=== PATIENT | female | born 1935 | race Caucasian/White ===

== ENCOUNTER → 2019-10-25 14:41 | Outpatient (BNVA) | payer MEDICARE, MEDICAID, SELFPAY | PROVIDERS: Family Provider Family Medicine; PCP Family Medicine; Visit Provider Anesthesiology | DX: M47.817 Spondylosis without myelopathy or radiculopathy, lumbosacral region (principal); M51.36 Other intervertebral disc degeneration, lumbar region; F17.210 Nicotine dependence, cigarettes, uncomplicated; Z79.891 Long term (current) use of opiate analgesic | CPT/HCPCS: 99214 ==

== ENCOUNTER 2019-10-30 13:35 | Emergency (ER) | payer MEDICARE, MEDICAID, SELFPAY ==
[2019-10-30 13:36] VITALS: BP 155/87; PULSE 119; RESP 19; TEMP 37.1; O2SAT 85; BMI 16.1
[2019-10-30 13:49] VITALS: O2SAT 93
--- NOTE | 2019-10-30 13:50 | ED_ITS ---
Entered by Masood Das, acting as scribe for Ramiro Yen DO HPI - Altered Mental Status General: Chief Complaint: Altered Mental Status Stated Complaint: AMS Time Seen by Provider: 10/30/19 14:00 History of Present Illness: HPI narrative: 84 yo female presents with altered mental status. states that pt was dazed and incoherent last night. states that pt has home health nurses that come to check on her, they couldn't get her to respond appropriately this morning. Pt states that she has back pain, states that this is chronic for her. Pt denies falling recently. Pt states that she has a productive cough. MD complaint: altered mental status Severity: moderate Associated symptoms: Deny auditory hallucinations, visual hallucinations, depression, homicidal ideation or suicidal ideation Treatments prior to arrival: oxygen Review of Systems Const: Denies: fever, chills, body aches, fatigue, malaise or night sweats Eyes: Denies: change in vision or blurry vision ENMT: Denies: throat pain, oral sores/lesions, dental pain, nasal discharge or nasal congestion Card: Denies: chest pain, palpitations, irregular heart rhythm, edema, syncope, shortness of breath on exertion, shortness of breath when lying down or leg pain with exertion Resp: Reports: productive cough and wheezing; Denies: shortness of breath or non-productive cough GI: Reports: abdominal pain; Denies: nausea, vomiting, vomiting blood, coffee grounds in vomit, difficulty swallowing, heartburn/indigestion, diarrhea, constipation, cramping, blood in stool or black tarry stool : Denies: flank pain, painful urination, urinary frequency, urinary urgency, urinary incontinence or blood in urine Musc: Reports: back pain; Denies: neck pain, extremity pain, extremity swelling, joint pain or joint swelling Skin/Breast: Denies: rash, itching or redness Neuro: Denies: headache, numbness in extremities, weakness in extremities, changes in sensation, lack of coordination, difficulty walking, frequent falls, dizziness, vertigo or confusion Psych: Denies: anxiety, depression, loss of interest, visual hallucinations, auditory hallucinations, suicidal ideation or homicidal ideation Endo: Denies: excessive urination, excessive thirst, tired all the time or cold intolerance Jack/Lymph: Denies: easy bruising, easy bleeding, petechiae, enlarged lymph nodes or tender lymph nodes PFSH ED PFSH: Medical History Back pain with radiation DDD (degenerative disc disease), lumbar Encounter for long-term opiate analgesic use Spondylosis without myelopathy or radiculopathy, lumbosacral region Surgical History History of endarterectomy Hx of cholecystectomy Hx of hysterectomy, total Hx of kyphoplasty Family History Other CAD (coronary artery disease) Social History Smoking and tobacco status: current every day smoker cigarettes Second hand smoke exposure: Yes Alcohol intake: never History of recent travel: No Physical Exam HENMT: COMMON NORMALS: normocephalic, head/scalp atraumatic, EAC's normal, TM's normal bilaterally, external nose normal, moist oral mucous membranes and oropharynx normal HEAD & SCALP: normocephalic and atraumatic NOSE: external nose normal EXTERNAL AUDITORY CANAL: EAC's normal TYMPANIC MEMBRANE: TM's normal bilaterally MOUTH: oral and palatal mucosa normal, lip normal and tongue normal THROAT: posterior oropharynx normal and tonsils normal Eye: COMMON NORMALS: PERRL, EOMs intact bilaterally, conjunctivae normal and no scleral icterus CONJUNCTIVA: Yes conjunctivae normal PUPIL: Yes PERRL Neck/C-Spine: COMMON NORMALS: full ROM, no lymphadenopathy, supple, no meningeal signs and thyroid normal THYROID: thyroid normal and asymmetrical Lymph: LYMPHATIC: no lymphadenopathy noted Resp: EFFORT & INSPECTION: Yes tachypneic AUSCULTATION: rales bilateral and diminished lung sounds Cardio: COMMON NORMALS: regular rate and regular rhythm RATE: regular rate RHYTHM: regular rhythm HEART SOUNDS: no murmurs GI: COMMON NORMALS: normal to inspection, nondistended, normoactive bowel sounds, soft to palpation and no hepatosplenomegaly PALPATION: Yes soft, Yes tender (diffuse) and Yes no hepatosplenomegaly : COMMON NORMALS: Yes no CVA tenderness BLADDER/KIDNEY EXAM: Yes no CVA tenderness Back/Pelvis: COMMON NORMALS: no CVA tenderness LUMBAR SPINE/LOWER BACK: Yes pain with ROM SACRUM: tenderness Extremity: COMMON NORMALS: no clubbing, cyanosis or edema, no calf tenderness and no pedal edema Neuro: MENINGEAL SIGNS: Yes no meningeal signs Skin: COMMON NORMALS: no rashes or lesions noted and skin turgor normal GENERAL SKIN EXAM: no rashes or lesions noted and turgor normal Course ED course: Work-up done and was going to do a head CT with the patient is back at her baseline is feeling fine is requesting home states she is back to her normal self they would both like to leave. Did encourage her to drink more fluids as her BUN is high encouraged her to follow-up with her primary care doctor. Discussed that I do not have an explanation for her elevated white count they expressed understanding this but wished to leave anyway. Vital Signs: Vital signs: Vital Signs Temperature 98.7 F 10/30/19 13:36 Pulse Rate 89 10/30/19 17:40 Respiratory Rate 16 10/30/19 17:40 Blood Pressure 175/82 10/30/19 17:40 Pulse Oximetry 95 10/30/19 17:40 MDM - Altered Mental Status Lab Data: Labs: Lab Results 10/30/19 10/30/19 10/30/19 Range/Units 14:15 14:25 14:25 WBC 17.1 H (4.0-10.0) 10^3/ uL RBC 4.54 (4.1-5.3) 10^6/u L Hgb 13.9 (11.5-15.3) g/dL Hct 41.1 (37.0-47.0) % MCV 90.5 (81-99) fL MCH 30.6 (28.0-34.0) pg MCHC 33.8 (30.0-36.0) g/dL RDW 14.1 (12.1-15.1) % Plt Count 297 (130-400) 10^3/c mm MPV 10.3 (7.4-10.4) fL Neut % (Auto) 91.3 % Lymph % (Auto) 3.6 % Gladwin % (Auto) 4.5 % Eos % (Auto) 0.0 % Baso % (Auto) 0.1 % Neut # (Auto) 15.6 H (1.8-7.7) 10^3/u L Lymph # (Auto) 0.6 L (0.8-4.8) 10^3/u L Gladwin # (Auto) 0.8 (0.2-0.9) 10^3/u L Eos # (Auto) 0.0 (0.0-0.8) 10^3/u L Baso # (Auto) 0.0 (0.0-0.1) 10^3/u L Nucleated RBC % (a uto) 0 % Nucleated RBCs # 0.0 /100WBC Sodium 131 L (136-145) mmol/L Potassium 4.7 (3.5-5.1) mmol/L Chloride 90 L (98-107) mmol/L Carbon Dioxide 27 (22-29) mmol/L Anion Gap 18.7 (5-19) BUN 33 H (8-23) mg/dL Creatinine 1.1 H (0.5-0.9) mg/dL Glucose 106 (65-115) mg/dL Calcium 10.2 (8.5-10.5) mg/dL Total Bilirubin 0.7 (0.15-1.2) mg/dL AST 31 (0-32) U/L ALT 16 (0-33) U/L Alkaline Phosphata se 109 H (35-105) IU/L Total Protein 8.0 (6.6-8.7) g/dL Albumin 3.8 (3.5-5.2) g/dL Globulin 4.2 (1.3-4.6) g/dL Urine Color Yellow (Yellow) Urine Appearance Sl hazy (CLEAR) Urine pH 5 (5-7) Ur Specific Gravit y 1.010 (1.005-1.030) Urine Protein 1+ H (Negative) Urine Glucose (UA) Norm (Normal) Urine Ketones 1+ H (Negative) Urine Occult Blood Neg (Negative) Urine Nitrate Negative (Negative) Urine Bilirubin 1+ H (NEGATIVE) Prot Sulfosalicyli c Acd Negative Urine Urobilinogen Norm (Negative) mg/dL Ur Leukocyte Sera ase Negative (Negative) Urine RBC None (0-2) /hpf Urine WBC 0-4 H (0-5) /hpf Ur Squamous Epith Cells None (0-5) Urine Bacteria Trace (NONE) Influenza Type A A g (Negative) POC Influenza B Ag (Negative) 10/30/19 Range/Units 14:25 WBC (4.0-10.0) 10^3/ uL RBC (4.1-5.3) 10^6/u L Hgb (11.5-15.3) g/dL Hct (37.0-47.0) % MCV (81-99) fL MCH (28.0-34.0) pg MCHC (30.0-36.0) g/dL RDW (12.1-15.1) % Plt Count (130-400) 10^3/c mm MPV (7.4-10.4) fL Neut % (Auto) % Lymph % (Auto) % Gladwin % (Auto) % Eos % (Auto) % Baso % (Auto) % Neut # (Auto) (1.8-7.7) 10^3/u L Lymph # (Auto) (0.8-4.8) 10^3/u L Gladwin # (Auto) (0.2-0.9) 10^3/u L Eos # (Auto) (0.0-0.8) 10^3/u L Baso # (Auto) (0.0-0.1) 10^3/u L Nucleated RBC % (a uto) % Nucleated RBCs # /100WBC Sodium (136-145) mmol/L Potassium (3.5-5.1) mmol/L Chloride (98-107) mmol/L Carbon Dioxide (22-29) mmol/L Anion Gap (5-19) BUN (8-23) mg/dL Creatinine (0.5-0.9) mg/dL Glucose (65-115) mg/dL Calcium (8.5-10.5) mg/dL Total Bilirubin (0.15-1.2) mg/dL AST (0-32) U/L ALT (0-33) U/L Alkaline Phosphata se (35-105) IU/L Total Protein (6.6-8.7) g/dL Albumin (3.5-5.2) g/dL Globulin (1.3-4.6) g/dL Urine Color (Yellow) Urine Appearance (CLEAR) Urine pH (5-7) Ur Specific Gravit y (1.005-1.030) Urine Protein (Negative) Urine Glucose (UA) (Normal) Urine Ketones (Negative) Urine Occult Blood (Negative) Urine Nitrate (Negative) Urine Bilirubin (NEGATIVE) Prot Sulfosalicyli c Acd Urine Urobilinogen (Negative) mg/dL Ur Leukocyte Sera ase (Negative) Urine RBC (0-2) /hpf Urine WBC (0-5) /hpf Ur Squamous Epith Cells (0-5) Urine Bacteria (NONE) Influenza Type A A g Negative (Negative) POC Influenza B Ag Negative (Negative) Discharge Plan Discharge Patient Disposition: Home, Self-Care Clinical Impression: Altered mental status, Medication side effect Condition: Stable Prescriptions: No Action tramadol 50 mg tablet 50 mg PO Q6H PRN (Reason: Pain) RF: 0 guaifenesin [Mucinex] 600 mg tablet extended release 12hr 600 mg PO BID PRN (Reason: Congestion) RF: 0 diclofenac sodium [Voltaren] 1 % gel 4 gm TOPICAL QID PRN (Reason: UNKNOWN) RF: 0 Movantik 25 mg tablet 25 mg PO QAM RF: 0 docusate sodium [Colace] 100 mg capsule 200 mg PO PRN RF: 0 furosemide [Lasix] 20 mg tablet 20 mg PO DAILY PRN (Reason: Edema) RF: 0 cholecalciferol (vitamin D3) [Vitamin D3] 25 mcg (1,000 unit) capsule 25 mcg PO DAILY RF: 0 aspirin 81 mg tablet,chewable 81 mg PO DAILY RF: 0 hydromorphone 2 mg tablet 2 mg PO QID 30 Days Qty: 120 RF: 0 pregabalin [Lyrica] 25 mg capsule 25 mg PO BID 30 Days Qty: 60 RF: 0 alendronate 70 mg tablet 70 mg PO .ONCE WEEKLY Qty: 12 RF: 0 lisinopril 5 mg tablet 5 mg PO BID Qty: 60 RF: 3 tizanidine 2 mg capsule 2 mg PO Q6H PRN (Reason: muscle spasticity) Qty: 30 RF: 0 Virt-Caps 1 mg capsule 1 cap PO DAILY RF: 0 Discharge Orders: Discharge Order (Routine); Ordered 10/30/19 Ordered By: Ramiro Yen Referrals: Herlinda Angulo DO [Primary Care Provider] - Discharge Diet: Usual diet Discharge Activity: Resume usual activity Activity Restrictions/Additional Instructions: Recommend you follow-up with your primary care doctor this week to review medications. Discharge Date/Time: 10/30/19 17:51 Coding Level of Care Code ED Steward/Stewardess Second Class for Chg Fwd Exam Comprehensive The documentation recorded by the Thiago hardy Kialy, accurately reflects the service I personally performed and the decisions made by , Ramiro Yen DO Oct 30, 2019 13:35
--- NOTE | 2019-10-30 14:07 | XR_ITS ---
WS: [id number] XR lumbar spine 2-3V* [id number] REASON FOR EXAM: pain FINDINGS: Arteriosclerotic changes with tortuosity of the descending thoracic aorta. Compression deformities with vertebral plasty T 11, T12, L1. Vertebral plasty L4-and L5. XR/XR lumbar spine 2-3V* [id number] IMPRESSION: Multiple vertebral plasties T11, T12, L1, L4, L5. Heavy arteriosclerotic changes with tortuosity of the descending thoracic aorta .
--- NOTE | 2019-10-30 14:07 | XR_ITS ---
WS: [id number] XR thoracic spine 2V [id number] REASON FOR EXAM: pain FINDINGS: Osteopenia changes are noted. Multiple vertebral plasties are seen in the lower thoracic sp ine T10, T11, T12. Mild compression deformity deformity noted T5. XR/XR thoracic spine 2V [id number] IMPRESSION: Osteoporosis Vertebroplasty T10, T11, T12 Mild compression changes T5
--- NOTE | 2019-10-30 14:07 | XR_ITS ---
WS: [id number] XR chest 1V portable [id number] REASON FOR EXAM: dyspnea/cough FINDINGS: Comparison to 10/30/2019 A reticular nodular pattern is seen throughout both lung estrada with cystic calcified densities. Sp us infection such as coccidioidomycosis should be considered as well as chronic inflammatory changes. These findings were not seen on the previous exam. In the right lower lung there is interstitial reticular pattern seen. XR/XR chest 1V portable [id number] IMPRESSION: Interval change since previous exam showing multiple partially calcified cystic lesions particularly in the left lung with fibrosis in the right lung the diff erential diagnosis includes fungus infection such as coccidiomycosis and chroni c inflammatory changes which have developed since the last exam. Diffuse interstitial findings are seen.
[2019-10-30 14:30] VITALS: RESP 16
[2019-10-30] MEDS: morphine 4 mg/mL SDV 1 mL 2 MG IVP (14:30)
[2019-10-30 14:32] LABS: Basophils % 0.1 %; Hematocrit 41.1 % (37.0-47.0); Hemoglobin 13.9 g/dL (11.5-15.3); Lymphocytes # 0.6 10^3/uL (0.8-4.8); Lymphocytes % 3.6 %; Mean Corpuscular HGB Conc 33.8 g/dL (30.0-36.0); Mean Corpuscular Hemoglobin 30.6 pg (28.0-34.0); Mean Corpuscular Volume 90.5 fL (81-99); Mean Platelet Volume 10.3 fL (7.4-10.4); Monocytes # 0.8 10^3/uL (0.2-0.9); Monocytes % 4.5 %; Neutrophils # 15.6 10^3/uL (1.8-7.7); Neutrophils % 91.3 %; Nucleated Red Blood Cells % 0 %; Platelet Count 297 10^3/cmm (130-400); Red Blood Count 4.54 10^6/uL (4.1-5.3); Red Cell Distribution Width 14.1 % (12.1-15.1); White Blood Count 17.1 10^3/uL (4.0-10.0)
[2019-10-30] MEDS: ondansetron 2 mg/ML SDV 2 mL 4 MG IVP (14:35)
[2019-10-30 14:48] LABS: Alanine Aminotransferase 16 U/L (0-33); Albumin Level 3.8 g/dL (3.5-5.2); Alkaline Phosphatase 109 IU/L (35-105); Anion Gap 18.7 (5-19); Aspartate Amino Transferase 31 U/L (0-32); Blood Urea Nitrogen 33 mg/dL (8-23); Calcium 10.2 mg/dL (8.5-10.5); Carbon Dioxide 27 mmol/L (22-29); Chloride 90 mmol/L (98-107); Globulin 4.2 g/dL (1.3-4.6); Glucose 106 mg/dL (65-115); Potassium 4.7 mmol/L (3.5-5.1); Sodium 131 mmol/L (136-145); Total Bilirubin 0.7 mg/dL (0.15-1.2)
[2019-10-30 14:54] LABS: Add Urine Microscopic? YES; Bilirubin Urine 1+ (NEGATIVE); Blood Urine Neg (Negative); Glucose Urine UA Norm (Normal); Ketones Urine 1+ (Negative); Leukocyte Esterase Urine Negative (Negative); Nitrate Urine Negative (Negative); Protein Urine 1+ (Negative); Sulfosalicylic Acid Urine Negative; Urine Appearance SL Hazy (CLEAR); Urine Color Yellow (Yellow); Urobilinogen Urine Norm (Negative); pH Urine 5 (5-7)
[2019-10-30 14:55] LABS: Influenza A by IFA Negative (Negative); Influenza B by IFA Negative (Negative)
[2019-10-30 15:01] LABS: Bacteria Urine TRACE; WBC Urine 0-4 /hpf (0-5)
[2019-10-30] MEDS: ipratropium-albuterol 3 mL Neb INHALATION (15:02)
[2019-10-30 15:06] VITALS: PULSE 93; RESP 16; O2SAT 93
--- NOTE | 2019-10-30 15:48 | CTR_ITS ---
PROCEDURE INFORMATION: Exam: CT Abdomen And Pelvis With Contrast Exam date and time: 10/30/2019 3:57 PM Age: 84 years old Clinical indication: Abnormal findings; Abnormal lab test; Prior surgery; Surgery type: Gb kyphoplasty hysterectomy; Patient HX: Elevated wbc and neutrophil count. C/O back pain; Additional info: Abd pain TECHNIQUE: Imaging protocol: Computed tomography of the abdomen and pelvis with intravenous contrast. Total DLP: 443.2 mGy-cm Radiation optimization: All CT scans at this facility use at least one of these dose optimization techniques: automated exposure control; mA and/or kV adjustment per patient size (includes targeted exams where dose is matched to clinical indication); or iterative reconstruction. Contrast material: VISI 320; Contrast volume: 75 ml; Contrast route: 20G; COMPARISON: CT Abdomen/Pelvis Renal [id number] 04/11/2018 4:25 PM FINDINGS: Lungs: There is centrilobular emphysema. There is superimposed consolidation within the right lower lobe. Liver: The liver is normal. Gallbladder and bile ducts: Status post cholecystectomy. The common bile duct and intrahepatic bile ducts are dilated. The common bile duct reaches 14 mm in diameter. No obstructive calculus or lesion is identified. No change from prior scan. Pancreas: Normal. No ductal dilation. Spleen: Normal. No splenomegaly. Adrenals: No adrenal abnormality. Kidneys and ureters: There are multiple bilateral renal simple cysts. The largest is on the right and measures 7 cm, increased from 6 centimetres on prior scan. No enhancing lesion. No hydronephrosis. Stomach and bowel: Moderate fecal stasis in the rectum with no evidence of bowel obstruction. No wall thickening. No obstruction. Appendix: No evidence of appendicitis. Appendix not visualized. Intraperitoneal space: There is no free fluid or fluid collection. There is no free air. Vasculature: There is an abdominal aortic aneurysm with maximal diameter of 4.0 cm, unchanged from prior scan. No rupture. There is dense atherosclerotic calcification of the mesenteric vessels unchanged from prior scan. Lymph nodes: Unremarkable. No enlarged lymph nodes. Bladder: The bladder is normal with no evidence of calculi. Reproductive: Status post hysterectomy. Bones/joints: There are compression fractures with previous kyphoplasty at T12, L1, L2, L4 and L5. This is unchanged from the prior scan. No progression of the compression fractures. No new fracture. There are advanced degenerative changes of the hips. Soft tissues: Unremarkable. CT/CT abdomen pelvis w con* [id number] IMPRESSION: 1. Emphysema with focal area of consolidation in the right lower lobe. 2. Status post cholecystectomy with chronic biliary dilation unchanged from prior scan. 3. 4.0 cm infrarenal abdominal aortic aneurysm, unchanged from prior scan. No rupture. 4. No acute findings. COMMENT: Consistent with the [employer]'s Incidental Findings Committee white paper (J Am Bud Radiol 2018): Any incidental cystic renal lesion classified in this report as too small to characterize or simple appearing is likely a benign cyst. No follow-up imaging is recommended for these lesions per consensus recommendations based on imaging criteria. Radiation Dose CTDIVOL = (mGy): DLP = 443.2 (mGy-cm)
[2019-10-30] MEDS: iodixanol 320 mg/mL 100mL Btl IV (16:15)
[2019-10-30 17:29] VITALS: BP 140/96; PULSE 100; O2SAT 93
[2019-10-30 17:40] VITALS: BP 175/82; PULSE 89; RESP 16; O2SAT 95
== END 2019-10-30 17:51 | disposition home or self-care (01) ==
PROVIDERS: Emergency Provider Family Medicine; Family Provider Family Medicine; PCP Family Medicine
DX: R41.82 Altered mental status, unspecified (principal); F17.210 Nicotine dependence, cigarettes, uncomplicated
CPT/HCPCS: 36415; 71045; 72070; 72100; 74177; 80053; 81001; 85025; 87804; 94640; 96375; 99283; J2270; J2405; Q9967

== ENCOUNTER 2019-11-01 11:41 | Inpatient (IN) | payer MEDICARE, MEDICAID, SELFPAY ==
[2019-11-01] VITALS (13 sets, daily range): BP systolic 119–198; BP diastolic 59–113; PULSE 74–95; RESP 15–92; TEMP 36.5–37.2; O2SAT 80–98; BMI 15.5
--- NOTE | 2019-11-01 11:59 | ED_ITS ---
Entered by Tosha Woods, acting as scribe for HPI - General Adult General: Chief complaint: General Medical Stated complaint: AMS Time Seen by Provider: 11/01/19 11:50 Source: EMS Mode of arrival: EMS Limitations: no limitations History of Present Illness: HPI narrative: 84 yo female presents with shortness of breath. pt states that she was sent to the ED because her son in law got scared because she had increased shortness of breath. pt states she was her yesterday for the same symptoms and she was sent home. pt denies any other symptoms at this time. Moderately productive cough. MD complaint: shortness of breath Onset (ago): day(s) (today) Radiation: non-radiation Severity: mild Pain Consistency: constant Relieving factors: none Exacerbating factors: other (cough) Associated symptoms: Reports cough, dyspnea and short of breath; Deny chest pain, malaise, nausea, rash or vomiting Treatments prior to arrival: other (oxygen by EMS) Review of Systems General: Reports: 10 or more systems reviewed and unremarkable except in HPI and below Const: Denies: fever, chills, body aches, change in appetite, fatigue or malaise ENMT: Denies: throat pain, ear pain, nasal discharge or nasal congestion Card: Denies: chest pain, edema, shortness of breath on exertion or shortness of breath when lying down Resp: Reports: shortness of breath GI: Denies: abdominal pain, nausea, vomiting, vomiting blood, coffee grounds in vomit, diarrhea, constipation, bloating, blood in stool or black tarry stool : Denies: flank pain, difficulty urinating, painful urination, urinary frequency or urinary urgency Skin/Breast: Denies: rash or itching PFS ED PFSH: Medical History AAA (abdominal aortic aneurysm) Back pain with radiation Carotid stenosis COPD (chronic obstructive pulmonary disease) -Acute COPD exacerbation as evidenced by increased oxygen requirement -Continue oral steroids and empiric antibiotics as noted above -Home oxygen evaluation prior to discharge as she has required supplemental oxygen throughout her hospital stay, she is not oxygen dependent at baseline DDD (degenerative disc disease), lumbar Encounter for long-term opiate analgesic use Hyperlipidemia -Statin added during this admission, continue on discharge Hypertension -Hemodynamically stable, continue oral antihypertensives including addition of amlodipine Spondylosis without myelopathy or radiculopathy, lumbosacral region Surgical History History of endarterectomy bilateral History of tonsillectomy and adenoidectomy Hx of cholecystectomy Hx of hysterectomy, total Hx of kyphoplasty Family History Other CAD (coronary artery disease) Social History Smoking and tobacco status: current every day smoker cigarettes Second hand smoke exposure: Yes Alcohol intake: never History of recent travel: No Physical Exam Const: COMMON NORMALS: no apparent distress GENERAL APPEARANCE: cooperative and comfortable ORIENTATION/CONSCIOUSNESS: Yes awake, Yes oriented to person, Yes oriented to place and Yes oriented to time HENMT: COMMON NORMALS: normocephalic, head/scalp atraumatic, hearing grossly normal bilaterally, external ears normal, EAC's normal, TM's normal bilaterally, nasal mucous membranes and turbinates normal, moist oral mucous membranes and oropharynx normal HEAD & SCALP: normocephalic and atraumatic NOSE: nasal mucous membranes and turbinates normal EXTERNAL EAR: Yes external ears normal EXTERNAL AUDITORY CANAL: EAC's normal TYMPANIC MEMBRANE: TM's normal bilaterally Eye: COMMON NORMALS: PERRL, EOMs intact bilaterally, conjunctivae normal and no scleral icterus CONJUNCTIVA: Yes conjunctivae normal PUPIL: Yes PERRL Neck/C-Spine: COMMON NORMALS: full ROM, no lymphadenopathy, supple and no JVD Lymph: LYMPHATIC: no lymphadenopathy noted and no lymphedema noted Resp: OTHER: Expiratory wheeze with bilateral basilar rhonchi. Cardio: COMMON NORMALS: no JVD, regular rate, regular rhythm and no murmurs RATE: regular rate RHYTHM: regular rhythm GI: COMMON NORMALS: soft to palpation and no hepatosplenomegaly AUSCULTATION: Yes normoactive bowel sounds PALPATION: Yes soft, No tender, No guarding and Yes no hepatosplenomegaly Extremity: COMMON NORMALS: normal to inspection, normal capillary refill, no clubbing, cyanosis or edema, no calf tenderness and no pedal edema Neuro: SENSORIUM/ORIENTATION: Yes oriented to person, Yes oriented to place and Yes oriented to time Skin: COMMON NORMALS: no rashes or lesions noted GENERAL SKIN EXAM: no rashes or lesions noted Course ED course: Admit for exacerbation COPD early changes and pneumonia Vital Signs: Vital signs: Vital Signs Temperature 97.9 F 11/04/19 15:18 Pulse Rate 86 11/04/19 15:18 Respiratory Rate 16 11/04/19 16:00 Blood Pressure 120/62 11/04/19 15:18 Pulse Oximetry 91 11/04/19 15:18 [facility] - General Adult Lab Data: Labs: Lab Results 11/01/19 11/01/19 11/01/19 Range/Units 12:09 12:16 12:16 WBC 17.0 H (4.0-10.0) 10^3/ uL RBC 4.12 (4.1-5.3) 10^6/u L Hgb 12.7 (11.5-15.3) g/dL Hct 38.8 (37.0-47.0) % MCV 94.2 (81-99) fL MCH 30.8 (28.0-34.0) pg MCHC 32.7 (30.0-36.0) g/dL RDW 14.4 (12.1-15.1) % Plt Count 290 (130-400) 10^3/c mm MPV 10.3 (7.4-10.4) fL Neut % (Auto) 86.7 % Lymph % (Auto) 6.1 % [place] % (Auto) 6.6 % Eos % (Auto) 0.0 % Baso % (Auto) 0.2 % Neut # (Auto) 14.7 H (1.8-7.7) 10^3/u L Lymph # (Auto) 1.0 (0.8-4.8) 10^3/u L La[place] # (Auto) 1.1 H (0.2-0.9) 10^3/u L Eos # (Auto) 0.0 (0.0-0.8) 10^3/u L Baso # (Auto) 0.0 (0.0-0.1) 10^3/u L Nucleated RBC % (a uto) 0 % Nucleated RBCs # 0.0 /100WBC Specimen Type Sample Site ABG pH (7.35-7.45) ABG pCO2 (35-45) mmHg ABG pO2 (80.0-100.0) mmH g ABG HCO3 (22-26) mmol/L ABG Base Excess (-2.0-2.0) mmol/ L [place] Test Hematocrit (37-47) % Hgb O2 Saturation (95-100) % Carboxyhemoglobin (0.4-20.1) %THgb Methemoglobin (0.4-1.5) % Total Hemoglobin (12-16) g/dL O2 Delivery Device O2 Liters/Min % FiO2 % Biologist ID Sodium 127 L (136-145) mmol/L Potassium 4.7 (3.5-5.1) mmol/L Chloride 90 L (98-107) mmol/L Carbon Dioxide 26 (22-29) mmol/L Anion Gap 15.7 (5-19) BUN 42 H (8-23) mg/dL Creatinine 1.2 H (0.5-0.9) mg/dL Glucose 106 (65-115) mg/dL Calcium 10.7 H (8.5-10.5) mg/dL Total Bilirubin 0.4 (0.15-1.2) mg/dL AST 43 H (0-32) U/L ALT 21 (0-33) U/L Alkaline Phosphata se 116 H (35-105) IU/L Total Protein 7.8 (6.6-8.7) g/dL Albumin 3.6 (3.5-5.2) g/dL Globulin 4.2 (1.3-4.6) g/dL TSH (0.27-4.20) uIU/ mL Influenza Type A A g Negative (Negative) POC Influenza B Ag Negative (Negative) 11/01/19 11/01/19 Range/Units 12:16 12:37 WBC (4.0-10.0) 10^3/ uL RBC (4.1-5.3) 10^6/u L Hgb (11.5-15.3) g/dL Hct (37.0-47.0) % MCV (81-99) fL MCH (28.0-34.0) pg MCHC (30.0-36.0) g/dL RDW (12.1-15.1) % Plt Count (130-400) 10^3/c mm MPV (7.4-10.4) fL Neut % (Auto) % Lymph % (Auto) % Laurel % (Auto) % Eos % (Auto) % Baso % (Auto) % Neut # (Auto) (1.8-7.7) 10^3/u L Lymph # (Auto) (0.8-4.8) 10^3/u L Laurel # (Auto) (0.2-0.9) 10^3/u L Eos # (Auto) (0.0-0.8) 10^3/u L Baso # (Auto) (0.0-0.1) 10^3/u L Nucleated RBC % (a uto) % Nucleated RBCs # /100WBC Specimen Type Arterial Sample Site Brachial, left ABG pH 7.41 (7.35-7.45) ABG pCO2 43.4 (35-45) mmHg ABG pO2 81.6 (80.0-100.0) mmH g ABG HCO3 27.2 H (22-26) mmol/L ABG Base Excess 2.1 H (-2.0-2.0) mmol/ L [place] Test N/a Hematocrit 39.4 (37-47) % Hgb O2 Saturation 95.0 (95-100) % Carboxyhemoglobin 1.6 (0.4-20.1) %THgb Methemoglobin 0.3 L (0.4-1.5) % Total Hemoglobin 12.9 (12-16) g/dL O2 Delivery Device Nc O2 Liters/Min 4.0 % FiO2 36.0 % Biologist ID amh Sodium (136-145) mmol/L Potassium (3.5-5.1) mmol/L Chloride (98-107) mmol/L Carbon Dioxide (22-29) mmol/L Anion Gap (5-19) BUN (8-23) mg/dL Creatinine (0.5-0.9) mg/dL Glucose (65-115) mg/dL Calcium (8.5-10.5) mg/dL Total Bilirubin (0.15-1.2) mg/dL AST (0-32) U/L ALT (0-33) U/L Alkaline Phosphata se (35-105) IU/L Total Protein (6.6-8.7) g/dL Albumin (3.5-5.2) g/dL Globulin (1.3-4.6) g/dL TSH 1.18 (0.27-4.20) uIU/ mL Influenza Type A A g (Negative) POC Influenza B Ag (Negative) Discharge Plan Discharge Patient Disposition: Admitted As Inpatient Admit Provider: Padmini Carter Clinical Impression: Pneumonia, COPD (chronic obstructive pulmonary disease) Condition: Stable Discharge Orders: Discharge Order (Routine); Ordered 11/04/19 Ordered By: Anaid Manriquez Referrals: [facility] [Outside] [facility] [Outside] Herlinda Angulo DO [Primary Care Provider] - 4-7 days (Please call Wednesday to set up a Post hospital discharge follow-up; treated for pneumonia and acute COPD exacerbation with azithromycin and ceftriaxone then discharged on a course of Augmentin and oral prednisone) Discharge Diet: Cardiac Discharge Activity: Resume usual activity Interventions: ED Discharge Assessment Last Done: 11/01/19 17:50 Discharge Date/Time: 11/01/19 18:01 Coding Level of Care Code ED Cement Finishing Supervisor for Chg Fwd Exam Comprehensive The documentation recorded by the Chuck hardy Bridget Annette, accurately reflects the service I personally performed and the decisions made by Yovana casas Curtis L, DO Nov 01, 2019 11:41
--- NOTE | 2019-11-01 12:04 | XR_ITS ---
WS: [id number] XR chest 1V portable [id number] REASON FOR EXAM: dyspnea FINDINGS: The calcified cystic-appearing lesions are not seen on today's exam. In the left lung base are diffuse interstitial pneumonia now present. There is diffuse reticular nodular pattern consistent with interstitial disease. On previous exam the re was suggestion of possible fungus infection this is not well seen today. 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
[2019-11-01 12:21] LABS: Basophils % 0.2 %; Hematocrit 38.8 % (37.0-47.0); Hemoglobin 12.7 g/dL (11.5-15.3); Lymphocytes % 6.1 %; Mean Corpuscular HGB Conc 32.7 g/dL (30.0-36.0); Mean Corpuscular Hemoglobin 30.8 pg (28.0-34.0); Mean Corpuscular Volume 94.2 fL (81-99); Mean Platelet Volume 10.3 fL (7.4-10.4); Monocytes # 1.1 10^3/uL (0.2-0.9); Monocytes % 6.6 %; Neutrophils # 14.7 10^3/uL (1.8-7.7); Neutrophils % 86.7 %; Nucleated Red Blood Cells % 0 %; Platelet Count 290 10^3/cmm (130-400); Red Blood Count 4.12 10^6/uL (4.1-5.3); Red Cell Distribution Width 14.4 % (12.1-15.1)
[2019-11-01 12:34] LABS: Albumin Level 3.6 g/dL (3.5-5.2); Anion Gap 15.7 (5-19); Aspartate Amino Transferase 43 U/L (0-32); Blood Urea Nitrogen 42 mg/dL (8-23); Calcium 10.7 mg/dL (8.5-10.5); Carbon Dioxide 26 mmol/L (22-29); Chloride 90 mmol/L (98-107); Glucose 106 mg/dL (65-115); Potassium 4.7 mmol/L (3.5-5.1); Sodium 127 mmol/L (136-145); Total Bilirubin 0.4 mg/dL (0.15-1.2); Total Protein 7.8 g/dL (6.6-8.7)
[2019-11-01 12:35] LABS: Alkaline Phosphatase 116 IU/L (35-105); Globulin 4.2 g/dL (1.3-4.6)
[2019-11-01 12:42] LABS: Influenza A by IFA Negative (Negative); Influenza B by IFA Negative (Negative)
[2019-11-01 12:45] LABS: Alanine Aminotransferase 21 U/L (0-33)
[2019-11-01] MEDS: sodium chloride 0.9% 500 ML 999 ML IV (13:27)
[2019-11-01] MEDS: cefTRIAXone 1,000 MG in sodium chloride 0.9% (plus) 50 ML 100 MG IV ×2 (14:22→18:52)
--- NOTE | 2019-11-01 14:31 | P.HP_ITS ---
Providers/Chief Complaint Admitting Physician: Padmini Carter DO Primary Care Provider: Herlinda Angulo DO Chief Complaint: AMS History of Present Illness Flor Mishra is a 84 year old female that presented to the emergency department today initially treated with concern for altered mental status, however patient was able to answer questions appropriately and recalled being here couple of days ago and could even recall her room number from her previous stay. Patient reports increased cough over the past couple of days. Stated that she has been feeling well since Wednesday or Wednesday of last week. Occasional confusion off and on since Wednesday and Wednesday of past weekend. Patient stated no fevers, no chills, no sick contacts. Patient reported constipation, no diarrhea, no melena. Denies any abdominal pain or nausea, reports decreased appetite and weight loss over the past several months. Patient was seen and evaluated in the emergency department noted to have concern for pneumonia and admitted for further evaluation and treatment. Review of Systems Const: Reports: change in appetite; Denies: fever or chills Eyes: Denies: change in vision ENMT: Denies: nasal congestion Card: Denies: chest pain, palpitations or edema Resp: Reports: productive cough; Denies: shortness of breath or coughing up blood GI: Denies: abdominal pain, nausea, vomiting, diarrhea, constipation, blood in stool or black tarry stool : Denies: painful urination or blood in urine Musc: Denies: extremity pain or muscle cramps Skin/Breast: Denies: rash or new lesion Neuro: Denies: headache or dizziness Psych: Denies: anxiety or depression Endo: Denies: excessive urination or hot flashes Jack/Lymph: Denies: easy bruising or easy bleeding Medications/Allergies Home Medications Medication Instructions Recorded Confirmed Last Taken Type alendronate 70 mg PO Q7D 11/01/19 11/01/19 Unknown History Allergies Allergy/AdvReac Type Severity Reaction Status Date / Time levofloxacin Allergy Severe ADR-Halluci Verified 10/25/19 15:33 nating hydrocodone Allergy ALGY-Swell Verified 10/30/19 13:47 Lip/Tongue/Throat latex Allergy ALGY-Anaphy Verified 10/30/19 13:47 laxis Penicillins Allergy ALGY-Bliste Verified 10/30/19 13:47 r Sulfa (Sulfonamide Allergy ALGY-Hives Verified 10/30/19 13:47 Antibiotics) tetracycline Allergy ALGY-Swell Verified 10/30/19 13:47 Lip/Tongue/Throat PFSH Acute PFSH: Medical History (Updated 11/01/19 @ 14:59 by Padmini Carter DO) AAA (abdominal aortic aneurysm) Back pain with radiation Carotid stenosis COPD (chronic obstructive pulmonary disease) DDD (degenerative disc disease), lumbar Encounter for long-term opiate analgesic use Hyperlipidemia Hypertension Spondylosis without myelopathy or radiculopathy, lumbosacral region Surgical History (Updated 11/01/19 @ 14:59 by Padmini Carter DO) History of endarterectomy bilateral History of tonsillectomy and adenoidectomy Hx of cholecystectomy Hx of hysterectomy, total Hx of kyphoplasty Family History Other CAD (coronary artery disease) Social History Smoking and tobacco status: current every day smoker cigarettes Second hand smoke exposure: Yes Alcohol intake: never History of recent travel: No Vitals/I&O/Wt Last Vital Signs Temp 97.9 F 11/01/19 11:42 Pulse 87 11/01/19 13:03 Resp 17 11/01/19 13:03 BP 163/86 11/01/19 13:03 Pulse Ox 94 11/01/19 13:03 Weight last 48 hrs Weight 34.927 kg Physical Exam Const: COMMON NORMALS: oriented x3 and alert GENERAL APPEARANCE: cooperative NUTRITIONAL APPEARANCE: cachectic, thin and underweight ORIENTATION/CONSCIOUSNESS: Yes awake, Yes oriented to person, Yes oriented to place and Yes oriented to time HENMT: COMMON NORMALS: normocephalic and head/scalp atraumatic HEAD & SCALP: normocephalic and atraumatic OTHER: Temporal wasting Eye: COMMON NORMALS: PERRL PUPIL: Yes PERRL Neck/C-Spine: COMMON NORMALS: supple Resp: OTHER: Diminished breath sounds bilaterally with prolonged expiratory phase, oxygen by nasal cannula in place, no appreciable wheezing Cardio: COMMON NORMALS: regular rate, regular rhythm and no murmurs RATE: regular rate RHYTHM: regular rhythm GI: COMMON NORMALS: soft to palpation and non-tender INSPECTION: No abdominal distension AUSCULTATION: Yes normoactive bowel sounds PALPATION: Yes soft Extremity: COMMON NORMALS: no clubbing, cyanosis or edema and no calf tenderness Neuro: COMMON NORMALS: oriented x3, CN's II-XII intact bilaterally, moves all extremities and no focal motor deficits SENSORIUM/ORIENTATION: Yes alert, Yes oriented to person, Yes oriented to place and Yes oriented to time SPEECH: speech normal Psych: COMMON NORMALS: mental status grossly normal and cooperative Skin: COMMON NORMALS: no rashes or lesions noted GENERAL SKIN EXAM: no rashes or lesions noted Data : 11/01/19 12:16 11/01/19 12:16 CXR: Radiologist's impression: IMPRESSION: Left lower lung interstitial pneumonia 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 A&P Assessment and plan (1) Pneumonia: Pneumonia with concomitant COPD Chest x-ray as noted above Patient has multiple medication allergies including Levaquin, penicillin, sulfa and tetracycline Started on azithromycin in the emergency department, will continue at this time along with Rocephin Oxygen per protocol, respiratory therapy to assess and treat Patient will likely require oxygen at discharge Status: Acute Code(s): J18.9 - Pneumonia, unspecified organism (2) Altered mental status: This seems to be resolved, patient is mentating at her baseline and is alert and oriented x3. Status: Acute Code(s): R41.82 - Altered mental status, unspecified (3) Hyperlipidemia: Recommend starting on statin medication Status: Acute Code(s): E78.5 - Hyperlipidemia, unspecified (4) Hypertension: Continue home lisinopril Status: Acute Code(s): I10 - Essential (primary) hypertension (5) COPD (chronic obstructive pulmonary disease): Severe emphysematous changes and patient continues to smoke Oxygen per protocol, respiratory therapy to assess and treat Strongly encouraged tobacco cessation Status: Acute Code(s): J44.9 - Chronic obstructive pulmonary disease, unspecified Additional A&P Information Dehydration: Continue with gentle IV fluids Abdominal aortic aneurysm: Followed by cardiology, Dr. Morejon in the outpatient setting Bilateral carotid artery stenosis: Status post endarterectomy bilaterally Advanced age, thin, protein calorie malnutrition Acute kidney injury: Continue with gentle IV fluids and monitor recheck in the morning, appears to be prerenal due to dehydration Chronic pain on daily opioids: On chronic hydromorphone 4 times daily, this could also be contributing to some of her intermittent confusion Generalized deconditioning: Physical therapy and Occupational Therapy ordered Chronic muscle wasting DVT prophylaxis: Lovenox Diet: GI soft CODE STATUS: Full code Attestations Medical Necessity Statement*: Patient admitted to the hospital due to concern for altered mental status with pneumonia, expected stay greater than 2 midnights Coding Level of Care Code Acute 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
[2019-11-01] MEDS: azithromycin 500 MG in sodium chloride 0.9% 250 ML 250 MG IV (14:44)
[2019-11-01] MEDS: ipratropium-albuterol 3 mL Neb INHALATION (15:40)
[2019-11-01] MEDS: dextrose 5%-sod chloride 0.9% 1,000 ML 50 ML IV (18:50)
[2019-11-01] MEDS: pregabalin 25 mg Capsule PO (18:51)
[2019-11-01] MEDS: lisinopril 5 mg Tablet PO (18:51)
[2019-11-01] MEDS: enoxaparin 40 mg/0.4 mL Syringe SUBCUT (18:52)
[2019-11-01 18:56] LABS: Thyroid Stimulating Hormone 1.18 uIU/mL (0.27-4.20)
[2019-11-02] VITALS (12 sets, daily range): BP systolic 121–189; BP diastolic 57–86; PULSE 63–96; RESP 16–24; TEMP 36.5–36.9; O2SAT 89–96
[2019-11-02] MEDS: ipratropium-albuterol 3 mL Neb INHALATION (08:02)
[2019-11-02] MEDS: aspirin 81 mg Chew Tablet PO (09:10)
[2019-11-02] MEDS: pregabalin 25 mg Capsule PO ×2 (09:10→18:26)
[2019-11-02] MEDS: azithromycin 250 mg Tablet 500 MG PO (09:10)
[2019-11-02] MEDS: lisinopril 5 mg Tablet PO (09:11)
--- NOTE | 2019-11-02 11:05 | XR_ITS ---
WS: [id number] XR chest 2V* [id number] REASON FOR EXAM: hypoxia, pneumonia FINDINGS: The interstitial pneumonia in the left side shows increased edema this changes. Chronic obstructive pulmonary disease findings are noted. Scattered groundglass appearance on the left side slightly more accentuated. The heart is not enlarged there is arteriosclerotic changes seen. The aorta descending shows heavy ar teriosclerotic changes and marked tortuosity. There is evidence of vertebral plasty in the lower thoracic upper lumbar spine. XR/XR chest 2V* [id number] IMPRESSION: Increased left lower lung pneumonia Groundglass appearance is seen in the lingula segment on the left The aorta shows marked tortuosity.
--- NOTE | 2019-11-02 11:13 | P.PN_ITS ---
Subjective Subjective: Interval history: Sitting up in bed this morning eating breakfast. At time of exam she denied any chest pain or shortness of breath. Noted continued cough with sputum production, unchanged. She was able to tell me that she was in the hospital in [place], concerned that her son-in-law had not been back since admission. Vitals/I&O/Wt Last Vital Signs Temp 97.7 F 11/02/19 11:02 Pulse 94 11/02/19 11:02 Resp 16 11/02/19 11:02 BP 175/86 11/02/19 11:02 Pulse Ox 90 11/02/19 11:02 11/01/19 11/02/19 11/02/19 22:59 06:59 14:59 Intake Total 120 / 120 240 / 240 Output Total 560 / 560 Balance -440 / -440 240 / 240 Weight last 48 hrs Weight 37.875 kg Weight 34.927 kg Physical Exam Const: COMMON NORMALS: oriented x3 and alert GENERAL APPEARANCE: cooperative NUTRITIONAL APPEARANCE: cachectic, thin and underweight ORIE NTATION/CONSCIOUSNESS: Yes awake, Yes oriented to person, Yes oriented to place and Yes oriented to time HENMT: COMMON NORMALS: normocephalic and head/scalp atraumatic HEAD & SCALP: normocephalic and atraumatic OTHER: Temporal wasting Eye: COMMON NORMALS: PERRL PUPIL: Yes PERRL Neck/C-Spine: COMMON NORMALS: supple GENERAL: Yes normal visual inspection Resp: COMMON NORMALS: normal respiratory effort EFFORT & INSPECTION: Yes able to speak in complete sentences OTHER: Coarse breath sounds bilaterally, oxygen by nasal cannula in place, no accessory muscle use at this time Cardio: COMMON NORMALS: regular rate and regular rhythm RATE: regular rate RHYTHM: regular rhythm GI: COMMON NORMALS: soft to palpation and non-tender INSPECTION: No abdominal distension AUSCULTATION: Yes normoactive bowel sounds PALPATION: Yes soft Extremity: COMMON NORMALS: no clubbing, cyanosis or edema and no calf tenderness Neuro: COMMON NORMALS: oriented x3, CN's II-XII intact bilaterally, moves all extremities and no focal motor deficits SENSORIUM/ORIENTATION: Yes alert, Yes oriented to person, Yes oriented to place and Yes oriented to time SPEECH: speech normal Psych: COMMON NORMALS: mental status grossly normal and cooperative Skin: COMMON NORMALS: no rashes or lesions noted GENERAL SKIN EXAM: no rashes or lesions noted Data : 11/01/19 12:16 11/01/19 12:16 Micro: Microbiology 11/01/19 14:47 Blood Culture - Preliminary Blood SPECIMEN COLLECTED 11/01/19 12:16 Blood Culture - Preliminary Blood SPECIMEN COLLECTED A&P Assessment and plan (1) Pneumonia: Pneumonia with concomitant COPD Continue on Rocephin and azithromycin Increased oxygen requirements today, will repeat chest x-ray and order ABG for further evaluation Patient does have severe emphysematous changes on imaging Status: Acute Code(s): J18.9 - Pneumonia, unspecified organism (2) Altered mental status: This seems to be resolved Patient was alert and oriented to person, place and time this morning, occasional confusion according to RN another staff. Reports she cannot recall her address her home phone number. Status: Acute Code(s): R41.82 - Altered mental status, unspecified (3) Hyperlipidemia: Recommend starting on statin medication Status: Acute Code(s): E78.5 - Hyperlipidemia, unspecified (4) Hypertension: Hold home lisinopril due to acute kidney injury Continue to monitor blood pressure closely today, add amlodipine IV hydralazine as needed for elevated blood pressures Status: Acute Code(s): I10 - Essential (primary) hypertension (5) COPD (chronic obstructive pulmonary disease): Severe emphysematous changes and patient continues to smoke Oxygen per protocol, respiratory therapy to assess and treat Strongly encouraged tobacco cessation Status: Acute Code(s): J44.9 - Chronic obstructive pulmonary disease, unspecified Additional A&P Information Dehydration: Hold IV fluids at this time Abdominal aortic aneurysm: Followed by cardiology, Dr. Morejon in the outpatient setting Bilateral carotid artery stenosis: Status post endarterectomy bilaterally Advanced age, thin, protein calorie malnutrition Acute kidney injury: Hold home lisinopril and nephrotoxic agents. Chronic pain on daily opioids: On chronic hydromorphone 4 times daily, this could also be contributing to some of her intermittent confusion Generalized deconditioning: Physical therapy and Occupational Therapy ordered Chronic muscle wasting Patient with increasing oxygen requirements today, repeat chest x-ray, ABG, EKG and troponin. Telemetry. RTAT, oxygen per protocol. DVT prophylaxis: Lovenox Diet: GI soft CODE STATUS: Full code Attestations Medical Necessity Statement*: Patient requires continued hospitalization due to pneumonia with advanced age and severe COPD. Increasing oxygen requirements, hypoxemia, today. Coding Level of Care Code Acute Form Tamping Machine Operator for [facility] Fwd Diagnoses Pneumonia J18.9 Altered mental status R41.82 Hyperlipidemia E78.5 Hypertension I10 COPD (chronic obstructive pulmonary disease) J44.9
--- NOTE | 2019-11-02 11:13 | ECG_ITS ---
Measurements Intervals [place] Rate: 86 P: 53 [place]: 133 QRS: -31 QRSD: 99 T: -4 QT: 387 QTc: 465 SINUS RHYTHM WITH OCCASIONAL SUPRAVENTRICULAR PREMATURE COMPLEXES MARKED LEFT AXIS DEVIATION [QRS AXIS < -30] MODERATE T-WAVE ABNORMALITY, CONSIDER ANTEROLATERAL ISCHEMIA [-0.1+ mV T WAVE IN INTERPRETATION BASED ON A DEFAULT AGE OF 40 YEARS Compared to ECG 04/07/2017 10:31:41 Left-axis deviation now present T-wave abnormality now present Possible ischemia now present ST (T wave) deviation no longer present Electronically Signed On 11-02-2019 19:06:42 DETACHER by Cy Quintanilla M.D. [email or web address]
[2019-11-02] MEDS: amlodipine 5 mg Tablet 2.5 MG PO (12:03)
[2019-11-02 12:05] LABS: ABG PCO2 39.4 mmHg (35-45); ABG PH Result 7.41 (7.35-7.45); Base Excess ABG 0.3 mmol/L (-2.0-2.0); Blood Gas Allen Test Pos; Blood Gas Sample Site Radial, left; Blood Gas Sample Type Arterial; HCO3 ABG 24.9 mmol/L (22-26); Oxygen Device NC; PO2 ABG 65.1 mmHg (80.0-100.0)
--- NOTE | 2019-11-02 13:13 | ECG_ITS ---
Measurements Intervals [place] Rate: 93 P: SD: 0 QRS: -59 QRSD: 99 T: -67 QT: 385 QTc: 481 ATRIAL FIBRILLATION LEFT ANTERIOR FASCICULAR BLOCK [QRS AXIS <= -45, QR IN I, RS IN II] MODERATE T-WAVE ABNORMALITY, CONSIDER ANTERIOR ISCHEMIA [-0.1+ mV T WAVE IN V3/V4] MODERATE T-WAVE ABNORMALITY, CONSIDER INFERIOR ISCHEMIA [-0.1+ mV T WAVE IN II/aVF] Compared to ECG 04/07/2017 10:31:41 Left anterior fascicular block now present T-wave abnormality now present Possible ischemia now present Sinus rhythm no longer present ST (T wave) deviation no longer present Electronically Signed On 11-02-2019 19:13:11 TOOTH CUTTER PINION by Cy Quintanilla M.D. [id number]
[2019-11-02] MEDS: azithromycin 500 MG in sodium chloride 0.9% 250 ML 250 MG IV (14:07)
[2019-11-02 14:13] LABS: NT Pro B Type Natriuretic Pept 13883 pg/mL (0-450)
[2019-11-02 14:23] LABS: Troponin(5th) Baseline 106 ng/mL (0-10)
--- NOTE | 2019-11-02 14:27 | USCV_ITS ---
Flor Mishra Age: 84 Gender: F : 1935 Exam Date: 11/02/2019 14:54 Ordering Phys: Padmini Carter DO Technologist: Jenni Mcguire Exam Location: [facility] [place] Indication: AMS, HYPOXIA,ELEVATED TROPONIN BP: 175 / 86 HR: 91 Rhythm: Other Technical Quality: Fair MEASUREMENTS (Male / Female) Normal Values 2D ECHO LV Diastolic Diameter PLAX 3.7 cm 4.2 - 5.9 / 3.9 - 5.3 cm LV Systolic Diameter PLAX 1.5 cm LV Chamber Size 4.3 cm IVS Diastolic Thickness 1.2 cm 0.6 - 1.0 / 0.6 - 0.9 cm IVS Systolic Thickness 1.9 cm LVPW Diastolic Thickness 0.8 cm 0.6 - 1.0 / 0.6 - 0.9 cm LVPW Systolic Thickness 1.4 cm RV Chamber Size 3.8 cm LVOT Diameter 2.0 cm LV Ejection Fraction 2D Teich 88.7 % LA Diameter 3.5 cm LA Width 3.2 cm LA Height 4.8 cm RA Width 4.4 cm RA Height 4.4 cm M-MODE LV Diastolic Diameter MM 4.6 cm 4.2 - 5.9 / 3.9 - 5.3 cm LV Systolic Diameter MM 3.1 cm LV Ejection Fraction MM Teich 60.3 % IVS Diastolic Thickness MM 0.8 cm 0.6 - 1.0 / 0.6 - 0.9 cm IVS Systolic Thickness MM 1.0 cm LVPW Diastolic Thickness MM 1.1 cm 0.6 - 1.0 / 0.6 - 0.9 cm LVPW Systolic Thickness MM 1.1 cm RV Diastolic Diameter MM 2.9 cm Aortic Annulus Diameter 2.5 cm LA Ao Ratio MM 1.4 MV E Point Septal Separation 0.2 cm DOPPLER AV Peak Velocity 132.0 cm/s LVOT Peak Velocity 95.0 cm/s AV Area Cont Eq vti 2.0 cm squared AV Area Cont Eq pk 2.3 cm squared MV Area PHT 3.0 cm squared Mitral E to A Ratio 0.7 MV E' Velocity 9.0 cm/s Mitral E to MV E' Ratio 10.4 Mitral E to LV E' Lateral Ratio 9.2 Mitral E to LV E' Septal Ratio 12.1 TV Peak E Velocity 74.0 cm/s Right Atrial Pressure 8.0 mmHg PV Peak Velocity 53.0 cm/s FINDINGS Left Ventricle Normal left ventricular cavity size. Mild left ventricular hypertrophy. Normal left ventricular systolic function. Grade I/IV diastolic dysfunction (abnormal relaxation filling pattern), normal to mildly elevated filling pressures. Left ventricular ejection fraction is estimated at 65 %. Right Ventricle Normal right ventricular size and systolic function. Normal right ventricular systolic pressure. Right Atrium Mildly increased right atrial size. Left Atrium Mildly increased left atrial size. Mitral Valve Structurally normal mitral valve without significant stenosis or prolapse. There is no mitral regurgitation. Aortic Valve Structurally normal aortic valve without significant sclerosis or stenosis. There is no aortic regurgitation. Tricuspid Valve Structurally normal tricuspid valve. Pulmonic Valve Pulmonic valve not well visualized. Pericardium Normal pericardium without effusion. Aorta Normal ascending aorta dimension. CONCLUSIONS Normal left ventricular cavity size. Mild left ventricular hypertrophy. Normal left ventricular systolic function. Grade I/IV diastolic dysfunction (abnormal relaxation filling pattern), normal to mildly elevated filling pressures. Left ventricular ejection fraction is estimated at 65 %. No change from the previous study done 10/06/2017 Dr. Fernando Watson MD (Electronically Signed) Final Date: 02 November 2019 17:41 S
[2019-11-02] MEDS: FUROsemide 10 mg/mL SDV 2mL 20 MG IVP (14:54)
[2019-11-02 15:21] LABS: Troponin 5 2HR 92.32 ng/mL (0-10)
[2019-11-02 15:52] LABS: Troponin 5 2HR Delta -13.68 ABS# (0-10)
--- NOTE | 2019-11-02 17:13 | ECG_ITS ---
Measurements Intervals [place] Rate: 93 P: 55 [place]: 130 QRS: -45 QRSD: 102 T: -21 QT: 386 QTc: 480 SINUS RHYTHM WITH OCCASIONAL SUPRAVENTRICULAR PREMATURE COMPLEXES LEFT ANTERIOR FASCICULAR BLOCK [QRS AXIS <= -45, QR IN I, RS IN II] ST DEVIATION AND MODERATE T-WAVE ABNORMALITY, CONSIDER ANTEROLATERAL ISCHEMIA [-0.1+ mV T WAVE IN V3-V6] Compared to ECG 04/07/2017 10:31:41 Left anterior fascicular block now present T-wave abnormality now present Possible ischemia now present ST (T wave) deviation no longer present Electronically Signed On 11-02-2019 19:12:54 PYROTECHNICIAN by Cy Quintanilla M.D. [id number]
[2019-11-02] MEDS: enoxaparin 30 mg/0.3 mL Syringe SUBCUT (18:26)
[2019-11-02] MEDS: cefTRIAXone 1,000 MG in sodium chloride 0.9% (plus) 50 ML 100 MG IV (18:26)
[2019-11-02 19:43] LABS: Troponin 5 6HR 85.41 ng/mL (0-10)
[2019-11-02] MEDS: atorvastatin 40 mg Tablet PO (22:10)
[2019-11-03] VITALS (10 sets, daily range): BP systolic 105–155; BP diastolic 62–78; PULSE 60–88; RESP 16–18; TEMP 36.2–37.1; O2SAT 93–97
[2019-11-03 06:14] LABS: Basophils % 0.1 %; Hematocrit 39.5 % (37.0-47.0); Hemoglobin 13.1 g/dL (11.5-15.3); Lymphocytes # 0.6 10^3/uL (0.8-4.8); Lymphocytes % 7.6 %; Mean Corpuscular HGB Conc 33.2 g/dL (30.0-36.0); Mean Corpuscular Hemoglobin 31.6 pg (28.0-34.0); Mean Corpuscular Volume 95.2 fL (81-99); Monocytes # 0.2 10^3/uL (0.2-0.9); Monocytes % 1.8 %; Neutrophils # 7.5 10^3/uL (1.8-7.7); Neutrophils % 89.8 %; Nucleated Red Blood Cells % 0 %; Platelet Count 322 10^3/cmm (130-400); Red Blood Count 4.15 10^6/uL (4.1-5.3); White Blood Count 8.3 10^3/uL (4.0-10.0)
[2019-11-03 06:32] LABS: Anion Gap 15.8 (5-19); Blood Urea Nitrogen 21 mg/dL (8-23); Carbon Dioxide 26 mmol/L (22-29); Chloride 94 mmol/L (98-107); Creatinine Clr Calc Pharmacy 31.1119; Glucose 134 mg/dL (65-115); Osmolality Calculated 273 mOsm/kg (285-295); Potassium 3.8 mmol/L (3.5-5.1); Sodium 132 mmol/L (136-145)
[2019-11-03] MEDS: amlodipine 5 mg Tablet 2.5 MG PO (09:25)
[2019-11-03] MEDS: pregabalin 25 mg Capsule PO ×2 (09:25→18:15)
[2019-11-03] MEDS: aspirin 81 mg Chew Tablet PO (09:26)
--- NOTE | 2019-11-03 09:52 | PC.NURSE ---
j-loop changed on left anterior wrist, site cleaned and dressing changed. Flushed line with 10 mL of NS.Charleen Student Nurse
--- NOTE | 2019-11-03 10:45 | PM.PN ---
Subjective Subjective: Interval history: Patient awake in bed this morning at time of exam. She reported that her breathing was feeling okay, reported continued cough with sputum production. Discussed with patient that she will likely require home oxygen at time of discharge and she verbalized understanding. She is in agreement to home health but does not wish to go to a [place] [facility] facility. Has good support services at home with her son-in-law and daughter. Patient denies any chest pain, no abdominal pain or nausea Vitals/I&O/Wt Last Vital Signs Temp 97.9 F 11/03/19 08:19 Pulse 82 11/03/19 08:33 Resp 17 11/03/19 08:33 BP 110/70 11/03/19 08:19 Pulse Ox 93 11/03/19 08:33 11/02/19 11/03/19 11/03/19 22:59 06:59 14:59 Intake Total 110 / 470 390 / 860 480 / 480 Output Total 700 / 700 300 / 1000 Balance -590 / -230 90 / -140 480 / 480 Weight last 48 hrs Weight 37.648 kg Weight 37.875 kg Weight 34.927 kg Physical Exam Const: COMMON NORMALS: oriented x3 and alert GENERAL APPEARANCE: cooperative NUTRITIONAL APPEARANCE: cachectic, thin and underweight ORIENTATION/CONSCIOUSNESS: Yes awake, Yes oriented to person, Yes oriented to place and Yes oriented to time HENMT: COMMON NORMALS: normocephalic and head/scalp atraumatic HEAD & SCALP: normocephalic and atraumatic OTHER: Temporal wasting Eye: COMMON NORMALS: PERRL PUPIL: Yes PERRL Neck/C-Spine: COMMON NORMALS: supple GENERAL: Yes normal visual inspection Resp: COMMON NORMALS: normal respiratory effort EFFORT & INSPECTION: Yes able to speak in complete sentences AUSCULTATION: no rhonchi and no wheezes OTHER: Diminished breath sounds bilaterally with prolonged expiratory phase, faint expiratory wheezing, no rhonchi on exam today Cardio: COMMON NORMALS: regular rate and regular rhythm RATE: regular rate RHYTHM: regular rhythm GI: COMMON NORMALS: soft to palpation and non-tender INSPECTION: No abdominal distension AUSCULTATION: Yes normoactive bowel sounds PALPATION: Yes soft : COMMON NORMALS: Yes no CVA tenderness BLADDER/KIDNEY EXAM: Yes no CVA tenderness Back/Pelvis: COMMON NORMALS: no CVA tenderness Extremity: COMMON NORMALS: no clubbing, cyanosis or edema and no calf tenderness Neuro: COMMON NORMALS: oriented x3, CN's II-XII intact bilaterally, moves all extremities and no focal motor deficits SENSORIUM/ORIENTATION: Yes alert, Yes oriented to person, Yes oriented to place and Yes oriented to time SPEECH: speech normal Psych: COMMON NORMALS: mental status grossly normal and cooperative Skin: COMMON NORMALS: no rashes or lesions noted GENERAL SKIN EXAM: no rashes or lesions noted Data : 11/03/19 05:28 11/03/19 05:28 Micro: Microbiology 11/01/19 14:47 Blood Culture - Preliminary Blood NEGATIVE TO DATE 11/01/19 12:16 Blood Culture - Preliminary Blood NEGATIVE TO DATE A&P Assessment and plan (1) Pneumonia: Pneumonia with concomitant COPD Continue on Rocephin and azithromycin Chest x-ray shows continued pneumonia in the left lower lobe We will start on prednisone 40 mg daily due to concomitant COPD Status: Acute Code(s): J18.9 - Pneumonia, unspecified organism (2) Altered mental status: This seems to be resolved Occasional confusion, however patient continues to answer all questions appropriately. She reports confusion with her address due to moving back to this area not too long ago. Status: Acute Code(s): R41.82 - Altered mental status, unspecified (3) Hyperlipidemia: Started on atorvastatin 40 mg daily Status: Acute Code(s): E78.5 - Hyperlipidemia, unspecified (4) Hypertension: Lisinopril on hold due to acute kidney injury, renal function improved today Continue on amlodipine 2.5 mg daily Status: Acute Code(s): I10 - Essential (primary) hypertension (5) COPD (chronic obstructive pulmonary disease): Severe emphysematous changes and patient continues to smoke Wrongly encouraged tobacco cessation Will likely require oxygen at discharge, requiring 5 L at this time, will continue to wean as tolerated but will need home oxygen evaluation on date of discharge Start on prednisone due to concern for concomitant COPD exacerbation Status: Acute Code(s): J44.9 - Chronic obstructive pulmonary disease, unspecified Additional A&P Information Dehydration: Resolved with IV fluids Abdominal aortic aneurysm: Followed by cardiology, Dr. Morejon in the outpatient setting Bilateral carotid artery stenosis: Status post endarterectomy bilaterally, started on statin medication Advanced age, thin, protein calorie malnutrition Acute kidney injury: Resolved, lisinopril discontinued and transition to amlodipine for blood pressure control Chronic pain on daily opioids: On chronic hydromorphone 4 times daily, this could also be contributing to some of her intermittent confusion Generalized deconditioning: Physical therapy and Occupational Therapy ordered, home health ordered Chronic muscle wasting We will continue to wean oxygen as tolerated with a goal oxygen saturation of 90 to 92%. Started on prednisone today. Patient will likely be discharged in the next 1 to 2 days but will likely need home oxygen at time of discharge DVT prophylaxis: Lovenox Diet: GI soft CODE STATUS: Full code Attestations Medical Necessity Statement*: Patient requires continued hospitalization due to advanced age, COPD, generalized deconditioning, and pneumonia Coding Level of Care Code Acute [employer] for [facility] Fwd Diagnoses Pneumonia J18.9 Altered mental status R41.82 Hyperlipidemia E78.5 Hypertension I10 COPD (chronic obstructive pulmonary disease) J44.9
[2019-11-03] MEDS: predniSONE 20 mg Tablet 40 MG PO (11:25)
[2019-11-03 13:24] LABS: ABG PCO2 43.4 mmHg (35-45); ABG PH Result 7.41 (7.35-7.45); Arterial Blood Gas Hematocrit 39.4 % (37-47); Base Excess ABG 2.1 mmol/L (-2.0-2.0); Blood Gas Operator Identificat amh; Blood Gas Sample Site Brachial, left; Blood Gas Sample Type Arterial; Carboxyhemoglobin 1.6 %THgb (0.4-20.1); HCO3 ABG 27.2 mmol/L (22-26); Methemoglobin 0.3 % (0.4-1.5); Oxygen Device NC; PO2 ABG 81.6 mmHg (80.0-100.0); Total Hemoglobin 12.9 g/dL (12-16)
[2019-11-03] MEDS: azithromycin 500 MG in sodium chloride 0.9% 250 ML 250 MG IV (13:31)
[2019-11-03] MEDS: cefTRIAXone 1,000 MG in sodium chloride 0.9% (plus) 50 ML 50 MG IV (18:15)
[2019-11-03] MEDS: enoxaparin 30 mg/0.3 mL Syringe SUBCUT (18:16)
[2019-11-03] MEDS: atorvastatin 40 mg Tablet PO (20:34)
[2019-11-04] VITALS (12 sets, daily range): BP systolic 101–151; BP diastolic 54–83; PULSE 62–86; RESP 16–18; TEMP 36.4–36.7; O2SAT 78–97
[2019-11-04 05:18] LABS: Anion Gap 16.6 (5-19); Blood Urea Nitrogen 23 mg/dL (8-23); Calcium 9.3 mg/dL (8.5-10.5); Carbon Dioxide 27 mmol/L (22-29); Chloride 94 mmol/L (98-107); Creatinine Clr Calc Pharmacy 31.1119; Glucose 115 mg/dL (65-115); Osmolality Calculated 276 mOsm/kg (285-295); Potassium 3.6 mmol/L (3.5-5.1); Sodium 134 mmol/L (136-145)
[2019-11-04] MEDS: amlodipine 5 mg Tablet 2.5 MG PO (09:07)
[2019-11-04] MEDS: predniSONE 20 mg Tablet 40 MG PO (09:08)
[2019-11-04] MEDS: aspirin 81 mg Chew Tablet PO (09:08)
[2019-11-04] MEDS: pregabalin 25 mg Capsule PO ×2 (09:08→20:09)
--- NOTE | 2019-11-04 11:59 | P.DS_ITS ---
Discharge Providers Date of Admission: 11/01/19 15:13 Date of Discharge: November 04, 2019 Attending Provider at Admission: Padmini Carter DO Attending Provider at Discharge: Anaid Manriquez MD Primary Care Provider: Herlinda Angulo DO Diagnoses at Discharge Discharge Diagnosis (1) Pneumonia: Status: Acute Problem details: -Found to have evidence of right lower lobe and left lower lobe pneumonia on imaging -Has been on treatment with ceftriaxone and azithromycin, has a noted penicillin allergy but has tolerated ceftriaxone without any difficulty -We will continue treatment with Augmentin at this time given her noted allergies to tetracyclines and sulfa drugs as well as Levaquin -Has been afebrile, no leukocytosis, decreasing oxygen requirement Qualifiers: Laterality: bilateral Lung location: lower lobe of lung Pneumonia type: due to unspecified organism Qualified Code(s): J18.9 - Pneumonia, unspecified organism (2) Altered mental status: Status: Resolved Problem details: -Is currently at her baseline mental status Qualifiers: Altered mental status type: disorientation Qualified Code(s): R41.0 - Disorientation, unspecified (3) Hyperlipidemia: Status: Acute Problem details: -Statin added during this admission, continue on discharge Qualifiers: Hyperlipidemia type: unspecified Qualified Code(s): E78.5 - Hyperlipidemia, unspecified (4) Hypertension: Status: Acute Problem details: -Hemodynamically stable, continue oral antihypertensives including addition of amlodipine Qualifiers: Hypertension type: essential hypertension Qualified Code(s): I10 - Essential (primary) hypertension (5) COPD (chronic obstructive pulmonary disease): Status: Acute Problem details: -Acute COPD exacerbation as evidenced by increased oxygen requirement -Continue oral steroids and empiric antibiotics as noted above -Home oxygen evaluation prior to discharge as she has required supplemental oxygen throughout her hospital stay, she is not oxygen dependent at baseline Qualifiers: COPD type: COPD with acute exacerbation Qualified Code(s): J44.1 - Chronic obstructive pulmonary disease with (acute) exacerbation Other Information Additional DC diagnoses/information: -Dehydration, OFE; resolved with IVF -AAA; follows up with Dr. Morejon -Bilateral carotid artery stenosis s/p CEA bilaterally; on statin -Advanced age -At least moderate protein calorie malnutrition -Chronic pain; on opiates -Deconditioning; PT/OT evaluations appreciated; HH ordered Reason for Visit Reason for Visit: Reason For Visit: AMS Hospital Course Hospital Course: Patient was admitted to the medical surgical floor and started on empiric antibiotics for treatment of community-acquired pneumonia. Imaging shows findings consistent with left lower lobe interstitial pneumonia as well as right lower lobe pneumonia with background of chronic emphysema. She has been maintained on supplemental oxygen which she is not dependent on at [facility]. Home oxygen evaluation done prior to discharge and she qualifies for 3 L NC. He had some evidence of acute kidney injury and dehydration which resolved with IV fluid hydration. She did have some element of fluid overload that resolved with a dose of Lasix. She is quite thin and appears to have at least moderate protein calorie malnutrition. She had some element of deconditioning and has been evaluated by both physical therapy and occupational therapy. She does not want to go to a long term facility but is agreeable to home health services which have been arranged. She will need to follow-up with her primary care physician within 1 week. She is advised to seek medical attention immediately should any of her symptoms recur or persist after the completion of her treatment. She has several noted allergies to antibiotics but has tolerated ceftriaxone without any adverse reactions noted so we will discharge her on Augmentin. Discharge Summary: -Patient to follow-up with her primary care physician within 1 week Physical Exam Const: COMMON NORMALS: no apparent distress and oriented x3 GENERAL APPEARANCE: cooperative, comfortable and appears older than stated age NUTRITIONAL APPEARANCE: thin ORIENTATION/CONSCIOUSNESS: Yes awake HENMT: COMMON NORMALS: normocephalic, head/scalp atraumatic, hearing grossly normal bilaterally and moist oral mucous membranes HEAD & SCALP: normocephalic and atraumatic Eye: COMMON NORMALS: PERRL, EOMs intact bilaterally and conjunctivae normal CONJUNCTIVA: Yes conjunctivae normal PUPIL: Yes PERRL Neck/C-Spine: COMMON NORMALS: full ROM GENERAL: Yes normal visual inspection and Yes trachea midline Resp: COMMON NORMALS: normal respiratory effort, no retractions and no use of accessory muscles EFFORT & INSPECTION: Yes able to speak in complete sentences, Yes symmetric chest movement and No tachypneic AUSCULTATION: diminished lung sounds Cardio: COMMON NORMALS: regular rate, regular rhythm, S1 normal heart sound, S2 normal heart sound and no murmurs RATE: regular rate RHYTHM: regular rhythm HEART SOUNDS: S1 normal and S2 normal GI: COMMON NORMALS: normal to inspection, nondistended, normoactive bowel sounds, soft to palpation and non-tender PALPATION: Yes soft Extremity: COMMON NORMALS: normal to inspection, full ROM and no clubbing, cyanosis or edema; negative for no pedal edema Neuro: COMMON NORMALS: oriented x3, moves all extremities, no focal motor deficits and no sensory deficits noted Psych: COMMON NORMALS: mental status grossly normal, thought process normal, cooperative, affect normal and speech normal SPEECH: Yes normal speech THOUGHT PROCESS: normal thought process Skin: COMMON NORMALS: no rashes or lesions noted, no jaundice, no petechiae and no mottling GENERAL SKIN EXAM: no rashes or lesions noted Discharge Data Data Completed and Pending: Completed Studies During Hospitalization Category Date Time Status XR chest 1V napoleon ble [id number] Urgent Exams 11/01/19 12:04 Completed XR chest 2V* [id number] Urgent Exams 11/02/19 11:05 Completed CV echo complete* [id number] Routine Ultrasound 11/02/19 14:27 Completed Pending at discharge Category Date Time Status Blood Culture Sta t Lab 11/01/19 14:47 Results Labs from last 24 hours 11/04/19 11/01/19 04:35 12:37 Specimen Type Arterial Sample Site Brachial, left ABG pH 7.41 ABG pCO2 43.4 ABG pO2 81.6 ABG HCO3 27.2 H ABG Base Excess 2.1 H Antwan Test N/a Hematocrit 39.4 Hgb O2 Saturation 95.0 Carboxyhemoglobin 1.6 Methemoglobin 0.3 L Total Hemoglobin 12.9 O2 Delivery Device Nc O2 Liters/Min 4.0 FiO2 36.0 Cream Dipper ID amh Sodium 134 L Potassium 3.6 Chloride 94 L Carbon Dioxide 27 Anion Gap 16.6 BUN 23 Creatinine 0.8 Glucose 115 Calculated Osmolal ity 276 L Calcium 9.3 Vitals: Last Vital Signs Temp 97.6 F 11/04/19 08:00 Pulse 86 11/04/19 09:18 Resp 18 11/04/19 09:18 BP 115/83 11/04/19 08:00 Pulse Ox 91 11/04/19 09:18 Discharge Plan Discharge Patient Disposition: Home Health Service Condition: Stable Prescriptions: New atorvastatin 40 mg Tablet 40 mg PO BEDTIME 30 Days Qty: 30 RF: 0 prednisone 20 mg Tablet 40 mg PO DAILY 3 Days Qty: 6 RF: 0 amlodipine 5 mg Tablet 2.5 mg PO DAILY 30 Days Qty: 15 RF: 0 amoxicillin-pot clavulanate 875-125 mg tablet 1 tab PO BID 7 Days Qty: 14 RF: 0 Continued tramadol 50 mg tablet 50 mg PO Q6H PRN (Reason: Pain) RF: 0 guaifenesin [Mucinex] 600 mg tablet extended release 12hr 600 mg PO BID PRN (Reason: Congestion) RF: 0 diclofenac sodium [Voltaren] 1 % gel 4 gm TOPICAL QID PRN (Reason: UNKNOWN) RF: 0 Movantik 25 mg tablet 25 mg PO QAM RF: 0 docusate sodium [Colace] 100 mg capsule 200 mg PO PRN RF: 0 furosemide [Lasix] 20 mg tablet 20 mg PO DAILY PRN (Reason: Edema) RF: 0 cholecalciferol (vitamin D3) [Vitamin D3] 25 mcg (1,000 unit) capsule 25 mcg PO DAILY RF: 0 aspirin 81 mg tablet,chewable 81 mg PO DAILY RF: 0 hydromorphone 2 mg tablet 2 mg PO QID 30 Days Qty: 120 RF: 0 pregabalin [Lyrica] 25 mg capsule 25 mg PO BID 30 Days Qty: 60 RF: 0 lisinopril 5 mg tablet 5 mg PO BID Qty: 60 RF: 3 tizanidine 2 mg capsule 2 mg PO Q6H PRN (Reason: muscle spasticity) Qty: 30 RF: 0 alendronate 70 mg tablet 70 mg PO Q7D RF: 0 Virt-Caps 1 mg capsule 1 cap PO DAILY RF: 0 Discharge Orders: Discharge Order (Routine); Ordered 11/04/19 Ordered By: Anaid Manriquez Other Ambulatory Orders: DME: Oxygen (Order) Location: None Selected Ordered By: Anaid Manriquez Referrals: Herlinda Angulo DO [Primary Care Provider] - 4-7 days (Please call Wednesday to set up a Post hospital discharge follow-up; treated for pneumonia and acute COPD exacerbation with azithromycin and ceftriaxone then discharged on a course of Augmentin and oral prednisone) Discharge Diet: Cardiac Discharge Activity: Resume usual activity Discharge Attestations Time Spent in Discharge Care*: greater than 30 min Specific Discharge Activities: Specific discharge activities: educating patient, educating and/or supporting family/caregiver, discussing with pillowcase maker/social workers/dc planners, documenting/other paperwork and evaluating patient/reviewing data Status at Discharge: Cognitive status at discharge: cognitively intact , Behavioral status at discharge: cooperative , Functional status at discharge: other assisted ambulation Overall status at discharge: patient is back to baseline Quality Metrics Clinical Quality Measures During this hospital stay, did patient experience: None Coding Level of Care Code Acute [employer] Att[employer] for [employer] Fwd Exam Comprehensive Diagnoses Pneumonia J18.9 Laterality: bilateral Lung location: lower lobe of lung Pneumonia type: due to unspecified organism Altered mental status R41.0 Altered mental status type: disorientation Hyperlipidemia E78.5 Hyperlipidemia type: unspecified Hypertension I10 Hypertension type: essential hypertension COPD (chronic obstructive pulmonary disease) J44.1 COPD type: COPD with acute exacerbation
[2019-11-04] MEDS: azithromycin 500 MG in sodium chloride 0.9% 250 ML 250 MG IV (13:47)
--- NOTE | 2019-11-04 18:44 | PM.MISC ---
Miscellaneous Note Note: Patient had been discharged earlier this afternoon but due to difficulty setting up her home oxygen discharge has been delayed until tomorrow.
[2019-11-04] MEDS: atorvastatin 40 mg Tablet PO (20:14)
[2019-11-04] MEDS: enoxaparin 30 mg/0.3 mL Syringe SUBCUT (20:14)
[2019-11-05] VITALS: BP 149/72; PULSE 97; RESP 17; TEMP 36.3; O2SAT 92
--- NOTE | 2019-11-05 00:30 | PC.NURSE ---
when entering to take vitals, patient had her oxygen off and was at 79%. PLaced the oxygen back on and patient went up to 92%.
[2019-11-05 04:00] VITALS: BP 155/71; PULSE 71; RESP 17; TEMP 36.7; O2SAT 100
[2019-11-05 07:42] VITALS: BP 172/89; PULSE 80; RESP 18; TEMP 36.4; O2SAT 96
== END 2019-11-05 09:15 | disposition home health service (06) | DRG 194 ==
LOC: ER 12:51 → MEDSURG 17:50
PROVIDERS: Admitting Provider Family Medicine; Emergency Provider Family Medicine; Family Provider Family Medicine; PCP Family Medicine; Visit Provider Family Medicine
DX: J18.9 Pneumonia, unspecified organism (principal); N17.9 Acute kidney failure, unspecified; E44.0 Moderate protein-calorie malnutrition; Z68.1 Body mass index [BMI] 19.9 or less, adult; J43.9 Emphysema, unspecified; I71.4 Abdominal aortic aneurysm, without rupture; M47.897 Other spondylosis, lumbosacral region; Z79.891 Long term (current) use of opiate analgesic; E78.5 Hyperlipidemia, unspecified; I10 Essential (primary) hypertension; F17.210 Nicotine dependence, cigarettes, uncomplicated; R41.82 Altered mental status, unspecified; E86.0 Dehydration; G89.29 Other chronic pain; M62.59 Muscle wasting and atrophy, not elsewhere classified, multiple sites; Z79.82 Long term (current) use of aspirin; Z88.0 Allergy status to penicillin
CPT/HCPCS: 12345; 36415; 36600; 71045; 71046; 72070; 72100; 74177; 80048; 80053; 81001; 82803; 82805; 83880; 84443; 84484; 85025; 87040; 87804; 93005; 93306; 94640; 94664; 96372; 96375; 97161; 97166; 97530; 97535; 99282; 99283; J0456; J0696; J1650; J1940; J2270; J2405; J2930; J7040; J7050; J7512; Q0144; Q9967

== ENCOUNTER 2019-12-29 19:04 | Inpatient (IN) | payer MEDICARE, MEDICAID, SELFPAY ==
[2019-12-29] VITALS (19 sets, daily range): BP systolic 55–226; BP diastolic 42–102; PULSE 62–98; RESP 12–28; TEMP 36.3–37.8; O2SAT 86–100; BMI 15.1
--- NOTE | 2019-12-29 19:06 | PC.NURSE ---
EMS STATES THAT THE PATIENT HAS BEEN AT HOME AND THE LAST FEW DAYS HAS BEEN BECOMING HARDER TO WAKE UP, COMMUNICATE WITH, AND LETHARGIC. PATIENT UNABLE TO FOLLOW DIRECTIONS WELL DURING EXAM WITH HCP. PATIENT NOT ABLE TO ANSWER ALL QUESTIONS ASKED BY NURSE. EMS STATES THAT PATIENT HAS MINIMAL USE OF HER LEGS AND DOES NOT GET UP WELL.
--- NOTE | 2019-12-29 19:09 | CTR_ITS ---
PROCEDURE INFORMATION: Exam: CT Head Without Contrast Exam date and time: 12/29/2019 7:18 PM Age: 84 years old Clinical indication: Altered mental status/memory loss; Patient HX: PT intubated; Additional info: Cavazos/ams TECHNIQUE: Imaging protocol: Computed tomography of the head without contrast. Total DLP: 826.3 mGy-cm Radiation optimization: All CT scans at this facility use at least one of these dose optimization techniques: automated exposure control; mA and/or kV adjustment per patient size (includes targeted exams where dose is matched to clinical indication); or iterative reconstruction. COMPARISON: CT head wo con* [id number] 01/16/2015 12:49 AM FINDINGS: Brain: No visible evidence for active or acute intracranial pathologic process or trauma. Mild small vessel ischemic disease with senile periventricular leukomalacia. Cerebral and cerebellar atrophy with ventricular dilatation no greater than anticipated for patient's chronological age. Ventricles: No ventriculomegaly. Bones/joints: Unremarkable. No acute fracture. Sinuses: Visualized sinuses are unremarkable. No fluid levels. Mastoid air cells: Visualized mastoid air cells are well aerated. Soft tissues: Unremarkable. CT/CT head wo con* [id number] IMPRESSION: Nonacute. Radiation Dose CTDIVOL = (mGy): DLP = 826.3 (mGy-cm)
--- NOTE | 2019-12-29 19:09 | XRR_ITS ---
PROCEDURE INFORMATION: Exam: XR Chest, 1 View Exam date and time: 12/29/2019 7:11 PM Age: 84 years old Clinical indication: Shortness of breath; Prior surgery; Surgery type: Gb, kyphoplasty; Additional info: Cough TECHNIQUE: Imaging protocol: XR of the chest Views: 1 view. COMPARISON: CR XR chest 2V* [id number] 11/02/2019 11:34 AM FINDINGS: Lungs: Resolution of the left lower lobe pneumonia of 11/02/2019. COPD/chronic bronchitis. Senile fibrosis. Pleural space: Unremarkable. No pleural effusion. No pneumothorax. Heart/Mediastinum: Cardiomegaly. Arterial sclerosis. Tortuous thoracic aorta which can be seen in hypertensive cardiovascular disease. Bones/joints: Vertebroplasties. Scoliosis. Age appropriate degenerative disease. Osteoporosis. XR/XR chest 1V portable [id number] IMPRESSION: No radiographic evidence of acute cardiopulmonary process.
--- NOTE | 2019-12-29 19:10 | ECG_ITS ---
Measurements Intervals [place] Rate: 86 P: 66 MT: 139 QRS: -41 QRSD: 79 T: 75 QT: 338 QTc: 404 SINUS RHYTHM LEFT AXIS DEVIATION [QRS AXIS < -30] SEPTAL MYOCARDIAL INFARCTION , OF INDETERMINATE AGE [40+ ms Q WAVE IN V1/V2] Compared to ECG 11/02/2019 17:32:51 Left-axis deviation now present Myocardial infarct finding now present Atrial fibrillation no longer present Left anterior fascicular block no longer present T-wave abnormality no longer present Possible ischemia no longer present Electronically Signed On 12-30-2019 14:02:29 CDT by Harper Morejon M.D. [id number]
--- NOTE | 2019-12-29 19:18 | ED_ITS ---
HPI - General Adult General: Chief complaint: General Medical Stated complaint: failure to thrive Time Seen by Provider: 12/29/19 19:05 History of Present Illness: HPI narrative: Patient has severely altered mental status all history is taken from EMS and from old charts. EMS reports the patient's caregiver called after she had been in bed for the past 3 to 4 days without getting up and taking minimal p.o. intake. They stated that she is on oxygen at home but did not know any unstable vital signs in route other than hypoxia that necessitated them turning her oxygen up from 2-3 which she normally wears up to 6 L. The patient is alert but lethargic and cannot answer questions reliably. EMS reports that the caregiver feels that she is a failure to thrive and will be placed in a fpc. Review of Systems General: Reports: ROS unobtainable due to mental status PFS ED PFSH: Medical History AAA (abdominal aortic aneurysm) Back pain with radiation Carotid stenosis COPD (chronic obstructive pulmonary disease) -Acute COPD exacerbation as evidenced by increased oxygen requirement -Continue oral steroids and empiric antibiotics as noted above -Home oxygen evaluation prior to discharge as she has required supplemental oxygen throughout her hospital stay, she is not oxygen dependent at baseline DDD (degenerative disc disease), lumbar Encounter for long-term opiate analgesic use Enrolled in chronic care management Hyperlipidemia -Statin added during this admission, continue on discharge Hypertension -Hemodynamically stable, continue oral antihypertensives including addition of amlodipine Spondylosis without myelopathy or radiculopathy, lumbosacral region Surgical History History of endarterectomy bilateral History of tonsillectomy and adenoidectomy Hx of cholecystectomy Hx of hysterectomy, total Hx of kyphoplasty Family History Other CAD (coronary artery disease) Social History Smoking and tobacco status: unknown if ever smoked Second hand smoke exposure: Yes Alcohol intake: never History of recent travel: No Physical Exam Const: GENERAL APPEARANCE: lethargic, ill appearing and frail appearing ORIENTATION/CONSCIOUSNESS: Yes lethargic HENMT: COMMON NORMALS: normocephalic, head/scalp atraumatic, hearing grossly normal bilaterally, external ears normal, EAC's normal, TM's normal bilaterally, external nose normal and nasal mucous membranes and turbinates normal HEAD & SCALP: normocephalic and atraumatic NOSE: external nose normal and nasal mucous membranes and turbinates normal EXTERNAL EAR: Yes external ears normal EXTERNAL AUDITORY CANAL: EAC's normal TYMPANIC MEMBRANE: TM's normal bilaterally MOUTH: other (Dry mucous membranes) Eye: COMMON NORMALS: PERRL and no scleral icterus GENERAL EYE: normal appearance of both eyes PUPIL: Yes PERRL Neck/C-Spine: COMMON NORMALS: no lymphadenopathy, no meningeal signs and no JVD Lymph: LYMPHATIC: no lymphadenopathy noted Resp: AUSCULTATION: rhonchi, diminished lung sounds, bronchial breath sounds and other (Labored breathing with minimal breath sounds and air movement.) Cardio: COMMON NORMALS: no JVD, regular rate, regular rhythm, S1 normal heart sound, S2 normal heart sound, no clicks and no murmurs RATE: regular rate RHYTHM: regular rhythm HEART SOUNDS: S1 normal and S2 normal GI: COMMON NORMALS: soft to palpation PALPATION: Yes soft, Yes tender (Patient winces with diffuse palpation of the abdomen), No guarding and No rigid : COMMON NORMALS: Yes no CVA tenderness BLADDER/KIDNEY EXAM: Yes no CVA tenderness Back/Pelvis: COMMON NORMALS: no CVA tenderness, thoracic and lumbar spine normal to inspection and no thoracic nor lumbar tenderness Extremity: COMMON NORMALS: normal to inspection, normal capillary refill, no clubbing, cyanosis or edema and no pedal edema Neuro: ROYER COMA SCALE: document GCS findings Royer coma scale eye opening: To pressure Royer coma scale verbal response: Words Royer coma scale motor response: Localising Royer coma scale total score: 10 SENSORIUM/ORIENTATION: Yes lethargic MENINGEAL SIGNS: Yes no meningeal signs Skin: COMMON NORMALS: no rashes or lesions noted, no wounds, no jaundice, no petechiae and no mottling GENERAL SKIN EXAM: no rashes or lesions noted Procedures Intubation Time out performed: Yes sedative: Etomidate Mg Given: 10 Mg Given: 75 Laryngoscope: Tegan ET Tube Size: 7.5 ET Tube Uncuffed: Yes Tube Secured Depth (cm): 21 Tube Secured Location: lips Tube Placement Confirmation: visualized tube passing through cords, equal breath sounds bilaterally, no breath sounds over epigastrium and confirmation by capnometry Patient Tolerated Procedure: well and no complications Course Vital Signs: Vital signs: Vital Signs Temperature 100.1 F H 12/29/19 19:06 Pulse Rate 98 12/29/19 19:50 Respiratory Rate 14 12/29/19 20:48 Blood Pressure 114/91 12/29/19 20:02 Pulse Oximetry 88 L 12/29/19 20:02 MDM - General Adult MDM Narrative: Medical decision making narrative: The patient shortly after arrival became more and more hypoxic. She had a good waveform and her pulse ox got down to as low as 82%. She was placed on BiPAP and she was given Narcan with minimal improvement and did not improve her pulse oximetry greater than 84%. She remained very altered and was lethargic. The patient had hypoxic respiratory failure and the concern that all the increased oxygen may cause her to go into CO2 narcosis was also a factor. I consulted with Dr. Salmon who agreed with going ahead and intubate the patient as she had failed all noninvasive attempts to keep her oxygen up. Patient was intubated and is comfortable on the vent. CT scans reveal no acute findings. Working diagnosis is likely oversedation secondary to narcotics and muscle relaxers. It is uncertain why the Narcan did not improve her mentation and oxygenation and breathing more than it did. The patient continued to get worse after Narcan with her hypoxia and did not improve clinically at all. Dr. Torres will go ahead and admit the patient to the ICU and monitor her from there. Patient was empirically treated for any type of infection and did have viral swab sent. Lab Data: Attestation: I reviewed the patient's lab results. Labs: Lab Results 12/29/19 12/29/19 12/29/19 Range/Units 19:23 19:25 19:25 WBC 13.0 H (4.0-10.0) 10^3/ uL RBC 4.54 (4.1-5.3) 10^6/u L Hgb 14.0 (11.5-15.3) g/dL Hct 43.8 (37.0-47.0) % MCV 96.5 (81-99) fL MCH 30.8 (28.0-34.0) pg MCHC 32.0 (30.0-36.0) g/dL RDW 15.6 H (12.1-15.1) % Plt Count 262 (130-400) 10^3/c mm MPV 10.0 (7.4-10.4) fL Neut % (Auto) 83.6 % Lymph % (Auto) 10.7 % Storey % (Auto) 4.1 % Eos % (Auto) 0.8 % Baso % (Auto) 0.6 % Neut # (Auto) 10.9 H (1.8-7.7) 10^3/u L Lymph # (Auto) 1.4 (0.8-4.8) 10^3/u L Storey # (Auto) 0.5 (0.2-0.9) 10^3/u L Eos # (Auto) 0.1 (0.0-0.8) 10^3/u L Baso # (Auto) 0.1 (0.0-0.1) 10^3/u L Nucleated RBC % (a uto) 0 % Nucleated RBCs # 0.0 /100WBC PT (10.5-13.3) SECO NDS INR (0.8-1.2) Specimen Type Arterial Sample Site Brachial, left ABG pH 7.38 (7.35-7.45) ABG pCO2 49.6 H (35-45) mmHg ABG pO2 47.0 L (80.0-100.0) mmH g ABG HCO3 29.0 H (22-26) mmol/L ABG Base Excess 2.9 H (-2.0-2.0) mmol/ L Antwan Test N/a Hematocrit 42.3 (37-47) % O2 Delivery Device Nc O2 Liters/Min 5.0 % Supervising Bailiff ID harkr Sodium 134 L (136-145) mmol/L Potassium 5.1 (3.5-5.1) mmol/L Chloride 94 L (98-107) mmol/L Carbon Dioxide 28 (22-29) mmol/L Anion Gap 17.1 (5-19) BUN 19 (8-23) mg/dL Creatinine 1.1 H (0.5-0.9) mg/dL Glucose 93 (65-115) mg/dL Calculated Osmolal ity 274 L (285-295) mOsm/k g Lactic Acid (0.5-2.2) mmol/L Calcium 10.8 H (8.5-10.5) mg/dL Magnesium 2.1 (1.7-2.3) mg/dL Total Bilirubin 0.5 (0.15-1.2) mg/dL AST 39 H (0-32) U/L ALT 20 (0-33) U/L Alkaline Phosphata se 96 (35-105) IU/L Ammonia (11-51) umol/L Creatine Kinase 135 (26-192) U/L Troponin T Baselin e (0-10) ng/mL Total Protein 7.3 (6.6-8.7) g/dL Albumin 3.9 (3.5-5.2) g/dL Globulin 3.4 (1.3-4.6) g/dL Lipase 32 (13-60) U/L TSH 1.21 (0.27-4.20) uIU/ mL Urine Color (Yellow) Urine Appearance (CLEAR) Urine pH (5-7) Ur Specific Gravit y (1.005-1.030) Urine Protein (Negative) Urine Glucose (UA) (Normal) Urine Ketones (Negative) Urine Blood (Negative) Urine Nitrate (Negative) Urine Bilirubin (NEGATIVE) Urine Urobilinogen (Negative) mg/dL Ur Leukocyte Sera ase (Negative) Urine RBC (0-2) /hpf Urine WBC (0-5) /hpf Ur Squamous Epith Cells (0-5) Urine Bacteria (NONE) Urine Opiates Scre en (Negative) ng/mL Ur Barbiturates Sc reen (Negative) ng/mL Ur Phencyclidine S crn (Negative) ng/mL Ur Amphetamines Sc reen (Negative) ng/mL U Benzodiazepines Scrn (Negative) ng/mL Urine Cocaine Scre en (Negative) ng/mL U Marijuana (THC) Screen (Negative) ng/mL Ethyl Alcohol < 10 (0-10) mg/dL Serum Ketones (Negative) 12/29/19 12/29/19 12/29/19 Range/Units 19:25 19:25 19:25 WBC (4.0-10.0) 10^3/ uL RBC (4.1-5.3) 10^6/u L Hgb (11.5-15.3) g/dL Hct (37.0-47.0) % MCV (81-99) fL MCH (28.0-34.0) pg MCHC (30.0-36.0) g/dL RDW (12.1-15.1) % Plt Count (130-400) 10^3/c mm MPV (7.4-10.4) fL Neut % (Auto) % Lymph % (Auto) % Storey % (Auto) % Eos % (Auto) % Baso % (Auto) % Neut # (Auto) (1.8-7.7) 10^3/u L Lymph # (Auto) (0.8-4.8) 10^3/u L Storey # (Auto) (0.2-0.9) 10^3/u L Eos # (Auto) (0.0-0.8) 10^3/u L Baso # (Auto) (0.0-0.1) 10^3/u L Nucleated RBC % (a uto) % Nucleated RBCs # /100WBC PT 12.80 (10.5-13.3) SECO NDS INR 0.94 (0.8-1.2) Specimen Type Sample Site ABG pH (7.35-7.45) ABG pCO2 (35-45) mmHg ABG pO2 (80.0-100.0) mmH g ABG HCO3 (22-26) mmol/L ABG Base Excess (-2.0-2.0) mmol/ L Antwan Test Hematocrit (37-47) % O2 Delivery Device O2 Liters/Min % Supervising Bailiff ID Sodium (136-145) mmol/L Potassium (3.5-5.1) mmol/L Chloride (98-107) mmol/L Carbon Dioxide (22-29) mmol/L Anion Gap (5-19) BUN (8-23) mg/dL Creatinine (0.5-0.9) mg/dL Glucose (65-115) mg/dL Calculated Osmolal ity (285-295) mOsm/k g Lactic Acid 0.8 (0.5-2.2) mmol/L Calcium (8.5-10.5) mg/dL Magnesium (1.7-2.3) mg/dL Total Bilirubin (0.15-1.2) mg/dL AST (0-32) U/L ALT (0-33) U/L Alkaline Phosphata se (35-105) IU/L Ammonia (11-51) umol/L Creatine Kinase (26-192) U/L Troponin T Baselin e (0-10) ng/mL Total Protein (6.6-8.7) g/dL Albumin (3.5-5.2) g/dL Globulin (1.3-4.6) g/dL Lipase (13-60) U/L TSH (0.27-4.20) uIU/ mL Urine Color (Yellow) Urine Appearance (CLEAR) Urine pH (5-7) Ur Specific Gravit y (1.005-1.030) Urine Protein (Negative) Urine Glucose (UA) (Normal) Urine Ketones (Negative) Urine Blood (Negative) Urine Nitrate (Negative) Urine Bilirubin (NEGATIVE) Urine Urobilinogen (Negative) mg/dL Ur Leukocyte Sera ase (Negative) Urine RBC (0-2) /hpf Urine WBC (0-5) /hpf Ur Squamous Epith Cells (0-5) Urine Bacteria (NONE) Urine Opiates Scre en (Negative) ng/mL Ur Barbiturates Sc reen (Negative) ng/mL Ur Phencyclidine S crn (Negative) ng/mL Ur Amphetamines Sc reen (Negative) ng/mL U Benzodiazepines Scrn (Negative) ng/mL Urine Cocaine Scre en (Negative) ng/mL U Marijuana (THC) Screen (Negative) ng/mL Ethyl Alcohol (0-10) mg/dL Serum Ketones Negative (Negative) 12/29/19 12/29/19 12/29/19 Range/Units 19:25 19:27 19:27 WBC (4.0-10.0) 10^3/ uL RBC (4.1-5.3) 10^6/u L Hgb (11.5-15.3) g/dL Hct (37.0-47.0) % MCV (81-99) fL MCH (28.0-34.0) pg MCHC (30.0-36.0) g/dL RDW (12.1-15.1) % Plt Count (130-400) 10^3/c mm MPV (7.4-10.4) fL Neut % (Auto) % Lymph % (Auto) % Storey % (Auto) % Eos % (Auto) % Baso % (Auto) % Neut # (Auto) (1.8-7.7) 10^3/u L Lymph # (Auto) (0.8-4.8) 10^3/u L Storey # (Auto) (0.2-0.9) 10^3/u L Eos # (Auto) (0.0-0.8) 10^3/u L Baso # (Auto) (0.0-0.1) 10^3/u L Nucleated RBC % (a uto) % Nucleated RBCs # /100WBC PT (10.5-13.3) SECO NDS INR (0.8-1.2) Specimen Type Sample Site ABG pH (7.35-7.45) ABG pCO2 (35-45) mmHg ABG pO2 (80.0-100.0) mmH g ABG HCO3 (22-26) mmol/L ABG Base Excess (-2.0-2.0) mmol/ L Antwan Test Hematocrit (37-47) % O2 Delivery Device O2 Liters/Min % Supervising Bailiff ID Sodium (136-145) mmol/L Potassium (3.5-5.1) mmol/L Chloride (98-107) mmol/L Carbon Dioxide (22-29) mmol/L Anion Gap (5-19) BUN (8-23) mg/dL Creatinine (0.5-0.9) mg/dL Glucose (65-115) mg/dL Calculated Osmolal ity (285-295) mOsm/k g Lactic Acid (0.5-2.2) mmol/L Calcium (8.5-10.5) mg/dL Magnesium (1.7-2.3) mg/dL Total Bilirubin (0.15-1.2) mg/dL AST (0-32) U/L ALT (0-33) U/L Alkaline Phosphata se (35-105) IU/L Ammonia (11-51) umol/L Creatine Kinase (26-192) U/L Troponin T Baselin e 48 H (0-10) ng/mL Total Protein (6.6-8.7) g/dL Albumin (3.5-5.2) g/dL Globulin (1.3-4.6) g/dL Lipase (13-60) U/L TSH (0.27-4.20) uIU/ mL Urine Color Yellow (Yellow) Urine Appearance Clear (CLEAR) Urine pH 6.5 (5-7) Ur Specific Gravit y 1.020 (1.005-1.030) Urine Protein Neg (Negative) Urine Glucose (UA) Norm (Normal) Urine Ketones Negative (Negative) Urine Blood Neg (Negative) Urine Nitrate Negative (Negative) Urine Bilirubin Neg (NEGATIVE) Urine Urobilinogen Norm (Negative) mg/dL Ur Leukocyte Sera ase Negative (Negative) Urine RBC None (0-2) /hpf Urine WBC None (0-5) /hpf Ur Squamous Epith Cells None (0-5) Urine Bacteria Trace (NONE) Urine Opiates Scre en Positive H (Negative) ng/mL Ur Barbiturates Sc reen Negative (Negative) ng/mL Ur Phencyclidine S crn Negative (Negative) ng/mL Ur Amphetamines Sc reen Negative (Negative) ng/mL U Benzodiazepines Scrn Negative (Negative) ng/mL Urine Cocaine Scre en Negative (Negative) ng/mL U Marijuana (THC) Screen Negative (Negative) ng/mL Ethyl Alcohol (0-10) mg/dL Serum Ketones (Negative) 12/29/19 Range/Units 21:25 WBC (4.0-10.0) 10^3/ uL RBC (4.1-5.3) 10^6/u L Hgb (11.5-15.3) g/dL Hct (37.0-47.0) % MCV (81-99) fL MCH (28.0-34.0) pg MCHC (30.0-36.0) g/dL RDW (12.1-15.1) % Plt Count (130-400) 10^3/c mm MPV (7.4-10.4) fL Neut % (Auto) % Lymph % (Auto) % Storey % (Auto) % Eos % (Auto) % Baso % (Auto) % Neut # (Auto) (1.8-7.7) 10^3/u L Lymph # (Auto) (0.8-4.8) 10^3/u L Storey # (Auto) (0.2-0.9) 10^3/u L Eos # (Auto) (0.0-0.8) 10^3/u L Baso # (Auto) (0.0-0.1) 10^3/u L Nucleated RBC % (a uto) % Nucleated RBCs # /100WBC PT (10.5-13.3) SECO NDS INR (0.8-1.2) Specimen Type Sample Site ABG pH (7.35-7.45) ABG pCO2 (35-45) mmHg ABG pO2 (80.0-100.0) mmH g ABG HCO3 (22-26) mmol/L ABG Base Excess (-2.0-2.0) mmol/ L Antwan Test Hematocrit (37-47) % O2 Delivery Device O2 Liters/Min % Supervising Bailiff ID Sodium (136-145) mmol/L Potassium (3.5-5.1) mmol/L Chloride (98-107) mmol/L Carbon Dioxide (22-29) mmol/L Anion Gap (5-19) BUN (8-23) mg/dL Creatinine (0.5-0.9) mg/dL Glucose (65-115) mg/dL Calculated Osmolal ity (285-295) mOsm/k g Lactic Acid (0.5-2.2) mmol/L Calcium (8.5-10.5) mg/dL Magnesium (1.7-2.3) mg/dL Total Bilirubin (0.15-1.2) mg/dL AST (0-32) U/L ALT (0-33) U/L Alkaline Phosphata se (35-105) IU/L Ammonia 32 (11-51) umol/L Creatine Kinase (26-192) U/L Troponin T Baselin e (0-10) ng/mL Total Protein (6.6-8.7) g/dL Albumin (3.5-5.2) g/dL Globulin (1.3-4.6) g/dL Lipase (13-60) U/L TSH (0.27-4.20) uIU/ mL Urine Color (Yellow) Urine Appearance (CLEAR) Urine pH (5-7) Ur Specific Gravit y (1.005-1.030) Urine Protein (Negative) Urine Glucose (UA) (Normal) Urine Ketones (Negative) Urine Blood (Negative) Urine Nitrate (Negative) Urine Bilirubin (NEGATIVE) Urine Urobilinogen (Negative) mg/dL Ur Leukocyte Sera ase (Negative) Urine RBC (0-2) /hpf Urine WBC (0-5) /hpf Ur Squamous Epith Cells (0-5) Urine Bacteria (NONE) Urine Opiates Scre en (Negative) ng/mL Ur Barbiturates Sc reen (Negative) ng/mL Ur Phencyclidine S crn (Negative) ng/mL Ur Amphetamines Sc reen (Negative) ng/mL U Benzodiazepines Scrn (Negative) ng/mL Urine Cocaine Scre en (Negative) ng/mL U Marijuana (THC) Screen (Negative) ng/mL Ethyl Alcohol (0-10) mg/dL Serum Ketones (Negative) Imaging Data^: CT Head: Radiologist's impression: [place] [address] CT Scan Report Signed Patient: Flor Mishra Unit #: [id number] : 1935 Age/Sex: 84 / F ADM Date: 12/29/19 Loc: ER Room/Bed: Attending Dr: Ordering Provider/Ordering MD: Rossy Rosen DO Date of Service: 12/29/19 Procedure(s): CT head wo con* [id number] Accession Number(s): [id number] Report Number: [id number] PROCEDURE INFORMATION: Exam: CT Head Without Contrast Exam date and time: 12/29/2019 7:18 PM Age: 84 years old Clinical indication: Altered mental status/memory loss; Patient HX: PT intubated; Additional info: Cavazos/ams TECHNIQUE: Imaging protocol: Computed tomography of the head without contrast. Total DLP: 826.3 mGy-cm Radiation optimization: All CT scans at this facility use at least one of these dose optimization techniques: automated exposure control; mA and/or kV adjustment per patient size (includes targeted exams where dose is matched to clinical indication); or iterative reconstruction. COMPARISON: CT head wo con* [id number] 01/16/2015 12:49 AM FINDINGS: Brain: No visible evidence for active or acute intracranial pathologic process or trauma. Mild small vessel ischemic disease with senile periventricular leukomalacia. Cerebral and cerebellar atrophy with ventricular dilatation no greater than anticipated for patient's chronological age. Ventricles: No ventriculomegaly. Bones/joints: Unremarkable. No acute fracture. Sinuses: Visualized sinuses are unremarkable. No fluid levels. Mastoid air cells: Visualized mastoid air cells are well aerated. Soft tissues: Unremarkable. CT/CT head wo con* [id number] IMPRESSION: Nonacute. Radiation Dose CTDIVOL = (mGy): DLP = 826.3 (mGy-cm) Dictated By: Adryan Linton Signed By: Adryan Linton Signed Date/Time: 12/29/192139 DD/ 39 CTA Chest: Radiologist's impression: [address] [place] [address] CT Scan Report Signed Patient: Flor Mishra Unit #: [id number] : 1935 Age/Sex: 84 / F ADM Date: 12/29/19 Loc: ICU Room/Bed: [place] [address]: Jamie Salmon MD Ordering Provider/Ordering MD: Rossy Rosen DO Date of Service: 12/29/19 Procedure(s): CT angio chest w abd pel w con Accession Number(s): [id number] Report Number: [id number] PROCEDURE INFORMATION: Exam: CT Angiography Chest With Contrast Exam date and time: 12/29/2019 8:19 PM Age: 84 years old Clinical indication: Other: Abd pain; Abdominal pain; Generalized; Other: Hypoxia; Prior surgery TECHNIQUE: Imaging protocol: Computed tomographic angiography of the chest with intravenous contrast. 3D rendering: MIP and/or 3D reconstructed images were created by the technologist. Total DLP: 980.94 mGy-cm Radiation optimization: All CT scans at this facility use at least one of these dose optimization techniques: automated exposure control; mA and/or kV adjustment per patient size (includes targeted exams where dose is matched to clinical indication); or iterative reconstruction. Contrast material: VISI; Contrast volume: 95 ml; Contrast route: 20G; COMPARISON: CR (CHEST, ) 12/29/2019 7:14 PM FINDINGS: Tubes, catheters and devices: Endotracheal tube in satisfactory position above the harper. Nasogastric tube tip at the level of the gastric antrum. Pulmonary arteries: No visible pulmonary embolism/pulmonary arterial thrombus. Aorta: Mild diffuse fusiform aneurysmal dilatation of the thoracic aorta with advanced arterial sclerotic disease. Nonocclusive intramural thrombus. Focal thrombosed saccular thoracic aortic aneurysm at the mid aortic arch level dimensions 26 mm x 60 mm x 23 mm. No visible intimal flap or dissection. Tortuous thoracic aorta often seen in hypertensive cardiovascular disease. Lungs: Evidence of antecedent granulomatous disease. Advanced centrilobular emphysema with senile fibrosis. Mild peripheral acinar emphysema. No visible active interstitial or alveolar airspace disease. Solitary 6.6 mm pulmonary nodule left lower lobe. Potential noncalcified granuloma. Extensive mucous plugging of the right main lower lobe bronchus extending into the medial basal and posterior basal segmental and subsegmental bronchi. Pleural space: Unremarkable. No pneumothorax. No pleural effusion. Heart: Coronary artery disease. Left ventricular hypertrophy. No visible pericardial effusion. Cor pulmonale. Lymph nodes: Unremarkable. No enlarged lymph nodes. Calcified hilar complexes of antecedent granulomatous disease. Bones/joints: No visible acute osseous abnormality. Previous vertebroplasties. Osteoporosis. Soft tissues: Unremarkable. IMPRESSION: 1. No visible evidence for pulmonary embolism/pulmonary arterial thrombus. 2. 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 Extensive arterial sclerotic disease. Tortuous thoracic aorta often seen in hypertensive cardiovascular disease.. 3. Advanced centrilobular emphysema. Senile fibrosis. 4. Evidence of antecedent granulomatous disease. 5. Solitary 6.6 mm pulmonary nodule left lower lobe. For patients at low risk (minimal or absent history of smoking and of other known risk factors), recommend CT at 6-12 months, then consider CT at 18-24 months. For patients at high risk (history of smoking or of other known risk factors), recommend CT at 6-12 months, then CT at 18-24 months. (Laquita et al., Fleischner Society, 2017). 6. Coronary artery disease. 7. Cor pulmonale. 8. Endotracheal tube and nasogastric tube. 9. Other nonurgent, nonemergent, chronic, and age related findings as detailed in text above. PROCEDURE INFORMATION: Exam: CT Abdomen And Pelvis With Contrast Exam date and time: 12/29/2019 8:19 PM Age: 84 years old Clinical indication: Other: Abd pain; Abdominal pain; Generalized; Other: Hypoxia; Prior surgery TECHNIQUE: Imaging protocol: Computed tomography of the abdomen and pelvis with intravenous contrast. Total DLP: 980.94 mGy-cm Radiation optimization: All CT scans at this facility use at least one of these dose optimization techniques: automated exposure control; mA and/or kV adjustment per patient size (includes targeted exams where dose is matched to clinical indication); or iterative reconstruction. Contrast material: VISI; Contrast volume: 95 ml; Contrast route: 20G; COMPARISON: CR (CHEST, ) 12/29/2019 7:14 PM FINDINGS: Liver: Liver without visible hepatic mass or cyst. Gallbladder and bile ducts: Status post cholecystectomy. Moderate intra and extrahepatic biliary ectasia without visible choledocholithiasis. Pancreas: Pancreas unremarkable for age. No visible pancreatic ductal ectasia. Atrophic pancreas. Spleen: Spleen unremarkable. Adrenals: Adrenal glands unremarkable. Kidneys and ureters: Acquired polycystic kidney disease with the largest renal cortical cyst inferior pole right kidney measuring 66 mm in diameter. Numerous bilateral simple appearing renal cortical cysts, left greater than right. No hydronephrosis or perinephric fluid. No visible nephrolithiasis. Renal arterial sclerosis. Stomach and bowel: Heavy fecal residue consistent with constipation with potential fecal impaction. Nasogastric tube tip at the level of the gastric antrum. Grossly nonobstructive bowel pattern. No gross evidence of adynamic or reactive ileus. Limited assessment of the small bowel. Appendix: No evidence of appendicitis. Intraperitoneal space: No visible intraperitoneal ascites. Vasculature: Fusiform aneurysmal dilatation of the infrarenal abdominal aorta measuring a maximum AP diameter of 34 mm terminating at the bifurcation into the common iliacs. Extensive and advanced arterial sclerotic disease. Celiac and SMA arteries remain patent although with dense arterial sclerotic disease. Retrograde filling of the inferior mesenteric artery. Large amount of intramural thrombus reducing the true lumen to 17 mm at the mid abdominal aorta level. No visible aneurysmal dilatation of the iliacs. Lymph nodes: No grossly visible lymphadenopathy. Bladder: Dai catheter within the decompressed urinary bladder. Air within the urinary bladder bleed most likely iatrogenic in origin. Reproductive: Status post hysterectomy. Bones/joints: Osteoporosis. Numerous vertebroplasties and old compression wedge fractures. Soft tissues: Unremarkable. Other findings: Cachexia. CT/CT angio chest w abd pel w con IMPRESSION: 1. No visible evidence of acute abdominal or pelvic pathologic process. 2. Infrarenal fusiform abdominal aortic aneurysm with extensive arterial sclerotic disease as detailed in text above. 3. Acquired polycystic kidney disease. No further workup recommended. 4. Constipation with probable fecal impaction. 5. Numerous non urgent, nonemergent, chronic, and age related findings as detailed in text above. Radiation Dose CTDIVOL = (mGy): DLP = 980.94 980.94 (mGy-cm) Dictated By: Adryan Linton Signed By: Adryan Linton Signed Date/Time: 12/29/192216 DD/ 14 EKG Data^: EKG 1: Attestation: I personally reviewed and interpreted this EKG as follows: EKG interpretation date: 12/29/19 EKG interpretation time: :20 Interpretation: Normal sinus rhythm 86 beats a minute, nonspecific T wave inversions in aVL and V2, no blocks, normal intervals. Computer generated interpretation: Chest X-Ray 12/29/19 19:09 IMPRESSION: No radiographic evidence of acute cardiopulmonary process. Head CT 12/29/19 19:09 IMPRESSION: Nonacute. Radiation Dose CTDIVOL = (mGy): DLP = 826.3 (mGy-cm) Chest/Abdomen/Pelvis CT 12/29/19 20:14 IMPRESSION: 1. No visible evidence of acute abdominal or pelvic pathologic process. 2. Infrarenal fusiform abdominal aortic aneurysm with extensive arterial sclerotic disease as detailed in text above. 3. Acquired polycystic kidney disease. No further workup recommended. 4. Constipation with probable fecal impaction. 5. Numerous non urgent, nonemergent, chronic, and age related findings as detailed in text above. Radiation Dose CTDIVOL = (mGy): DLP = 980.94~980.94 (mGy-cm) ADDENDUM: 12/29/192231 Voice recognition error: The correct dimensions of the thoracic aortic arch thrombosed saccular aneurysm is 26 mm x 16 mm x 23 mm. Radiation Dose CTDIVOL = (mGy): DLP = 980.94~980.94 (mGy-cm) Discharge Plan Discharge Patient Disposition: Admitted As Inpatient Admit Provider: Jamie Salmon Clinical Impression: Respiratory failure with hypoxia, Hypertension, COPD (chronic obstructive pulmonary disease), Thoracic aortic aneurysm, Abdominal aortic aneurysm, Altered mental status Condition: Stable Coding Level of Care Code ED [place] [employer] [facility] for [facility]g Fwd
[2019-12-29 19:34] LABS: Basophils # 0.1 10^3/uL (0.0-0.1); Basophils % 0.6 %; Eosinophils # 0.1 10^3/uL (0.0-0.8); Eosinophils % 0.8 %; Hematocrit 43.8 % (37.0-47.0); Lymphocytes # 1.4 10^3/uL (0.8-4.8); Lymphocytes % 10.7 %; Mean Corpuscular Hemoglobin 30.8 pg (28.0-34.0); Mean Corpuscular Volume 96.5 fL (81-99); Monocytes # 0.5 10^3/uL (0.2-0.9); Monocytes % 4.1 %; Neutrophils # 10.9 10^3/uL (1.8-7.7); Neutrophils % 83.6 %; Nucleated Red Blood Cells % 0 %; Platelet Count 262 10^3/cmm (130-400); Red Blood Count 4.54 10^6/uL (4.1-5.3); Red Cell Distribution Width 15.6 % (12.1-15.1)
[2019-12-29 19:34] LABS: ABG PCO2 49.6 mmHg (35-45); ABG PH Result 7.38 (7.35-7.45); Arterial Blood Gas Hematocrit 42.3 % (37-47); Base Excess ABG 2.9 mmol/L (-2.0-2.0); Blood Gas Sample Site Brachial, left; Blood Gas Sample Type Arterial; Oxygen Device NC
[2019-12-29 19:40] LABS: Ketone (Acetest) Serum Negative (Negative)
[2019-12-29] MEDS: labetalol 5 mg/mL SDV 20mL 10 MG IVP ×2 (19:40→22:20)
[2019-12-29] MEDS: naloxone 0.4 mg/ml SDV IVP ×2 (19:41→19:48)
[2019-12-29 19:42] LABS: INR 0.94 (0.8-1.2)
[2019-12-29 19:44] LABS: Lactic Sepsis W/Reflex 0.8 mmol/L (0.5-2.2)
[2019-12-29 19:49] LABS: Troponin(5th) Baseline 48 ng/mL (0-10)
[2019-12-29] MEDS: cefepime 2,000 MG in sodium chloride 0.9% (plus) 50 ML 100 MG IV (19:49)
[2019-12-29 19:58] LABS: Alanine Aminotransferase 20 U/L (0-33); Albumin Level 3.9 g/dL (3.5-5.2); Alkaline Phosphatase 96 IU/L (35-105); Anion Gap 17.1 (5-19); Aspartate Amino Transferase 39 U/L (0-32); Blood Urea Nitrogen 19 mg/dL (8-23); Calcium 10.8 mg/dL (8.5-10.5); Carbon Dioxide 28 mmol/L (22-29); Chloride 94 mmol/L (98-107); Creatine Phosphokinase 135 U/L (26-192); Globulin 3.4 g/dL (1.3-4.6); Glucose 93 mg/dL (65-115); Lipase 32 U/L (13-60); Magnesium 2.1 mg/dL (1.7-2.3); Osmolality Calculated 274 mOsm/kg (285-295); Potassium 5.1 mmol/L (3.5-5.1); Sodium 134 mmol/L (136-145); Thyroid Stimulating Hormone 1.21 uIU/mL (0.27-4.20); Total Bilirubin 0.5 mg/dL (0.15-1.2); Total Protein 7.3 g/dL (6.6-8.7)
--- NOTE | 2019-12-29 20:14 | CTR_ITS ---
PROCEDURE INFORMATION: Exam: CT Angiography Chest With Contrast Exam date and time: 12/29/2019 8:19 PM Age: 84 years old Clinical indication: Other: Abd pain; Abdominal pain; Generalized; Other: Hypoxia; Prior surgery TECHNIQUE: Imaging protocol: Computed tomographic angiography of the chest with intravenous contrast. 3D rendering: MIP and/or 3D reconstructed images were created by the technologist. Total DLP: 980.94 mGy-cm Radiation optimization: All CT scans at this facility use at least one of these dose optimization techniques: automated exposure control; mA and/or kV adjustment per patient size (includes targeted exams where dose is matched to clinical indication); or iterative reconstruction. Contrast material: VISI; Contrast volume: 95 ml; Contrast route: 20G; COMPARISON: CR (CHEST, ) 12/29/2019 7:14 PM FINDINGS: Tubes, catheters and devices: Endotracheal tube in satisfactory position above the harper. Nasogastric tube tip at the level of the gastric antrum. Pulmonary arteries: No visible pulmonary embolism/pulmonary arterial thrombus. Aorta: Mild diffuse fusiform aneurysmal dilatation of the thoracic aorta with advanced arterial sclerotic disease. Nonocclusive intramural thrombus. Focal thrombosed saccular thoracic aortic aneurysm at the mid aortic arch level dimensions 26 mm x 60 mm x 23 mm. No visible intimal flap or dissection. Tortuous thoracic aorta often seen in hypertensive cardiovascular disease. Lungs: Evidence of antecedent granulomatous disease. Advanced centrilobular emphysema with senile fibrosis. Mild peripheral acinar emphysema. No visible active interstitial or alveolar airspace disease. Solitary 6.6 mm pulmonary nodule left lower lobe. Potential noncalcified granuloma. Extensive mucous plugging of the right main lower lobe bronchus extending into the medial basal and posterior basal segmental and subsegmental bronchi. Pleural space: Unremarkable. No pneumothorax. No pleural effusion. Heart: Coronary artery disease. Left ventricular hypertrophy. No visible pericardial effusion. Cor pulmonale. Lymph nodes: Unremarkable. No enlarged lymph nodes. Calcified hilar complexes of antecedent granulomatous disease. Bones/joints: No visible acute osseous abnormality. Previous vertebroplasties. Osteoporosis. Soft tissues: Unremarkable. IMPRESSION: 1. No visible evidence for pulmonary embolism/pulmonary arterial thrombus. 2. 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 Extensive arterial sclerotic disease. Tortuous thoracic aorta often seen in hypertensive cardiovascular disease.. 3. Advanced centrilobular emphysema. Senile fibrosis. 4. Evidence of antecedent granulomatous disease. 5. Solitary 6.6 mm pulmonary nodule left lower lobe. For patients at low risk (minimal or absent history of smoking and of other known risk factors), recommend CT at 6-12 months, then consider CT at 18-24 months. For patients at high risk (history of smoking or of other known risk factors), recommend CT at 6-12 months, then CT at 18-24 months. (shaquille Coelho al., Fleischner Society, 2017). 6. Coronary artery disease. 7. Cor pulmonale. 8. Endotracheal tube and nasogastric tube. 9. Other nonurgent, nonemergent, chronic, and age related findings as detailed in text above. PROCEDURE INFORMATION: Exam: CT Abdomen And Pelvis With Contrast Exam date and time: 12/29/2019 8:19 PM Age: 84 years old Clinical indication: Other: Abd pain; Abdominal pain; Generalized; Other: Hypoxia; Prior surgery TECHNIQUE: Imaging protocol: Computed tomography of the abdomen and pelvis with intravenous contrast. Total DLP: 980.94 mGy-cm Radiation optimization: All CT scans at this facility use at least one of these dose optimization techniques: automated exposure control; mA and/or kV adjustment per patient size (includes targeted exams where dose is matched to clinical indication); or iterative reconstruction. Contrast material: VISI; Contrast volume: 95 ml; Contrast route: 20G; COMPARISON: CR (CHEST, ) 12/29/2019 7:14 PM FINDINGS: Liver: Liver without visible hepatic mass or cyst. Gallbladder and bile ducts: Status post cholecystectomy. Moderate intra and extrahepatic biliary ectasia without visible choledocholithiasis. Pancreas: Pancreas unremarkable for age. No visible pancreatic ductal ectasia. Atrophic pancreas. Spleen: Spleen unremarkable. Adrenals: Adrenal glands unremarkable. Kidneys and ureters: Acquired polycystic kidney disease with the largest renal cortical cyst inferior pole right kidney measuring 66 mm in diameter. Numerous bilateral simple appearing renal cortical cysts, left greater than right. No hydronephrosis or perinephric fluid. No visible nephrolithiasis. Renal arterial sclerosis. Stomach and bowel: Heavy fecal residue consistent with constipation with potential fecal impaction. Nasogastric tube tip at the level of the gastric antrum. Grossly nonobstructive bowel pattern. No gross evidence of adynamic or reactive ileus. Limited assessment of the small bowel. Appendix: No evidence of appendicitis. Intraperitoneal space: No visible intraperitoneal ascites. Vasculature: Fusiform aneurysmal dilatation of the infrarenal abdominal aorta measuring a maximum AP diameter of 34 mm terminating at the bifurcation into the common iliacs. Extensive and advanced arterial sclerotic disease. Celiac and SMA arteries remain patent although with dense arterial sclerotic disease. Retrograde filling of the inferior mesenteric artery. Large amount of intramural thrombus reducing the true lumen to 17 mm at the mid abdominal aorta level. No visible aneurysmal dilatation of the iliacs. Lymph nodes: No grossly visible lymphadenopathy. Bladder: Dai catheter within the decompressed urinary bladder. Air within the urinary bladder bleed most likely iatrogenic in origin. Reproductive: Status post hysterectomy. Bones/joints: Osteoporosis. Numerous vertebroplasties and old compression wedge fractures. Soft tissues: Unremarkable. Other findings: Cachexia. CT/CT angio chest w abd pel w con IMPRESSION: 1. No visible evidence of acute abdominal or pelvic pathologic process. 2. Infrarenal fusiform abdominal aortic aneurysm with extensive arterial sclerotic disease as detailed in text above. 3. Acquired polycystic kidney disease. No further workup recommended. 4. Constipation with probable fecal impaction. 5. Numerous non urgent, nonemergent, chronic, and age related findings as detailed in text above. Radiation Dose CTDIVOL = (mGy): DLP = 980.94~980.94 (mGy-cm)
[2019-12-29 20:18] LABS: Alcohol Level < 10 mg/dL (0-10)
[2019-12-29] MEDS: fentaNYL 50 mcg/mL INJ 2mL IVP (20:38)
[2019-12-29] MEDS: succinylcholine 20 mg/mL SDV 10mL 75 MG IVP (20:40)
[2019-12-29] MEDS: LORazepam 2 mg/mL INJ 1 mL 1 MG IVP (20:42)
[2019-12-29 20:45] LABS: Bilirubin Urine Neg (NEGATIVE); Blood Urine Neg (Negative); Glucose Urine UA Norm (Normal); Ketones Urine Negative (Negative); Leukocyte Esterase Urine Negative (Negative); Nitrate Urine Negative (Negative); Protein Urine Neg (Negative); Urine Appearance Clear (CLEAR); Urine Color Yellow (Yellow); Urobilinogen Urine Norm (Negative); pH Urine 6.5 (5-7)
[2019-12-29] MEDS: propofol 1,000 MG/100 ML INJ 2 MG IV (20:45)
[2019-12-29 20:46] LABS: Add Urine Culture? Yes; Bacteria Urine TRACE
[2019-12-29 20:49] LABS: Amphetamines Screen Urine Negative (Negative); Barbiturates Screen Urine Negative (Negative); Benzodiazepines Screen Urine Negative (Negative); Cocaine Screen Urine Negative (Negative); Opiate Screen Urine Positive (Negative); PCP Screen Urine Negative (Negative); THC Screen Urine Negative (Negative)
--- NOTE | 2019-12-29 20:49 | XRR_ITS ---
PROCEDURE INFORMATION: Exam: XR Chest, 1 View Exam date and time: 12/30/2019 9:46 AM Age: 84 years old Clinical indication: Device placement; Ett placement (vent status); Additional info: Et tube placement TECHNIQUE: Imaging protocol: XR of the chest Views: 1 view. COMPARISON: CR (CHEST, ) 12/29/2019 7:14 PM FINDINGS: Tubes, catheters and devices: Termination of endotracheal tube 5.2 cm above the harper. Termination of feeding tube in the gastric cardia. Lungs: COPD and interstitial prominence. Pleural space: Mild apical pleural thickening. No dependent pleural effusion. Heart/Mediastinum: No cardiomegaly. Vasculature: Calcification and ectasia of the thoracic aorta. Bones/joints: Osteopenia, compression fractures, and multilevel vertebral plasty. Degenerative change prior XR/XR chest 1V portable [id number] IMPRESSION: 1. Termination of endotracheal tube 5.2 cm above the harper. Termination of feeding tube in the gastric cardia. 2. COPD and interstitial prominence.
[2019-12-29] MEDS: sodium chloride 0.9% 1,000 ML 999 ML IV (21:03)
[2019-12-29] MEDS: fentaNYL 50 mcg/mL INJ 2mL 100 MCG IVP (21:03)
[2019-12-29] MEDS: vecuronium 10 mg SDV IVP (21:20)
--- NOTE | 2019-12-29 21:46 | P.HP_ITS ---
Providers/Chief Complaint Primary Care Provider: Herlinda Angulo DO Chief Complaint: failure to thrive History of Present Illness Flor Mishra is a 84 year old female with a past medical history of COPD, supposed to be using 3 L oxygen at baseline, current smoker, history of carotid artery stenosis status post carotid endarterectomy bilaterally, history of abdominal aortic aneurysm, dementia, moderate protein calorie malnutrition, chronic pain, chronic back pain status post back surgeries on chronic opiate therapy, hyperlipidemia, hypertension, who was recently discharged from [facility] in October 2019 for right lower lobe pneumonia who presents to the emergency room due to concerns for hypoxia and altered mental status. In the emergency room, patient had significant hypoxia PO2's in the 40s on ABG, was put on 5 L, continually desatted into the 80s, put on BiPAP 80%, desatted into the 80s, given her alteration of mentation and significant hypoxia, decision was made to intubate patient. Most the history was provided by patient's son Rich, patient lives in [facility] with her son-in-law Rich, at baseline patient can ambulate with help, has a nurse aide that comes in 2-3 times a week, also her son-in-law checks in on her daily. According to son-in-law, since she got in the hospital with a right lower lobe pneumonia, she has been doing well, she actually has not been using her oxygen, he states that a few days after she came from the hospital, they were measuring her oxygen saturation throughout the day, they were with the high 90s, they eventually wean her off the oxygen by themselves, and she was off oxygen for the last 3 weeks. They stated that in early in the morning just after she would awaken her oxygen saturations would be below 90, but it would progressively increase to the high 90s a few minutes later, and throughout the day. No history of obstructive sleep apnea, no history of CPAP use. Patient's son-in-law states that she tends to withhold information, tends not to seek medical help, no particular things that he had noticed, she did not look more short of breath, had no significant complaints of chest pain, shortness of breath, fevers, although did have low-grade temperatures 99's on Wednesday measured by her nurses aide. No falls, no injuries, she is on chronic opiate therapy, is on Dilaudid, tramadol, Lyrica. She has been on these medications for a few years, no recent dose changes, she is using it as prescribed, he denies that she took too much of her medication. Patient was given Narcan a few times by the ER physician, but did not significantly respond to the Narcan. She has a chronic productive cough, no no hemoptysis, no falls, no recent travel, no recent sick contacts, no known exposure to covid19, patient continues to smoke, no cardiac history, no complaints of chest pain, no history of stents, no history of CABG. Patient's son in law states that she does typically become confused after UTIs and pneumonias. Patient's son-in-law states that this morning, the awakened her at roughly 8 AM, she was able to arouse, did answer questions, but was confused, was not fully there, they were able to give her a sponge bath, as she was too weak to get into the shower, then they put her back to bed. No facial droop, no slurring of her speech, no focal neurologic deficits, just had generalized weakness. Patient's son states that she has had a slow decline over the last year, poor appetite, which is been picking up slightly, but does have dementia. He did not think much of her symptoms, but at a roughly 4 AM he went to awaken her, again she was quite drowsy, confused, would answer questions here and there but was not fully there, he measured her oxygen saturations in the low 80s, he put on oxygen. He let her go back to sleep, then roughly at dinnertime, he awoke her up again repeat of her symptoms, she was not fully there, confused, and she was on 3 L of oxygen she and she was de-satting in the low 80s to 70s, so decided to call the EMS. Review of Systems Const: Reports: fever; Denies: chills, fatigue or malaise Eyes: Denies: change in vision or blurry vision ENMT: Denies: nasal congestion Resp: Denies: shortness of breath, productive cough, non-productive cough or wheezing GI: Denies: abdominal pain, nausea, vomiting, vomiting blood, diarrhea, constipation, blood in stool or black tarry stool : Denies: flank pain, painful urination or urinary frequency Musc: Denies: neck pain or back pain Skin/Breast: Denies: rash Neuro: Denies: headache, dizziness or vertigo Psych: Reports: anxiety and depression Medications/Allergies Allergies Allergy/AdvReac Type Severity Reaction Status Date / Time levofloxacin Allergy Severe ADR-Halluci Verified 12/15/19 14:14 nating hydrocodone Allergy ALGY-Swell Verified 12/15/19 14:14 Lip/Tongue/Throat latex Allergy ALGY-Anaphy Verified 12/15/19 14:14 laxis Penicillins Allergy ALGY-Bliste Verified 12/15/19 14:14 r Sulfa (Sulfonamide Allergy ALGY-Hives Verified 12/15/19 14:14 Antibiotics) tetracycline Allergy ALGY-Swell Verified 12/15/19 14:14 Lip/Tongue/Throat Additional Medication Information Additional Medication Information: Alendronate 70 mg p.o. q. 7 days Aspirin 81 mg once daily B complex with folic acid Vitamin D3 25 mcg p.o. daily Voltaren gel Colace 200 mg p.o. as needed Lasix 20 mg p.o. daily PRN Mucinex 600 mg p.o. twice daily Hydromorphone 2 mg p.o. 4 times daily Lisinopril 5 mg p.o. twice daily Movantik 25 mg p.o. every morning Lyrica 25 mg p.o. twice daily Tizanidine 2 mg p.o. every 6 hours Tramadol 50 mg p.o. every 6 hours PFSH Acute PFSH: Medical History AAA (abdominal aortic aneurysm) Back pain with radiation Carotid stenosis COPD (chronic obstructive pulmonary disease) -Acute COPD exacerbation as evidenced by increased oxygen requirement -Continue oral steroids and empiric antibiotics as noted above -Home oxygen evaluation prior to discharge as she has required supplemental oxygen throughout her hospital stay, she is not oxygen dependent at baseline DDD (degenerative disc disease), lumbar Encounter for long-term opiate analgesic use Enrolled in chronic care management Hyperlipidemia -Statin added during this admission, continue on discharge Hypertension -Hemodynamically stable, continue oral antihypertensives including addition of amlodipine Spondylosis without myelopathy or radiculopathy, lumbosacral region Surgical History History of endarterectomy bilateral History of tonsillectomy and adenoidectomy Hx of cholecystectomy Hx of hysterectomy, total Hx of kyphoplasty Family History Other CAD (coronary artery disease) Social History Smoking and tobacco status: unknown if ever smoked Second hand smoke exposure: Yes Alcohol intake: never History of recent travel: No Vitals/I&O/Wt Last Vital Signs Temp 100.1 F H 12/29/19 19:06 Pulse 98 12/29/19 19:50 Resp 14 12/29/19 20:48 BP 114/91 12/29/19 20:02 Pulse Ox 88 L 12/29/19 20:02 Weight last 48 hrs Weight 34.019 kg Physical Exam Narrative: EXAM NARRATIVE: Patient is intubated, sedated, on a ventilator Const: COMMON NORMALS: no apparent distress OTHER: Intubated, sedated on a ventilator HENMT: COMMON NORMALS: normocephalic HEAD & SCALP: normocephalic Eye: COMMON NORMALS: PERRL GENERAL EYE: normal appearance of both eyes PUPIL: Yes PERRL DIRECT OPHTHALMOSCOPY: Yes no papilledema Neck/C-Spine: COMMON NORMALS: full ROM, no lymphadenopathy, no JVD and thyroid normal THYROID: thyroid normal Lymph: LYMPHATIC: no lymphadenopathy noted Resp: COMMON NORMALS: normal respiratory effort, no retractions, no use of accessory muscles and clear to auscultation bilaterally AUSCULTATION: clear to auscultation bilaterally Cardio: COMMON NORMALS: no JVD, regular rate, regular rhythm, S1 normal heart sound, S2 normal heart sound, no gallops, no clicks and no murmurs RATE: regular rate RHYTHM: regular rhythm HEART SOUNDS: S1 normal and S2 normal GI: COMMON NORMALS: normal to inspection, nondistended, normoactive bowel sounds, soft to palpation, non-tender and no hepatosplenomegaly PALPATION: Yes soft and Yes no hepatosplenomegaly Extremity: COMMON NORMALS: normal to inspection, full ROM and no pedal edema Neuro: OTHER: Intubated sedated on a ventilator Urinary Catheter Management^: Dai: Cath Placed During This Visit: yes Urinary Catheter Date of Insertion: 12/29/19 Urinary Catheter Time of Insertion: 19:38 Sepsis: Is patient septic: Yes Focused sepsis exam performed: Yes Date exam was performed: 12/29/19 Time exam was performed: 23:00 Data : 12/29/19 19:25 12/29/19 19:25 Micro: Microbiology 12/29/19 19:23 Blood Culture - Preliminary Blood SPECIMEN COLLECTED A&P Assessment and plan (1) Acute on chronic respiratory failure with hypoxia: -White blood cell count 13,000, neutrophilic -Chest x-ray shows interstitial fibrosis -CT angiogram of the chest was negative for pulmonary embolism, right lower lobe atelectasis, no significant infiltrates, no significant pneumonia, cor pulmonale -CT angio abdomen pelvis: 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, extensive arterial sclerotic disease, infrarenal fusiform abdominal aortic aneurysm, with extensive arteriosclerotic disease -Procalcitonin, CRP, ESR pending -Influenza pending -Placed on the ventilator due to profound hypoxia, altered mental status, protecting airway -Differential includes: covid19 and/or opiate overdose and/or viral/bacterial pneumonia Plan: -Patient in my opinion requires admission to the ICU for acute hypoxic respiratory failure, altered mental status, on a ventilator -Ventilator minimize PEEP, minimize S FiO2, minimize tidal volume -Lovenox for DVT prophylaxis, Protonix for GI prophylaxis -Propofol and fentanyl for sedation -Dai catheter in place, monitor urine output -Monitor blood pressure, keep mean arterial pressure greater than 65 -Head of bed elevated greater than 30 degrees -Broad-spectrum antibiotics vancomycin, Zosyn -Even if the influenza is negative, I will start her on Tamiflu given high risk of falls negatives -covid 19 testing ordered given fevers, history of COPD -I will hold off on starting steroids, due to no active wheezing, no significant hypercarbia -Ipratropium every 4 hours -Echocardiogram on last admission showed ejection back 65%, grade 1 of 4 diastolic dysfunction, mild LVH, BNP pending, patient does not seem wet, no lower extremity edema, hold off on Lasix -Baseline troponin 40, monitor troponins, EKG sinus rhythm, left axis deviation, no acute ST-T wave changes, serial EKGs, telemetry monitoring -Sputum culture, blood culture, influenza, covid19 Status: Acute (2) Acute kidney injury: Creatinine 1.1, possibly secondary to dehydration Status: Acute (3) COPD (chronic obstructive pulmonary disease): Status: Acute (4) Hyperlipidemia: Status: Acute Qualifiers: Hyperlipidemia type: unspecified Qualified Code(s): E78.5 - Hyperlipidemia, unspecified (5) Spondylosis without myelopathy or radiculopathy, lumbosacral region: Status: Chronic (6) Hypertension: Status: Acute Qualifiers: Hypertension type: essential hypertension Qualified Code(s): I10 - Essential (primary) hypertension (7) Back pain with radiation: Status: Chronic (8) Encounter for long-term opiate analgesic use: Hold Dilaudid, continue Lyrica, hold tramadol, patient is on fentanyl drip Status: Chronic (9) Thoracic aortic aneurysm: - Mild fusiform aneurysmal dilatation of the thoracic aorta to include a 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 Extensive arterial sclerotic disease. Tortuous thoracic aorta often seen in hypertensive cardiovascular disease.. -will check esr to evalaute for inflammatory TAA -Statin -Labetalol 10 mg IV every 4 as needed, maintain systolic blood pressure between 105-220 (clinically patient does not seem septic, normal lactic acid, no hypotensive episodes) - Status: Acute (10) Abdominal aortic aneurysm: -Fusiform aneurysmal dilatation of the infrarenal abdominal aorta measuring a maximum AP diameter of 34 mm terminating at the bifurcation into the common iliacs. Extensive and advanced arterial sclerotic disease. Celiac and SMA arteries remain patent although with dense arterial sclerotic disease. Retrograde filling of the inferior mesenteric artery. Large amount of intramural thrombus reducing the true lumen to 17 mm at the mid abdominal aorta level -We will check ESR -Statin -Beta-henry Status: Acute Attestations Medical Necessity Statement*: Patient requires hospitalization, inpatient, greater than 2 midnights, for acute hypoxic respiratory failure Coding Level of Care Code Acute Manager Utilities for [facility] Fwd Exam Comprehensive Diagnoses Acute on chronic respiratory failure with hypoxia J96.21 Acute kidney injury N17.9 COPD (chronic obstructive pulmonary disease) J44.9 Hyperlipidemia E78.5 Hyperlipidemia type: unspecified Spondylosis without myelopathy or radiculopathy, lumbosacral region M47.817 Hypertension I10 Hypertension type: essential hypertension Back pain with radiation M54.9 Encounter for long-term opiate analgesic use Z79.891 Thoracic aortic aneurysm I71.2 Abdominal aortic aneurysm I71.4 Sepsis Event Note Evaluation Current stage of sepsis: sepsis Possible source: pulmonary Focused Exam Vital Signs Temp Pulse Pulse Resp BP BP Pulse Ox 12/29/19 20:48 14 12/29/19 20:02 114/91 88 L 12/29/19 19:50 98 92 12/29/19 19:20 90 14 216/89 86 L 12/29/19 19:06 100.1 F H 88 20 H 206/88 92 Cardiovascular exam: Present RRR, S1 and S2 Capillary refill: < 3 Seconds Peripheral pulse strength: 1+ Faint Peripheral pulse location: Pedal Skin exam: normal turgor Date exam was performed: 12/29/19 Time exam was performed: 22:34 Problem List (1) Acute on chronic respiratory failure with hypoxia: Current Visit: Yes Status: Acute (2) Acute kidney injury: Current Visit: Yes Status: Acute (3) COPD (chronic obstructive pulmonary disease): Current Visit: No Status: Acute Comment: -Acute COPD exacerbation as evidenced by increased oxygen requirement -Continue oral steroids and empiric antibiotics as noted above -Home oxygen evaluation prior to discharge as she has required supplemental oxygen throughout her hospital stay, she is not oxygen dependent at baseline (4) Hyperlipidemia: Current Visit: No Status: Acute Comment: -Statin added during this admission, continue on discharge (5) Spondylosis without myelopathy or radiculopathy, lumbosacral region: Current Visit: No Status: Chronic (6) Hypertension: Current Visit: No Status: Acute Comment: -Hemodynamically stable, continue oral antihypertensives including addition of amlodipine (7) Back pain with radiation: Current Visit: No Status: Chronic (8) Encounter for long-term opiate analgesic use: Current Visit: No Status: Chronic (9) Thoracic aortic aneurysm: Current Visit: Yes Status: Acute (10) Abdominal aortic aneurysm: Current Visit: Yes Status: Acute
[2019-12-29 22:08] LABS: ABG PCO2 35.8 mmHg (35-45); ABG PH Result 7.48 (7.35-7.45); Arterial Blood Gas Hematocrit 41.2 % (37-47); Base Excess ABG 3.4 mmol/L (-2.0-2.0); Blood Gas Sample Site Brachial, right; Blood Gas Sample Type Arterial; Blood Gas Tidal Volume 0.4; HCO3 ABG 26.7 mmol/L (22-26); Oxygen Device VENT
[2019-12-29 22:23] LABS: Ammonia 32 umol/L (11-51)
--- NOTE | 2019-12-29 23:00 | PC.NURSE ---
Arrived to unit at 2253 from ER intubated with mechanical ventilation. Pt placed in airborne isolation for pending covid testing. Propofol and Fentanyl drips hanging on arrival to unit.
[2019-12-29 23:14] LABS: NT Pro B Type Natriuretic Pept 1584 pg/mL (0-450); Procalcitonin 0.07 ng/mL (0-0.5)
[2019-12-29 23:15] LABS: Thyroid Stimulating Hormone 0.86 uIU/mL (0.27-4.20)
--- NOTE | 2019-12-29 23:24 | PC.NURSE ---
Hypotension BP 59/42, Propfol turned off at this time. fentanyl drip decreased . Dr. Salmon notified of BP 59/42. Orders received for LR 500ml bolus over 30 minutes.
--- NOTE | 2019-12-29 23:24 | PC.NURSE ---
Contacted Dr. Salmon and notified that patient has a PCN allergy and pipricillin is ordered. Dr. Salmon clarified that he is ok for her to have the zosyn as ordered. Notified Pharmacy of clarification of order.
[2019-12-29 23:25] LABS: C Reactive Protein 4.8 mg/L (0.0-4.9); Phosphorus 3.7 mg/dL (2.5-4.5)
--- NOTE | 2019-12-29 23:31 | PC.PHAR ---
Vancomycin is dosed at 500mg IVPB every 48 hours to produce a predicted trough level of 12.19 (population based pharmacokinetic analysis). A trough level has been ordered from the lab to be obtained before the fourth dose to confirm and adjust if needed. Zosyn is dosed at 3.375gm IVPB every 12 hours, each dose to be infused over 4 hours per extended infusion protocol.
[2019-12-29 23:44] LABS: Erythrocyte Sedimentation Rate 34 mm/hr (0-15)
[2019-12-30] VITALS (48 sets, daily range): BP systolic 64–200; BP diastolic 41–104; PULSE 63–85; RESP 14–17; TEMP 36.4–36.8; O2SAT 90–99
[2019-12-30] MEDS: ipratropium-albuterol 3 mL Neb INHALATION ×7 (00:20→23:10)
[2019-12-30] MEDS: lactated ringers 500 ML 999 ML IV (00:21)
[2019-12-30] MEDS: enoxaparin 40 mg/0.4 mL Syringe SUBCUT ×2 (00:21→23:11)
--- NOTE | 2019-12-30 00:25 | PC.NURSE ---
Called report to [facility] ICU at approx [phone]
[2019-12-30 00:41] LABS: Influenza A by IFA Negative (Negative); Influenza B by IFA Negative (Negative)
[2019-12-30] MEDS: piperacillin-tazobactam 3.375 GM in sodium chloride 0.9% (plus) 50 ML IV ×2 (01:03→12:21)
--- NOTE | 2019-12-30 01:10 | ECG_ITS ---
Measurements Intervals [place] Rate: 66 P: 75 IA: 140 QRS: 54 QRSD: 90 T: 63 QT: 440 QTc: 464 SINUS RHYTHM WITH OCCASIONAL SUPRAVENTRICULAR PREMATURE COMPLEXES SEPTAL MYOCARDIAL INFARCTION [40+ ms Q WAVE IN V1/V2], OF INDETERMINATE AGE Compared to ECG 11/02/2019 17:32:51 Myocardial infarct finding now present Atrial fibrillation no longer present Left anterior fascicular block no longer present T-wave abnormality no longer present Possible ischemia no longer present Electronically Signed On 12-30-2019 14:05:05 CDT by Harper Morejon M.D. [email or web address]
[2019-12-30 02:41] LABS: Troponin 5 6HR 62.76 ng/mL (0-10)
[2019-12-30 02:51] LABS: Troponin 5 6HR Delta 14.76 ng/L (0-12)
--- NOTE | 2019-12-30 03:44 | PC.NURSE ---
Physician notification Notified Dr. Salmon for wide variations in BP. Becomes hypotensive with low dose propofol and moderate fentanyl. Becomes hypertensive and restless without adequate sedation. Orders to hold off on Diprovan for now, go up on fentanyl and start NS at 50ml/hr.
[2019-12-30] MEDS: sodium chloride 0.9% 1,000 ML 50 ML IV ×2 (03:58→12:20)
[2019-12-30 05:01] LABS: Arterial Blood Gas Hematocrit 38.8 % (37-47)
[2019-12-30 05:22] LABS: Basophils # 0.1 10^3/uL (0.0-0.1); Basophils % 0.4 %; Eosinophils % 0.1 %; Hematocrit 39.8 % (37.0-47.0); Hemoglobin 12.9 g/dL (11.5-15.3); Lymphocytes # 1.8 10^3/uL (0.8-4.8); Mean Corpuscular HGB Conc 32.4 g/dL (30.0-36.0); Mean Corpuscular Hemoglobin 31.4 pg (28.0-34.0); Mean Corpuscular Volume 96.8 fL (81-99); Mean Platelet Volume 10.4 fL (7.4-10.4); Monocytes # 0.8 10^3/uL (0.2-0.9); Monocytes % 6.2 %; Neutrophils # 10.3 10^3/uL (1.8-7.7); Nucleated Red Blood Cells % 0 %; Platelet Count 209 10^3/cmm (130-400); Red Blood Count 4.11 10^6/uL (4.1-5.3); Red Cell Distribution Width 15.8 % (12.1-15.1)
[2019-12-30 05:37] LABS: Alanine Aminotransferase 17 U/L (0-33); Albumin Level 3.6 g/dL (3.5-5.2); Alkaline Phosphatase 86 IU/L (35-105); Anion Gap 17.8 (5-19); Aspartate Amino Transferase 34 U/L (0-32); Blood Urea Nitrogen 18 mg/dL (8-23); C Reactive Protein 9.8 mg/L (0.0-4.9); Calcium 10.4 mg/dL (8.5-10.5); Carbon Dioxide 26 mmol/L (22-29); Chloride 95 mmol/L (98-107); Creatinine Clr Calc Pharmacy 24.9893; Globulin 3.3 g/dL (1.3-4.6); Glucose 120 mg/dL (65-115); Magnesium 2.2 mg/dL (1.7-2.3); Osmolality Calculated 276 mOsm/kg (285-295); Phosphorus 3.8 mg/dL (2.5-4.5); Potassium 4.8 mmol/L (3.5-5.1); Sodium 134 mmol/L (136-145); Total Bilirubin 0.8 mg/dL (0.15-1.2); Total Protein 6.9 g/dL (6.6-8.7)
--- NOTE | 2019-12-30 05:38 | PC.NURSE ---
Hypotension BP 67/44, Fentanyl drip decreased . Dr. Salmon notified via phone, gave verbal orders for soft wrist restraints and bolus. Verbalized low output of 225ml with significant JVD, lungs diminished. Bolus was not ordered. Physician gave orders to use haldol IM for sedation.
[2019-12-30 05:41] LABS: Estmated Average Glucose 97
--- NOTE | 2019-12-30 05:46 | PC.NURSE ---
Physician contacted by phone again for BP of 64/41, MAP of 48. Received orders for 250 NS bolus and orders for levophed drip if bolus ineffective.
[2019-12-30 05:52] LABS: Procalcitonin 0.12 ng/mL (0-0.5)
[2019-12-30] MEDS: sodium chloride 0.9% 250 ML IV (06:01)
[2019-12-30 06:03] LABS: Chol HDL Ratio 2.53 mg/dL (0.0-4.40); Cholesterol 144 mg/dL (0-200); HDL Cholesterol 57 mg/dL (60-100); LDL Cholesterol Calculated 74 mg/dL (50-129); Triglycerides 66 mg/dL (0-150)
--- NOTE | 2019-12-30 07:00 | XRR_ITS ---
PROCEDURE INFORMATION: Exam: XR Chest, 1 View Exam date and time: 12/30/2019 4:59 AM Age: 84 years old Clinical indication: Device placement; Ett placement (vent status); Patient HX: Et and og tube; Additional info: SOB TECHNIQUE: Imaging protocol: XR of the chest Views: 1 view. COMPARISON: CR (CHEST, ) 12/29/2019 7:14 PM FINDINGS: Tubes, catheters and devices: An orogastric tube is placed with its tip at least in the proximal stomach. An endotracheal tube is placed with its tip approximately 4.7 cm from the harper. Lungs: There is a background of centrilobular emphysema. Some strandy and hazy opacities are present in the lower hemithoraces bilaterally compatible with some atelectasis versus parenchymal scarring. There is bilateral basilar bronchiectasis. Pleural space: Unremarkable. No pleural effusion. No pneumothorax. Heart/Mediastinum: Unremarkable. No cardiomegaly. Bones/joints: Status post vertebroplasty of T12-L2. XR/XR chest 1V portable [id number] IMPRESSION: 1. Background of centrilobular emphysema, bronchiectasis and bilateral basilar atelectasis versus parenchymal scarring. 2. Endotracheal tube tip approximately 4.7 cm from the harper. 3. Orogastric tube tip at least in proximal stomach.
--- NOTE | 2019-12-30 07:00 | PC.NURSE ---
Received resting comfortably on ventilator on airborne isolation. BP remains soft and Dr Salmon here wanting additional 500 ml fluid bolus
[2019-12-30 08:15] LABS: Lactic Sepsis W/Reflex 1.8 mmol/L (0.5-2.2)
[2019-12-30] MEDS: pregabalin 25 mg Capsule PO ×2 (10:04→18:17)
[2019-12-30 10:05] LABS: ABG PCO2 41.8 mmHg (35-45); Base Excess ABG 1.1 mmol/L (-2.0-2.0); HCO3 ABG 26.1 mmol/L (22-26); PO2 ABG 67.8 mmHg (80.0-100.0)
[2019-12-30] MEDS: atorvastatin 40 mg Tablet PO (10:05)
[2019-12-30] MEDS: aspirin 81 mg Chew Tablet PO (10:05)
[2019-12-30] MEDS: metoprolol tartrate 25 mg Tablet 12.5 MG PO ×2 (10:05→18:17)
[2019-12-30 10:06] LABS: Oxygen Device VENT
[2019-12-30 10:07] LABS: Blood Gas Sample Type ART; Blood Gas Vent Mode AC
--- NOTE | 2019-12-30 12:11 | PM.PN ---
Subjective Subjective: Interval history: The patient is sedated and vented. No acute distress. However, she moves her extremities spontaneously and on request. Tube feeds are going at 30 cc/h. Vitals/I&O/Wt Last Vital Signs Temp 97.7 F 12/30/19 07:00 Pulse 67 12/30/19 11:44 Resp 14 12/30/19 11:43 BP 160/71 12/30/19 10:00 Pulse Ox 95 12/30/19 11:43 12/29/19 12/30/19 12/30/19 22:59 06:59 14:59 Intake Total 59.533 / 59.533 846.751 / 906.284 Output Total 225 / 225 Balance 59.533 / 59.533 621.751 / 681.284 Weight last 48 hrs Weight 34.019 kg Physical Exam Narrative: EXAM NARRATIVE: Skin is warm and dry Moist mucous membranes Eyes PERRLA Neck no JVD Lungs clear bilaterally. No respiratory distress. She is on assist control. No respiratory distress. No wheezes or crackles. Heart S1, S2, regular Abdomen soft, nontender, bowel sounds are present Extremities. No edema cyanosis or calf tenderness bilaterally Urinary Catheter Management^: Dai: Cath Placed During This Visit: yes Reason for Continuing Indwelling Catheter: Accurate Measurement of Urinary Output in Critically Ill Patients Urinary Catheter Date of Insertion: 12/29/19 Urinary Catheter Time of Insertion: 23:16 Data : 12/30/19 05:12 12/30/19 05:12 Other Labs: Laboratory Results WBC 13.0 10^3/uL (4.0-10.0) H 12/30/19 05:12 RBC 4.11 10^6/uL (4.1-5.3) 12/30/19 05:12 Hgb 12.9 g/dL (11.5-15.3) 12/30/19 05:12 Hct 39.8 % (37.0-47.0) 12/30/19 05:12 MCV 96.8 fL (81-99) 12/30/19 05:12 MCH 31.4 pg (28.0-34.0) 12/30/19 05:12 MCHC 32.4 g/dL (30.0-36.0) 12/30/19 05:12 RDW 15.8 % (12.1-15.1) H 12/30/19 05:12 Plt Count 209 10^3/cmm (130-400) 12/30/19 05:12 MPV 10.4 fL (7.4-10.4) 12/30/19 05:12 Neut % (Auto) 79.0 % 12/30/19 05:12 Lymph % (Auto) 14.0 % 12/30/19 05:12 [place] % (Auto) 6.2 % 12/30/19 05:12 Eos % (Auto) 0.1 % 12/30/19 05:12 Baso % (Auto) 0.4 % 12/30/19 05:12 Neut # (Auto) 10.3 10^3/uL (1.8-7.7) H 12/30/19 05:12 Lymph # (Auto) 1.8 10^3/uL (0.8-4.8) 12/30/19 05:12 [place] # (Auto) 0.8 10^3/uL (0.2-0.9) 12/30/19 05:12 Eos # (Auto) 0.0 10^3/uL (0.0-0.8) 12/30/19 05:12 Baso # (Auto) 0.1 10^3/uL (0.0-0.1) 12/30/19 05:12 Nucleated RBC % (auto) 0 % 12/30/19 05:12 Nucleated RBCs # 0.0 /100WBC 12/30/19 05:12 ESR 34 mm/hr (0-15) H 12/29/19 19:25 PT 12.80 SECONDS (10.5-13.3) 12/29/19 19:25 INR 0.94 (0.8-1.2) 12/29/19 19:25 Specimen Type Art 12/30/19 05:01 Sample Site Brachial, right 12/30/19 05:01 ABG pH 7.40 (7.35-7.45) 12/30/19 05:01 ABG pCO2 41.8 mmHg (35-45) 12/30/19 05:01 ABG pO2 67.8 mmHg (80.0-100.0) L 12/30/19 05:01 ABG HCO3 26.1 mmol/L (22-26) H 12/30/19 05:01 ABG Base Excess 1.1 mmol/L (-2.0-2.0) 12/30/19 05:01 [place] Test Na 12/30/19 05:01 Hematocrit 38.8 % (37-47) 12/30/19 05:01 Respiration Rate 16.0 % 12/30/19 05:01 O2 Delivery Device Vent 12/30/19 05:01 O2 Liters/Min 5.0 % 12/29/19 19:23 Vent Mode Ac 12/30/19 05:01 Mechanical Rate 14.0 12/30/19 05:01 FiO2 28.0 % 12/30/19 05:01 Tidal Volume .35 12/30/19 05:01 PEEP 8.0 cmH20 12/30/19 05:01 Specimen Drawn By Melvin 12/30/19 05:01 Payroll Associate ID Melvin 12/30/19 05:01 Sodium 134 mmol/L (136-145) L 12/30/19 05:12 Potassium 4.8 mmol/L (3.5-5.1) 12/30/19 05:12 Chloride 95 mmol/L (98-107) L 12/30/19 05:12 Carbon Dioxide 26 mmol/L (22-29) 12/30/19 05:12 Anion Gap 17.8 (5-19) 12/30/19 05:12 BUN 18 mg/dL (8-23) 12/30/19 05:12 Creatinine 0.9 mg/dL (0.5-0.9) 12/30/19 05:12 Glucose 120 mg/dL (65-115) H 12/30/19 05:12 Estimat Average Glucose 97 12/30/19 05:12 Hemoglobin A1c 5.0 % (4.0-6.0) 12/30/19 05:12 Calculated Osmolality 276 mOsm/kg (285-295) L 12/30/19 05:12 Lactic Acid 1.8 mmol/L (0.5-2.2) 12/30/19 07:11 Calcium 10.4 mg/dL (8.5-10.5) 12/30/19 05:12 Phosphorus 3.8 mg/dL (2.5-4.5) 12/30/19 05:12 Magnesium 2.2 mg/dL (1.7-2.3) 12/30/19 05:12 Total Bilirubin 0.8 mg/dL (0.15-1.2) 12/30/19 05:12 AST 34 U/L (0-32) H 12/30/19 05:12 ALT 17 U/L (0-33) 12/30/19 05:12 Alkaline Phosphatase 86 IU/L (35-105) 12/30/19 05:12 Ammonia 32 umol/L (11-51) 12/29/19 21:25 Creatine Kinase 135 U/L (26-192) 12/29/19 19:25 Troponin I 6 Hour 62.76 ng/mL (0-10) H 12/30/19 01:45 Troponin I Hi Sens Del 14.76 ng/L (0-12) H* 12/30/19 01:45 Troponin T Baseline 48 ng/mL (0-10) H 12/29/19 19:25 Troponin T 120 Minute 43.50 ng/mL (0-10) H 12/29/19 21:55 Delta Troponin T -4.50 ABS# (0-10) L 12/29/19 21:55 C-Reactive Protein 9.8 mg/L (0.0-4.9) H 12/30/19 05:12 NT-Pro-B Natriuret Pep 1584 pg/mL (0-450) H 12/29/19 19:25 Total Protein 6.9 g/dL (6.6-8.7) 12/30/19 05:12 Albumin 3.6 g/dL (3.5-5.2) 12/30/19 05:12 Globulin 3.3 g/dL (1.3-4.6) 12/30/19 05:12 Triglycerides 66 mg/dL (0-150) 12/30/19 05:12 Cholesterol 144 mg/dL (0-200) 12/30/19 05:12 LDL Cholesterol, Calc 74 mg/dL (50-129) 12/30/19 05:12 HDL Cholesterol 57 mg/dL (60-100) L 12/30/19 05:12 LDL/HDL Ratio 1.30 RATIO (0.00-3.22) 12/30/19 05:12 Cholesterol/HDL Ratio 2.53 mg/dL (0.0-4.40) 12/30/19 05:12 Lipase 32 U/L (13-60) 12/29/19 19: Procalcitonin 0.12 ng/mL (0-0.5) 12/30/19 05:12 TSH 0.86 uIU/mL (0.27-4.20) 12/29/19 19:25 TSH 1.21 uIU/mL (0.27-4.20) 12/29/19 19:25 Urine Color Yellow (Yellow) 12/29/19: Urine Appearance Clear (CLEAR) 12/29/19: Urine pH 6.5 (5-7) 12/29/19: Ur Specific [place] 1.020 (1.005-1.030) 12/29/19: Urine Protein Neg (Negative) 12/29/19: Urine Glucose (UA) Norm (Normal) 12/29/19 19: Urine Ketones Negative (Negative) 12/29/19: Urine Blood Neg (Negative) 12/29/19: Urine Nitrate Negative (Negative) 12/29/19 19: Urine Bilirubin Neg (NEGATIVE) 12/29/19: Urine Urobilinogen Norm mg/dL (Negative) 12/29/19: Ur Leukocyte Esterase Negative (Negative) 12/29/19: Urine RBC None /hpf (0-2) 12/29/19 19: Urine WBC None /hpf (0-5) 12/29/19 19: Ur Squamous Epith Cells None (0-5) 12/29/19: Urine Bacteria Trace (NONE) 12/29/19 19:27 Urine Opiates Screen Positive ng/mL (Negative) H 12/29/19 19: Ur Barbiturates Screen Negative ng/mL (Negative) 12/29/19: Ur Phencyclidine Scrn Negative ng/mL (Negative) 12/29/19 19: Ur Amphetamines Screen Negative ng/mL (Negative) 12/29/19 19: U Benzodiazepines Scrn Negative ng/mL (Negative) 12/29/19 19: Urine Cocaine Screen Negative ng/mL (Negative) 12/29/19: U Marijuana (THC) Screen Negative ng/mL (Negative) 12/29/19 19:27 Ethyl Alcohol < 10 mg/dL (0-10) 12/29/19 19:25 Serum Ketones Negative (Negative) 12/29/19 19:25 Influenza Type A Ag Negative (Negative) 12/29/19 23:00 Influenza Type B Ag Negative (Negative) 12/29/19 23:00 RSV Antigen Negative (Negative) 12/30/19 00:[address] 12/29/19 19:09 IMPRESSION: Nonacute. Radiation Dose CTDIVOL = (mGy): DLP = 826.3 (mGy-cm) Chest/Abdomen/Pelvis CT 12/29/19 20:14 IMPRESSION: 1. No visible evidence of acute abdominal or pelvic pathologic process. 2. Infrarenal fusiform abdominal aortic aneurysm with extensive arterial sclerotic disease as detailed in text above. 3. Acquired polycystic kidney disease. No further workup recommended. 4. Constipation with probable fecal impaction. 5. Numerous non urgent, nonemergent, chronic, and age related findings as detailed in text above. Radiation Dose CTDIVOL = (mGy): DLP = 980.94~980.94 (mGy-cm) ADDENDUM: 12/29/192231 Voice recognition error: The correct dimensions of the thoracic aortic arch thrombosed saccular aneurysm is 26 mm x 16 mm x 23 mm. Radiation Dose CTDIVOL = (mGy): DLP = 980.94~980.94 (mGy-cm) Chest X-Ray 12/30/19 07:00 IMPRESSION: 1. Background of centrilobular emphysema, bronchiectasis and bilateral basilar atelectasis versus parenchymal scarring. 2. Endotracheal tube tip approximately 4.7 cm from the harper. 3. Orogastric tube tip at least in proximal stomach. Micro: Microbiology 12/29/19 23:00 MRSA Culture - Final Nose 12/29/19 21:04 Gram Stain - Final Sputum - Endotracheal Tube Aspirate 12/29/19 21:55 Blood Culture - Preliminary Blood SPECIMEN COLLECTED 12/29/19 19:23 Blood Culture - Preliminary Blood SPECIMEN COLLECTED A&P Additional A&P Information Acute hypoxic respiratory failure probably secondary to opiate overdose and possible COPD acute exacerbation. Currently stable, being vented. New ABGs are ordered. I will stop her tube feeds in case if we need to extubate her today. There is no evidence of pneumonia. Her procalcitonin level was within normal limits. I will stop vancomycin. We will stop Zosyn tomorrow. Morning ABGs, chest x-ray. Continue DuoNeb treatments. Adding Pulmicort. Currently there is no bronchospasm. I will not start any systemic steroids at this time. Possible opiate overdose. We will need to look into her maintenance medications and do some adjustments prior to discharge. This will be discussed with the patient after extubation. Acute metabolic encephalopathy probably secondary to opiates versus hypoxia/hypercapnia secondary to respiratory failure. We will reassess her mental status after we will stop her sedation. It seems that her encephalopathy is currently improving. Non-ST elevation [place] type II/demand ischemia. Troponin was slightly elevated. However it is most likely related to malignant hypertension and or hypotension which she developed in the emergency room. Currently she is on aspirin and beta-henry. We will continue close monitoring. Hypertensive emergency. Currently stabilized. Continue close monitoring. Continues on as needed medication. DVT prophylaxis. Lovenox. Acute kidney injury. Resolved. Monitor renal function. Abnormal nonacute CT findings. Will be discussed with the patient when she is extubated and alert. History of peripheral arterial disease and AAA. Home maintenance medications and outpatient follow-up with her providers. Attestations Medical Necessity Statement*: Still requires ICU hospitalization due to her status. Coding Level of Care Code Acute Release Specialist for Catherine Huitron
[2019-12-30 13:04] LABS: Troponin T (5th) Once 76 ng/mL (0-10)
[2019-12-30 17:05] LABS: Coronavirus Lab Test PTC Negative
--- NOTE | 2019-12-30 17:38 | PC.NURSE ---
Covid results are negative. Dr Khalil notified and pt is removed from isolation. Order received and noted for solumedrol. RT to start weaning vent for extubation at 0700
[2019-12-30 18:28] LABS: Glucose Point of Care 107 mg/dL (70-110)
[2019-12-30 18:28] LABS: Glucose Point of Care 105 mg/dL (70-110)
[2019-12-30 18:28] LABS: Glucose Point of Care 94 mg/dL (70-110)
[2019-12-30] MEDS: budesonide 0.5 mg/2 mL Neb INHALATION (19:25)
[2019-12-30 21:30] LABS: Glucose Point of Care 126 mg/dL (70-110)
[2019-12-31] VITALS (46 sets, daily range): BP systolic 87–175; BP diastolic 36–97; PULSE 82–123; RESP 5–22; TEMP 36.8–37; O2SAT 90–99
[2019-12-31] MEDS: piperacillin-tazobactam 3.375 GM in sodium chloride 0.9% (plus) 50 ML IV ×2 (00:27→13:41)
[2019-12-31] MEDS: ipratropium-albuterol 3 mL Neb INHALATION ×6 (03:18→23:05)
--- NOTE | 2019-12-31 03:34 | PC.NURSE ---
Upon assessment patient has had lung sound changes. Patient presents to be having coarse lung sounds throughout. patient has had approx. 300 ml of urine output. patient oxygen decreased to high 80s. RT at bedside and titrated Fio2 from 35-45. Spoke with about change in lung sounds. Verbal order for Lasix 40mg IVP once.
[2019-12-31] MEDS: FUROsemide 10 mg/mL SDV 4mL 40 MG IVP (03:48)
[2019-12-31 04:56] LABS: ABG PCO2 39.2 mmHg (35-45); ABG PH Result 7.38 (7.35-7.45); Arterial Blood Gas Hematocrit 38.7 % (37-47); Base Excess ABG -1.7 mmol/L (-2.0-2.0); Blood Gas Sample Site Brachial, right; Blood Gas Sample Type Arterial; Blood Gas Tidal Volume 0.35; HCO3 ABG 23.2 mmol/L (22-26); Oxygen Device VENT; PO2 ABG 59.9 mmHg (80.0-100.0)
[2019-12-31 04:57] LABS: Basophils % 0.1 %; Hematocrit 36.6 % (37.0-47.0); Hemoglobin 11.9 g/dL (11.5-15.3); Lymphocytes # 0.3 10^3/uL (0.8-4.8); Lymphocytes % 2.4 %; Mean Corpuscular HGB Conc 32.5 g/dL (30.0-36.0); Mean Corpuscular Hemoglobin 30.9 pg (28.0-34.0); Mean Corpuscular Volume 95.1 fL (81-99); Monocytes # 0.1 10^3/uL (0.2-0.9); Neutrophils % 96.1 %; Nucleated Red Blood Cells % 0 %; Platelet Count 221 10^3/cmm (130-400); Red Blood Count 3.85 10^6/uL (4.1-5.3); White Blood Count 12.5 10^3/uL (4.0-10.0)
[2019-12-31 05:13] LABS: Alanine Aminotransferase 14 U/L (0-33); Albumin Level 3.3 g/dL (3.5-5.2); Alkaline Phosphatase 74 IU/L (35-105); Anion Gap 18.1 (5-19); Aspartate Amino Transferase 26 U/L (0-32); Blood Urea Nitrogen 18 mg/dL (8-23); Calcium 9.3 mg/dL (8.5-10.5); Carbon Dioxide 22 mmol/L (22-29); Chloride 99 mmol/L (98-107); Creatinine Clr Calc Pharmacy 24.9893; Globulin 3.4 g/dL (1.3-4.6); Glucose 193 mg/dL (65-115); Osmolality Calculated 282 mOsm/kg (285-295); Phosphorus 3.1 mg/dL (2.5-4.5); Potassium 4.1 mmol/L (3.5-5.1); Sodium 135 mmol/L (136-145); Total Bilirubin 0.6 mg/dL (0.15-1.2); Total Protein 6.7 g/dL (6.6-8.7)
[2019-12-31 05:18] LABS: Procalcitonin 0.17 ng/mL (0-0.5)
[2019-12-31] MEDS: budesonide 0.5 mg/2 mL Neb INHALATION ×2 (07:48→19:42)
[2019-12-31 07:50] LABS: Glucose Point of Care 128 mg/dL (70-110)
[2019-12-31] MEDS: pregabalin 25 mg Capsule PO ×2 (07:51→16:46)
[2019-12-31] MEDS: metoprolol tartrate 25 mg Tablet 12.5 MG PO ×2 (07:52→16:46)
[2019-12-31] MEDS: aspirin 81 mg Chew Tablet PO (07:52)
[2019-12-31] MEDS: atorvastatin 40 mg Tablet PO (07:52)
[2019-12-31] MEDS: sodium chloride 0.9% 1,000 ML 50 ML IV (08:40)
[2019-12-31 11:16] LABS: Glucose Point of Care 138 mg/dL (70-110)
--- NOTE | 2019-12-31 13:42 | P.PN_ITS ---
Subjective Subjective: Interval history: No significant overnight events. This morning we discontinued sedation. She was on fentanyl drip. Overall the patient is doing well. However she develops frequent apneic episodes while on pressure support ventilation. Does not develop any significant hypoxia however. According to respiratory therapy concerns the might not be ready for extubation at this time. We tried weaning her couple of times today unsuccessfully. The patient is awake. No acute distress. She denies any active complaints. No significant mucus in the upper airways. Medications: Reviewed: Yes Medication Review Details: Generic Name Dose Route Start Last Admin Trade Name Freq PRN Reason Stop Dose Admin Albuterol/Ipratrop ium 3 ml 12/30/19 00:00 12/31/19 11:07 Duoneb INHALATION 3 ml Q4H.RESPIRATORY S CH Administration Aspirin 81 mg 12/30/19 09:00 12/31/19 07:52 Aspirin Chewable PO 81 mg DAILY HAI Administration Atorvastatin Calci um 40 mg 12/30/19 09:00 12/31/19 07:52 Lipitor PO 40 mg DAILY HAI Administration Budesonide 0.5 mg 12/30/19 20:00 12/31/19 07:48 Pulmicort INHALATION 0.5 mg BID.RESPIRATORY S CH Administration Enoxaparin Sodium 40 mg 12/29/19 22:33 12/30/19 23:11 Lovenox SUBCUT 40 mg Q24H HAI Administration Fentanyl 1,000 mcg / Sodium 100 mls @ 0 mls/h r 12/29/19 21:15 12/31/19 09:17 Chloride IV 0 mcg/hr .Q0M HAI 0 mls/hr Titration Protocol Per Protocol Propofol 1,000 mg in 100 m ls @ 0 mls/hr 12/29/19 22:33 12/30/19 04:06 Diprivan IV 0 mcg/kg/min .Q0M HAI 0 mls/hr Titration Protocol Per Protocol Piperacillin Sod/T azobactam 50 mls @ 12.5 mls /hr 12/30/19 00:45 12/31/19 05:05 Sod 3.375 gm/ So dium Chloride IV Infused Q12H HAI Infusion Protocol Sodium Chloride 1,000 mls @ 50 ml s/hr 12/30/19 04:00 12/31/19 09:17 Sodium Chloride 0.9% IV 0 mls/hr .Q20H HAI Infusion Insulin Aspart 0 unit 12/30/19 08:00 12/31/19 11:14 Novolog SUBCUT Not Given TIDWM [facility] Protocol Methylprednisolone Sodium Succinate 60 mg 12/30/19 17:30 12/31/19 08:40 Solu-Medrol IVP 60 mg Q8H HAI Administration Metoprolol Tartrat e 12.5 mg 12/30/19 09:00 12/31/19 07:52 Lopressor PO 12.5 mg BID HAI Administration Naloxone HCl 0.4 mg 12/29/19 19:32 12/29/19 19:48 Narcan IVP 0.4 mg PRN PRN Administration RESPIRATORY RATE < 8/MIN Oseltamivir Phosph ate 30 mg 12/30/19 09:00 12/31/19 07:52 Tamiflu Oral Gabriela p PO 30 mg DAILY HAI Administration Vitals/I&O/Wt Last Vital Signs Temp 98.3 F 12/31/19 09:11 Pulse 95 12/31/19 13:30 Resp 18 12/31/19 13:30 BP 148/89 12/31/19 13:30 Pulse Ox 93 12/31/19 13:30 12/30/19 12/31/19 12/31/19 22:59 06:59 14:59 Intake Total 51.334 / 469.667 93.75 / 180.833 1383.208 / 1062.208 Output Total 400 / 400 675 / 1075 Balance -348.666 / 69.667 -581.25 / -613.581 0085.208 / 1062.208 Weight last 48 hrs Weight 34.019 kg Physical Exam Narrative: EXAM NARRATIVE: Awake and alert. Follows instructions. Skin is warm and dry Moist mucous membranes Eyes PERRLA Neck no JVD Intubated and vented. Lungs clear bilaterally. No respiratory distress. No wheezes or crackles Heart S1, S2, regular Abdomen soft, nontender, bowel sounds are present Extremities. No edema cyanosis or calf tenderness bilaterally Urinary Catheter Management^: Dai: Cath Placed During This Visit: yes Reason for Continuing Indwelling Catheter: Accurate Measurement of Urinary Output in Critically Ill Patients Urinary Catheter Date of Insertion: 12/29/19 Urinary Catheter Time of Insertion: 23:16 Data : 12/31/19 04:32 12/31/19 04:32 Micro: Microbiology 12/29/19 21:04 Gram Stain - Final Sputum - Endotracheal Tube Aspirate Sputum Culture - Preliminary 12/29/19 19:27 Urine Culture - Preliminary Urine,Clean Catch 12/29/19 21:55 Blood Culture - Preliminary Blood NEGATIVE TO DATE 12/29/19 19:23 Blood Culture - Preliminary Blood NEGATIVE TO DATE 12/29/19 23:00 MRSA Culture - Final Nose A&P Additional A&P Information Acute hypoxic respiratory failure probably secondary to opiate overdose and possible COPD acute exacerbation. Started on steroids. No evidence of b ronchospasm. Continue DuoNeb treatments if needed. Unfortunately weaning trial is unsuccessful today. Fentanyl drip is discontinued. However she still has long apneic episodes. We will try tomorrow morning again. If unsuccessful will ask for pulmonary consultation. Possible opiate overdose. We will need to look into her maintenance medications and do some adjustments prior to discharge. This will be discussed with the patient after extubation. Acute metabolic encephalopathy probably secondary to opiates versus hypoxia/hypercapnia secondary to respiratory failure. We will reassess her mental status after we will stop her sedation. It seems that her encephalopathy is currently improving. Non-ST elevation [place] type II/demand ischemia. Troponin was slightly elevated. However it is most likely related to malignant hypertension and or hypotension which she developed in the emergency room. Currently she is on aspirin and beta-henry. We will continue close monitoring. Hypertensive emergency. Currently stabilized. Continue close monitoring. Continues on as needed medication. DVT prophylaxis. Lovenox. Acute kidney injury. Resolved. Monitor renal function. Abnormal nonacute CT findings. Will be discussed with the patient when she is extubated and alert. History of peripheral arterial disease and AAA. Home maintenance medications and outpatient follow-up with her providers. Attestations Medical Necessity Statement*: Critical care time spent on this encounter is 50 minutes. Still requires ICU hospitalization. Coding Level of Care Code Acute Cook Morning for Catherine Huitron
[2019-12-31 17:16] LABS: Glucose Point of Care 160 mg/dL (70-110)
[2019-12-31] MEDS: TRAMadol 50 mg Tablet PO (18:20)
[2019-12-31] MEDS: fentaNYL 50 mcg/mL INJ 2mL 25 MCG IVP (18:47)
[2019-12-31] MEDS: LORazepam 2 mg/mL INJ 1 mL 1 MG IVP ×2 (19:46→22:06)
--- NOTE | 2019-12-31 20:04 | PC.NURSE ---
Fentanyl hanging was stopped prior to [facility] shift lead. Fentanyl drip ordered to restart. Previous fentanyl wasted with PILI Henry
--- NOTE | 2019-12-31 20:40 | PC.NURSE ---
Pt was writhing in bed and flopping legs. Pt has soft restaints on. Hospitalist called at 1933, 1 mg ativan Q2H PRN added wit/h fentanyl drip at lowest dose possible . Pt titrated up per protocol to 75 mcg/hr. Pt still moving and wide-eyed. Pt responding to commands and nodding her head that she is in pain. HR 123. BP 154/89
[2019-12-31] MEDS: haloperidol inj 5 mg/mL INJ 1 mL 2 MG IVP ×2 (21:22→23:24)
--- NOTE | 2019-12-31 21:26 | PC.NURSE ---
Dr. Ibarra called at 2115 to get updated on pt. Information given: RT changed vent settings to pressure support. Pt eyes open and wide awake. Pt writhing in bed and crying. Pt on dilaudid chronically at home. ordered 2 mg haldol Q2H.
[2019-12-31] MEDS: enoxaparin 40 mg/0.4 mL Syringe SUBCUT (22:06)
--- NOTE | 2019-12-31 22:19 | PC.NURSE ---
Pt repositioned. She continues to wiggle and grimace. Pt is alert and answering questions as much as possible. Pt given second dose of ativan.
[2020-01-01] VITALS (46 sets, daily range): BP systolic 68–181; BP diastolic 40–90; PULSE 85–111; RESP 14–24; TEMP 36.4–37.2; O2SAT 92–100
[2020-01-01 01:46] LABS: Glucose Point of Care 147 mg/dL (70-110)
[2020-01-01] MEDS: ipratropium-albuterol 3 mL Neb INHALATION ×6 (03:42→23:35)
--- NOTE | 2020-01-01 04:00 | XR_ITS ---
WS: [id number] CHEST XRAY TECHNIQUE: Portable chest. CLINICAL INFORMATION: ETT tube position COMPARISON: None. FINDINGS: Endotracheal tube with tip above the harper measuring 5.2 CM. Enteric tube with tip below t he diaphragm. Heart: Normal cardiac silhouette. Aortic calcification. Lungs: Moderate chronic emphysematous changes. No acute pulmonary infiltrates. Bones: Osteopenia. XR/XR chest 1V portable [id number] IMPRESSION: 1. Endotracheal tube with tip 5.2 cm above the harper. Enteric tube with tip b elow the diaphragm. 2. Moderate chronic emphysematous changes. No acute pulmonary infiltrates.
[2020-01-01 04:58] LABS: Basophils % 0.1 %; Hematocrit 33.7 % (37.0-47.0); Hemoglobin 11.1 g/dL (11.5-15.3); Lymphocytes # 0.5 10^3/uL (0.8-4.8); Lymphocytes % 2.4 %; Mean Corpuscular HGB Conc 32.9 g/dL (30.0-36.0); Mean Corpuscular Hemoglobin 32.1 pg (28.0-34.0); Mean Corpuscular Volume 97.4 fL (81-99); Mean Platelet Volume 11.1 fL (7.4-10.4); Monocytes # 0.6 10^3/uL (0.2-0.9); Monocytes % 3.3 %; Neutrophils # 18.3 10^3/uL (1.8-7.7); Neutrophils % 93.4 %; Nucleated Red Blood Cells % 0 %; Platelet Count 222 10^3/cmm (130-400); Red Blood Count 3.46 10^6/uL (4.1-5.3); Red Cell Distribution Width 16.2 % (12.1-15.1); White Blood Count 19.5 10^3/uL (4.0-10.0)
[2020-01-01] MEDS: LORazepam 2 mg/mL INJ 1 mL 1 MG IVP (05:10)
[2020-01-01 05:18] LABS: Alanine Aminotransferase 15 U/L (0-33); Albumin Level 3.3 g/dL (3.5-5.2); Alkaline Phosphatase 65 IU/L (35-105); Anion Gap 20.2 (5-19); Aspartate Amino Transferase 29 U/L (0-32); Blood Urea Nitrogen 25 mg/dL (8-23); C Reactive Protein 21.7 mg/L (0.0-4.9); Calcium 9.4 mg/dL (8.5-10.5); Carbon Dioxide 22 mmol/L (22-29); Chloride 99 mmol/L (98-107); Glucose 104 mg/dL (65-115); Magnesium 2.2 mg/dL (1.7-2.3); Osmolality Calculated 283 mOsm/kg (285-295); Phosphorus 2.9 mg/dL (2.5-4.5); Potassium 3.2 mmol/L (3.5-5.1); Sodium 138 mmol/L (136-145); Total Bilirubin 0.3 mg/dL (0.15-1.2); Total Protein 6.3 g/dL (6.6-8.7)
[2020-01-01 05:20] LABS: Procalcitonin 0.21 ng/mL (0-0.5)
[2020-01-01 05:46] LABS: ABG PCO2 37.1 mmHg (35-45); ABG PH Result 7.42 (7.35-7.45); PO2 ABG 86.5 mmHg (80.0-100.0)
[2020-01-01 05:47] LABS: Base Excess ABG -0.2 mmol/L (-2.0-2.0); Oxygen Device vent
[2020-01-01] MEDS: budesonide 0.5 mg/2 mL Neb INHALATION ×2 (07:46→20:08)
[2020-01-01 08:28] LABS: Glucose Point of Care 126 mg/dL (70-110)
[2020-01-01] MEDS: aspirin 81 mg Chew Tablet PO (09:16)
[2020-01-01] MEDS: pregabalin 25 mg Capsule PO ×2 (09:16→17:24)
[2020-01-01] MEDS: TRAMadol 50 mg Tablet PO (09:16)
[2020-01-01] MEDS: atorvastatin 40 mg Tablet PO (09:17)
--- NOTE | 2020-01-01 09:19 | PC.SOCIAL ---
IMM Update Unable to review pg 2 of IMM with patient, she is currently intubated. Copy left at bedside.
--- NOTE | 2020-01-01 10:07 | P.PN_ITS ---
Subjective Subjective: Interval history: The patient was restless last night. He received 2 doses of Haldol and lorazepam. Currently sedated. Unresponsive. No acute distress. We tried pressure support ventilation and she is breathing very well without apneic episodes. Oxygenating well. Vital signs are stable. Medications: Reviewed: Yes Medication Review Details: Generic Name Dose Route Start Last Admin Trade Name Freq PRN Reason Stop Dose Admin Albuterol/Ipratrop ium 3 ml 12/30/19 00:00 01/01/20 07:46 Duoneb INHALATION 3 ml Q4H.RESPIRATORY S CH Administration Aspirin 81 mg 12/30/19 09:00 01/01/20 09:16 Aspirin Chewable PO 81 mg DAILY HAI Administration Atorvastatin Calci um 40 mg 12/30/19 09:00 01/01/20 09:17 Lipitor PO 40 mg DAILY HAI Administration Budesonide 0.5 mg 12/30/19 20:00 01/01/20 07:46 Pulmicort INHALATION 0.5 mg BID.RESPIRATORY S CH Administration Enoxaparin Sodium 40 mg 12/29/19 22:33 12/31/19 22:06 Lovenox SUBCUT 40 mg Q24H HAI Administration Haloperidol Lactat e 2 mg 12/30/19 04:07 12/31/19 23:24 Haldol Inj IVP 2 mg Q2H PRN Administration AGITATION Propofol 1,000 mg in 100 m ls @ 0 mls/hr 12/29/19 22:33 12/30/19 04:06 Diprivan IV 0 mcg/kg/min .Q0M HAI 0 mls/hr Titration Protocol Per Protocol Fentanyl 1,000 mcg / Sodium 100 mls @ 0 mls/h r 12/31/19 19:45 01/01/20 00:51 Chloride IV 0 mcg/hr .Q0M HAI 0 mls/hr Titration Protocol Per Protocol Insulin Aspart 0 unit 12/30/19 08:00 01/01/20 01:44 Novolog SUBCUT 2 unit TIDWM HAI Administration Protocol Lorazepam 1 mg 12/31/19 19:37 01/01/20 05:10 Ativan IVP 1 mg Q2H PRN Administration ANXIETY Methylprednisolone Sodium Succinate 60 mg 12/30/19 17:30 01/01/20 09:17 Solu-Medrol IVP 60 mg Q8H HAI Administration Metoprolol Tartrat e 12.5 mg 12/30/19 09:00 12/31/19 16:46 Lopressor PO 12.5 mg BID HAI Administration Naloxone HCl 0.4 mg 12/29/19 19:32 12/29/19 19:48 Narcan IVP 0.4 mg PRN PRN Administration RESPIRATORY RATE < 8/MIN Tramadol HCl 50 mg 12/31/19 18:13 01/01/20 09:16 Ultram PO 50 mg Q8H PRN Administration MODERATE PAIN Vitals/I&O/Wt Last Vital Signs Temp 99 F 01/01/20 00:36 Pulse 89 01/01/20 07:51 Resp 19 H 01/01/20 09:26 BP 134/90 01/01/20 06:30 Pulse Ox 100 01/01/20 07:46 12/31/19 01/01/20 01/01/20 22:59 06:59 14:59 Intake Total 2.333 / 1064.541 79.125 / 1143.666 Output Total 750 / 750 350 / 1100 Balance -747.667 / 314.541 -270.875 / 43.666 Physical Exam Narrative: EXAM NARRATIVE: Currently sedated and unresponsive. No acute distress.. Skin is warm and dry Moist mucous membranes Pupils are pinpoint, symmetric and reactive. No icterus Neck no JVD Intubated and vented. Lungs clear bilaterally. No respiratory distress. No wheezes or crackles Heart S1, S2, regular Abdomen soft, nontender, bowel sounds are present Extremities. No edema cyanosis or calf tenderness bilaterally Urinary Catheter Management^: Dai: Cath Placed During This Visit: yes Reason for Continuing Indwelling Catheter: Accurate Measurement of Urinary Output in Critically Ill Patients Urinary Catheter Date of Insertion: 12/29/19 Urinary Catheter Time of Insertion: 23:16 Data : 01/01/20 04:22 01/01/20 04:22 Micro: Microbiology 12/29/19 19:27 Urine Culture - Final Urine,Clean Catch 12/29/19 21:04 Gram Stain - Final Sputum - Endotracheal Tube Aspirate Sputum Culture - Preliminary A&P Additional A&P Information Acute hypoxic respiratory failure probably secondary to opiate overdose and possible COPD acute exacerbation. On steroids. No evidence of bronchospasm currently. Continue DuoNeb treatments if needed. We will continue ventilation with minimal settings and wait until she wakes up and follows instructions. We will attempt to extubate later today. Discussed with the nursing staff. I asked him not to give any more sedation or opiates. Possible opiate overdose. We will need to look into her maintenance medications and do some adjustments prior to discharge. This will be discussed with the patient after extubation. Acute metabolic encephalopathy probably secondary to opiates versus hypoxia/hypercapnia secondary to respiratory failure. We will reassess her mental status after we will stop her sedation. It seems that her encephalopathy is currently improving. Non-ST elevation [place] type II/demand ischemia. Troponin was slightly elevated. However it is most likely related to malignant hypertension and or hypotension which she developed in the emergency room. Currently she is on aspirin and beta-henry. We will continue close monitoring. Hypertensive emergency. Currently stabilized. Continue close monitoring. Continues on as needed medication. Hypokalemia. Replacing IV this morning. Will monitor. DVT prophylaxis. Lovenox. Acute kidney injury. Resolved. Monitor renal function. Possible mild chronic kidney disease Abnormal nonacute CT findings. Will be discussed with the patient when she is extubated and alert. History of peripheral arterial disease and AAA. Home maintenance medications and outpatient follow-up with her providers. Attestations Medical Necessity Statement*: Still in ICU, intubated. Coding Level of Care Code Acute Workplace Relations Adviser for Catherine Huitron
[2020-01-01] MEDS: metoprolol tartrate 25 mg Tablet 12.5 MG PO ×2 (10:38→17:24)
[2020-01-01 11:30] LABS: Glucose Point of Care 91 mg/dL (70-110)
--- NOTE | 2020-01-01 14:23 | PC.NURSE ---
Pt extubated. OG removed. Pt tolerated well.
--- NOTE | 2020-01-01 15:20 | PC.NURSE ---
Addendum entered by Claudia Olvera RN 01/01/20 19:29: I witnessed the Fentanyl waste with Jackie ALEJANDRE Original Note: Fentanyl drip wasted. 68.542 ml. Witnessed by Rhonda Olvera RN.
[2020-01-01 17:10] LABS: Glucose Point of Care 98 mg/dL (70-110)
--- NOTE | 2020-01-01 19:22 | PC.NURSE ---
Report given to Juvenal Boyer. Pt resting in bed. Nasal Cannula in mouth , 4lpm. O2 sats dropped to 86% while it was 2lpm in her nose. Iv noted to be out, catheter, intact, in bed. Dr Khalil, came by during report, informed that pt's swallowing iffy, probably needs a speech eval. She can swallow about 4 times then she coughs after the next. She can not swallow jello well.
--- NOTE | 2020-01-01 20:27 | PM.EVENT ---
Event Note Event Note: Patient has done well since extubated around 2:30pm. Currently on 2L BNC with O2 tubing in mouth with sats at 95%. At home reportedly on 3L BNC. HR 100 right after treatment. BP 163/77. She will answer simple questions but is a bit confused. Follows simple commands. Checking an ABG. If not retaining CO2, will transfer to the floor on telemetry this evening.
[2020-01-01 20:34] LABS: ABG PCO2 36.8 mmHg (35-45); ABG PH Result 7.45 (7.35-7.45); Arterial Blood Gas Hematocrit 37.8 % (37-47); Blood Gas Sample Site Brachial, right; Blood Gas Sample Type Arterial; HCO3 ABG 25.8 mmol/L (22-26); Oxygen Device NC; PO2 ABG 63.1 mmHg (80.0-100.0)
[2020-01-01] MEDS: enoxaparin 30 mg/0.3 mL Syringe SUBCUT (22:04)
--- NOTE | 2020-01-01 22:22 | PC.NURSE ---
PATIENT TRANSFER Patient transferred to room 276-1. Report called to Jamar MAIER. No further questions or concerns at this time.
[2020-01-02] VITALS (18 sets, daily range): BP systolic 159–191; BP diastolic 74–90; PULSE 64–101; RESP 16–22; TEMP 36.2–36.8; O2SAT 92–98
[2020-01-02] MEDS: ipratropium-albuterol 3 mL Neb INHALATION ×6 (03:38→23:45)
[2020-01-02 04:20] LABS: Basophils % 0.1 %; Hematocrit 37.8 % (37.0-47.0); Hemoglobin 12.3 g/dL (11.5-15.3); Lymphocytes # 0.6 10^3/uL (0.8-4.8); Lymphocytes % 2.6 %; Mean Corpuscular HGB Conc 32.5 g/dL (30.0-36.0); Mean Corpuscular Hemoglobin 31.1 pg (28.0-34.0); Mean Corpuscular Volume 95.5 fL (81-99); Mean Platelet Volume 11.2 fL (7.4-10.4); Monocytes # 0.8 10^3/uL (0.2-0.9); Monocytes % 3.2 %; Neutrophils # 22.7 10^3/uL (1.8-7.7); Neutrophils % 93.3 %; Nucleated Red Blood Cells % 0 %; Platelet Count 272 10^3/cmm (130-400); Red Blood Count 3.96 10^6/uL (4.1-5.3); Red Cell Distribution Width 15.9 % (12.1-15.1); White Blood Count 24.3 10^3/uL (4.0-10.0)
[2020-01-02 04:38] LABS: Alanine Aminotransferase 22 U/L (0-33); Albumin Level 3.8 g/dL (3.5-5.2); Alkaline Phosphatase 73 IU/L (35-105); Anion Gap 20.2 (5-19); Blood Urea Nitrogen 32 mg/dL (8-23); Calcium 9.7 mg/dL (8.5-10.5); Carbon Dioxide 23 mmol/L (22-29); Chloride 100 mmol/L (98-107); Globulin 2.8 g/dL (1.3-4.6); Glucose 98 mg/dL (65-115); Osmolality Calculated 285 mOsm/kg (285-295); Potassium 4.2 mmol/L (3.5-5.1); Sodium 139 mmol/L (136-145); Total Bilirubin 0.5 mg/dL (0.15-1.2); Total Protein 6.6 g/dL (6.6-8.7)
[2020-01-02 04:41] LABS: Aspartate Amino Transferase 48 U/L (0-32)
[2020-01-02 06:48] LABS: Glucose Point of Care 107 mg/dL (70-110)
[2020-01-02 07:21] LABS: Albumin Level 4.2 g/dL (3.5-5.2); Anion Gap 18.2 (5-19); Blood Urea Nitrogen 33 mg/dL (8-23); Calcium 10.1 mg/dL (8.5-10.5); Carbon Dioxide 27 mmol/L (22-29); Chloride 97 mmol/L (98-107); Creatinine Clr Calc Pharmacy 24.9893; Glucose 99 mg/dL (65-115); Phosphorus 2.2 mg/dL (2.5-4.5); Potassium 3.2 mmol/L (3.5-5.1); Sodium 139 mmol/L (136-145)
[2020-01-02] MEDS: budesonide 0.5 mg/2 mL Neb INHALATION ×2 (07:44→20:04)
[2020-01-02] MEDS: atorvastatin 40 mg Tablet PO (08:09)
[2020-01-02] MEDS: aspirin 81 mg Chew Tablet PO (08:09)
[2020-01-02] MEDS: pregabalin 25 mg Capsule PO ×2 (08:09→17:02)
[2020-01-02] MEDS: metoprolol tartrate 25 mg Tablet 12.5 MG PO ×2 (08:09→17:01)
[2020-01-02 10:58] LABS: Glucose Point of Care 114 mg/dL (70-110)
--- NOTE | 2020-01-02 11:48 | P.PN_ITS ---
Subjective Subjective: Interval history: Successfully extubated yesterday. After the extubation she was still confused. The patient is awake and alert, oriented today. No acute distress. Mood and affect are appropriate. Denies fevers or chills, shortness of breath, chest pain, palpitations, di zziness or lightheadedness. Reports cough. No diarrhea. No dysuria. Medications: Reviewed: Yes Medication Review Details: Generic Name Dose Route Start Last Admin Trade Name Freq PRN Reason Stop Dose Admin Albuterol/Ipratrop ium 3 ml 12/30/19 00:00 01/02/20 10:50 Duoneb INHALATION 3 ml Q4H.RESPIRATORY S CH Administration Aspirin 81 mg 12/30/19 09:00 01/02/20 08:09 Aspirin Chewable PO 81 mg DAILY HAI Administration Atorvastatin Calci um 40 mg 12/30/19 09:00 01/02/20 08:09 Lipitor PO 40 mg DAILY HAI Administration Budesonide 0.5 mg 12/30/19 20:00 01/02/20 07:44 Pulmicort INHALATION 0.5 mg BID.RESPIRATORY S CH Administration Enoxaparin Sodium 30 mg 01/01/20 22:00 01/01/20 22:04 Lovenox SUBCUT 30 mg Q24H HAI Administration Insulin Aspart 0 unit 12/30/19 08:00 01/02/20 10:52 Novolog SUBCUT Not Given [facility] Protocol Metoprolol Tartrat e 12.5 mg 12/30/19 09:00 01/02/20 08:09 Lopressor PO 12.5 mg BID HAI Administration Naloxone HCl 0.4 mg 12/29/19 19:32 12/29/19 19:48 Narcan IVP 0.4 mg PRN PRN Administration RESPIRATORY RATE < 8/MIN Tramadol HCl 50 mg 12/31/19 18:13 01/01/20 09:16 Ultram PO 50 mg Q8H PRN Administration MODERATE PAIN Vitals/I&O/Wt Last Vital Signs Temp 97.1 F L 01/02/20 07:33 Pulse 64 01/02/20 11:40 Resp 18 01/02/20 11:40 BP 174/87 01/02/20 11:40 Pulse Ox 98 01/02/20 11:40 01/01/20 01/02/20 01/02/20 22:59 06:59 14:59 Intake Total 150 / 150 220 / 220 Output Total 200 / 200 600 / 800 Balance -50 / -50 -600 / -650 220 / 220 Physical Exam Narrative: EXAM NARRATIVE: Awake alert and oriented Mood and affect are appropriate. Responses are adequate. No acute distress. Skin is warm and dry Moist mucous membranes Eyes PERRLA, Xartemis intact. Neck no JVD Minimal bilateral wheezes. No crackles. Air conduction to all lung estrada. No respiratory distress. Heart S1, S2, regular Abdomen soft, nontender, bowel sounds are present Extremities. No edema cyanosis or calf tenderness bilaterally Urinary Catheter Management^: Dai: Cath Placed During This Visit: yes Reason for Continuing Indwelling Catheter: Acute Urinary Retention or Obstruction Urinary Catheter Date of Insertion: 12/29/19 Urinary Catheter Time of Insertion: 23:16 Data : 01/02/20 04:00 01/02/20 06:50 Micro: Microbiology 12/29/19 21:04 Gram Stain - Final Sputum - Endotracheal Tube Aspirate Sputum Culture - Final 12/29/19 19:27 Urine Culture - Final Urine,Clean Catch A&P Additional A&P Information Acute hypoxic respiratory failure probably secondary to opiate overdose and possible COPD acute exacerbation. Extubated yesterday. Currently she is doing well, stable with nasal cannula oxygen. We will start decreasing the dose of steroids, will continue as needed nebulizer treatments. Will order speech eval. Continue PT OT. Leukocytosis. She does not have fever or any significant evidence of infection. This could be secondary to steroids. I will continue monitoring. If she develops fever will order additional testing. Possible opiate overdose. We will need to look into her maintenance medications and do some adjustments prior to discharge. Acute metabolic encephalopathy probably secondary to opiates versus hypoxia/hypercapnia secondary to respiratory failure. Currently her mental status has improved and probably very close to her baseline. We will continue daily assessments. Non-ST elevation [place] type II/demand ischemia. Troponin was slightly elevated. However it is most likely related to malignant hypertension and or hypotension which she developed in the emergency room. Currently she is on aspirin and beta-henry. We will continue close monitoring. Hypertensive emergency. Currently stabilized. Continue close monitoring. Continues on as needed medication. Hypokalemia. Replacing IV this morning. Will monitor. DVT prophylaxis. Lovenox. Acute kidney injury. Resolved. Monitor renal function. Possible mild chronic kidney disease Abnormal nonacute CT findings. Will be discussed with the patient when she is extubated and alert. History of peripheral arterial disease and AAA. Home maintenance medications and outpatient follow-up with her providers. Attestations Medical Necessity Statement*: The patient is improving. Still requires inpatient monitoring. Possible discharge in a day or 2. Coding Level of Care Code Acute Cushion Maker for Catherine Huitron
[2020-01-02 16:57] LABS: Glucose Point of Care 116 mg/dL (70-110)
[2020-01-02] MEDS: hyDRALAzine 20 mg/mL INJ 1 mL 10 MG IVP (17:02)
[2020-01-02] MEDS: enoxaparin 30 mg/0.3 mL Syringe SUBCUT (22:43)
[2020-01-03] VITALS (17 sets, daily range): BP systolic 133–182; BP diastolic 61–79; PULSE 55–103; RESP 16–24; TEMP 36.6–37.2; O2SAT 88–97
[2020-01-03] MEDS: ipratropium-albuterol 3 mL Neb INHALATION ×5 (03:35→20:27)
[2020-01-03] MEDS: hyDRALAzine 20 mg/mL INJ 1 mL 10 MG IVP (04:12)
[2020-01-03 05:13] LABS: Basophils % 0.1 %; Hematocrit 40.7 % (37.0-47.0); Hemoglobin 13.4 g/dL (11.5-15.3); Lymphocytes # 0.9 10^3/uL (0.8-4.8); Lymphocytes % 5.3 %; Mean Corpuscular HGB Conc 32.9 g/dL (30.0-36.0); Mean Corpuscular Hemoglobin 30.7 pg (28.0-34.0); Mean Corpuscular Volume 93.1 fL (81-99); Mean Platelet Volume 10.5 fL (7.4-10.4); Monocytes # 1.2 10^3/uL (0.2-0.9); Monocytes % 6.7 %; Neutrophils # 15.2 10^3/uL (1.8-7.7); Neutrophils % 87.2 %; Nucleated Red Blood Cells % 0 %; Platelet Count 331 10^3/cmm (130-400); Red Blood Count 4.37 10^6/uL (4.1-5.3); Red Cell Distribution Width 15.6 % (12.1-15.1); White Blood Count 17.4 10^3/uL (4.0-10.0)
[2020-01-03 05:38] LABS: Albumin Level 4.2 g/dL (3.5-5.2); Anion Gap 19.2 (5-19); Blood Urea Nitrogen 33 mg/dL (8-23); Calcium 10.1 mg/dL (8.5-10.5); Carbon Dioxide 27 mmol/L (22-29); Chloride 97 mmol/L (98-107); Glucose 102 mg/dL (65-115); Phosphorus 1.7 mg/dL (2.5-4.5); Potassium 3.2 mmol/L (3.5-5.1); Sodium 140 mmol/L (136-145)
[2020-01-03 05:39] LABS: Magnesium 1.8 mg/dL (1.7-2.3)
[2020-01-03 06:05] LABS: Glucose Point of Care 106 mg/dL (70-110)
[2020-01-03 07:34] LABS: Arterial Blood Gas Hematocrit 35.7 % (37-47)
[2020-01-03] MEDS: budesonide 0.5 mg/2 mL Neb INHALATION ×2 (08:09→20:27)
[2020-01-03] MEDS: aspirin 81 mg Chew Tablet PO (09:20)
[2020-01-03] MEDS: atorvastatin 40 mg Tablet PO (09:20)
[2020-01-03] MEDS: metoprolol tartrate 25 mg Tablet 12.5 MG PO ×2 (09:20→17:40)
[2020-01-03 10:58] LABS: Glucose Point of Care 111 mg/dL (70-110)
--- NOTE | 2020-01-03 11:05 | PC.RESP ---
Pulmonary Rehab and Smoking Cessation information mailed with a schedule of pending out-pt classes.
[2020-01-03] MEDS: lisinopril 5 mg Tablet PO (12:30)
[2020-01-03] MEDS: amlodipine 5 mg Tablet 2.5 MG PO (12:30)
--- NOTE | 2020-01-03 13:45 | PC.SOCIAL ---
IMM Updated Page 2 of IMM updated and given to patient. Initialed, dated, and timed and placed back in chart.
--- NOTE | 2020-01-03 14:36 | PM.PN ---
Subjective Subjective: Interval history: No acute events overnight. Successfully extubated on December 31. On examination patient is lying comfortably in bed, is awake alert oriented, denies of having any fever, chills, shortness of breath, chest pain, palpitation, dizziness or lightheadedness. Labs noted. Vitals/I&O/Wt Last Vital Signs Temp 98.0 F 01/03/20 11:04 Pulse 96 01/03/20 11:26 Resp 18 01/03/20 11:22 BP 153/77 01/03/20 11:04 Pulse Ox 96 01/03/20 11:22 01/02/20 01/03/20 01/03/20 22:59 06:59 14:59 Intake Total 120 / 120 Output Total 600 / 1850 Balance -600 / -1630 120 / 120 Physical Exam Narrative: EXAM NARRATIVE: General: No acute distress, AO x3 HEENT: PERRLA, pupils bilaterally equal and reactive Chest: Normal vesicular breath sounds, no added sounds, equal good air entry bilaterally CVS: S1-S2 regular, no murmurs, no tachycardia, no gallops, no rubs Abdomen: Soft, nontender, no organomegaly, bowel sounds present Neuro: No focal deficits, no facial deformity, AO x3, power 5/5 in all limbs Urinary Catheter Management^: Dai: Cath Placed During This Visit: yes Reason for Continuing Indwelling Catheter: Acute Urinary Retention or Obstruction Urinary Catheter Date of Insertion: 12/29/19 Urinary Catheter Time of Insertion: 23:16 Data : 01/03/20 05:00 01/03/20 05:00 A&P Assessment and plan (1) Acute on chronic respiratory failure with hypoxia: Status: Acute (2) COPD (chronic obstructive pulmonary disease): Status: Acute Qualifiers: COPD type: COPD with acute exacerbation Qualified Code(s): J44.1 - Chronic obstructive pulmonary disease with (acute) exacerbation (3) Acute kidney injury: Creatinine 1.1, possibly secondary to dehydration Status: Acute (4) Hyperlipidemia: Status: Acute Qualifiers: Hyperlipidemia type: unspecified Qualified Code(s): E78.5 - Hyperlipidemia, unspecified (5) Spondylosis without myelopathy or radiculopathy, lumbosacral region: Status: Chronic (6) Hypertension: Status: Acute Qualifiers: Hypertension type: unspecified Qualified Code(s): I10 - Essential (primary) hypertension (7) Back pain with radiation: Status: Chronic (8) Encounter for long-term opiate analgesic use: Hold Dilaudid, continue Lyrica, hold tramadol, patient is on fentanyl drip Status: Chronic (9) Thoracic aortic aneurysm: - Mild fusiform aneurysmal dilatation of the thoracic aorta to include a 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 Extensive arterial sclerotic disease. Tortuous thoracic aorta often seen in hypertensive cardiovascular disease. Status: Acute Qualifiers: Presence of rupture: without rupture Qualified Code(s): I71.2 - Thoracic aortic aneurysm, without rupture (10) Abdominal aortic aneurysm: -Fusiform aneurysmal dilatation of the infrarenal abdominal aorta measuring a maximum AP diameter of 34 mm terminating at the bifurcation into the common iliacs. Extensive and advanced arterial sclerotic disease. Celiac and SMA arteries remain patent although with dense arterial sclerotic disease. Retrograde filling of the inferior mesentericartery. Large amount of intramural thrombus reducing the true lumen to 17 mm at the mid abdominal aorta level. Status: Acute Qualifiers: Presence of rupture: without rupture Qualified Code(s): I71.4 - Abdominal aortic aneurysm, without rupture Additional A&P Information Acute on chronic hypoxic respiratory failure probably secondary COPD exacerbation and possible opiate overdose: Extubated on December 31. Wean off Solu-Medrol. Will change to prednisone 40 mg daily from tomorrow morning. Patient will most likely need a 5-day course. Continue with budesonide twice daily, changed duo nebs from every 4 hours to every 6 hours along with albuterol as needed for acute exacerbation. Oxygen supplementation keeping saturation over 90%. Continue PT OT. Leukocytosis: She does not have fever, normal procalcitonin and no significant evidence of infection. This could be secondary to steroids. I will continue monitoring. If she develops fever will order additional testing. Possible opiate overdose: This might be playing a big part in patient's presentation as well. On review of old charts it seems patient is on hydromorphone 2 mg tablets as scheduled 4 times daily at home. To avoid acute withdrawal we will start her back on hydromorphone 2 mg tablets every 12 hourly. Acute metabolic encephalopathy probably secondary to opiates versus hypoxia/hypercapnia secondary to respiratory failure. Currently her mental status has improved and probably very close to her baseline. We will continue daily assessments. Non-ST elevation [place] type II/demand ischemia. Troponin was slightly elevated. However it is most likely related to malignant hypertension and or hypotension which she developed in the emergency room. Currently she is on aspirin and beta-henry. We will continue close monitoring. Hypertension: Blood pressure slightly on the higher side. We will start patient back on home dose of amlodipine 2.5 mg daily and lisinopril 5 mg daily. Acute kidney injury: Creatinine back to baseline. Resolved. Medical reconciliation done for nephrotoxic drugs and his lisinopril started again today. Check BMP daily. History of peripheral arterial disease and AAA. Home maintenance medications and outpatient follow-up with her providers. Continue with dysphagia 1 diet. Lovenox for DVT prophylaxis. Full code. Discussed possible placement to rehabilitation center possible discharge given severe deconditioning with the patient. Patient states she would rather go home with possible home health. Continue with physical therapy. Attestations Medical Necessity Statement*: Acute on chronic hypoxic respiratory failure. COPD exacerbation. Time Spent in Patient Care: Greater than 35 minutes Coding Level of Care Code Acute Regional Program Manager for Catherine Huitron Diagnoses Acute on chronic respiratory failure with hypoxia J96.21 COPD (chronic obstructive pulmonary disease) J44.1 COPD type: COPD with acute exacerbation Acute kidney injury N17.9 Hyperlipidemia E78.5 Hyperlipidemia type: unspecified Spondylosis without myelopathy or radiculopathy, lumbosacral region M47.817 Hypertension I10 Hypertension type: unspecified Back pain with radiation M54.9 Encounter for long-term opiate analgesic use Z79.891 Thoracic aortic aneurysm I71.2 Presence of rupture: without rupture Abdominal aortic aneurysm I71.4 Presence of rupture: without rupture
[2020-01-03 16:43] LABS: Glucose Point of Care 104 mg/dL (70-110)
[2020-01-03] MEDS: enoxaparin 30 mg/0.3 mL Syringe SUBCUT (21:34)
[2020-01-04] VITALS (15 sets, daily range): BP systolic 104–168; BP diastolic 71–85; PULSE 62–84; RESP 15–24; TEMP 36.4–36.9; O2SAT 93–98
[2020-01-04 08:04] LABS: Glucose Point of Care 133 mg/dL (70-110)
[2020-01-04] MEDS: predniSONE 20 mg Tablet 40 MG PO (09:35)
[2020-01-04] MEDS: amlodipine 5 mg Tablet 2.5 MG PO (09:35)
[2020-01-04] MEDS: aspirin 81 mg Chew Tablet PO (09:36)
[2020-01-04] MEDS: metoprolol tartrate 25 mg Tablet 12.5 MG PO ×2 (09:36→17:41)
[2020-01-04] MEDS: lisinopril 5 mg Tablet PO (09:36)
[2020-01-04] MEDS: ipratropium-albuterol 3 mL Neb INHALATION ×3 (10:26→20:30)
[2020-01-04] MEDS: budesonide 0.5 mg/2 mL Neb INHALATION ×2 (10:26→20:30)
[2020-01-04 11:01] LABS: Glucose Point of Care 109 mg/dL (70-110)
--- NOTE | 2020-01-04 12:02 | PC.CHAP ---
Pastoral Care Encounter/Spiritual Assessment Type of Contact [] Declined commissioner of relocation services visit [] Patient/Family/Request visit [] Outpatient visit [] Follow-up visit [] Physician referral [] Code/Alert [x] Routine visit [] Staff referral [] Actively dying [] Patient sleeping [] Family support [] [] Out of room [] Palliative care [] [] Receiving care in room [] Pre-surgical visit [] Trauma [] Long length of stay [] ICU visit [] Other: Relational/Emotional Strength [x] Patient feels connected with others/family/visitors/staff [] Distress [] Loneliness/isolation [] Abandonment Spirituality of Patient x[] Person of Leslee [] Attends Je[employer] of their Leslee [] Believes in Prayer [] Reads Bible or Anabaptism materials [] There are Spiritual issues to be addressed Decorating Inspector Interventions [x] Prayer [x] Active listening [x] Non-anxious presence [x] Spiritual/emotional support [] Crisis/trauma care [] Spiritual counseling [] Bereavement support [] Provided bereavement packet [] Provided Bible/devotional materials [] Provided toy/stuffed animal, coloring book to patient or family member [] Provided Communion [] Anointing/[place] [] Salvation [] Completed spiritual assessment [] Other: Impact on Illness or Injury [] Angry [] Fearful [] Anxious [] Often cries [] Exhaustion [] Unable to work [] Unable to attend rastafari [] Unable to walk/stand [] Unable to read [] Unable to drive [] Unable to eat/drink [] Unable to sleep [] Unable to be with family [] Patient intubated [x] Other: Summary Prayer provided to patient. Time spent with patient 5 minutes
--- NOTE | 2020-01-04 12:33 | P.PN_ITS ---
Subjective Subjective: Interval history: No acute events overnight. On examination patient is sitting up in bed, awake alert oriented. Denies of having any cough, nausea, vomiting, shortness of breath, arthralgias, headache. Discussed with patient regarding further goals of care and for now she is agreed to go to rehabilitation center for further physical therapy. Vitals/I&O/Wt Last Vital Signs Temp 98.4 F 01/04/20 12:00 Pulse 84 01/04/20 12:00 Resp 18 01/04/20 12:00 BP 160/80 01/04/20 12:00 Pulse Ox 94 01/04/20 12:00 01/03/20 01/04/20 01/04/20 22:59 06:59 14:59 Intake Total 140 / 260 120 / 380 360 / 360 Balance 140 / 260 120 / 380 360 / 360 Physical Exam Narrative: EXAM NARRATIVE: General: No acute distress, AO x3 HEENT: PERRLA, pupils bilaterally equal and reactive Chest: Bilateral bronchial breath sounds, no added sounds, equal good air entry bilaterally CVS: S1-S2 regular, no murmurs, no tachycardia, no gallops, no rubs Abdomen: Soft, nontender, no organomegaly, bowel sounds present Neuro: No focal deficits, no facial deformity, AO x3, power 5/5 in all limbs Urinary Catheter Management^: Dai: Cath Placed During This Visit: yes Reason for Continuing Indwelling Catheter: Acute Urinary Retention or Obstruction Urinary Catheter Date of Insertion: 12/29/19 Urinary Catheter Time of Insertion: 23:16 Data : 01/03/20 05:00 01/03/20 05:00 Micro: Microbiology 12/29/19 21:55 Blood Culture - Final Blood NO GROWTH AFTER 5 DAYS 12/29/19 19:23 Blood Culture - Final Blood NO GROWTH AFTER 5 DAYS A&P Assessment and plan (1) Acute on chronic respiratory failure with hypoxia: Status: Acute (2) COPD (chronic obstructive pulmonary disease): Status: Acute Qualifiers: COPD type: COPD with acute exacerbation Qualified Code(s): J44.1 - C hronic obstructive pulmonary disease with (acute) exacerbation (3) Acute kidney injury: Creatinine 1.1, possibly secondary to dehydration Status: Acute (4) Hyperlipidemia: Status: Acute Qualifiers: Hyperlipidemia type: unspecified Qualified Code(s): E78.5 - H yperlipidemia, unspecified (5) Spondylosis without myelopathy or radiculopathy, lumbosacral region: Status: Chronic (6) Hypertension: Status: Acute Qualifiers: Hypertension type: unspecified Qualified Code(s): I10 - Essential (primary) hypertension (7) Back pain with radiation: Status: Chronic (8) Encounter for long-term opiate analgesic use: Hold Dilaudid, continue Lyrica, hold tramadol, patient is on fentanyl drip Status: Chronic (9) Thoracic aortic aneurysm: - Mild fusiform aneurysmal dilatation of the thoracic aorta to include a 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 Extensive arterial sclerotic disease. Tortuous thoracic aorta often seen in hypertensive cardiovascular disease. Status: Acute Qualifiers: Presence of rupture: without rupture Qualified Code(s): I71.2 - Thoracic aortic aneurysm, without rupture (10) Abdominal aortic aneurysm: -Fusiform aneurysmal dilatation of the infrarenal abdominal aorta harry uring a maximum AP diameter of 34 mm terminating at the bifurcation into the common iliacs. Extensive and advanced arterial sclerotic disease. Celiac and SMA arteries remain patent although with dense arterial sclerotic disease. Retrograde filling of the inferior mesentericartery. Large amount of intramural thrombus reducing the true lumen to 17 mm at the mid abdominal aorta level. Status: Acute Qualifiers: Presence of rupture: without rupture Qualified Code(s): I71.4 - Abdominal aortic aneurysm, without rupture Additional A&P Information Acute on chronic hypoxic respiratory failure probably secondary COPD exacerbation and possible opiate overdose: Extubated on December 31. Wean off Solu-Medrol. Will change to prednisone 40 mg daily from tomorrow morning. Patient will most likely need a 5-day course. Day 2/5. Continue with budesonide twice daily, Duonebs every 6 hrs. Oxygen supplementation keeping saturation over 90%. Continue PT/OT. Leukocytosis: She does not have fever, normal procalcitonin and no significant evidence of infection. This could be secondary to steroids. I will continue monitoring. If she develops fever will order additional testing. Possible opiate overdose: This might be playing a big part in patient's presentation as well. On review of old charts it seems patient is on hydromorphone 2 mg tablets as scheduled 4 times daily at home. To avoid acute withdrawal will continue hydromorphone 2 mg tablets every 12 hourly. Acute metabolic encephalopathy probably secondary to opiates versus hypoxia/hypercapnia secondary to respiratory failure. Currently her mental status has improved and probably very close to her baseline. We will continue daily assessments. Non-ST elevation [place] type II/demand ischemia. Troponin was slightly elevated. However it is most likely related to malignant hypertension and or hypotension which she developed in the emergency room. Currently she is on aspirin and beta-henry. We will continue close monitoring. Hypertension: Blood pressure slightly on the higher side. Increase amlodipine to 5 mg, continue lisinopril at 5 mg. Acute kidney injury: Creatinine back to baseline. Resolved. Medical reconciliation done for nephrotoxic drugs and his lisinopril started again today. Check BMP daily. History of peripheral arterial disease and AAA. Home maintenance medications and outpatient follow-up with her providers. Continue with dysphagia 1 diet. Lovenox for DVT prophylaxis. Full code. Discussed possible placement to rehabilitation center possible discharge given severe deconditioning with the patient. Patient has agreed for SNF placement today. Continue with physical therapy. Attestations Medical Necessity Statement*: Addition, acute on chronic hypoxic respiratory failure due to COPD exacerbation. Time Spent in Patient Care: Greater than 35 minutes Coding Level of Care Code Acute Hydraulics Engineer for [facility] Diagnoses Acute on chronic respiratory failure with hypoxia J96.21 COPD (chronic obstructive pulmonary disease) J44.1 COPD type: COPD with acute exacerbation Acute kidney injury N17.9 Hyperlipidemia E78.5 Hyperlipidemia type: unspecified Spondylosis without myelopathy or radiculopathy, lumbosacral region M47.817 Hypertension I10 Hypertension type: unspecified Back pain with radiation M54.9 Encounter for long-term opiate analgesic use Z79.891 Thoracic aortic aneurysm I71.2 Presence of rupture: without rupture Abdominal aortic aneurysm I71.4 Presence of rupture: without rupture
[2020-01-04 17:03] LABS: Glucose Point of Care 112 mg/dL (70-110)
[2020-01-04] MEDS: enoxaparin 30 mg/0.3 mL Syringe SUBCUT (21:12)
[2020-01-04 21:39] LABS: Glucose Point of Care 125 mg/dL (70-110)
[2020-01-05] VITALS (14 sets, daily range): BP systolic 126–151; BP diastolic 51–74; PULSE 53–102; RESP 16–22; TEMP 36.3–37.1; O2SAT 93–98
[2020-01-05] MEDS: ipratropium-albuterol 3 mL Neb INHALATION ×4 (02:22→21:21)
[2020-01-05 07:01] LABS: Glucose Point of Care 96 mg/dL (70-110)
[2020-01-05] MEDS: budesonide 0.5 mg/2 mL Neb INHALATION ×2 (09:03→21:21)
[2020-01-05] MEDS: lisinopril 5 mg Tablet PO (09:11)
[2020-01-05] MEDS: aspirin 81 mg Chew Tablet PO (09:12)
[2020-01-05] MEDS: atorvastatin 40 mg Tablet PO (09:12)
[2020-01-05] MEDS: amlodipine 5 mg Tablet PO (09:12)
[2020-01-05] MEDS: predniSONE 20 mg Tablet 40 MG PO (09:12)
[2020-01-05] MEDS: metoprolol tartrate 25 mg Tablet 12.5 MG PO ×2 (09:12→17:49)
[2020-01-05 10:39] LABS: Basophils % 0.1 %; Hematocrit 43.6 % (37.0-47.0); Hemoglobin 14.5 g/dL (11.5-15.3); Lymphocytes % 7.7 %; Mean Corpuscular HGB Conc 33.3 g/dL (30.0-36.0); Mean Corpuscular Hemoglobin 31.7 pg (28.0-34.0); Mean Corpuscular Volume 95.2 fL (81-99); Mean Platelet Volume 10.2 fL (7.4-10.4); Monocytes # 0.7 10^3/uL (0.2-0.9); Monocytes % 5.1 %; Neutrophils # 11.7 10^3/uL (1.8-7.7); Neutrophils % 86.3 %; Nucleated Red Blood Cells % 0 %; Platelet Count 280 10^3/cmm (130-400); Red Blood Count 4.58 10^6/uL (4.1-5.3); Red Cell Distribution Width 15.1 % (12.1-15.1); White Blood Count 13.5 10^3/uL (4.0-10.0)
[2020-01-05 10:47] LABS: Glucose Point of Care 101 mg/dL (70-110)
[2020-01-05 12:09] LABS: Alanine Aminotransferase 45 U/L (0-33); Albumin Level 4.5 g/dL (3.5-5.2); Alkaline Phosphatase 84 IU/L (35-105); Anion Gap 18.9 (5-19); Aspartate Amino Transferase 39 U/L (0-32); Blood Urea Nitrogen 32 mg/dL (8-23); Calcium 10.4 mg/dL (8.5-10.5); Carbon Dioxide 30 mmol/L (22-29); Chloride 98 mmol/L (98-107); Creatinine Clr Calc Pharmacy 24.9893; Globulin 3.5 g/dL (1.3-4.6); Glucose 107 mg/dL (65-115); Osmolality Calculated 296 mOsm/kg (285-295); Sodium 144 mmol/L (136-145); Total Bilirubin 0.6 mg/dL (0.15-1.2)
[2020-01-05 12:15] LABS: Potassium 2.9 mmol/L (3.5-5.1)
--- NOTE | 2020-01-05 12:25 | PM.PN ---
Subjective Subjective: Interval history: No acute events overnight. On examination patient is sitting up in bed, awake alert oriented. Denies of having any cough, nausea, vomiting, shortness of breath, arthralgias, headache. Labs and vitals noted. Vitals/I&O/Wt Last Vital Signs Temp 97.4 F L 01/05/20 11:07 Pulse 76 01/05/20 11:07 Resp 20 H 01/05/20 11:07 BP 126/70 01/05/20 11:07 Pulse Ox 98 01/05/20 11:07 01/04/20 01/05/20 01/05/20 22:59 06:59 14:59 Intake Total 360 / 960 240 / 240 Output Total 600 / 600 200 / 800 300 / 300 Balance -240 / 360 -200 / 160 -60 / -60 Physical Exam Narrative: EXAM NARRATIVE: General: No acute distress, AO x3 HEENT: PERRLA, pupils bilaterally equal and reactive Chest: Bilateral bronchial breath sounds, no added sounds, equal good air entry bilaterally CVS: S1-S2 regular, no murmurs, no tachycardia, no gallops, no rubs Abdomen: Soft, nontender, no organomegaly, bowel sounds present Neuro: No focal deficits, no facial deformity, AO x3, power 5/5 in all limbs Urinary Catheter Management^: Dai: Cath Placed During This Visit: yes Reason for Continuing Indwelling Catheter: Acute Urinary Retention or Obstruction Urinary Catheter Date of Insertion: 12/29/19 Urinary Catheter Time of Insertion: 23:16 Data : 01/05/20 10:28 01/05/20 10:28 A&P Assessment and plan (1) Acute on chronic respiratory failure with hypoxia: Status: Acute (2) COPD (chronic obstructive pulmonary disease): Status: Acute Qualifiers: COPD type: COPD with acute exacerbation Qualified Code(s): J44.1 - Chronic obstructive pulmonary disease with (acute) exacerbation (3) Acute kidney injury: Creatinine 1.1, possibly secondary to dehydration Status: Acute (4) Hyperlipidemia: Status: Acute Qualifiers: Hyperlipidemia type: unspecified Qualified Code(s): E78.5 - Hyperlipidemia, unspecified (5) Spondylosis without myelopathy or radiculopathy, lumbosacral region: Status: Chronic (6) Hypertension: Status: Acute Qualifiers: Hypertension type: unspecified Qualified Code(s): I10 - Essential (primary) hypertension (7) Back pain with radiation: Status: Chronic (8) Encounter for long-term opiate analgesic use: Hold Dilaudid, continue Lyrica, hold tramadol, patient is on fentanyl drip Status: Chronic (9) Thoracic aortic aneurysm: - Mild fusiform aneurysmal dilatation of the thoracic aorta to include a 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 Extensive arterial sclerotic disease. Tortuous thoracic aorta often seen in hypertensive cardiovascular disease. Status: Acute Qualifiers: Presence of rupture: without rupture Qualified Code(s): I71.2 - Thoracic aortic aneurysm, without rupture (10) Abdominal aortic aneurysm: -Fusiform aneurysmal dilatation of the infrarenal abdominal aorta measuring a maximum AP diameter of 34 mm terminating at the bifurcation into the common iliacs. Extensive and advanced arterial sclerotic disease. Celiac and SMA arteries remain patent although with dense arterial sclerotic disease. Retrograde filling of the inferior mesentericartery. Large amount of intramural thrombus reducing the true lumen to 17 mm at the mid abdominal aorta level. Status: Acute Qualifiers: Presence of rupture: without rupture Qualified Code(s): I71.4 - Abdominal aortic aneurysm, without rupture Additional A&P Information Acute on chronic hypoxic respiratory failure probably secondary COPD exacerbation and possible opiate overdose: Extubated on December 31. Wean off Solu-Medrol. Will change to prednisone 40 mg daily from tomorrow morning. Patient will most likely need a 5-day course. Day 3/5. Continue with budesonide twice daily, Duonebs every 6 hrs. Oxygen supplementation keeping saturation over 90%. Continue PT/OT. Leukocytosis:Resolving She does not have fever, normal procalcitonin and no significant evidence of infection. This could be secondary to steroids. I will continue monitoring. If she develops fever will order additional testing. Possible opiate overdose: This might be playing a big part in patient's presentation as well. On review of old charts it seems patient is on hydromorphone 2 mg tablets as scheduled 4 times daily at home. To avoid acute withdrawal will continue hydromorphone 2 mg tablets every 12 hourly. Doing well with lower frequency of opiate. Acute metabolic encephalopathy probably secondary to opiates versus hypoxia/hypercapnia secondary to respiratory failure. Currently her mental status has improved and probably very close to her baseline. We will continue daily assessments. Non-ST elevation [place] type II/demand ischemia. Troponin was slightly elevated. However it is most likely related to malignant hypertension and or hypotension which she developed in the emergency room. Currently she is on aspirin and beta-henry. We will continue close monitoring. Hypertension: Blood pressure slightly on the higher side. C/w Amlodipine to 5 mg PO QD and lisinopril at 5 mg QD. Acute kidney injury: Creatinine back to baseline. Resolved. Medical reconciliation done for nephrotoxic drugs and his lisinopril started again today. Check BMP daily. History of peripheral arterial disease and AAA. Home maintenance medications and outpatient follow-up with her providers. Continue with dysphagia 1 diet. Lovenox for DVT prophylaxis. Full code. Discussed possible placement to rehabilitation center possible discharge given severe deconditioning with the patient. Patient has agreed for SNF placement today. Has been accepted at [facility] [place]. D/c tomorrow Continue with physical therapy. Attestations Medical Necessity Statement*: Severe Deconditioning, Hypoxic resp failure Time Spent in Patient Care: 16 - 35 minutes Coding Level of Care Code Acute School Transportation Supervisor for Catherine Hutiron Diagnoses Acute on chronic respiratory failure with hypoxia J96.21 COPD (chronic obstructive pulmonary disease) J44.1 COPD type: COPD with acute exacerbation Acute kidney injury N17.9 Hyperlipidemia E78.5 Hyperlipidemia type: unspecified Spondylosis without myelopathy or radiculopathy, lumbosacral region M47.817 Hypertension I10 Hypertension type: unspecified Back pain with radiation M54.9 Encounter for long-term opiate analgesic use Z79.891 Thoracic aortic aneurysm I71.2 Presence of rupture: without rupture Abdominal aortic aneurysm I71.4 Presence of rupture: without rupture
[2020-01-05 16:26] LABS: Glucose Point of Care 105 mg/dL (70-110)
--- NOTE | 2020-01-05 17:37 | PC.SOCIAL ---
IMM Updated Updated pt on Pg 2 IMM. Pt verbally understands. No questions voiced. Signed, dated, & timed copy in chart.
[2020-01-05 21:27] LABS: Glucose Point of Care 120 mg/dL (70-110)
[2020-01-05] MEDS: enoxaparin 30 mg/0.3 mL Syringe SUBCUT (22:07)
[2020-01-06] VITALS (11 sets, daily range): BP systolic 142–166; BP diastolic 62–76; PULSE 58–88; RESP 16–18; TEMP 36.6–37; O2SAT 94–98
[2020-01-06] MEDS: ipratropium-albuterol 3 mL Neb INHALATION ×2 (02:22→08:34)
[2020-01-06 06:40] LABS: Glucose Point of Care 95 mg/dL (70-110)
[2020-01-06] MEDS: budesonide 0.5 mg/2 mL Neb INHALATION (08:34)
[2020-01-06] MEDS: atorvastatin 40 mg Tablet PO (09:08)
[2020-01-06] MEDS: predniSONE 20 mg Tablet 40 MG PO (09:08)
[2020-01-06] MEDS: amlodipine 5 mg Tablet PO (09:08)
[2020-01-06] MEDS: lisinopril 5 mg Tablet PO (09:09)
[2020-01-06] MEDS: metoprolol tartrate 25 mg Tablet 12.5 MG PO (09:09)
[2020-01-06] MEDS: aspirin 81 mg Chew Tablet PO (09:09)
--- NOTE | 2020-01-06 10:55 | PC.NURSE ---
Patient report called to Vida MAIER at [place],
--- NOTE | 2020-01-06 10:56 | PM.DCS ---
Discharge Providers Date of Admission: 12/29/19 21:42 Date of Discharge: January 06, 2020 Attending Provider at Admission: Jamie Salmon MD Attending Provider at Discharge: Jamie Salmon MD Primary Care Provider: Herlinda Angulo DO Diagnoses at Discharge Discharge Diagnosis (1) Acute on chronic respiratory failure with hypoxia: Status: Acute (2) COPD (chronic obstructive pulmonary disease): Status: Acute Qualifiers: COPD type: COPD with acute exacerbation Qualified Code(s): J44.1 - Chronic obstructive pulmonary disease with (acute) exacerbation (3) Acute kidney injury: Status: Acute (4) Hyperlipidemia: Status: Acute Problem details: -Statin added during this admission, continue on discharge Qualifiers: Hyperlipidemia type: unspecified Qualified Code(s): E78.5 - Hyperlipidemia, unspecified (5) Spondylosis without myelopathy or radiculopathy, lumbosacral region: Status: Chronic (6) Hypertension: Status: Acute Qualifiers: Hypertension type: unspecified Qualified Code(s): I10 - Essential (primary) hypertension (7) Back pain with radiation: Status: Chronic (8) Encounter for long-term opiate analgesic use: Status: Chronic (9) Thoracic aortic aneurysm: Status: Acute Qualifiers: Presence of rupture: without rupture Qualified Code(s): I71.2 - Thoracic aortic aneurysm, without rupture (10) Abdominal aortic aneurysm: Status: Acute Qualifiers: Presence of rupture: without rupture Qualified Code(s): I71.4 - Abdominal aortic aneurysm, without rupture Reason for Visit Reason for Visit: Reason For Visit: failure to thrive Hospital Course Discharge Summary: Flor Mishra is a 84 year old female with a past medical history of COPD, supposed to be using 3 L oxygen at baseline, current smoker, history of carotid artery stenosis status post carotid endarterectomy bilaterally, history of abdominal aortic aneurysm, dementia, moderate protein calorie malnutrition, chronic pain, chronic back pain status post back surgeries on chronic opiate therapy, hyperlipidemia, hypertension, who was recently discharged from [facility] in October 2019 for right lower lobe pneumonia who presents to the emergency room due to concerns for hypoxia and altered mental status. In the emergency room, patient had significant hypoxia PO2's in the 40s on ABG, was put on 5 L, continually desatted into the 80s, put on BiPAP 80%, desatted into the 80s, given her alteration of mentation and significant hypoxia, decision was made to intubate patient. Patient was admitted to the intensive care unit for acute on chronic hypoxic respiratory failure and acute metabolic encephalopathy secondary to COPD, hypercapnia, and opiate intoxication. Patient was placed on mechanical ventilation, did not require pressors, was started on steroid therapy, broad-spectrum antibiotics, nebulizer treatments; patient clinically did well, she was eventually successfully extubated on to room air. Patient's steroids were de-escalated, her nebulizer treatments were de-escalated, antibiotics were de-escalated, patient did well on the general medical floors. In addition patient's pain medications were also decreased to Dilaudid 1 mg every 12 hours as needed, tramadol 25 mg once daily as needed, Lyrica 25 mg once daily as needed. Patient was discharged to the intermediate with a steroid burst, Advair, albuterol with a close follow-up with her primary care provider in 1 week. In addition was discharged with new doses of pain medications as above, with close monitoring for opiate withdrawal, and to follow-up with a primary care provider as outpatient. Of note patient's COVID-19 testing was negative, sputum cultures were unremarkable, blood cultures unremarkable, MRSA culture negative. Also during her admission, there were concerns for type II NSTEMI supply demand ischemia, related to malignant hypertension and/or hypotension, no reported chest pain, discharged on aspirin, Brilinta beta-henry. For hypertension, she was discharged on amlodipine and lisinopril. Her acute kidney injury resolved Patient was also found to have a fusiform aneurysm dilatation of the infrarenal abdominal aorta measuring 34 mm, extensive arterial sclerotic disease, a large amount of intramural thrombus reducing the true lumen to 17 mm at the mid abdominal aorta level. Patient was discharged on aspirin, statin, beta-henry, with close follow-up with primary care and with repeat abdominal sonography in 3 months. In addition there was significant concern during her admission for protein calorie malnutrition and cachexia, patient declined PEG tube placement, intermediate is advised to give protein shakes with every meal, adequate calorie intake. For her significant deconditioning, patient was discharged to intermediate. Physical Exam Const: COMMON NORMALS: no apparent distress and oriented x3 Neck/C-Spine: COMMON NORMALS: full ROM, no lymphadenopathy, no JVD and thyroid normal THYROID: thyroid normal Lymph: LYMPHATIC: no lymphadenopathy noted Resp: COMMON NORMALS: normal respiratory effort, no retractions, no use of accessory muscles and clear to auscultation bilaterally AUSCULTATION: clear to auscultation bilaterally Cardio: COMMON NORMALS: no JVD, regular rate, regular rhythm, S1 normal heart sound, S2 normal heart sound, no gallops, no clicks and no murmurs RATE: regular rate RHYTHM: regular rhythm HEART SOUNDS: S1 normal and S2 normal GI: COMMON NORMALS: normal to inspection, nondistended, normoactive bowel sounds, soft to palpation, non-tender and no hepatosplenomegaly PALPATION: Yes soft and Yes no hepatosplenomegaly Extremity: COMMON NORMALS: normal to inspection, full ROM and no pedal edema Neuro: COMMON NORMALS: oriented x3 Urinary Catheter Management^: Dai: Cath Placed During This Visit: yes Reason for Continuing Indwelling Catheter: Acute Urinary Retention or Obstruction Urinary Catheter Date of Insertion: 12/29/19 Urinary Catheter Time of Insertion: 23:16 Discharge Data Data Completed and Pending: Completed Studies During Hospitalization Category Date Time Status CT angio chest w abd pel w con Stat Cat Scan 12/29/19 20:[address] head wo con* [id number] Urgent Cat Scan 12/29/19 19:09 Completed XR chest 1V napoleon ble [id number] Routine Exams 12/30/19 07:00 Completed XR chest 1V napoleon ble [id number] Routine Exams 01/01/20 04:00 Completed XR chest 1V napoleon ble [id number] Stat Exams 12/29/19 19:09 Completed XR chest 1V napoleon ble [id number] Urgent Exams 12/29/19 20:49 Completed Pending at discharge Category Date Time Status Interleukin 6 (IL -6) Serum Stat Lab 12/29/19 19:25 Received Labs from last 24 hours 01/06/20 01/05/20 01/05/20 06:33 21:16 16:19 Sodium Potassium Chloride Carbon Dioxide Anion Gap BUN Creatinine Glucose POC Glucose 95 120 105 Calculated Osmolal ity Calcium Total Bilirubin AST ALT Alkaline Phosphata se Total Protein Albumin Globulin 01/05/20 10:28 Sodium 144 Potassium 2.9 L Chloride 98 Carbon Dioxide 30 H Anion Gap 18.9 BUN 32 H Creatinine 0.9 Glucose 107 POC Glucose Calculated Osmolal ity 296 H Calcium 10.4 Total Bilirubin 0.6 AST 39 H ALT 45 H Alkaline Phosphata se 84 Total Protein 8.0 Albumin 4.5 Globulin 3.5 Vitals: Last Vital Signs Temp 98.2 F 01/06/20 08:28 Pulse 85 01/06/20 08:42 Resp 16 01/06/20 10:00 BP 166/76 01/06/20 08:28 Pulse Ox 95 01/06/20 08:42 Discharge Plan Discharge Patient Disposition: Xfer [facility] Condition: Stable Prescriptions: New prednisone 20 mg Tablet 40 mg PO DAILY 5 Days Qty: 5 RF: 0 amlodipine 5 mg Tablet 5 mg PO DAILY 30 Days Qty: 30 RF: 0 metoprolol tartrate 25 mg Tablet 12.5 mg PO BID 30 Days Qty: 30 RF: 0 tramadol 50 mg Tablet 25 mg PO DAILY PRN (Reason: pain) 30 Days Qty: 30 RF: 0 hydromorphone 2 mg tablet 1 mg PO Q12H PRN (Reason: pain) 30 Days Qty: 120 RF: 0 Lyrica 25 mg capsule 25 mg PO DAILY 30 Days Qty: 30 RF: 1 Advair Diskus 100-50 mcg/dose blister with device 1 inh INHALATION DAILY 30 Days Qty: 60 RF: 0 albuterol sulfate 90 mcg/actuation HFA aerosol inhaler 1 inh INHALATION Q6H PRN (Reason: shortness of breath or wheezing) Qty: 18 RF: 0 Continued diclofenac sodium [Voltaren] 1 % gel 2 gm TOPICAL Q6H RF: 0 Movantik 25 mg tablet 25 mg PO QAM RF: 0 docusate sodium [Colace] 100 mg capsule 100 mg PO PRN RF: 0 furosemide [Lasix] 20 mg tablet 20 mg PO DAILY PRN (Reason: Edema) RF: 0 aspirin 81 mg tablet,chewable 81 mg PO DAILY RF: 0 alendronate 70 mg tablet 70 mg PO Q7D Qty: 12 RF: 1 atorvastatin 40 mg tablet 40 mg PO DAILY Qty: 30 RF: 1 lisinopril 5 mg Tablet 5 mg PO DAILY RF: 0 mupirocin 2 % Ointment 1 applic TOPICAL TID RF: 0 cholecalciferol (vitamin D3) 25 mcg (1,000 unit) Capsule 25 mcg PO DAILY RF: 0 Miralax 17 gram Powder In Packet 8.5 g PO DAILY RF: 0 Nasonex 50 mcg/actuation [place],Non-Aerosol 1 spray INTRANASAL BID RF: 0 Nephro-Will Rx 1-60-300 mg-mg-mcg Tablet 1 tab PO DAILY RF: 0 Discontinued tizanidine 2 mg capsule 2 mg PO Q6H PRN (Reason: muscle spasticity) Qty: 30 RF: 0 amlodipine 5 mg tablet 2.5 mg PO DAILY Qty: 15 RF: 1 guaifenesin 600 mg Tablet Extended Release 12hr 1,200 mg PO Q12H RF: 0 diphenhydramine HCl [Benadryl] 25 mg Capsule 25 mg PO BEDTIME PRN (Reason: Insomnia) RF: 0 Discharge Orders: Discharge Order (Routine); Ordered 01/06/20 Ordered By: Jamie Salmon Referrals: Herlinda Angulo DO [Primary Care Provider] - 1 week (Please call Wednesday to set up a follow up appointment) Discharge Diet: Regular Discharge Activity: Resume usual activity Patient Instructions: Malnutrition (GEN) Activity Restrictions/Additional Instructions: -Please use steroid as prescribed for COPD exacerbation -Please use Advair as prescribed for COPD -Please use albuterol as needed -Pain medication doses have been cut down, Dilaudid 1 mg every 12 hours as needed for pain, tramadol 25 mg once daily as needed for pain, Lyrica 25 mg once daily as needed for pain -Monitor for opiate withdrawal -Follow-up with primary care in 1 week Discharge Attestations Time Spent in Discharge Care*: less than 30 min Status at Discharge: Cognitive status at discharge: cognitively intact, Behavioral status at discharge: cooperative, Quality Metrics Clinical Quality Measures During this hospital stay, did patient experience: None Coding Level of Care Code Acute Pot Washer for Catherine Huitron Diagnoses Acute on chronic respiratory failure with hypoxia J96.21 COPD (chronic obstructive pulmonary disease) J44.1 COPD type: COPD with acute exacerbation Acute kidney injury N17.9 Hyperlipidemia E78.5 Hyperlipidemia type: unspecified Spondylosis without myelopathy or radiculopathy, lumbosacral region M47.817 Hypertension I10 Hypertension type: unspecified Back pain with radiation M54.9 Encounter for long-term opiate analgesic use Z79.891 Thoracic aortic aneurysm I71.2 Presence of rupture: without rupture Abdominal aortic aneurysm I71.4 Presence of rupture: without rupture
[2020-01-06 11:14] LABS: Glucose Point of Care 86 mg/dL (70-110)
== END 2020-01-06 13:10 | disposition skilled nursing facility (03) | DRG 917 ==
LOC: ER 19:51 → ICU 22:06 → MEDSURG 01-01 22:13
PROVIDERS: Hospitalist; Internal Medicine; Student in an Organized Health Care Education/Training Program; Admitting Provider Family Medicine; Emergency Provider Emergency Medicine; Family Provider Family Medicine; PCP Family Medicine; Visit Provider Family Medicine
DX: T40.601A Poisoning by unspecified narcotics, accidental (unintentional), initial encounter (principal); J96.21 Acute and chronic respiratory failure with hypoxia; I21.A1 Myocardial infarction type 2; G93.41 Metabolic encephalopathy; E44.0 Moderate protein-calorie malnutrition; Z68.1 Body mass index [BMI] 19.9 or less, adult; I16.1 Hypertensive emergency; N17.9 Acute kidney failure, unspecified; Y92.9 Unspecified place or not applicable; J43.2 Centrilobular emphysema; Z99.81 Dependence on supplemental oxygen; F17.210 Nicotine dependence, cigarettes, uncomplicated; I71.4 Abdominal aortic aneurysm, without rupture; F03.90 Unspecified dementia, unspecified severity, without behavioral disturbance, psychotic disturbance, mood disturbance, and anxiety; G89.29 Other chronic pain; E78.5 Hyperlipidemia, unspecified; I10 Essential (primary) hypertension; Z87.01 Personal history of pneumonia (recurrent); Z79.82 Long term (current) use of aspirin; M51.36 Other intervertebral disc degeneration, lumbar region; M47.897 Other spondylosis, lumbosacral region; J84.10 Pulmonary fibrosis, unspecified; E87.6 Hypokalemia; I73.9 Peripheral vascular disease, unspecified; K59.00 Constipation, unspecified; N28.1 Cyst of kidney, acquired; I71.2 Thoracic aortic aneurysm, without rupture; E86.0 Dehydration; Z79.891 Long term (current) use of opiate analgesic
CPT/HCPCS: 12345; 31500; 36415; 36416; 36600; 51702; 70450; 71045; 71275; 74177; 80053; 80061; 80069; 80306; 80307; 81001; 82009; 82140; 82550; 82803; 82962; 83036; 83605; 83690; 83735; 83880; 84100; 84145; 84443; 84484; 85025; 85610; 85651; 86140; 87040; 87070; 87086; 87205; 87420; 87635; 87641; 87804; 92610; 93005; 94002; 94003; 94640; 94660; 94799; 96365; 96372; 96374; 96375; 96376; 97110; 97116; 97161; 97166; 97530; 97535; 99284; 99291; A4570; J0330; J0360; J0692; J1630; J1650; J1815; J1940; J2060; J2310; J2543; J2704; J2930; J3010; J3480; J3490; J7030; J7040; J7512; J7626; Q9967

== ENCOUNTER 2020-03-09 15:05 | Observation (INO) | payer MEDICARE, MEDICAID, SELFPAY ==
[2020-03-09 15:18] VITALS: BMI 15.1
--- NOTE | 2020-03-09 15:46 | CTR_ITS ---
PROCEDURE INFORMATION: Exam: CT Head Without Contrast Exam date and time: 03/09/2020 3:58 PM Age: 85 years old Clinical indication: Altered mental status/memory loss and malaise or fatigue; Prior surgery; Surgery type: Endarterectomy; Patient HX: Lethargy. Patient claims unable to move head or neck since this morning. History of carotid stenosis. ; Additional info: AMS TECHNIQUE: Imaging protocol: Computed tomography of the head without contrast. Radiation optimization: All CT scans at this facility use at least one of these dose optimization techniques: automated exposure control; mA and/or kV adjustment per patient size (includes targeted exams where dose is matched to clinical indication); or iterative reconstruction. COMPARISON: CT head wo con* [id number] 12/29/2019 9:22 PM RADIATION DOSE METRICS: Total DLP (mGy-cm): 819.43 FINDINGS: Brain: No hemorrhage. No edema, mass effect or midline shift. Lombardo-white matter differentiation is preserved.Periventricular and deep white matter hypodensities compatible with chronic microvascular ischemic changes. There is cortical atrophy. Ventricles: No ventriculomegaly. Bones/joints: No acute fracture. Sinuses: No acute sinusitis. Mastoid air cells: No mastoid effusion. Soft tissues: Unremarkable. CT/CT head wo con* [id number] IMPRESSION: No acute intracranial abnormality. Radiation Dose CTDIVOL = (mGy): DLP = 819.43 (mGy-cm)
--- NOTE | 2020-03-09 15:46 | XRR_ITS ---
PROCEDURE INFORMATION: Exam: XR Chest, 1 View Exam date and time: 03/09/2020 3:47 PM Age: 85 years old Clinical indication: Shortness of breath; Additional info: AMS TECHNIQUE: Imaging protocol: XR of the chest Views: 1 view. COMPARISON: HI XR chest 1V portable [id number] 01/01/2020 3:40 AM FINDINGS: Lungs: There is scarring and/or atelectasis at the lung bases similar to the prior study. There are pulmonary parenchymal calcifications consistent with remote granulomatous organism exposure. Pleural space: Unremarkable. No pleural effusion. No pneumothorax. Heart/Mediastinum: Prominence of the main pulmonary arteries, consistent with pulmonary arterial hypertension. Vasculature: There is calcified plaque in the thoracic aorta. Diaphragm: Mild elevation of the left hemidiaphragm. Bones/joints: There are degenerative and vertebral plasty changes in the visualized spine. Soft tissues: COPD morphology of the chest with prominent interstitial markings, similar to the prior study. XR/XR chest 1V portable [id number] IMPRESSION: There are changes consistent with COPD, similar to the prior study. No acute findings.
[2020-03-09 16:11] LABS: ABG PCO2 48.5 mmHg (35-45); ABG PH Result 7.35 (7.35-7.45); Arterial Blood Gas Hematocrit 37.5 % (37-47); Base Excess ABG 0.3 mmol/L (-2.0-2.0); Blood Gas Sample Site Brachial, right; Blood Gas Sample Type Arterial; HCO3 ABG 26.5 mmol/L (22-26); Oxygen Device NC
[2020-03-09 16:23] LABS: Basophils # 0.1 10^3/uL (0.0-0.1); Basophils % 0.6 %; Eosinophils # 0.1 10^3/uL (0.0-0.8); Hemoglobin 12.4 g/dL (11.5-15.3); Lymphocytes # 1.5 10^3/uL (0.8-4.8); Lymphocytes % 13.7 %; Mean Corpuscular HGB Conc 31.8 g/dL (30.0-36.0); Mean Corpuscular Hemoglobin 31.2 pg (28.0-34.0); Mean Corpuscular Volume 98.2 fL (81-99); Monocytes # 0.4 10^3/uL (0.2-0.9); Monocytes % 3.7 %; Neutrophils % 80.6 %; Nucleated Red Blood Cells % 0 %; Platelet Count 282 10^3/cmm (130-400); Red Blood Count 3.97 10^6/uL (4.1-5.3); Red Cell Distribution Width 14.6 % (12.1-15.1); White Blood Count 11.2 10^3/uL (4.0-10.0)
[2020-03-09 16:38] LABS: Lactic Sepsis W/Reflex 0.9 mmol/L (0.5-2.2)
[2020-03-09 16:48] LABS: Alanine Aminotransferase 69 U/L (0-33); Albumin Level 3.8 g/dL (3.5-5.2); Alkaline Phosphatase 154 IU/L (35-105); Anion Gap 15.9 (5-19); Aspartate Amino Transferase 104 U/L (0-32); Blood Urea Nitrogen 23 mg/dL (8-23); Calcium 9.7 mg/dL (8.5-10.5); Carbon Dioxide 27 mmol/L (22-29); Chloride 92 mmol/L (98-107); Creatinine Clr Calc Pharmacy 18.4073; Globulin 2.8 g/dL (1.3-4.6); Glucose 93 mg/dL (65-115); NT Pro B Type Natriuretic Pept 2671 pg/mL (0-450); Osmolality Calculated 264 mOsm/kg (285-295); Potassium 5.9 mmol/L (3.5-5.1); Sodium 129 mmol/L (136-145); Total Bilirubin 0.4 mg/dL (0.15-1.2); Total Protein 6.6 g/dL (6.6-8.7)
--- NOTE | 2020-03-09 18:47 | P.HP_ITS ---
Providers/Chief Complaint Admitting Physician: Anaid Manriquez MD Primary Care Provider: Herlinda Angulo DO Chief Complaint: AMS; NECK PAIN History of Present Illness Flor Mishra is a 85 year old female with PMHx of COPD, HTN, Chronic pain (on narcotics), Hyperlipidemia, AAA, presents by ambulance from home secondary to noted decreased responsiveness earlier today. Patient is somnolent when encountered in the ER, though in no apparent distress and is arousable for brief periods of time during which she is noted to be alert and oriented. Further history is obtained from conversation with her son-in-law Rich Payne ([phone]) as well as review of medical record and she is known to me from previous admission earlier this year. Rich states that patient had decided to sleep in early this morning but as the morning progressed and she did not awaken he got concerned and try to wake her up with some difficulty. He states that patient has had what appears to be reversal in her sleep cycle off and sleeping throughout the day then staying awake throughout the night. With much effort he was able to get her sitting up in a chair but she remained very sleepy at which point she called for an ambulance to bring her to the hospital. She has had similar episodes in the past which have been attributed to either infection or high doses of pain medication. Patient has a home health nurse through [facility] that sets up her medications once a week typically on Tuesdays. Due to concern for overmedication particularly in terms of her narcotics her opiates were rece ntly decreased. She was not awake enough to take her medications today and seem to be in her usual state of health prior to going to bed last night. She has been weaned off oxygen is no longer requiring this secondary to her COPD which was the case previously. Per Rich patient does not respond well to physical therapy still [facility] provides nursing and home health aide services. Due to concern for high blood pressure they have been keeping a close eye on this for the past week and her baseline systolic blood pressure has been about 100- 110. This is secondary to her history of AAA. She has been following up with cardiology for surveillance imaging. Work-up today reveals some leukocytosis with a white count of 11.2, normal hemoglobin, hyponatremia with a sodium of 129, hyperkalemia with a potassium of 5.9, creatinine of 1.2, ABG shows minimal hypercapnia, BNP is 2671. CT of the head and chest x-ray are both unremarkable for any acute findings. She is hemodynamically stable, afebrile and currently on 5 L nasal cannula. She is being admitted for further monitoring given her current somnolence. Review of Systems General: Reports: ROS unobtainable due to mental status (somnolent) Const: Reports: fatigue Musc: Reports: neck pain and back pain Psych: Reports: sleeping more (sleeping cycle reversed ) Medications/Allergies Home Medications Medication Instructions Recorded Confirmed Last Taken Type aspirin 81 mg chewable tablet 81 mg PO DAILY 10/25/19 03/09/20 Unknown History diclofenac sodium 1 % topical gel 2 gm TOPICAL Q6H 10/25/19 03/09/20 Unknown History docusate sodium 100 mg capsule 100 mg PO PRN cap 10/25/19 03/09/20 Unknown History furosemide 20 mg tablet 20 mg PO DAILY PRN 10/25/19 03/09/20 Unknown History alendronate 70 mg tablet 70 mg PO Q7D #12 tab 11/29/19 03/09/20 Unknown Rx cholecalciferol (vitamin D3) 25 mcg PO DAILY 12/30/19 03/09/20 Unknown History polyethylene glycol 3350 [Miralax] See Rx Instructions .ROUTE .COMPLEX 12/30/19 03/09/20 Unknown History hydromorphone 1 mg PO Q12H PRN 30 Days #120 tab 01/06/20 03/09/20 Unknown Rx pregabalin 25 mg capsule 25 mg PO DAILY 30 Days #30 cap 02/01/20 03/09/20 Unknown Rx tramadol 50 mg tablet 50 mg PO DAILY PRN 30 Days #30 tab 02/01/20 03/09/20 Unknown Rx guaifenesin 600 mg tablet, 600 mg PO Q12H PRN #60 tab 02/21/20 03/09/20 Unknown Rx extended release 12 hr atorvastatin 40 mg tablet 40 mg PO DAILY #30 tab 02/29/20 03/09/20 Unknown Rx amlodipine 2.5 mg tablet 2.5 mg PO DAILY #1 tab 03/05/20 03/09/20 Unknown Rx lisinopril 2.5 mg tablet 2.5 mg PO DAILY #1 tab 03/05/20 03/09/20 Unknown Rx Mikhail Mag Plus 1 tab PO BID 03/09/20 03/09/20 Unknown History albuterol sulfate [Ventolin HFA] 1 puff INHALATION Q6H PRN 03/09/20 03/09/20 Unknown History fluticasone propion-salmeterol 1 ea INHALATION DAILY 03/09/20 03/09/20 Unknown History [Advair Diskus] metoprolol tartrate 25 mg PO BID 03/09/20 03/09/20 Unknown History Allergies Allergy/AdvReac Type Severity Reaction Status Date / Time levofloxacin Allergy Severe ADR-Halluci Verified 02/01/20 11:34 nating hydrocodone Allergy ALGY-Swell Verified 02/01/20 11:34 Lip/Tongue/Throat latex Allergy ALGY-Anaphy Verified 02/01/20 11:34 laxis Penicillins Allergy ALGY-Bliste Verified 02/01/20 11:34 r Sulfa (Sulfonamide Allergy ALGY-Hives Verified 02/01/20 11:34 Antibiotics) tetracycline Allergy ALGY-Swell Verified 02/01/20 11:34 Lip/Tongue/Throat PFSH Acute PFSH: Medical History AAA (abdominal aortic aneurysm) Back pain with radiation Carotid stenosis COPD (chronic obstructive pulmonary disease) DDD (degenerative disc disease), lumbar Encounter for long-term opiate analgesic use Enrolled in chronic care management Hyperlipidemia -Statin added during this admission, continue on discharge Hypertension Spondylosis without myelopathy or radiculopathy, lumbosacral region Surgical History History of endarterectomy bilateral History of tonsillectomy and adenoidectomy Hx of cholecystectomy Hx of hysterectomy, total Hx of kyphoplasty Family History Other CAD (coronary artery disease) Social History (Updated 03/09/20 @ 18:57 by Anaid Manriquez MD) Smoking and tobacco status: former smoker Second hand smoke exposure: Yes Alcohol intake: never Household members: other Details: lives with son in law History of recent travel: No Vitals/I&O/Wt Weight last 48 hrs Weight 34.019 kg Physical Exam Const: COMMON NORMALS: no acute distress and patient oriented x3 GENERAL APPEARANCE: cooperative, comfortable and frail appearing NUTRITIONAL APPEARANCE: cachectic ORIENTATION/CONSCIOUSNESS: Yes lethargic HENMT: COMMON NORMALS: normocephalic, atraumatic, hearing grossly normal bilaterally and moist oral mucous membranes HEAD & SCALP: normocephalic and atraumatic Eye: COMMON NORMALS: Equal, round and reactive pupils present, EOMs intact bilaterally and conjunctivae normal CONJUNCTIVA: Yes conjunctivae normal PUPIL: Yes Equal, round and reactive pupils present Neck/C-Spine: COMMON NORMALS: full ROM GENERAL: Yes normal visual inspection and Yes trachea midline Resp: COMMON NORMALS: normal respiratory effort, No retractions and No use of accessory muscles EFFORT & INSPECTION: Yes able to speak in complete sentences, Yes symmetric chest movement and No tachypneic AUSCULTATION: diminished lung sounds OTHER: -on 5 L NC Cardio: COMMON NORMALS: regular rate, regular rhythm, S1 normal heart sound present, S2 normal heart sound present and No murmurs present (Cardio) RATE: regular rate RHYTHM: regular rhythm HEART SOUNDS: S1 normal heart sound present and S2 normal heart sound present GI: COMMON NORMALS: Normal to inspection, nondistended, normoactive bowel sounds present, Soft to palpation and non-tender PALPATION: Yes Soft to palpation Extremity: COMMON NORMALS: normal to inspection, full ROM and no clubbing, cyanosis or edema; negative for no pedal edema Neuro: COMMON NORMALS: patient oriented x3, moves all extremities, no focal motor deficits, no sensory deficits noted and gait normal SENSORIUM/ORIENTATION: Yes somnolent Psych: COMMON NORMALS: mental status grossly normal, Normal thought process present, cooperative, normal affect and speech normal SPEECH: Yes normal spee ch THOUGHT PROCESS: Normal thought process present Skin: COMMON NORMALS: no rashes or lesions noted, no jaundice, no petechiae and no mottling GENERAL SKIN EXAM: no rashes or lesions noted Data : 03/09/20 16:18 03/09/20 16:18 A&P Assessment and plan (1) Altered mental status: -Suspicion for having taken more than prescribed medication, specifically narcotics which she is on chronically secondary to chronic back pain. She is somnolent but arousable for brief episodes and is alert and oriented during those episodes. Has had previous episodes of the same with suspicion for overmedication. Per son-in-law patient's pain regimen was adjusted for this reason -Fall precautions -Anticipate that with time her mentation will clear with holding her narcotics -No clinical evidence of infection currently, noted leukocytosis which seems to be reactive, CT head and chest x-ray are unremarkable for any acute changes -Pending UDS, UA -Monitor vital signs -Monitor respiratory status, supplemental oxygen as needed Status: Acute Qualifiers: Altered mental status type: stupor Qualified Code(s): R40.1 - Stupor (2) Hyperlipidemia: -Resume statin Status: Chronic Qualifiers: Hyperlipidemia type: unspecified Qualified Code(s): E78.5 - Hyperlipi demia, unspecified (3) Hypertension: -Monitor vital signs -Resume oral antihypertensives if more awake Status: Chronic Qualifiers: Hypertension type: unspecified Qualified Code(s): I10 - Essential (prim forrest) hypertension (4) COPD (chronic obstructive pulmonary disease): -Previously oxygen dependent but was recently weaned off -Monitor respiratory status, supplemental oxygen as needed -No evidence of acute exacerbation currently Status: Chronic Qualifiers: COPD type: unspecified COPD Qualified Code(s): J44.9 - Chronic obstructive pulmonary disease, unspecified (5) Abdominal aortic aneurysm: -surveillance with serial imaging per PCP and cardiology Dr. Morejon -has been monitoring BP at home closely Status: Chronic Qualifiers: Presence of rupture: without rupture Qualified Code(s): I71.4 - Abdominal aortic aneurysm, without rupture (6) Thoracic aortic aneurysm: -as noted above Status: Chronic Qualifiers: Presence of rupture: without rupture Qualified Code(s): I71.2 - Thoracic aortic aneurysm, without rupture Additional A&P Information -hyponatremia, hyperkalemia; IVF hydration, repeat labs in AM -Bilateral carotid artery stenosis s/p CEA bilaterally; on statin -Advanced age -Cachexia and at least moderate protein calorie malnutrition: BMI-15 kg/m2 -Chronic pain; on opiates -Deconditioning; per family has not responded well to PT; ambulates with walker -Dispo: home with , already has services with [facility]; son in law (Rich Payne) lives with her -Code status: FULL code Attestations Medical Necessity Statement*: Flor Mishra's hospital stay will be less than 2 midnights for management of altered mental status likely secondary to over medication. Time Spent in Patient Care: Greater than 35 minutes (>than 50% of time spent in counselling and/or direct pt care on unit) . Coding Level of Care Code Acute Sensor Technician for Chg Fwd Diagnoses Altered mental status R40.1 Altered mental status type: stupor Hyperlipidemia E78.5 Hyperlipidemia type: unspecified Hypertension I10 Hypertension type: unspecified COPD (chronic obstructive pulmonary disease) J44.9 COPD type: unspecified COPD Abdominal aortic aneurysm I71.4 Presence of rupture: without rupture Thoracic aortic aneurysm I71.2 Presence of rupture: without rupture
[2020-03-09 20:10] VITALS: BP 137/73; PULSE 85; RESP 20; TEMP 36.8; O2SAT 91
[2020-03-09 20:11] VITALS: BP 128/69; PULSE 74; RESP 18; O2SAT 100
[2020-03-09] MEDS: sodium chloride 0.9% 1,000 ML 100 ML IV (20:17)
[2020-03-09] MEDS: heparin 5,000 unit/mL INJ 1 mL 5000 UNIT SUBCUT (21:46)
[2020-03-10] VITALS (7 sets, daily range): BP systolic 151–178; BP diastolic 69–81; PULSE 60–90; RESP 16–18; TEMP 36.7–37; O2SAT 92–96
--- NOTE | 2020-03-10 01:27 | W.ED.NECK ---
HPI - Neck Pain/Injury General: Chief Complaint: Neck Pain/Injury Stated Complaint: AMS; NECK PAIN Time Seen by Provider: 03/09/20 15:23 History of Present Illness: HPI Narrative: The patient was brought in by EMS after her son-in-law who she lives with her difficulty waking her up. She has been seen in this facility a few times before for similar and it has been concluded that she was suffering from adverse effects of too much narcotic medications. The patient has chronic pain and sees the pain management and she is on hydromorphone, diazepam, Lyrica, as well as as needed tramadol. The patient is unable to give me a coherent history as she is drowsy and not making a lot of sense when she speaks. The only thing she was able to say that she hurts and she has pain in her back. I spoke to her son-in-law who said that the patient sleeps during the day and does not sleep at night. He does not think she has falling as he has not heard do so. She was difficult to wake today but because she had not been sleeping well he left her alone thinking she just needed extra sleep, however when he got to the afternoon she was still not waking up he was concerned and called for an ambulance Review of Systems General: Reports: ROS unobtainable due to mental status PFSH ED PFSH: Medical History AAA (abdominal aortic aneurysm) Back pain with radiation Carotid stenosis COPD (chronic obstructive pulmonary disease) DDD (degenerative disc disease), lumbar Encounter for long-term opiate analgesic use Enrolled in chronic care management Hyperlipidemia -Statin added during this admission, continue on discharge Hypertension Spondylosis without myelopathy or radiculopathy, lumbosacral region Surgical History History of endarterectomy bilateral History of tonsillectomy and adenoidectomy Hx of cholecystectomy Hx of hysterectomy, total Hx of kyphoplasty Family History Other CAD (coronary artery disease) Social History (Updated 03/09/20 @ 18:57 by Anaid Manriquez MD) Smoking and tobacco status: former smoker Second hand smoke exposure: Yes Alcohol intake: never Household members: other Details: lives with son in law History of recent travel: No Physical Exam Const: EXAM LIMITATIONS: altered mental status NUTRITIONAL APPEARANCE: cachectic ORIENTATION/CONSCIOUSNESS: Yes confused HENMT: COMMON NORMALS: normocephalic and atraumatic HEAD & SCALP: normocephalic and atraumatic Neck/C-Spine: COMMON NORMALS: no meningeal signs Resp: COMMON NORMALS: normal respiratory effort, No retractions, No use of accessory muscles and clear to auscultation bilaterally AUSCULTATION: clear to auscultation bilaterally Cardio: COMMON NORMALS: regular rate, regular rhythm, S1 normal heart sound present and S2 normal heart sound present RATE: regular rate RHYTHM: regular rhythm HEART SOUNDS: S1 normal heart sound present and S2 normal heart sound present GI: COMMON NORMALS: Normal to inspection, nondistended, normoactive bowel sounds present, Soft to palpation, non-tender and No hepatosplenomegaly present PALPATION: Yes Soft to palpation and Yes No hepatosplenomegaly present Neuro: SENSORIUM/ORIENTATION: Yes somnolent MENINGEAL SIGNS: Yes no meningeal signs Course Consultations: Consultation #1: Dr. Manriquez, hospitalist. She kindly accepted the patient to her service. Vital Signs: Vital signs: Vital Signs Temperature 98.3 F 03/09/20 20:10 Pulse Rate 74 03/09/20 20:11 Respiratory Rate 18 03/09/20 20:11 Blood Pressure 128/69 03/09/20 20:11 Pulse Oximetry 100 03/09/20 20:11 MDM - Neck Pain/Injury MDM Narrative: Medical decision making narrative: 85-year-old patient who presents with altered mental status likely secondary to advanced effect/overdose of her narcotic medications. Head CT negative, blood gas unremarkable (no hypercapnia). Nothing acute on her labs. She is admitted under observation status for evaluation and and further management. Medical Records: Attestation: I reviewed the patient's medical records. Lab Data: Attestation: I reviewed the patient's lab results. Labs: Lab Results 03/09/20 03/09/20 03/09/20 Range/Units 16:01 16:18 16:18 WBC 11.2 H (4.0-10.0) 10^3/ uL RBC 3.97 L (4.1-5.3) 10^6/u L Hgb 12.4 (11.5-15.3) g/dL Hct 39.0 (37.0-47.0) % MCV 98.2 (81-99) fL MCH 31.2 (28.0-34.0) pg MCHC 31.8 (30.0-36.0) g/dL RDW 14.6 (12.1-15.1) % Plt Count 282 (130-400) 10^3/c mm MPV 10.0 (7.4-10.4) fL Neut % (Auto) 80.6 % Lymph % (Auto) 13.7 % [place] % (Auto) 3.7 % Eos % (Auto) 1.0 % Baso % (Auto) 0.6 % Neut # (Auto) 9.0 H (1.8-7.7) 10^3/u L Lymph # (Auto) 1.5 (0.8-4.8) 10^3/u L [place] # (Auto) 0.4 (0.2-0.9) 10^3/u L Eos # (Auto) 0.1 (0.0-0.8) 10^3/u L Baso # (Auto) 0.1 (0.0-0.1) 10^3/u L Nucleated RBC % (a uto) 0 % Nucleated RBCs # 0.0 /100WBC Specimen Type Arterial Sample Site Brachial, right ABG pH 7.35 (7.35-7.45) ABG pCO2 48.5 H (35-45) mmHg ABG pO2 121.0 H (80.0-100.0) mmH g ABG HCO3 26.5 H (22-26) mmol/L ABG Base Excess 0.3 (-2.0-2.0) mmol/ L [place] Test N/a Hematocrit 37.5 (37-47) % O2 Delivery Device Nc O2 Liters/Min 5.0 % FiO2 40.0 % Destination Coordinator ID ed Sodium 129 L (136-145) mmol/L Potassium 5.9 H (3.5-5.1) mmol/L Chloride 92 L (98-107) mmol/L Carbon Dioxide 27 (22-29) mmol/L Anion Gap 15.9 (5-19) BUN 23 (8-23) mg/dL Creatinine 1.2 H (0.5-0.9) mg/dL Glucose 93 (65-115) mg/dL Calculated Osmolal ity 264 L (285-295) mOsm/k g Lactic Acid (0.5-2.2) mmol/L Calcium 9.7 (8.5-10.5) mg/dL Total Bilirubin 0.4 (0.15-1.2) mg/dL AST 104 H (0-32) U/L ALT 69 H (0-33) U/L Alkaline Phosphata se 154 H (35-105) IU/L NT-Pro-B Natriuret Pep 2671 H (0-450) pg/mL Total Protein 6.6 (6.6-8.7) g/dL Albumin 3.8 (3.5-5.2) g/dL Globulin 2.8 (1.3-4.6) g/dL 03/09/20 Range/Units 16:18 WBC (4.0-10.0) 10^3/ uL RBC (4.1-5.3) 10^6/u L Hgb (11.5-15.3) g/dL Hct (37.0-47.0) % MCV (81-99) fL MCH (28.0-34.0) pg MCHC (30.0-36.0) g/dL RDW (12.1-15.1) % Plt Count (130-400) 10^3/c mm MPV (7.4-10.4) fL Neut % (Auto) % Lymph % (Auto) % [place] % (Auto) % Eos % (Auto) % Baso % (Auto) % Neut # (Auto) (1.8-7.7) 10^3/u L Lymph # (Auto) (0.8-4.8) 10^3/u L [place] # (Auto) (0.2-0.9) 10^3/u L Eos # (Auto) (0.0-0.8) 10^3/u L Baso # (Auto) (0.0-0.1) 10^3/u L Nucleated RBC % (a uto) % Nucleated RBCs # /100WBC Specimen Type Sample Site ABG pH (7.35-7.45) ABG pCO2 (35-45) mmHg ABG pO2 (80.0-100.0) mmH g ABG HCO3 (22-26) mmol/L ABG Base Excess (-2.0-2.0) mmol/ L [place] Test Hematocrit (37-47) % O2 Delivery Device O2 Liters/Min % FiO2 % Destination Coordinator ID Sodium (136-145) mmol/L Potassium (3.5-5.1) mmol/L Chloride (98-107) mmol/L Carbon Dioxide (22-29) mmol/L Anion Gap (5-19) BUN (8-23) mg/dL Creatinine (0.5-0.9) mg/dL Glucose (65-115) mg/dL Calculated Osmolal ity (285-295) mOsm/k g Lactic Acid 0.9 (0.5-2.2) mmol/L Calcium (8.5-10.5) mg/dL Total Bilirubin (0.15-1.2) mg/dL AST (0-32) U/L ALT (0-33) U/L Alkaline Phosphata se (35-105) IU/L NT-Pro-B Natriuret Pep (0-450) pg/mL Total Protein (6.6-8.7) g/dL Albumin (3.5-5.2) g/dL Globulin (1.3-4.6) g/dL Imaging Data^: CXR: Radiologist's impression: [address] [address] XRay Report Signed Patient: Flor Mishra #: [id number] : 5Acct#:[id number] Age/Sex: 85 / FADM Date: 03/09/20 Loc: ERRoom/Bed: Attending Dr: Ordering Provider/Ordering MD: Sean Tiwari MD, [facility] Date of Service: 03/09/20 Procedure(s): XR chest 1V portable [id number] Accession Number(s): [id number] Report Number: [id number] PROCEDURE INFORMATION: Exam: XR Chest, 1 View Exam date and time: 03/09/2020 3:47 PM Age: 85 years old Clinical indication: Shortness of breath; Additional info: AMS TECHNIQUE: Imaging protocol: XR of the chest Views: 1 view. COMPARISON: [place] XR chest 1V portable [id number] 01/01/2020 3:40 AM FINDINGS: Lungs: There is scarring and/or atelectasis at the lung bases similar to the prior study. There are pulmonary parenchymal calcifications consistent with remote granulomatous organism exposure. Pleural space: Unremarkable. No pleural effusion. No pneumothorax. Heart/Mediastinum: Prominence of the main pulmonary arteries, consistent with pulmonary arterial hypertension. Vasculature: There is calcified plaque in the thoracic aorta. Diaphragm: Mild elevation of the left hemidiaphragm. Bones/joints: There are degenerative and vertebral plasty changes in the visualized spine. Soft tissues: COPD morphology of the chest with prominent interstitial markings, similar to the prior study. XR/XR chest 1V portable [id number] IMPRESSION: There are changes consistent with COPD, similar to the prior study. No acute findings. Dictated By:Muriel Mosley MD Signed By:Muriel Mosley MDSigned Date/Time:03/09/201651 DD/ 50 CT Head: Radiologist's impression: [place] [address] CT Scan Report Signed Patient: Flor Mishra #: [id number] : 5Acct#:[id number] Age/Sex: 85 / FADM Date: 03/09/20 Loc: ERRoom/Bed: Attending Dr: Ordering Provider/Ordering MD: Sean Tiwari MD, [facility] Date of Service: 03/09/20 Procedure(s): CT head wo con* [id number] Accession Number(s): [id number] Report Number: [id number] PROCEDURE INFORMATION: Exam: CT Head Without Contrast Exam date and time: 03/09/2020 3:58 PM Age: 85 years old Clinical indication: Altered mental status/memory loss and malaise or fatigue; Prior surgery; Surgery type: Endarterectomy; Patient HX: Lethargy. Patient claims unable to move head or neck since this morning. History of carotid stenosis. ; Additional info: AMS TECHNIQUE: Imaging protocol: Computed tomography of the head without contrast. Radiation optimization: All CT scans at this facility use at least one of these dose optimization techniques: automated exposure control; mA and/or kV adjustment per patient size (includes targeted exams where dose is matched to clinical indication); or iterative reconstruction. COMPARISON: CT head wo con* [id number] 12/29/2019 9:22 PM RADIATION DOSE METRICS: Total DLP (mGy-cm): 819.43 FINDINGS: Brain: No hemorrhage. No edema, mass effect or midline shift. Lombardo-white matter differentiation is preserved.Periventricular and deep white matter hypodensities compatible with chronic microvascular ischemic changes. There is cortical atrophy. Ventricles: No ventriculomegaly. Bones/joints: No acute fracture. Sinuses: No acute sinusitis. Mastoid air cells: No mastoid effusion. Soft tissues: Unremarkable. CT/CT head wo con* [id number] IMPRESSION: No acute intracranial abnormality. Radiation Dose CTDIVOL = (mGy): DLP = 819.43 (mGy-cm) Dictated By:Elena Thakkar MD Signed By:Elena Thakkar MDSigned Date/Time:03/09/201615 DD/ 13 Discharge Plan Discharge Patient Disposition: Placed in Observation Admit Provider: Anaid Manriquez Clinical Impression: Acute alteration in mental status Condition: Stable Interventions: ED Discharge Assessment Last Done: 03/09/20 20:11 ED Charges Last Done: 03/09/20 20:11 Discharge Date/Time: 03/09/20 20:12 Coding Level of Care Code ED Programs Director for Catherine Huitron
[2020-03-10 04:45] LABS: Add Urine Microscopic? NO
[2020-03-10 04:58] LABS: Amphetamines Screen Urine Negative (Negative); Barbiturates Screen Urine Negative (Negative); Benzodiazepines Screen Urine Negative (Negative); Bilirubin Urine Neg (NEGATIVE); Blood Urine Neg (Negative); Cocaine Screen Urine Negative (Negative); Glucose Urine UA Norm (Normal); Ketones Urine Negative (Negative); Leukocyte Esterase Urine Negative (Negative); Nitrate Urine Negative (Negative); Opiate Screen Urine Positive (Negative); PCP Screen Urine Negative (Negative); Protein Urine Neg (Negative); THC Screen Urine Negative (Negative); Urine Appearance Clear (CLEAR); Urine Color Straw (Yellow); Urobilinogen Urine Norm (Negative); pH Urine 7 (5-7)
--- NOTE | 2020-03-10 07:09 | PC.NURSE ---
Shift Summary pt has been confused on her Q4h neuro checks, pt has been oriented to self all night. at 0400 neuro checks, pt was able to answer most questions appropriately, pt knew her name, , location ([employer] had previously told pt location a few minutes prior), month, and who our president was. pt was able to recall that she had just had a birthday a few couple weeks ago. pt stated, I do not want my son-in-law, Rich, to be my DPOA because he does not know what he's talking about and he's just up here giving nurses all kinds of orders. pt refused 0400 labs and when this nurse went to place oxygen back on pt, pt stated, I have the right to refuse oxygen! pt was educated about why she was brought into the hospital. pt had good urinary output and slept well between rounds.
[2020-03-10 07:14] LABS: Basophils # 0.1 10^3/uL (0.0-0.1); Basophils % 0.5 %; Eosinophils % 0.3 %; Hematocrit 37.9 % (37.0-47.0); Hemoglobin 12.1 g/dL (11.5-15.3); Lymphocytes # 1.5 10^3/uL (0.8-4.8); Lymphocytes % 14.5 %; Mean Corpuscular HGB Conc 31.9 g/dL (30.0-36.0); Mean Corpuscular Hemoglobin 31.7 pg (28.0-34.0); Mean Corpuscular Volume 99.2 fL (81-99); Mean Platelet Volume 10.2 fL (7.4-10.4); Monocytes # 0.5 10^3/uL (0.2-0.9); Monocytes % 4.6 %; Neutrophils # 8.3 10^3/uL (1.8-7.7); Neutrophils % 79.7 %; Nucleated Red Blood Cells % 0 %; Platelet Count 254 10^3/cmm (130-400); Red Blood Count 3.82 10^6/uL (4.1-5.3); Red Cell Distribution Width 14.4 % (12.1-15.1); White Blood Count 10.4 10^3/uL (4.0-10.0)
[2020-03-10 07:36] LABS: Alanine Aminotransferase 47 U/L (0-33); Albumin Level 3.8 g/dL (3.5-5.2); Alkaline Phosphatase 136 IU/L (35-105); Anion Gap 16.6 (5-19); Aspartate Amino Transferase 63 U/L (0-32); Blood Urea Nitrogen 21 mg/dL (8-23); Calcium 9.9 mg/dL (8.5-10.5); Carbon Dioxide 25 mmol/L (22-29); Chloride 96 mmol/L (98-107); Globulin 2.6 g/dL (1.3-4.6); Glucose 84 mg/dL (65-115); Osmolality Calculated 272 mOsm/kg (285-295); Potassium 4.6 mmol/L (3.5-5.1); Sodium 133 mmol/L (136-145); Total Bilirubin 0.5 mg/dL (0.15-1.2); Total Protein 6.4 g/dL (6.6-8.7)
--- NOTE | 2020-03-10 08:19 | PM.DCS ---
Discharge Providers Date of Admission: 03/09/20 17:43 Date of Discharge: March 10, 2020 Attending Provider at Admission: Anaid Manriquez MD Attending Provider at Discharge: Anaid Manriquez MD Primary Care Provider: Herlinda Angulo DO Diagnoses at Discharge Discharge Diagnosis (1) Altered mental status: Status: Resolved Problem details: -Suspicion for having taken more than prescribed medication, specifically narcotics which she is on chronically secondary to chronic back pain. She is somnolent but arousable for brief episodes and is alert and oriented during those episodes. Has had previous episodes of the same with suspicion for overmedication. Per son-in-law patient's pain regimen was adjusted for this reason -Fall precautions -Anticipate that with time her mentation will clear with holding her narcotics -No clinical evidence of infection currently, noted leukocytosis which seems to be reactive, CT head and chest x-ray are unremarkable for any acute changes -Pending UDS, UA -Monitor vital signs -Monitor respiratory status, supplemental oxygen as needed Qualifiers: Altered mental status type: stupor Qualified Code(s): R40.1 - Stupor (2) Hyperlipidemia: Status: Chronic Problem details: -continue statin Qualifiers: Hyperlipidemia type: unspecified Qualified Code(s): E78.5 - Hyperlipidemia, unspecified (3) Hypertension: Status: Chronic Problem details: -stable vital signs -continue oral antihypertensives Qualifiers: Hypertension type: unspecified Qualified Code(s): I10 - Essential (primary) hypertension (4) COPD (chronic obstructive pulmonary disease): Status: Chronic Problem details: -Previously oxygen dependent but was recently weaned off -stable respiratory status, supplemental oxygen as needed -No evidence of acute exacerbation currently Qualifiers: COPD type: unspecified COPD Qualified Code(s): J44.9 - Chronic obstructive pulmonary disease, unspecified (5) Abdominal aortic aneurysm: Status: Chronic Problem details: -surveillance with serial imaging per PCP and cardiology Dr. Morejon -has been monitoring BP at home closely Qualifiers: Presence of rupture: without rupture Qualified Code(s): I71.4 - Abdominal aortic aneurysm, without rupture (6) Thoracic aortic aneurysm: Status: Chronic Problem details: -as noted above Qualifiers: Presence of rupture: without rupture Qualified Code(s): I71.2 - Thoracic aortic aneurysm, without rupture Other Information Additional DC diagnoses/information: -hyponatremia, hyperkalemia; IVF hydration, repeat labs in AM show normalized K, improved Na -Bilateral carotid artery stenosis s/p CEA bilaterally; on statin -Advanced age -Cachexia and at least moderate protein calorie malnutrition: BMI-15 kg/m2 -Chronic pain; on opiates -Deconditioning; per family has not responded well to PT; ambulates with walker Reason for Visit Reason for Visit: AMS; NECK PAIN Hospital Course Hospital Course: Patient was admitted to the medical surgical floor and placed on telemetry monitoring. Based on her presentation suspicion was that she had taken higher than prescribed pain medications which led to somnolence which has been suspected on previous admissions. Per discussion with son-in-law whom she lives with he is doubtful that she took more than maybe an extra dose of tramadol and reports that medications are set out a week at a time by her home health nurse. Narcotics were previously adjusted to prevent over-medication and may need to be adjusted again in light of this admission. She was hydrated gently with IV fluids with noted improvement in her renal function, improvement in hyponatremia. She was noted to have some mild leukocytosis which seems to be reactive, no evidence of infection based on chest x-ray, urinalysis, lack of fever, improved leukocytosis without treatment. LFTs were initially noted to be elevated but have trended down. Though her BNP was elevated she was not clinically fluid overloaded so was not diuresed aggressively. Her narcotics were held and her mentation has improved. Per discussion with her son-in-law patient already has home health services arranged through [facility] and has previously not been receptive to physical therapy. She will continue her support services and will need to follow-up with her primary care physician within 1 week. Discharge Summary: -Patient to follow-up with her primary care physician within 1 week -Should continue to follow-up with cardiology on surveillance of her AAA Physical Exam Const: COMMON NORMALS: no acute distress, patient oriented x3 and alert GENERAL APPEARANCE: cooperative, comfortable and frail appearing NUTRITIONAL APPEARANCE: cachectic HENMT: COMMON NORMALS: normocephalic, atraumatic, hearing grossly normal bilaterally and moist oral mucous membranes HEAD & SCALP: normocephalic and atraumatic Eye: COMMON NORMALS: Equal, round and reactive pupils present, EOMs intact bilaterally and conjunctivae normal CONJUNCTIVA: Yes conjunctivae normal PUPIL: Yes Equal, round and reactive pupils present Neck/C-Spine: COMMON NORMALS: full ROM GENERAL: Yes normal visual inspection and Yes trachea midline Resp: COMMON NORMALS: normal respiratory effort, No retractions and No use of accessory muscles EFFORT & INSPECTION: Yes able to speak in complete sentences, Yes symmetric chest movement and No tachypneic AUSCULTATION: diminished lung sounds OTHER: -on RA Cardio: COMMON NORMALS: regular rate, regular rhythm, S1 normal heart sound present, S2 normal heart sound present and No murmurs present (Cardio) RATE: regular rate RHYTHM: regular rhythm HEART SOUNDS: S1 normal heart sound present and S2 normal heart sound present GI: COMMON NORMALS: Normal to inspection, nondistended, normoactive bowel sounds present, Soft to palpation and non-tender PALPATION: Yes Soft to palpation Extremity: COMMON NORMALS: normal to inspection, full ROM and no clubbing, cyanosis or edema; negative for no pedal edema Neuro: COMMON NORMALS: patient oriented x3, moves all extremities, no focal motor deficits and no sensory deficits noted SENSORIUM/ORIENTATION: Yes alert Psych: COMMON NORMALS: mental status grossly normal, Normal thought process present, cooperative, normal affect and speech normal SPEECH: Yes normal speech THOUGHT PROCESS: Normal thought process present Skin: COMMON NORMALS: no rashes or lesions noted, no jaundice, no petechiae and no mottling GENERAL SKIN EXAM: no rashes or lesions noted Discharge Data Data Completed and Pending: Completed Studies During Hospitalization Category Date Time Status CT head wo con* [id number] Urgent Cat Scan 03/09/20 15:46 Completed XR chest 1V [place] ble [id number] Urgent Exams 03/09/20 15:46 Completed Labs from last 24 hours 03/10/20 03/10/20 03/10/20 06:58 06:58 04:31 WBC 10.4 H RBC 3.82 L Hgb 12.1 Hct 37.9 MCV 99.2 H MCH 31.7 MCHC 31.9 RDW 14.4 Plt Count 254 MPV 10.2 Neut % (Auto) 79.7 Lymph % (Auto) 14.5 [place] % (Auto) 4.6 Eos % (Auto) 0.3 Baso % (Auto) 0.5 Neut # (Auto) 8.3 H Lymph # (Auto) 1.5 [place] # (Auto) 0.5 Eos # (Auto) 0.0 Baso # (Auto) 0.1 Nucleated RBC % (a uto) 0 Nucleated RBCs # 0.0 Specimen Type Sample Site ABG pH ABG pCO2 ABG pO2 ABG HCO3 ABG Base Excess Antwan Test Hematocrit O2 Delivery Device O2 Liters/Min FiO2 Clinical Appeals Rn ID Sodium 133 L Potassium 4.6 Chloride 96 L Carbon Dioxide 25 Anion Gap 16.6 BUN 21 Creatinine 0.9 Glucose 84 Calculated Osmolal ity 272 L Lactic Acid Calcium 9.9 Total Bilirubin 0.5 AST 63 H ALT 47 H Alkaline Phosphata se 136 H NT-Pro-B Natriuret Pep Total Protein 6.4 L Albumin 3.8 Globulin 2.6 Urine Color Straw Urine Appearance Clear Urine pH 7 Ur Specific Gravit y 1.010 Urine Protein Neg Urine Glucose (UA) Norm Urine Ketones Negative Urine Blood Neg Urine Nitrate Negative Urine Bilirubin Neg Urine Urobilinogen Norm Ur Leukocyte Sera ase Negative Urine Opiates Scre en Ur Barbiturates Sc reen Ur Phencyclidine S crn Ur Amphetamines Sc reen U Benzodiazepines Scrn Urine Cocaine Scre en U Marijuana (THC) Screen 03/10/20 03/09/20 03/09/20 04:31 16:18 16:18 WBC RBC Hgb Hct MCV MCH MCHC RDW Plt Count MPV Neut % (Auto) Lymph % (Auto) [place] % (Auto) Eos % (Auto) Baso % (Auto) Neut # (Auto) Lymph # (Auto) [place] # (Auto) Eos # (Auto) Baso # (Auto) Nucleated RBC % (a uto) Nucleated RBCs # Specimen Type Sample Site ABG pH ABG pCO2 ABG pO2 ABG HCO3 ABG Base Excess Antwan Test Hematocrit O2 Delivery Device O2 Liters/Min FiO2 Clinical Appeals Rn ID Sodium 129 L Potassium 5.9 H Chloride 92 L Carbon Dioxide 27 Anion Gap 15.9 BUN 23 Creatinine 1.2 H Glucose 93 Calculated Osmolal ity 264 L Lactic Acid 0.9 Calcium 9.7 Total Bilirubin 0.4 AST 104 H ALT 69 H Alkaline Phosphata se 154 H NT-Pro-B Natriuret Pep 2671 H Total Protein 6.6 Albumin 3.8 Globulin 2.8 Urine Color Urine Appearance Urine pH Ur Specific Gravit y Urine Protein Urine Glucose (UA) Urine Ketones Urine Blood Urine Nitrate Urine Bilirubin Urine Urobilinogen Ur Leukocyte Sera ase Urine Opiates Scre en Positive H Ur Barbiturates Sc reen Negative Ur Phencyclidine S crn Negative Ur Amphetamines Sc reen Negative U Benzodiazepines Scrn Negative Urine Cocaine Scre en Negative U Marijuana (THC) Screen Negative 03/09/20 03/09/20 16:18 16:01 WBC 11.2 H RBC 3.97 L Hgb 12.4 Hct 39.0 MCV 98.2 MCH 31.2 MCHC 31.8 RDW 14.6 Plt Count 282 MPV 10.0 Neut % (Auto) 80.6 Lymph % (Auto) 13.7 [place] % (Auto) 3.7 Eos % (Auto) 1.0 Baso % (Auto) 0.6 Neut # (Auto) 9.0 H Lymph # (Auto) 1.5 [place] # (Auto) 0.4 Eos # (Auto) 0.1 Baso # (Auto) 0.1 Nucleated RBC % (a uto) 0 Nucleated RBCs # 0.0 Specimen Type Arterial Sample Site Brachial, right ABG pH 7.35 ABG pCO2 48.5 H ABG pO2 121.0 H ABG HCO3 26.5 H ABG Base Excess 0.3 Antwan Test N/a Hematocrit 37.5 O2 Delivery Device Nc O2 Liters/Min 5.0 FiO2 40.0 Clinical Appeals Rn ID ed Sodium Potassium Chloride Carbon Dioxide Anion Gap BUN Creatinine Glucose Calculated Osmolal ity Lactic Acid Calcium Total Bilirubin AST ALT Alkaline Phosphata se NT-Pro-B Natriuret Pep Total Protein Albumin Globulin Urine Color Urine Appearance Urine pH Ur Specific Gravit y Urine Protein Urine Glucose (UA) Urine Ketones Urine Blood Urine Nitrate Urine Bilirubin Urine Urobilinogen Ur Leukocyte Sera ase Urine Opiates Scre en Ur Barbiturates Sc reen Ur Phencyclidine S crn Ur Amphetamines Sc reen U Benzodiazepines Scrn Urine Cocaine Scre en U Marijuana (THC) Screen Vitals: Last Vital Signs Temp 98.3 F 03/10/20 04:00 Pulse 79 03/10/20 04:00 Resp 18 03/10/20 04:00 BP 151/69 03/10/20 04:00 Pulse Ox 92 03/10/20 04:00 Discharge Plan Discharge Patient Disposition: Home Health Service Condition: Stable Prescriptions: Continued Lyrica 25 mg capsule 25 mg PO DAILY 30 Days Qty: 30 RF: 1 tramadol 50 mg tablet 50 mg PO DAILY PRN (Reason: pain) 30 Days Qty: 30 RF: 1 diclofenac sodium [Voltaren] 1 % gel 2 gm TOPICAL Q6H RF: 0 docusate sodium [Colace] 100 mg capsule 100 mg PO PRN RF: 0 furosemide [Lasix] 20 mg tablet 20 mg PO DAILY PRN (Reason: Edema) RF: 0 aspirin 81 mg tablet,chewable 81 mg PO DAILY RF: 0 lisinopril 2.5 mg tablet 2.5 mg PO DAILY Qty: 1 RF: 0 amlodipine 2.5 mg tablet 2.5 mg PO DAILY Qty: 1 RF: 0 alendronate 70 mg tablet 70 mg PO Q7D Qty: 12 RF: 1 guaifenesin [Mucinex] 600 mg tablet extended release 12hr 600 mg PO Q12H PRN (Reason: congestion) Qty: 60 RF: 2 atorvastatin 40 mg tablet 40 mg PO DAILY Qty: 30 RF: 1 Advair Diskus 100-50 mcg/dose blister with device 1 ea INHALATION DAILY RF: 0 Ventolin HFA 90 mcg/actuation HFA aerosol inhaler 1 puff INHALATION Q6H PRN (Reason: Shortness Of Breath) RF: 0 metoprolol tartrate 25 mg tablet 25 mg PO BID RF: 0 Mikhail Mag Plus 1 tab PO BID RF: 0 cholecalciferol (vitamin D3) 25 mcg (1,000 unit) Capsule 25 mcg PO DAILY RF: 0 polyethylene glycol 3350 [Miralax] 17 gram Powder In Packet See Rx Instructions .ROUTE .COMPLEX RF: 0 hydromorphone 2 mg tablet 1 mg PO Q12H PRN (Reason: pain) 30 Days Qty: 120 RF: 0 Discharge Orders: Discharge Order (Routine); Ordered 03/10/20 Ordered By: Anaid Manriquez Referrals: Herlinda Angulo DO [Primary Care Provider] - 4-7 days (Post hospital discharge follow up. ) Discharge Diet: Usual diet and Regular Discharge Activity: Resume usual activity, Increase activity as tolerated and Use walker/crutches as instructed Discharge Attestations Time Spent in Discharge Care*: greater than 30 min Specific Discharge Activities: Specific discharge activities: educating patient, educating and/or supporting family/caregiver, discussing with field case manager/social workers/dc planners, documenting/other paperwork and evaluating patient/reviewing data Status at Discharge: Cognitive status at discharge: mildly impaired cognition (underlying dementia), Behavioral status at discharge: cooperative and dependent in ADL's, Functional status at discharge: uses cane/walker Overall status at discharge: patient is back to baseline Quality Metrics Clinical Quality Measures During this hospital stay, did patient experience: None Coding Level of Care Code Acute Ordnance Mechanic for g Fwd Exam Comprehensive Diagnoses Altered mental status R40.1 Altered mental status type: stupor Hyperlipidemia E78.5 Hyperlipidemia type: unspecified Hypertension I10 Hypertension type: unspecified COPD (chronic obstructive pulmonary disease) J44.9 COPD type: unspecified COPD Abdominal aortic aneurysm I71.4 Presence of rupture: without rupture Thoracic aortic aneurysm I71.2 Presence of rupture: without rupture
[2020-03-10] MEDS: amlodipine 5 mg Tablet 2.5 MG PO (08:32)
[2020-03-10] MEDS: lisinopril 2.5 mg Tablet PO (08:32)
[2020-03-10] MEDS: aspirin 81 mg Chew Tablet PO (08:32)
[2020-03-10] MEDS: pregabalin 25 mg Capsule PO (08:32)
[2020-03-10] MEDS: metoprolol tartrate 25 mg Tablet PO (08:32)
[2020-03-10] MEDS: atorvastatin 40 mg Tablet PO (08:32)
--- NOTE | 2020-03-10 08:40 | PC.NURSE ---
Patient resistant to care, refused blood draw at 4. Patient states she is her against her will, that she is not sick. I told patient that lab was ordered to make sure she was well, she then agreed to blood draw. Patient refused her heparin sates she does not want it, does not need it and it was against the law to put her to sleep to have the shot.
== END 2020-03-10 12:38 | disposition home health service (06) ==
LOC: ER 16:18 → MEDSURG 18:30
PROVIDERS: Admitting Provider Family Medicine; Emergency Provider Family Medicine; Family Provider Family Medicine; PCP Family Medicine; Visit Provider Family Medicine
DX: R40.1 Stupor (principal); E78.5 Hyperlipidemia, unspecified; J44.9 Chronic obstructive pulmonary disease, unspecified; I71.4 Abdominal aortic aneurysm, without rupture; I71.2 Thoracic aortic aneurysm, without rupture; E87.1 Hypo-osmolality and hyponatremia; E87.5 Hyperkalemia; R54 Age-related physical debility; R64 Cachexia; Z68.1 Body mass index [BMI] 19.9 or less, adult; G89.29 Other chronic pain; Z79.891 Long term (current) use of opiate analgesic; Z79.82 Long term (current) use of aspirin
CPT/HCPCS: 12345; 36415; 36600; 70450; 71045; 80053; 80306; 81003; 82803; 83605; 83880; 85025; 96365; 96372; 99281; 99285; G0378; J0610; J1644; J7030

== ENCOUNTER → 2020-03-28 14:04 | Outpatient (BNVA) | payer MEDICARE, MEDICAID, SELFPAY | PROVIDERS: Family Provider Family Medicine; PCP Family Medicine; Visit Provider Nurse Practitioner | DX: M54.42 Lumbago with sciatica, left side (principal); M54.41 Lumbago with sciatica, right side; M54.9 Dorsalgia, unspecified; F17.219 Nicotine dependence, cigarettes, with unspecified nicotine-induced disorders; Z79.891 Long term (current) use of opiate analgesic; Z71.6 Tobacco abuse counseling | CPT/HCPCS: 99213 ==

== ENCOUNTER → 2020-05-23 13:53 | Outpatient (BNVA) | payer MEDICARE, MEDICAID, SELFPAY | PROVIDERS: Family Provider Family Medicine; PCP Family Medicine; Visit Provider Anesthesiology | DX: M51.36 Other intervertebral disc degeneration, lumbar region (principal); M47.817 Spondylosis without myelopathy or radiculopathy, lumbosacral region; M54.9 Dorsalgia, unspecified; F17.219 Nicotine dependence, cigarettes, with unspecified nicotine-induced disorders; Z79.891 Long term (current) use of opiate analgesic; Z71.6 Tobacco abuse counseling | CPT/HCPCS: 99214 ==

== ENCOUNTER → 2020-07-17 12:47 | Outpatient (BNVA) | payer MEDICARE, MEDICAID, SELFPAY | PROVIDERS: Family Provider Family Medicine; PCP Family Medicine; Visit Provider Anesthesiology | DX: M51.36 Other intervertebral disc degeneration, lumbar region (principal); M47.817 Spondylosis without myelopathy or radiculopathy, lumbosacral region; M54.9 Dorsalgia, unspecified; F17.219 Nicotine dependence, cigarettes, with unspecified nicotine-induced disorders; Z79.891 Long term (current) use of opiate analgesic; Z71.6 Tobacco abuse counseling | CPT/HCPCS: 99214 ==

== ENCOUNTER → 2020-08-02 10:43 | Outpatient (BNVA) | payer MEDICARE, MEDICAID, SELFPAY | PROVIDERS: Family Provider Family Medicine; PCP Family Medicine; Visit Provider Anesthesiology Pain Medicine | DX: M51.36 Other intervertebral disc degeneration, lumbar region (principal); M54.9 Dorsalgia, unspecified; Z79.891 Long term (current) use of opiate analgesic; F17.210 Nicotine dependence, cigarettes, uncomplicated | CPT/HCPCS: 62323; J1030; J3490 ==

== ENCOUNTER → 2020-08-30 09:13 | Outpatient (BNVA) | payer MEDICARE, MEDICAID, SELFPAY | PROVIDERS: Family Provider Family Medicine; PCP Family Medicine; Visit Provider Urology | DX: R33.9 Retention of urine, unspecified (principal); N39.8 Other specified disorders of urinary system | CPT/HCPCS: 81003 ==

== ENCOUNTER → 2020-09-05 16:01 | Outpatient (BNVA) | payer MEDICARE, MEDICAID, SELFPAY | PROVIDERS: Family Provider Family Medicine; PCP Family Medicine; Visit Provider Urology | DX: R33.9 Retention of urine, unspecified (principal) | CPT/HCPCS: 81003 ==

== ENCOUNTER → 2020-09-18 12:51 | Outpatient (BNVA) | payer MEDICARE, MEDICAID, SELFPAY | PROVIDERS: Family Provider Family Medicine; PCP Family Medicine; Visit Provider Anesthesiology | DX: M51.36 Other intervertebral disc degeneration, lumbar region (principal); M54.9 Dorsalgia, unspecified; M47.817 Spondylosis without myelopathy or radiculopathy, lumbosacral region; F17.219 Nicotine dependence, cigarettes, with unspecified nicotine-induced disorders; Z79.891 Long term (current) use of opiate analgesic | CPT/HCPCS: 99213 ==

== ENCOUNTER → 2020-11-12 13:48 | Outpatient (BNVA) | payer MEDICARE, MEDICAID, SELFPAY | PROVIDERS: Family Provider Family Medicine; PCP Family Medicine; Visit Provider Anesthesiology | DX: M51.36 Other intervertebral disc degeneration, lumbar region (principal); M54.9 Dorsalgia, unspecified; M47.817 Spondylosis without myelopathy or radiculopathy, lumbosacral region; F17.219 Nicotine dependence, cigarettes, with unspecified nicotine-induced disorders; Z79.891 Long term (current) use of opiate analgesic | CPT/HCPCS: 99213 ==

== ENCOUNTER 2020-12-03 09:16 | Outpatient (CLI) | payer MEDICARE, MEDICAID, SELFPAY ==
--- NOTE | 2020-12-03 09:30 | USCV_ITS ---
Mishra Flor Age: 85 Gender: F : 1935 Exam Date: 12/03/2020 09:57 Ordering Phys: Harper Morejon MD ([email or web address]) Technologist: Lico Yepez Exam Location: [facility] – [place] Indication: AAA HISTORY: Diameter (cm) AP x Transverse x Length Velocity (cm/s) Waveform Prox Aorta: 2.27 x 2.54 x 75.10 Biphasic Mid Aorta: 2.42 x 2.26 x 40.20 Biphasic Distal Aorta: 3.61 x 3.26 x 35.70 Biphasic Right Iliac Prox: 0.98 x 1.12 x 119.10 Biphasic Left Iliac Prox: 0.95 x 1.07 x 51.80 Biphasic Stent Prox Landing x x Aneurysmal Sac Max x x Lt Lat Sac Dim Rt Lat Sac Dim Stent Dist Landing x x Right Iliac Stent x x Left Iliac Stent x x Right Renal Art Left Renal Art FINDINGS: Aneurysmal dilatation of the infrarenal aorta measuring 3.61 x 3.26 cm Some ectasia of the perirenal aorta. Extensive mural thrombus with calcification was noted in the aneurysm Normal Doppler flow velocities CONCLUSIONS Diffuse aneurysm of the infrarenal aorta, with a maximum diameter of 3.61 x 3.26 cm. Extensive mural thrombus with calcification was noted in the aneurysm. Ectatic perirenal aorta. Normal dimensions of the proximal common iliac arteries with no evidence of aneurysm or stenosis Compared to the study from 01/04/2019, there may not be a significant change Dr Bowen Huddleston MD [facility] (Electronically Signed) Final Date: 04 December 2020 09:07 S
--- NOTE | 2020-12-03 10:15 | USCV_ITS ---
Flor Mishra Age: 85 Gender: F : 1935 Exam Date: 12/03/2020 09:43 Ordering Phys: Harper Morejon MD ([email or web address]) Technologist: Lico Yepez [place] [facility] [place]: CCA STENOSIS Risk Factors: Previous Vascular Surgery: Right Brachial BP: / Left Brachial BP: / Right Left Velocity (cm/s) Spectral Plaque Velocity (cm/s) Spectral Plaque Syst/Diast Broadening Syst/Diast Broadening 41.20/ 7.00 Prox CCA 58.30 / 10.10 39.60/ 10.10 Mid CCA 55.20 / 10.10 44.30/ 8.50 Distal CCA 66.00 / 10.10 65.30/ 17.10 Hetro Prox ICA 44.30 / 10.10 Hetro 69.10/ 19.40 Mid ICA 46.60 / 13.20 88.60/ 16.30 Distal ICA 65.30 / 17.90 35.00 ECA 77.70 2.00 ICA/CCA 0.99 Vertebral 48.90/ 7.80 cm/s 60.60/ 16.30 cm/s Subclavian 89.30 FINDINGS Mild to moderate heterogeneous plaques at the right bifurcation and proximal internal carotid artery Mild to moderate heterogeneous scattered plaques plaques at the left bifurcation and internal carotid artery Intimal thickening in the common carotid arteries bilaterally Antegrade flow in the vertebral arteries bilaterally Normal Doppler flow velocities in the external carotid arteries bilaterally CONCLUSIONS Mild to moderate heterogeneous plaques at the bifurcations and proximal internal carotid arteries bilaterally with the Doppler velocities suggesting less than 50% stenosis. Intimal thickening in the common carotid arteries bilaterally. Compared to the previous study from 01/04/2019, there may not be a significant change Dr Bowen Huddleston MD [facility] (Electronically Signed) Final Date: 04 December 2020 09:00 S
== END 2020-12-03 09:17 | disposition home or self-care (01) ==
PROVIDERS: PCP Family Medicine; Visit Provider Internal Medicine Cardiovascular Disease
DX: I65.23 Occlusion and stenosis of bilateral carotid arteries (principal); I71.4 Abdominal aortic aneurysm, without rupture
CPT/HCPCS: 80053; 80061; 81015; 82043; 85025; 93880; 93978

== ENCOUNTER → 2021-01-10 12:50 | Outpatient (BNVA) | payer MEDICARE, MEDICAID, SELFPAY | PROVIDERS: PCP Family Medicine; Visit Provider Anesthesiology | DX: M51.36 Other intervertebral disc degeneration, lumbar region (principal); M47.817 Spondylosis without myelopathy or radiculopathy, lumbosacral region; M54.9 Dorsalgia, unspecified; F17.219 Nicotine dependence, cigarettes, with unspecified nicotine-induced disorders; Z79.891 Long term (current) use of opiate analgesic | CPT/HCPCS: 99213 ==

== ENCOUNTER → 2021-03-07 13:15 | Outpatient (BNVA) | payer MEDICARE, MEDICAID, SELFPAY | PROVIDERS: PCP Family Medicine; Visit Provider Anesthesiology | DX: M51.36 Other intervertebral disc degeneration, lumbar region (principal); M47.817 Spondylosis without myelopathy or radiculopathy, lumbosacral region; M54.9 Dorsalgia, unspecified; F17.219 Nicotine dependence, cigarettes, with unspecified nicotine-induced disorders; Z79.891 Long term (current) use of opiate analgesic | CPT/HCPCS: 99213 ==

== ENCOUNTER → 2021-03-11 14:31 | Outpatient (BNVA) | payer MEDICARE, MEDICAID, SELFPAY | PROVIDERS: PCP Family Medicine; Visit Provider Nurse Practitioner Family | DX: R82.81 Pyuria (principal); R33.9 Retention of urine, unspecified; N39.8 Other specified disorders of urinary system | CPT/HCPCS: 81003; 87077; 87086 ==

== ENCOUNTER → 2021-05-01 13:42 | Outpatient (BNVA) | payer MEDICARE, MEDICAID, SELFPAY | PROVIDERS: PCP Family Medicine; Visit Provider Anesthesiology | DX: M51.36 Other intervertebral disc degeneration, lumbar region (principal); M47.817 Spondylosis without myelopathy or radiculopathy, lumbosacral region; F17.219 Nicotine dependence, cigarettes, with unspecified nicotine-induced disorders; Z79.891 Long term (current) use of opiate analgesic | CPT/HCPCS: 99213 ==

== ENCOUNTER → 2021-06-03 11:55 | Outpatient (BNVA) | payer MEDICARE, MEDICAID, SELFPAY | PROVIDERS: PCP Family Medicine; Visit Provider Family Medicine | DX: I10 Essential (primary) hypertension (principal) | CPT/HCPCS: 80053 ==

== ENCOUNTER → 2021-06-11 14:40 | Outpatient (BNVA) | payer MEDICARE, MEDICAID, SELFPAY | PROVIDERS: PCP Family Medicine; Visit Provider Nurse Practitioner Family | DX: R33.9 Retention of urine, unspecified (principal) | CPT/HCPCS: 81003 ==

== ENCOUNTER → 2021-06-27 13:15 | Outpatient (BNVA) | payer MEDICARE, MEDICAID, SELFPAY | PROVIDERS: PCP Family Medicine; Visit Provider Anesthesiology | DX: M51.36 Other intervertebral disc degeneration, lumbar region (principal); M47.817 Spondylosis without myelopathy or radiculopathy, lumbosacral region; F17.219 Nicotine dependence, cigarettes, with unspecified nicotine-induced disorders; I10 Essential (primary) hypertension; Z79.891 Long term (current) use of opiate analgesic | CPT/HCPCS: 99213 ==

== ENCOUNTER 2021-08-14 08:13 | Inpatient (IN) | payer MEDICARE, MEDICAID, SELFPAY ==
[2021-08-14] VITALS (9 sets, daily range): BP systolic 159–193; BP diastolic 81–123; PULSE 99–114; RESP 12–20; TEMP 36.4–36.7; O2SAT 91–100; BMI 16.1
--- NOTE | 2021-08-14 08:48 | CT_ITS ---
WS: [id number] CT HEAD TECHNIQUE: Noncontrast CT of the head obtained from the skullbase to the vertex. CLINICAL INFORMATION: altered mental status COMPARISON: March 09, 2020 DLP: 2677.[address] scans at [facility] use at least one of these dose optimization techniques: automated e xposure control; mA and/or kV adjustment per patient size (includes targeted exams where dose is matc hed to clinical indication); or iterative reconstruction. FINDINGS: No evidence of intracranial hemorrhage or mass effect. Ventricular system and basal cisterns are walker nt. Mild small vessel changes with moderate parenchymal volume loss. No extra-axial fluid collections . 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 No evidence of mass o r mass effect. Normal beltrán-white differentiation. Paranasal sinuses and mastoid air cells are well aerated. .Normal visualized soft tissues. CT/CT head wo con* [id number] IMPRESSION: 1. No evidence of intracranial hemorrhage or mass effect. 2. Mild small vessel changes. Moderate parenchymal volume loss. 3. No acute intracranial findings.
--- NOTE | 2021-08-14 08:48 | XR_ITS ---
WS: [id number] Portable AP semiupright chest, 08/14/2021 Clinical Data: altered mental status Comparison: Portable chest, 03/09/2020. Findings: No nodules, masses or effusions are seen. The heart is normal. The pulmonary vascularity is not increased. No pneumonia or pneumothorax is seen. The aortic arch and descending thoracic aorta s how calcification. The diaphragms are flattened. There is vertebroplasty cement in the lower thoracic vertebral bodies. XR/XR chest 1V portable [id number] Impression: Atherosclerosis and hyperinflation.
--- NOTE | 2021-08-14 09:07 | ED_ITS ---
HPI - Altered Mental Status General: Chief Complaint: Altered Mental Status Stated Complaint: ALOC/ AMS Time Seen by Provider: 08/14/21 08:41 Source: patient, EMS and old records reviewed Mode of arrival: EMS Limitations: altered mental status History of Present Illness: HPI narrative: 86-year-old female presents emergency department chief complaint of altered mentation patient apparently was found by her to be somewhat unresponsive this morning the patient is a long hissing history of heart and lung issues. EMS reports the also appeared to be a very poor historian upon their arrival to the room. Family was not present in which patient is allegedly supposed be on oxygen which there was a machine but it was not hooked up or being used minimal history provided patient with was checked on by home health care today which was found to be more altered than normal. Per her written documentation she is currently taking several very potent pain medications including hydromorphone. Patient did not report having any recent falls or injuries reporting no other associated symptoms besides feeling cold Associated symptoms: Deny depression Review of Systems General: Reports: 10 or more systems reviewed and unremarkable except in HPI and below Const: Reports: body aches, fatigue and malaise; Denies: fever(s) or chills Eyes: Denies: change in vision or blurry vision Card: Denies: chest pain or palpitations Resp: Denies: dyspnea or productive cough GI: Denies: abdominal pain, nausea or vomiting : Denies: flank pain Musc: Denies: extremity pain or extremity swelling Skin/Breast: Denies: rash or pruritus Neuro: Denies: headache(s) Psych: Denies: anxiety or depression Jack/Lymph: Denies: easy bleeding All/Imm: Denies: urticaria, throat swelling or facial swelling PFSH ED PFSH: Medical History AAA (abdominal aortic aneurysm) Back pain with radiation Carotid stenosis COPD (chronic obstructive pulmonary disease) -Previously oxygen dependent but was recently weaned off -stable respiratory status, supplemental oxygen as needed -No evidence of acute exacerbation currently DDD (degenerative disc disease), lumbar Encounter for long-term opiate analgesic use Hyperlipidemia -continue statin Hypertension Osteoporosis Spondylosis without myelopathy or radiculopathy, lumbosacral region Voiding dysfunction Surgical History History of endarterectomy bilateral History of tonsillectomy and adenoidectomy Hx of cholecystectomy Hx of hysterectomy, total Hx of kyphoplasty Family History Mother , at age 75 No problems noted. Father , in his 50's Heart attack Other CAD (coronary artery disease) Social History Alcohol intake: never Household members: other Details: lives with son in law Marital status: / Current occupational status: retired History of recent travel: No Course Vital Signs: Vital signs: Vital Signs Temperature 98.0 F 08/14/21 08:40 Pulse Rate 103 H 08/14/21 12:53 Respiratory Rate 15 08/14/21 12:53 Blood Pressure 185/87 08/14/21 12:53 Pulse Oximetry 92 08/14/21 12:53 MDM - Altered Mental Status MDM Narrative: Medical decision making narrative: Patient was found have a urinary tract infection which is contributing to her altered mentation as per her also antibiotics well emergency department spoke to the on-call hospitalist there is granted acceptance of the patient patient to go to medical surgical floor. Lab Data: Labs: Lab Results 08/14/21 08/14/21 08/14/21 08:35 08:35 08:35 WBC Cancelled Corrected WBC Cancelled RBC Cancelled Hgb Cancelled Hct Cancelled MCV Cancelled MCH Cancelled MCHC Cancelled RDW Cancelled Plt Count Cancelled MPV Cancelled Gran % Cancelled Neut % (Auto) Cancelled Lymph % (Auto) Cancelled [place] % (Auto) Cancelled Eos % (Auto) Cancelled Baso % (Auto) Cancelled Neut # (Auto) Cancelled Lymph # (Auto) Cancelled [place] # (Auto) Cancelled Eos # (Auto) Cancelled Baso # (Auto) Cancelled Absolute Gran (aut o) Cancelled Nucleated RBC % (a uto) Cancelled Nucleated RBCs # Cancelled PT 13.60 SECONDS SEC ONDS (12.1-14.9) INR 1.01 (0.8-1.2) APTT 25.8 SECONDS SECO NDS (23.9-36.7) Specimen Type Sample Site ABG pH ABG pCO2 ABG pO2 ABG HCO3 ABG Base Excess Antwan Test Hematocrit O2 Delivery Device O2 Liters/Min FiO2 Commercial Carpet Installer ID Sodium Cancelled Potassium Cancelled Chloride Cancelled Carbon Dioxide Cancelled Anion Gap Cancelled BUN Cancelled Creatinine Cancelled GFR Calculation Cancelled Glucose Cancelled Calculated Osmolal ity Cancelled Calcium Cancelled Total Bilirubin Cancelled AST Cancelled ALT Cancelled Alkaline Phosphata se Cancelled Troponin T Baselin e Troponin T 120 Min [place] Troponin T Total Protein Cancelled Albumin Cancelled Globulin Cancelled Urine Color Urine Appearance Urine pH Ur Specific Gravit y Urine Protein Urine Glucose (UA) Urine Ketones Urine Blood Urine Nitrate Urine Bilirubin Urine Urobilinogen Ur Leukocyte Sera ase Urine RBC Urine WBC Ur Squamous Epith Cells Amorphous Sediment Urine Bacteria Urine Mucus Urine Opiates Scre en Ur Barbiturates Sc reen Ur Phencyclidine S crn Ur Amphetamines Sc reen U Benzodiazepines Scrn Urine Cocaine Scre en U Marijuana (THC) Screen Ethyl Alcohol Cancelled SARS-CoV-2 Ag (Rap id) 08/14/21 08/14/21 08/14/21 08:35 09:07 10:20 WBC Corrected WBC RBC Hgb Hct MCV MCH MCHC RDW Plt Count MPV Gran % Neut % (Auto) Lymph % (Auto) [place] % (Auto) Eos % (Auto) Baso % (Auto) Neut # (Auto) Lymph # (Auto) [place] # (Auto) Eos # (Auto) Baso # (Auto) Absolute Gran (aut o) Nucleated RBC % (a uto) Nucleated RBCs # PT INR APTT Specimen Type Arterial Sample Site Brachial, right ABG pH 7.37 (7.35-7.45) ABG pCO2 43.3 mmHg mmHg (35-45) ABG pO2 93.5 mmHg mmHg (80.0-100.0) ABG HCO3 25.2 mmol/L mmol/ L (22-26) ABG Base Excess -0.3 mmol/L mmol/ L (-2.0-2.0) [place] Test N/a Hematocrit 45.4 % % (37-47) O2 Delivery Device Nc O2 Liters/Min 3.0 % % FiO2 32.0 % % Commercial Carpet Installer ID Ed Sodium 142 mmol/L mmol/L (136-145) Potassium 4.0 mmol/L mmol/L (3.5-5.1) Chloride 105 mmol/L mmol/L (98-107) Carbon Dioxide 22 mmol/L mmol/L (22-29) Anion Gap 19.0 (5-19) BUN 35 mg/dL H mg/dL (8-23) Creatinine 1.1 mg/dL H mg/dL (0.5-0.9) GFR Calculation Not Reportable Glucose 112 mg/dL mg/dL (65-115) Calculated Osmolal ity 303 mOsm/kg H mOs m/kg (285-295) Calcium 9.0 mg/dL mg/dL (8.5-10.5) Total Bilirubin 0.6 mg/dL mg/dL (0.15-1.2) AST 32 U/L U/L (0-32) ALT 14 U/L U/L (0-33) Alkaline Phosphata se 94 IU/L IU/L (35-105) Troponin T Baselin e Cancelled Troponin T 120 Min [place] Troponin T Total Protein 6.9 g/dL g/dL (6.6-8.7) Albumin 4.0 g/dL g/dL (3.5-5.2) Globulin 2.9 g/dL g/dL (1.3-4.6) Urine Color Urine Appearance Urine pH Ur Specific Gravit y Urine Protein Urine Glucose (UA) Urine Ketones Urine Blood Urine Nitrate Urine Bilirubin Urine Urobilinogen Ur Leukocyte Sera ase Urine RBC Urine WBC Ur Squamous Epith Cells Amorphous Sediment Urine Bacteria Urine Mucus Urine Opiates Scre en Ur Barbiturates Sc reen Ur Phencyclidine S crn Ur Amphetamines Sc reen U Benzodiazepines Scrn Urine Cocaine Scre en U Marijuana (THC) Screen Ethyl Alcohol < 10 mg/dL mg/dL (0-10) SARS-CoV-2 Ag (Rap id) 08/14/21 08/14/21 08/14/21 10:20 10:20 10:40 WBC 10.8 10^3/uL H 10 ^3/uL (4.0-10.0) Corrected WBC RBC 4.32 10^6/uL 10^6 /uL (4.1-5.3) Hgb 13.5 g/dL g/dL (11.5-15.3) Hct 41.7 % % (37.0-47.0) MCV 96.5 fl fl (81-99) MCH 31.3 pg pg (28.0-34.0) MCHC 32.4 g/dL g/dL (30.0-36.0) RDW 14.2 % % (12.1-15.1) Plt Count 200 10^3/cmm 10^3 /cmm (130-400) MPV 10.5 fL H fL (7.4-10.4) Gran % Neut % (Auto) 83.8 % % Lymph % (Auto) 10.4 % % [place] % (Auto) 4.9 % % Eos % (Auto) 0.0 % % Baso % (Auto) 0.5 % % Neut # (Auto) 9.06 10^3/uL H 10 ^3/uL (1.8-7.7) Lymph # (Auto) 1.1 10^3/uL 10^3/ uL (0.8-4.8) [place] # (Auto) 0.5 10^3/uL 10^3/ uL (0.2-0.9) Eos # (Auto) 0.0 10^3/uL 10^3/ uL (0.0-0.8) Baso # (Auto) 0.1 10^3/uL 10^3/ uL (0.0-0.1) Absolute Gran (aut o) Nucleated RBC % (a uto) 0 % % Nucleated RBCs # 0.0 /100WBC /100W BC PT INR APTT Specimen Type Sample Site ABG pH ABG pCO2 ABG pO2 ABG HCO3 ABG Base Excess Antwan Test Hematocrit O2 Delivery Device O2 Liters/Min FiO2 Commercial Carpet Installer ID Sodium Potassium Chloride Carbon Dioxide Anion Gap BUN Creatinine GFR Calculation Glucose Calculated Osmolal ity Calcium Total Bilirubin AST ALT Alkaline Phosphata se Troponin T Baselin e 56 ng/L H ng/L (0-10) Troponin T 120 Min [place] Troponin T Total Protein Albumin Globulin Urine Color Yellow (Yellow) Urine Appearance Hazy A (CLEAR) Urine pH 5 (5-7) Ur Specific Gravit y 1.020 (1.005-1.030) Urine Protein 1+ H (Negative) Urine Glucose (UA) Norm (Normal) Urine Ketones 1+ H (Negative) Urine Blood 2+ H (Negative) Urine Nitrate Positive H (Negative) Urine Bilirubin Neg (Negative) Urine Urobilinogen Norm mg/dL mg/dL (Negative) Ur Leukocyte Sera ase Trace H (Negative) Urine RBC 0-4 /hpf H /hpf (0-2) Urine WBC 10-15 /hpf H /hpf (0-5) Ur Squamous Epith Cells 5-10 /hpf H /hpf (0-5) Amorphous Sediment Not Reportable Urine Bacteria 3+ /hpf H /hpf (NONE) Urine Mucus Trace /hpf /hpf Urine Opiates Scre en Ur Barbiturates Sc reen Ur Phencyclidine S crn Ur Amphetamines Sc reen U Benzodiazepines Scrn Urine Cocaine Scre en U Marijuana (THC) Screen Ethyl Alcohol SARS-CoV-2 Ag (Rap id) 08/14/21 08/14/21 08/14/21 10:40 10:45 13:30 WBC Corrected WBC RBC Hgb Hct MCV MCH MCHC RDW Plt Count MPV Gran % Neut % (Auto) Lymph % (Auto) [place] % (Auto) Eos % (Auto) Baso % (Auto) Neut # (Auto) Lymph # (Auto) [place] # (Auto) Eos # (Auto) Baso # (Auto) Absolute Gran (aut o) Nucleated RBC % (a uto) Nucleated RBCs # PT INR APTT Specimen Type Sample Site ABG pH ABG pCO2 ABG pO2 ABG HCO3 ABG Base Excess Antwan Test Hematocrit O2 Delivery Device O2 Liters/Min FiO2 Commercial Carpet Installer ID Sodium Potassium Chloride Carbon Dioxide Anion Gap BUN Creatinine GFR Calculation Glucose Calculated Osmolal ity Calcium Total Bilirubin AST ALT Alkaline Phosphata se Troponin T Baselin e Troponin T 120 Min [place] 53.95 ng/L H ng/L (0-10) [place] Troponin T -2.05 ABS# L ABS# (0-10) Total Protein Albumin Globulin Urine Color Urine Appearance Urine pH Ur Specific Gravit y Urine Protein Urine Glucose (UA) Urine Ketones Urine Blood Urine Nitrate Urine Bilirubin Urine Urobilinogen Ur Leukocyte Sera ase Urine RBC Urine WBC Ur Squamous Epith Cells Amorphous Sediment Urine Bacteria Urine Mucus Urine Opiates Scre en Positive ng/mL H ng/mL (Negative) Ur Barbiturates Sc reen Negative ng/mL ng /mL (Negative) Ur Phencyclidine S crn Negative ng/mL ng /mL (Negative) Ur Amphetamines Sc reen Negative ng/mL ng /mL (Negative) U Benzodiazepines Scrn Negative ng/mL ng /mL (Negative) Urine Cocaine Scre en Negative ng/mL ng /mL (Negative) U Marijuana (THC) Screen Negative ng/mL ng /mL (Negative) Ethyl Alcohol SARS-CoV-2 Ag (Rap id) Negative (Negative) Discharge Plan Discharge Prescriptions: No Action Movantik 25 mg tablet 25 mg PO QAM RF: 0 hydromorphone 2 mg tablet 1 mg PO Q12H PRN (Reason: pain) 30 Days Qty: 30 RF: 0 tramadol 50 mg tablet 50 mg PO DAILY PRN (Reason: pain) 30 Days Qty: 30 RF: 1 Lyrica 25 mg capsule 25 mg PO BID 30 Days Qty: 60 RF: 1 diclofenac sodium 1 % gel 2 g TOPICAL Q6H 30 Days Qty: 300 RF: 1 aspirin 81 mg tablet,chewable 81 mg PO DAILY RF: 0 furosemide 20 mg tablet 20 mg PO DAILY PRN (Reason: edema) Qty: 90 RF: 1 alfuzosin 10 mg tablet extended release 24 hr 10 mg PO DAILY Qty: 30 RF: 12 metoprolol tartrate 25 mg tablet 25 mg PO BID RF: 0 atorvastatin 40 mg tablet 40 mg PO DAILY Qty: 90 RF: 1 guaifenesin [Mucinex] 600 mg tablet extended release 12hr 600 mg PO Q12H PRN (Reason: congestion) Qty: 60 RF: 2 Mikhail Mag Plus 1 tab PO BID RF: 0 cholecalciferol (vitamin D3) 25 mcg (1,000 unit) Capsule 25 mcg PO DAILY RF: 0 polyethylene glycol 3350 [Miralax] 17 gram Powder In Packet 17 g PO DAILY PRN (Reason: Constipation) RF: 0 alendronate 70 mg tablet 70 mg PO Q7D RF: 0 Nasonex 50 mcg/actuation [place],Non-Aerosol 2 spray INTRANASAL DAILY PRN (Reason: Allergy Symptoms) RF: 0 mupirocin 2 % Ointment 1 applic TOPICAL TID PRN (Reason: skin breakdown) RF: 0 Virt-Caps 1 mg capsule 1 cap PO DAILY RF: 0 Colace 100 mg capsule 100 mg PO DAILY PRN (Reason: constipation) RF: 0 Coding Level of Care Code ED Divider Operator for Chg Fwd
[2021-08-14 09:16] LABS: ABG PCO2 43.3 mmHg (35-45); ABG PH Result 7.37 (7.35-7.45); Arterial Blood Gas Hematocrit 45.4 % (37-47); Base Excess ABG -0.3 mmol/L (-2.0-2.0); Blood Gas Sample Type Arterial; HCO3 ABG 25.2 mmol/L (22-26); PO2 ABG 93.5 mmHg (80.0-100.0)
[2021-08-14 09:17] LABS: Blood Gas Operator Identificat ED; Blood Gas Sample Site Brachial, right; Oxygen Device NC
[2021-08-14] MEDS: sodium chloride 0.9% 1,000 ML 999 ML IV (09:20)
[2021-08-14 09:29] LABS: INR 1.01 (0.8-1.2)
[2021-08-14 09:30] LABS: Partial Thromboplastin Time 25.8 SECONDS (23.9-36.7)
--- NOTE | 2021-08-14 10:06 | ECG_ITS ---
[facility] Test Date: 2021-08-14 Pat Name: Flor Mishra Department: Room: Gender: Female Senior Branch Manager: : 1935 Requested By: David Feliz Order Number: [id number] Margarita MD: Harper Morejon M.D. Measurements Intervals [place] Rate: 99 P: VT: QRS: -53 QRSD: 90 T: 57 QT: 441 QTc: 567 Interpretive Statements Sinus rhythm LEFT AXIS DEVIATION [QRS AXIS < -30] SEPTAL MYOCARDIAL INFARCTION , OF INDETERMINATE AGE [40+ ms Q WAVE IN V1/V2] T-WAVE ABNORMALITY, CONSIDER ANTEROLATERAL ISCHEMIA [-0.5+ mV T-WAVE IN I/aVL/V3-V6] Compared to ECG 12/30/2019 03:29:35 Supraventricular rhythm now present Left-axis deviation now present T-wave abnormality now present Possible ischemia now present Sinus rhythm no longer present Myocardial infarct finding still present Electronically Signed On 08-14-2021 16:04:10 BIG DATA PLATFORM ARCHITECT by Harper Morejon M.D. [id number]
[2021-08-14 10:29] LABS: Basophils # 0.1 10^3/uL (0.0-0.1); Basophils % 0.5 %; Hematocrit 41.7 % (37.0-47.0); Hemoglobin 13.5 g/dL (11.5-15.3); Lymphocytes # 1.1 10^3/uL (0.8-4.8); Lymphocytes % 10.4 %; Mean Corpuscular HGB Conc 32.4 g/dL (30.0-36.0); Mean Corpuscular Hemoglobin 31.3 pg (28.0-34.0); Mean Corpuscular Volume 96.5 fl (81-99); Mean Platelet Volume 10.5 fL (7.4-10.4); Monocytes # 0.5 10^3/uL (0.2-0.9); Monocytes % 4.9 %; Neutrophils # 9.06 10^3/uL (1.8-7.7); Neutrophils % 83.8 %; Nucleated Red Blood Cells % 0 %; Platelet Count 200 10^3/cmm (130-400); Red Blood Count 4.32 10^6/uL (4.1-5.3); Red Cell Distribution Width 14.2 % (12.1-15.1); White Blood Count 10.8 10^3/uL (4.0-10.0)
[2021-08-14 11:02] LABS: Alanine Aminotransferase 14 U/L (0-33); Alkaline Phosphatase 94 IU/L (35-105); Aspartate Amino Transferase 32 U/L (0-32); Blood Urea Nitrogen 35 mg/dL (8-23); Carbon Dioxide 22 mmol/L (22-29); Chloride 105 mmol/L (98-107); Globulin 2.9 g/dL (1.3-4.6); Glucose 112 mg/dL (65-115); Osmolality Calculated 303 mOsm/kg (285-295); Sodium 142 mmol/L (136-145); Total Bilirubin 0.6 mg/dL (0.15-1.2); Total Protein 6.9 g/dL (6.6-8.7)
--- NOTE | 2021-08-14 11:11 | PC.PHAR ---
Addendum entered by Chanetll Harden 08/14/21 11:16: simran was dced jun 24 2021 per [facility] pharmacy marjorie is on hold per [facility] pharmacy Original Note: pt unable to verify medications-medications entered are from what ext med history shows has been filled recently and from med list from [facility] at home-notes are made in the pharmacy comments
[2021-08-14 11:13] LABS: Amphetamines Screen Urine Negative (Negative); Barbiturates Screen Urine Negative (Negative); Benzodiazepines Screen Urine Negative (Negative); Cocaine Screen Urine Negative (Negative); Opiate Screen Urine Positive (Negative); PCP Screen Urine Negative (Negative); THC Screen Urine Negative (Negative)
[2021-08-14 11:16] LABS: SARS Covid-2 Antigen Negative (Negative)
[2021-08-14 11:24] LABS: Blood Urine 2+ (Negative); Glucose Urine UA Norm (Normal); Ketones Urine 1+ (Negative); Protein Urine 1+ (Negative); Urine Appearance Hazy (CLEAR); Urine Color Yellow (Yellow); pH Urine 5 (5-7)
[2021-08-14 11:25] LABS: Add Urine Microscopic? YES; Bacteria Urine 3+ /hpf; Bilirubin Urine Neg (Negative); Leukocyte Esterase Urine Trace (Negative); Nitrate Urine Positive (Negative); RBC Urine 0-4 /hpf (0-2); Urobilinogen Urine Norm (Negative)
[2021-08-14 11:26] LABS: Add Urine Culture? Yes; Mucus Urine TRACE /hpf
[2021-08-14 11:31] LABS: Alcohol Level < 10 mg/dL (0-10)
[2021-08-14 12:08] LABS: Troponin(5th) Baseline 56 ng/L (0-10)
[2021-08-14] MEDS: cefTRIAXone 1,000 MG in sodium chloride 0.9% (plus) 50 ML 100 MG IV (13:46)
[2021-08-14 14:06] LABS: Troponin 5 2HR 53.95 ng/L (0-10)
[2021-08-14 14:08] LABS: Troponin 5 2HR Delta -2.05 ABS# (0-10)
--- NOTE | 2021-08-14 15:56 | P.HP_ITS ---
Providers/Chief Complaint Admitting Physician: Doc Lindsey MD Primary Care Provider: Herlinda Angulo DO Chief Complaint: ALOC/ AMS History of Present Illness Patient taken by chart review and as per my conversation with primary caregiver. Flor Mishra is a 86 year old female with past medical history of dementia, smoker, COPD on 3 L oxygen supplementation, history of carotid artery supplementation post carotid endarterectomy bilaterally, abdominal aortic aneurysm, protein energy malnutrition, hyperlipidemia, hypertension, opiate dependent was brought in to the hospital via EMS today because of altered mental status. Patient lives with her primary caregiver Mr. Rich sanford and as per my conversation with him she has been having more episodes of confusion and l istlessness for last 1 week. Patient apparently has been complaining of occasional dysuria but denied any nausea, vomiting, fever, headache, dizziness, diarrhea, fall. As per patient's caregiver she takes 1 mg of hydromorphone every 12 hours and has been trying to come down on the medication she does take frequent tramadol's as needed for breakthrough pain. At baseline patient has home health who helps with meals and medications but sometimes cooks for herself. Patient is triple vaccinated for COVID-19 with booster as well. On exam patient lying comfortably in bed, alert only to self. Not sure if she is at home or hospital. No she lives with her son-in-law who is also DPOA but cannot tell me his name. States she is having pain in her back but has been told to live with her pain in the past. States she has been having dysuria on and off but not anymore and has been told to live with that as well. Lab work in ER showed a white count 10.8, hemoglobin of 13.5, INR of 1.01, ABG showing a pH of 7.37, PCO2 of 43, PO2 of 93, chemistry showing 142 sodium, creatinine of 1.1, BUN of 35, baseline troponin of 56, AST/ALT of 32/14, UA showing 2+ nitrate, trace leuk esterase with 3+ bacteria, drug screen positive for opiates, alcohol level negative, rapid COVID-19 antigen negative. Review of Systems General: Reports: ROS unobtainable due to mental status Medications/Allergies Home Medications Medication Instructions Recorded Confirmed Last Taken Type aspirin 81 mg chewable tablet 81 mg PO DAILY 10/25/19 08/14/21 Unknown History cholecalciferol (vitamin D3) 25 mcg PO DAILY 12/30/19 08/14/21 Unknown History polyethylene glycol 3350 [Miralax] 17 g PO DAILY PRN 12/30/19 08/14/21 Unknown History Mikhail Mag Plus 1 tab PO BID 03/09/20 08/14/21 Unknown History furosemide 20 mg tablet 20 mg PO DAILY PRN #90 tab 05/15/20 08/14/21 Unknown Rx naloxegol 25 mg tablet 25 mg PO QAM 12/03/20 08/14/21 Unknown History alfuzosin 10 mg tablet,extended 10 mg PO DAILY #30 tab 03/11/21 08/14/21 Unknown Rx release 24 hr atorvastatin 40 mg tablet 40 mg PO DAILY #90 tab 05/06/21 08/14/21 Unknown Rx metoprolol tartrate 25 mg tablet 25 mg PO BID tab 06/11/21 08/14/21 Unknown History guaifenesin 600 mg tablet, 600 mg PO Q12H PRN #60 tab 06/24/21 08/14/21 Unknown Rx extended release 12 hr diclofenac sodium 1 % topical gel 2 g TOPICAL Q6H 30 Days #300 g 06/27/21 08/14/21 Unknown Rx hydromorphone 2 mg tablet 1 mg PO Q12H PRN 30 Days #30 tab 06/27/21 08/14/21 Unknown Rx pregabalin 25 mg capsule 25 mg PO BID 30 Days #60 cap 06/27/21 08/14/21 Unknown Rx tramadol 50 mg tablet 50 mg PO DAILY PRN 30 Days #30 tab 06/27/21 08/14/21 Unknown Rx B complex with C 20-folic acid 1 cap PO DAILY 08/14/21 08/14/21 Unknown History [Virt-Caps] Colace 100 mg PO DAILY PRN 08/14/21 08/14/21 Unknown History alendronate 70 mg PO Q7D 08/14/21 08/14/21 Unknown History mometasone [Nasonex] 2 spray INTRANASAL DAILY PRN 08/14/21 08/14/21 Unknown History mupirocin 1 applic TOPICAL TID PRN 08/14/21 08/14/21 Unknown History Allergies Allergy/AdvReac Type Severity Reaction Status Date / Time levofloxacin Allergy Severe ADR-Halluci Verified 08/14/21 10:59 nating carbidopa [From Sinemet] Allergy Unknown Verified 08/14/21 11:00 hydrocodone Allergy ALGY-Swell Verified 08/14/21 10:59 Lip/Tongue/Throat latex Allergy ALGY-Anaphy Verified 08/14/21 10:59 laxis levodopa [From Sinemet] Allergy Unknown Verified 08/14/21 11:00 Penicillins Allergy ALGY-Bliste Verified 08/14/21 10:59 r Sulfa (Sulfonamide Allergy ALGY-Hives Verified 08/14/21 10:59 Antibiotics) tetracycline Allergy ALGY-Swell Verified 08/14/21 10:59 Lip/Tongue/Throat PFSH Acute PFSH: Medical History (Updated 08/14/21 @ 16:36 by Doc Lindsey MD) AAA (abdominal aortic aneurysm) Abdominal aortic aneurysm -surveillance with serial imaging per PCP and cardiology Dr. Morejon -has been monitoring BP at home closely Back pain with radiation Carotid stenosis COPD (chronic obstructive pulmonary disease) -Previously oxygen dependent but was recently weaned off -stable respiratory status, supplemental oxygen as needed -No evidence of acute exacerbation currently DDD (degenerative disc disease), lumbar Encounter for long-term opiate analgesic use Hyperlipidemia -continue statin Hypertension Nicotine dependence, cigarettes, with unspecified nicotine-induced disorders Osteoporosis Protein-energy malnutrition Skin lesion of left ear Spondylosis without myelopathy or radiculopathy, lumbosacral region Therapeutic opioid induced constipation Thoracic aortic aneurysm -as noted above Urinary retention Voiding dysfunction Surgical History History of endarterectomy bilateral History of tonsillectomy and adenoidectomy Hx of cholecystectomy Hx of hysterectomy, total Hx of kyphoplasty Family History Mother , at age 75 No problems noted. Father , in his 50's Heart attack Other CAD (coronary artery disease) Social History Alcohol intake: never Household members: other Details: lives with son in law Marital status: / Current occupational status: retired History of recent travel: No Vitals/I&O/Wt Last Vital Signs Temp 98.0 F 08/14/21 08:40 Pulse 104 H 08/14/21 15:19 Resp 20 H 08/14/21 15:19 BP 160/94 08/14/21 15:19 Pulse Ox 93 08/14/21 15:19 08/14/21 08/14/21 08/14/21 06:59 14:59 22:59 Intake Total 1000 / 1000 50 / 1050 Balance 1000 / 1000 50 / 1050 Weight last 48 hrs Weight 36.287 kg Physical Exam Narrative: EXAM NARRATIVE: General: No acute distress, AO x1, cachectic HEENT: PERRLA, pupils bilaterally equal and reactive Chest: Normal vesicular breath sounds, no added sounds, equal good air entry bilaterally CVS: S1-S2 regular, no murmurs, no tachycardia, no gallops, no rubs Abdomen: Soft, nontender, no organomegaly, bowel sounds present Neuro: No focal deficits, no facial deformity, AO x3, power 5/5 in all limbs Const: COMMON NORMALS: no acute distress GENERAL APPEARANCE: cooperative and comfortable Urinary Catheter Management^: Dai: Cath Placed During This Visit: yes Urinary Catheter Date of Insertion: 08/14/21 Urinary Catheter Time of Insertion: 10:46 Data : 08/14/21 10:20 08/14/21 10:20 Micro: Microbiology 08/14/21 10:20 Blood Culture - Preliminary Blood SPECIMEN COLLECTED A&P Assessment and plan (1) Altered mental status: Status: Acute (2) 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 Check blood culture, urine culture, procalcitonin, MRSA swab. History of urine culture with staph hominis and Neisseria not gonorrhea. Check chlamydia/gonorrhea. Azithromycin 500 mg for 3 days, ceftriaxone. Chronic pain management: Continue with tramadol 50 mg every 12 as needed, morphine 1 mg every 8 as needed to avoid withdrawal. Stop hydromorphone. Continue to monitor at this point Repeat potassium patient is altered mental status as well. OFE: Baseline creatinine 0.8. Currently 1.1. Most likely from dehydration. Normal saline at 50 cc/h for 1 bag. BMP daily. Check lipid panel, iron panel, MRSA swab, urine Legionella, bacterial antigen, A1c. Continue other chronic medication. CODE STATUS: Discussed with patient's DPOA and caregiver. DNR/DNI. Cardiac diet. Heparin for DVT prophylaxis. Famotidine for PUD prophylaxis. Attestations Medical Necessity Statement*: Admission for more than 2 midnights for management of altered mental status secondary to possible UTI Time Spent in Patient Care: Greater than 35 minutes (>than 50% of time spent in counselling and/or direct pt care on unit) . Coding Level of Care Code Acute Payroll Processor for [facility] Fwd Diagnoses Altered mental status R41.82 Encounter for long-term opiate analgesic use Z79.891 UTI (urinary tract infection) N39.0 COPD (chronic obstructive pulmonary disease) J44.9 COPD type: unspecified COPD Hypertension I10 Hypertension type: unspecified Protein-energy malnutrition E46
[2021-08-14 16:31] LABS: Procalcitonin 0.08 ng/mL (0-0.5)
[2021-08-14 16:32] LABS: Iron 39 ug/dL (37-145); Magnesium 1.7 mg/dL (1.7-2.3); Phosphorus 3.2 mg/dL (2.5-4.5); Thyroid Stimulating Hormone 0.36 uIU/mL (0.27-4.20); Total Iron Binding Capacity 298 mcg/dl; Unsaturated Iron Binding 259 ug/dL (112-347)
--- NOTE | 2021-08-14 20:08 | CTR_ITS ---
PROCEDURE INFORMATION: Exam: CT Head Without Contrast Exam date and time: 08/14/2021 8:08 PM Age: 86 years old Clinical indication: Altered mental status/memory loss; Additional info: Fall TECHNIQUE: Imaging protocol: Computed tomography of the head without contrast. Radiation optimization: All CT scans at this facility use at least one of these dose optimization techniques: automated exposure control; mA and/or kV adjustment per patient size (includes targeted exams where dose is matched to clinical indication); or iterative reconstruction. COMPARISON: CT head wo con* [id number] 08/14/2021 9:52 AM RADIATION DOSE METRICS: Total DLP (mGy-cm): 829.4 FINDINGS: Brain: Moderate diffuse white matter disease likely reflecting chronic microvascular ischemic changes. Cerebral ventricles: No ventriculomegaly. Paranasal sinuses: Visualized sinuses are unremarkable. No fluid levels. Mastoid air cells: Visualized mastoid air cells are well aerated. Bones/joints: Unremarkable. No acute fracture. Soft tissues: Unremarkable. CT/CT head wo con* [id number] IMPRESSION: Negative for intracranial hemorrhage or mass effect. Radiation Dose CTDIVOL = (mGy): DLP = 829.4 (mGy-cm)
--- NOTE | 2021-08-14 20:08 | CTR_ITS ---
PROCEDURE INFORMATION: Exam: CT Cervical Spine Without Contrast Exam date and time: 08/14/2021 8:08 PM Age: 86 years old Clinical indication: Injury or trauma; Fall; Blunt trauma TECHNIQUE: Imaging protocol: Computed tomography images of the cervical spine without contrast. Radiation optimization: All CT scans at this facility use at least one of these dose optimization techniques: automated exposure control; mA and/or kV adjustment per patient size (includes targeted exams where dose is matched to clinical indication); or iterative reconstruction. COMPARISON: CT head wo con* [id number] 08/14/2021 8:17 PM RADIATION DOSE METRICS: Total DLP (mGy-cm): 500.73 FINDINGS: Vertebrae: No acute fracture. Normal alignment. C2-C3: No significant disc protrusion. No severe spinal canal stenosis. No significant neural foraminal narrowing. C3-C4: No significant disc protrusion. No severe spinal canal stenosis. No significant neural foraminal narrowing. C4-C5: No significant disc protrusion. No severe spinal canal stenosis. No significant neural foraminal narrowing. C5-C6: No significant disc protrusion. No severe spinal canal stenosis. No significant neural foraminal narrowing. C6-C7: No significant disc protrusion. No severe spinal canal stenosis. No significant neural foraminal narrowing. C7-T1: No significant disc protrusion. No severe spinal canal stenosis. No significant neural foraminal narrowing. Soft tissues: Unremarkable. Lungs: Biapical emphysematous changes. CT/CT cervical spin wo con* [id number] IMPRESSION: Negative for fracture or dislocation. Radiation Dose CTDIVOL = (mGy): DLP = 500.73 (mGy-cm)
--- NOTE | 2021-08-14 20:50 | PC.NURSE ---
report called by previous shift, no info given
[2021-08-14] MEDS: sodium chloride 0.9% 1,000 ML 50 ML IV (21:05)
[2021-08-14] MEDS: famotidine 20 mg/2 mL INJ IVP (21:05)
--- NOTE | 2021-08-14 21:15 | PC.NURSE ---
Pt arrived to unit. Confused and alert to self only. Refusing to state name or to this RN stating why is that pertinent to you? . Pt refused oral medication this evening stating I don't take those . RN educated patient on the use and importance of these medication. Pt continued to refuse stating I become completely disabled when I take antibiotics and my doctor told me they're no good for me . Also stating I don't take those. I take one that makes me pee in the morning and night . Pt educated on her infection. Continued to decline. Pt allowed RN to connect to IV fluids but stating I don't need those . Pt stating that's a weird looking dog. It looks nothing like mine , you better get your elbow fixed , and get that other bed out of here in a private room. Bed alarm set. No family at bedside. Dr. Irving aware of pt refusal of medications.
--- NOTE | 2021-08-14 23:07 | PC.NURSE ---
Pt refused temperature to be taken.
[2021-08-14] MEDS: metoprolol tartrate 1 mg/1 mL SDV 5 mL 2.5 MG IVP (23:37)
[2021-08-15 04:00] VITALS: BP 186/91; PULSE 106; RESP 18; TEMP 36.6; O2SAT 95
[2021-08-15 05:55] LABS: Basophils # 0.1 10^3/uL (0.0-0.1); Basophils % 0.3 %; Hematocrit 43.3 % (37.0-47.0); Hemoglobin 14.5 g/dL (11.5-15.3); Lymphocytes # 0.8 10^3/uL (0.8-4.8); Mean Corpuscular HGB Conc 33.5 g/dL (30.0-36.0); Mean Corpuscular Hemoglobin 32.1 pg (28.0-34.0); Mean Corpuscular Volume 95.8 fl (81-99); Mean Platelet Volume 11.4 fL (7.4-10.4); Monocytes # 0.9 10^3/uL (0.2-0.9); Monocytes % 4.5 %; Neutrophils # 18.25 10^3/uL (1.8-7.7); Neutrophils % 90.6 %; Nucleated Red Blood Cells % 0 %; Platelet Count 210 10^3/cmm (130-400); Red Blood Count 4.52 10^6/uL (4.1-5.3); Red Cell Distribution Width 14.3 % (12.1-15.1); White Blood Count 20.2 10^3/uL (4.0-10.0)
[2021-08-15 06:08] LABS: Alanine Aminotransferase 20 U/L (0-33); Albumin Level 4.3 g/dL (3.5-5.2); Alkaline Phosphatase 95 IU/L (35-105); Anion Gap 23.3 (5-19); Aspartate Amino Transferase 47 U/L (0-32); Blood Urea Nitrogen 25 mg/dL (8-23); Calcium 9.6 mg/dL (8.5-10.5); Carbon Dioxide 21 mmol/L (22-29); Chloride 99 mmol/L (98-107); Glucose 111 mg/dL (65-115); Osmolality Calculated 295 mOsm/kg (285-295); Potassium 3.3 mmol/L (3.5-5.1); Sodium 140 mmol/L (136-145); Total Bilirubin 0.7 mg/dL (0.15-1.2); Total Protein 7.3 g/dL (6.6-8.7)
[2021-08-15 06:26] LABS: Chol HDL Ratio 2.69 mg/dL (0.0-4.40); Cholesterol 180 mg/dL (0-200); HDL Cholesterol 67 mg/dL (60-100); LDL Cholesterol Calculated 96 mg/dL (50-129); Triglycerides 83 mg/dL (0-150); VLDL Cholestrol Calculation 17 mg/dL (0-30)
[2021-08-15 06:32] LABS: Estmated Average Glucose 97
[2021-08-15 08:00] VITALS: BP 178/82; PULSE 108; RESP 18; TEMP 36.9; O2SAT 94
[2021-08-15] MEDS: famotidine 20 mg/2 mL INJ IVP ×2 (10:14→20:31)
[2021-08-15] MEDS: cefTRIAXone 1,000 MG in sodium chloride 0.9% (plus) 50 ML 100 MG IV (10:15)
[2021-08-15] MEDS: aspirin 81 mg Chew Tablet PO (10:16)
[2021-08-15] MEDS: ferrous gluconate 324 mg Tablet PO ×2 (10:16→16:29)
[2021-08-15] MEDS: metoprolol tartrate 25 mg Tablet PO (10:17)
[2021-08-15] MEDS: atorvastatin 40 mg Tablet PO (10:17)
[2021-08-15] MEDS: azithromycin 250 mg Tablet 500 MG PO (10:34)
[2021-08-15] MEDS: pregabalin 25 mg Capsule PO ×2 (10:34→16:30)
[2021-08-15 11:37] VITALS: BP 174/89; PULSE 90; RESP 16; TEMP 37; O2SAT 94
--- NOTE | 2021-08-15 15:49 | P.PN_ITS ---
Subjective Subjective: Interval history: No acute events overnight. Has remained hemodynamically stable afebrile. On examination patient lying comfortably in bed, alert to self, nurse at bedside. Patient has been refusing her medications on and off. As per conversation with patient's caregiver this seems to be holding steady mentation. Vitals/I&O/Wt Last Vital Signs Temp 98.6 F 08/15/21 11:37 Pulse 90 08/15/21 11:37 Resp 16 08/15/21 11:37 BP 174/89 08/15/21 11:37 Pulse Ox 94 08/15/21 11:37 08/15/21 08/15/21 08/15/21 06:59 14:59 22:59 Intake Total 120 / 120 Output Total 500 / 1700 Balance -500 / -650 120 / 120 Weight last 48 hrs Weight 35.017 kg Weight 36.287 kg Physical Exam Narrative: EXAM NARRATIVE: General: No acute distress, AO x1, cachectic HEENT: PERRLA, pupils bilaterally equal and reactive Chest: Normal vesicular breath sounds, no added sounds, equal good air entry bilaterally CVS: S1-S2 regular, no murmurs, no tachycardia, no gallops, no rubs Abdomen: Soft, nontender, no organomegaly, bowel sounds present Neuro: No focal deficits, no facial deformity, AO x3, power 5/5 in all limbs Const: COMMON NORMALS: no acute distress GENERAL APPEARANCE: cooperative and comfortable Urinary Catheter Management^: Dai: Cath Placed During This Visit: yes Reason for Continuing Indwelling Catheter: Other Urinary Catheter Date of Insertion: 08/14/21 Urinary Catheter Time of Insertion: 10:46 Data : 08/15/21 05:06 08/15/21 05:06 Micro: Microbiology 08/14/21 10:20 Blood Culture - Preliminary Blood NEGATIVE TO DATE 08/14/21 10:40 Legionella Urinary Antigen - Final Unknown Source 08/14/21 10:40 Chlamydia trachomatis ([facility]) - Final Urine Random Neisseria gonorrhoeae ([facility]) - Final 08/14/21 10:40 Urine Culture - Preliminary Urine,Clean Catch Gram Negative Rods 08/14/21 10:40 Bacterial Antigens - Final Urine Kidney 08/14/21 16:59 Blood Culture - Preliminary Blood SPECIMEN COLLECTED A&P Assessment and plan (1) Altered mental status: Status: Acute (2) 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 Urine culture suggestive of gram-negative rods. Blood cultures so far negative. History of urine culture with staph hominis and Neisseria not gonorrhea. Check chlamydia/gonorrhea. Continue with azithromycin 500 mg for 3 days, ceftriaxone. Chronic pain management: Continue with tramadol 50 mg every 12 as needed, morphine 1 mg every 8 as needed to avoid withdrawal. Stop hydromorphone. Continue to monitor at this point Hypertension: Goal blood pressure less than 140/90 mmHg. Patient's blood pressure has been running on the higher side. Increase metoprolol to 50 mg twice daily, add amlodipine 10 mg daily. Hydralazine as needed for systolic blood pressure of more than 160 mmHg. OFE: Resolved. Baseline creatinine 0.8. Currently 1.1. Most likely from dehydration. Normal saline at 50 cc/h for 1 bag. BMP daily. Check lipid panel, iron panel, MRSA swab, urine Legionella, bacterial antigen, A1c. Continue other chronic medication. CODE STATUS: Discussed with patient's DPOA and caregiver. DNR/DNI. Cardiac diet. Heparin for DVT prophylaxis. Famotidine for PUD prophylaxis. Attestations Medical Necessity Statement*: Requires further hospitalization for management of altered mental status secondary to UTI, advanced dementia Time Spent in Patient Care: Greater than 35 minutes (>than 50% of time spent in counselling and/or direct pt care on unit) . Coding Level of Care Code Acute Media Services Coordinator for [facility] Fwd Diagnoses Altered mental status R41.82 Encounter for long-term opiate analgesic use Z79.891 UTI (urinary tract infection) N39.0 COPD (chronic obstructive pulmonary disease) J44.9 COPD type: unspecified COPD Hypertension I10 Hypertension type: unspecified Protein-energy malnutrition E46
[2021-08-15 16:00] VITALS: PULSE 93; RESP 16; TEMP 37.3; O2SAT 95
[2021-08-15 16:12] LABS: Coronavirus Test Green County Not Detected
[2021-08-15] MEDS: amlodipine 10 mg Tablet PO (16:29)
[2021-08-15] MEDS: sodium chloride 0.9% 1,000 ML 50 ML IV (16:34)
[2021-08-15 17:35] VITALS: BP 158/72
[2021-08-15 20:00] VITALS: BP 137/82; PULSE 89; RESP 18; TEMP 36.6; O2SAT 91
[2021-08-15] MEDS: metoprolol tartrate 50 mg Tablet PO (20:31)
--- NOTE | 2021-08-16 00:07 | PC.NURSE ---
Pt refusing Vital signs at this time.
[2021-08-16 04:00] VITALS: BP 130/77; PULSE 86; RESP 17; TEMP 36.5; O2SAT 90
[2021-08-16 07:55] VITALS: BP 135/84; PULSE 69; RESP 16; TEMP 36.6; O2SAT 92
[2021-08-16] MEDS: azithromycin 250 mg Tablet 500 MG PO (08:48)
[2021-08-16] MEDS: metoprolol tartrate 50 mg Tablet PO ×2 (08:48→21:31)
[2021-08-16] MEDS: pregabalin 25 mg Capsule PO ×2 (08:48→17:22)
[2021-08-16] MEDS: famotidine 20 mg/2 mL INJ IVP ×2 (08:49→22:07)
[2021-08-16] MEDS: atorvastatin 40 mg Tablet PO (08:49)
[2021-08-16] MEDS: aspirin 81 mg Chew Tablet PO (08:49)
[2021-08-16] MEDS: ferrous gluconate 324 mg Tablet PO ×2 (08:49→17:22)
[2021-08-16] MEDS: amlodipine 10 mg Tablet PO (08:49)
[2021-08-16] MEDS: heparin 5,000 unit/mL INJ 1 mL 5000 UNIT SUBCUT ×2 (08:49→21:31)
[2021-08-16] MEDS: cefTRIAXone 1,000 MG in sodium chloride 0.9% (plus) 50 ML 100 MG IV (09:43)
[2021-08-16 12:00] VITALS: BP 130/69; PULSE 67; RESP 16; TEMP 36.7; O2SAT 95
[2021-08-16 12:18] LABS: Basophils % 0.3 %; Eosinophils % 0.1 %; Hematocrit 46.8 % (37.0-47.0); Hemoglobin 15.6 g/dL (11.5-15.3); Lymphocytes # 1.2 10^3/uL (0.8-4.8); Lymphocytes % 8.3 %; Mean Corpuscular HGB Conc 33.3 g/dL (30.0-36.0); Mean Corpuscular Hemoglobin 31.3 pg (28.0-34.0); Mean Corpuscular Volume 93.8 fl (81-99); Mean Platelet Volume 11.3 fL (7.4-10.4); Monocytes % 6.4 %; Neutrophils # 12.62 10^3/uL (1.8-7.7); Neutrophils % 84.6 %; Nucleated Red Blood Cells % 0 %; Platelet Count 172 10^3/cmm (130-400); Red Blood Count 4.99 10^6/uL (4.1-5.3); Red Cell Distribution Width 14.2 % (12.1-15.1); White Blood Count 14.9 10^3/uL (4.0-10.0)
[2021-08-16 13:29] LABS: Alanine Aminotransferase 19 U/L (0-33); Alkaline Phosphatase 87 IU/L (35-105); Aspartate Amino Transferase 37 U/L (0-32); Blood Urea Nitrogen 22 mg/dL (8-23); Calcium 9.1 mg/dL (8.5-10.5); Carbon Dioxide 25 mmol/L (22-29); Chloride 101 mmol/L (98-107); Globulin 2.9 g/dL (1.3-4.6); Glucose 96 mg/dL (65-115); Osmolality Calculated 297 mOsm/kg (285-295); Sodium 142 mmol/L (136-145); Total Bilirubin 0.5 mg/dL (0.15-1.2); Total Protein 6.9 g/dL (6.6-8.7)
[2021-08-16 13:39] LABS: Anion Gap 19.3 (5-19); Potassium 3.3 mmol/L (3.5-5.1)
--- NOTE | 2021-08-16 15:45 | P.PN_ITS ---
Subjective Subjective: Interval history: No complaints overnight. Patient has remained hemodynamically stable and afebrile. Seems to be back to baseline mentation. Awake and alert to self, as per nurse no reported agitation. Vitals/I&O/Wt Last Vital Signs Temp 98.1 F 08/16/21 12:00 Pulse 67 08/16/21 12:00 Resp 16 08/16/21 12:00 BP 130/69 08/16/21 12:00 Pulse Ox 95 08/16/21 12:00 08/16/21 08/16/21 08/16/21 06:59 14:59 22:59 Intake Total 80 / 1224.167 240 / 240 Output Total 480 / 1330 Balance -400 / -105.833 240 / 240 Weight last 48 hrs Weight 35.017 kg Physical Exam Narrative: EXAM NARRATIVE: General: No acute distress, AO x1, cachectic HEENT: PERRLA, pupils bilaterally equal and reactive Chest: Normal vesicular breath sounds, no added sounds, equal good air entry bilaterally CVS: S1-S2 regular, no murmurs, no tachycardia, no gallops, no rubs Abdomen: Soft, nontender, no organomegaly, bowel sounds present Neuro: No focal deficits, no facial deformity, AO x3, power 5/5 in all limbs Const: COMMON NORMALS: no acute distress GENERAL APPEARANCE: cooperative and comfortable Urinary Catheter Management^: Dai: Cath Placed During This Visit: yes Reason for Continuing Indwelling Catheter: Other Urinary Catheter Date of Insertion: 08/14/21 Urinary Catheter Time of Insertion: 10:46 Data : 08/16/21 12:09 08/16/21 12:58 Micro: Microbiology 08/14/21 10:40 Urine Culture - Final Urine,Clean Catch Escherichia coli 08/14/21 16:59 Blood Culture - Preliminary Blood NEGATIVE TO DATE 08/14/21 10:20 Blood Culture - Preliminary Blood NEGATIVE TO DATE 08/14/21 10:40 Legionella Urinary Antigen - Final Unknown Source 08/14/21 10:40 Chlamydia trachomatis ([facility]) - Final Urine Random Neisseria gonorrhoeae ([facility]) - Final A&P Assessment and plan (1) Altered mental status: Status: Acute (2) 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 Urine culture suggestive of E. coli. Sensitivities appreciated. Blood cultures negative. Continue with IV ceftriaxone. Stop azithromycin. DC Dai. Chronic pain management: Continue with tramadol 50 mg every 12 as needed, morphine 1 mg every 8 as needed to avoid withdrawal. Stop hydromorphone. Continue to monitor at this point Hypertension: Goal blood pressure less than 140/90 mmHg. Patient's blood pressure has been running on the higher side. Increase metoprolol to 50 mg twice daily, add amlodipine 10 mg daily. Hydralazine as needed for systolic blood pressure of more than 160 mmHg. OFE: Resolved. Baseline creatinine 0.8. Currently 1.1. Most likely from dehydration. Stop IV fluids. BMP daily. Continue other chronic medication. CODE STATUS: Discussed with patient's DPOA and caregiver. DNR/DNI. Cardiac diet. Heparin for DVT prophylaxis. Famotidine for PUD prophylaxis. Attestations Medical Necessity Statement*: Patient requires further hospitalization for management of altered mental status secondary to UTI, worsening dementia Time Spent in Patient Care: Greater than 35 minutes (>than 50% of time spent in counselling and/or direct pt care on unit) . Coding Level of Care Code Acute Boiler Room Helper for [facility] Fwd Diagnoses Altered mental status R41.82 Encounter for long-term opiate analgesic use Z79.891 UTI (urinary tract infection) N39.0 COPD (chronic obstructive pulmonary disease) J44.9 COPD type: unspecified COPD Hypertension I10 Hypertension type: unspecified Protein-energy malnutrition E46
[2021-08-16 16:15] VITALS: BP 146/77; PULSE 75; RESP 18; TEMP 37.1; O2SAT 89
[2021-08-16 19:47] VITALS: BP 116/71; PULSE 84; RESP 17; TEMP 36.5; O2SAT 94
[2021-08-17] VITALS (7 sets, daily range): BP systolic 112–165; BP diastolic 62–77; PULSE 62–82; RESP 14–17; TEMP 36.4–36.8; O2SAT 89–97
[2021-08-17] MEDS: cefTRIAXone 1,000 MG in sodium chloride 0.9% (plus) 50 ML 100 MG IV (08:07)
[2021-08-17] MEDS: metoprolol tartrate 50 mg Tablet PO (08:09)
[2021-08-17] MEDS: atorvastatin 40 mg Tablet PO (08:09)
[2021-08-17] MEDS: amlodipine 10 mg Tablet PO (08:09)
[2021-08-17] MEDS: ferrous gluconate 324 mg Tablet PO (08:09)
[2021-08-17] MEDS: heparin 5,000 unit/mL INJ 1 mL 5000 UNIT SUBCUT (08:09)
[2021-08-17] MEDS: aspirin 81 mg Chew Tablet PO (08:09)
[2021-08-17] MEDS: pregabalin 25 mg Capsule PO (08:09)
[2021-08-17] MEDS: famotidine 20 mg/2 mL INJ IVP (08:38)
--- NOTE | 2021-08-17 11:08 | PC.SOCIAL ---
IMM Update Pg.2 of IMM updated and with patient's son in law, Rich, over the phone. He verbalized understanding. Copy provided at bedside.
--- NOTE | 2021-08-17 12:28 | P.DS_ITS ---
Discharge Providers Date of Admission: 08/14/21 13:29 Date of Discharge: August 17, 2021 Attending Provider at Admission: Doc Lindsey MD Attending Provider at Discharge: Doc Lindsey MD Primary Care Provider: Herlinda Angulo DO Diagnoses at Discharge Discharge Diagnosis (1) Altered mental status: Status: Acute (2) Encounter for long-term opiate analgesic use: Status: Chronic (3) UTI (urinary tract infection): Status: Acute (4) COPD (chronic obstructive pulmonary disease): Status: Chronic Permanent problem details: -Previously oxygen dependent but was recently weaned off -stable respiratory status, supplemental oxygen as needed -No evidence of acute exacerbation currently Qualifiers: COPD type: unspecified COPD Qualified Code(s): J44.9 - Chronic obstructive pulmonary disease, unspecified (5) Hypertension: Status: Chronic Qualifiers: Hypertension type: unspecified Qualified Code(s): I10 - Essential (primary) hypertension (6) Protein-energy malnutrition: Status: Acute Reason for Visit Reason for Visit: ALOC/ AMS Hospital Course Hospital Course Flor Mishra is a 86 year old female with past medical history of dementia, smoker, COPD on 3 L oxygen supplementation, history of carotid artery supplementation post carotid endarterectomy bilaterally, abdominal aortic aneurysm, protein energy malnutrition, hyperlipidemia, hypertension, opiate dependent was brought in to the hospital via EMS today because of altered mental status. Patient lives with her primary caregiver Mr. Rich sanford and as per my conversation with him she has been having more episodes of confusion and listlessness for last 1 week. Patient apparently has been complaining of occasional dysuria but denied any nausea, vomiting, fever, headache, dizziness, diarrhea, fall. As per patient's caregiver she takes 1 mg of hydromorphone every 12 hours and has been trying to come down on the medication she does take frequent tramadol's as needed for breakthrough pain. At baseline patient has home health who helps with meals and medications but sometimes cooks for herself. Patient is triple vaccinated for COVID-19 with booster as well. Patient was admitted to the hospital for further work-up of altered mental status. Altered mental status is most likely secondary to a combination of excessive pain medications and UTI. Hydromorphone was withheld on admission. Urine cultures came back positive for E. coli. Patient has been on culture directed broad-spectrum antibiotics since admission. Eventually patient started improving and is back to her baseline mentation. Her hospitalization was otherwise unremarkable. During hospitalization her antihypertensives were adjusted. She is advised to avoid taking hydromorphone as much as possible. Care plan and discharge plan were discussed in detail with patient's primary caregiver over the phone. She has been discharged in hemodynamically stable condition at her baseline mentation. On oral antibiotics for 2 more days. She is to follow-up with a primary care provider within next 1 week. Physical Exam Narrative: EXAM NARRATIVE: General: No acute distress, AO x1-2, cachectic HEENT: PERRLA, pupils bilaterally equal and reactive Chest: Normal vesicular breath sounds, no added sounds, equal good air entry bilaterally CVS: S1-S2 regular, no murmurs, no tachycardia, no gallops, no rubs Abdomen: Soft, nontender, no organomegaly, bowel sounds present Neuro: No focal deficits, no facial deformity, AO x3, power 5/5 in all limbs Const: COMMON NORMALS: no acute distress GENERAL APPEARANCE: cooperative and comfortable Urinary Catheter Management^: Dai: Cath Placed During This Visit: yes Reason for Continuing Indwelling Catheter: Other Urinary Catheter Date of Insertion: 08/14/21 Urinary Catheter Time of Insertion: 10:46 Discharge Data Data Completed and Pending: Completed Studies During Hospitalization Category Date Time Status CT cervical spin wo con* 51668 Rout ine Cat Scan 08/14/21 20:[address] head wo con* 7 0450 Routine Cat Scan 08/14/21 20:[address] head wo con* 7 0450 Stat Cat Scan 08/14/21 08:48 Completed XR chest 1V napoleon ble 10036 Stat Exams 08/14/21 08:48 Completed Pending at discharge Category Date Time Status Blood Culture Sta t Lab 08/14/21 16:59 Results MRSA by PCR Routi ne Lab 08/14/21 15:37 Uncollected Labs from last 24 hours 08/16/21 08/16/21 12:58 12:09 Sodium 142 Cancelled Potassium 3.3 L Cancelled Chloride 101 Cancelled Carbon Dioxide 25 Cancelled Anion Gap 19.3 H Cancelled BUN 22 Cancelled Creatinine 0.7 Cancelled GFR Calculation Not Reportable Cancelled Glucose 96 Cancelled Calculated Osmolal ity 297 H Cancelled Calcium 9.1 Cancelled Total Bilirubin 0.5 Cancelled AST 37 H Cancelled ALT 19 Cancelled Alkaline Phosphata se 87 Cancelled Total Protein 6.9 Cancelled Albumin 4.0 Cancelled Globulin 2.9 Cancelled Addt'l Data from Hospital Stay: Laboratory Results WBC 14.9 10^3/uL (4.0 -10.0) H 08/16/21 12:09 Corrected WBC Cancelled 08/14/21 08:35 RBC 4.99 10^6/uL (4.1 -5.3) 08/16/21 12:09 Hgb 15.6 g/dL (11.5-1 5.3) H 08/16/21 12:09 Hct 46.8 % (37.0-47.0 ) 08/16/21 12:09 MCV 93.8 fl (81-99) 08/16/21 12:09 MCH 31.3 pg (28.0-34. 0) 08/16/21 12:09 MCHC 33.3 g/dL (30.0-3 6.0) 08/16/21 12:09 RDW 14.2 % (12.1-15.1 ) 08/16/21 12:09 Plt Count 172 10^3/cmm (130 -400) 08/16/21 12:09 MPV 11.3 fL (7.4-10.4 ) H 08/16/21 12:09 Gran % Cancelled 08/14/21 08:35 Neut % (Auto) 84.6 % 08/16/21 12:09 Lymph % (Auto) 8.3 % 08/16/21 12:09 Green % (Auto) 6.4 % 08/16/21 12:09 Eos % (Auto) 0.1 % 08/16/21 12:09 Baso % (Auto) 0.3 % 08/16/21 12:09 Neut # (Auto) 12.62 10^3/uL (1. 8-7.7) H 08/16/21 12:09 Lymph # (Auto) 1.2 10^3/uL (0.8- 4.8) 08/16/21 12:09 Green # (Auto) 1.0 10^3/uL (0.2- 0.9) H 08/16/21 12:09 Eos # (Auto) 0.0 10^3/uL (0.0- 0.8) 08/16/21 12:09 Baso # (Auto) 0.0 10^3/uL (0.0- 0.1) 08/16/21 12:09 Absolute Gran (aut o) Cancelled 08/14/21 08:35 Nucleated RBC % (a uto) 0 % 08/16/21 12:09 Nucleated RBCs # 0.0 /100WBC 08/16/21 12:09 PT 13.60 SECONDS (12 .1-14.9) 08/14/21 08:35 INR 1.01 (0.8-1.2) 08/14/21 08:35 APTT 25.8 SECONDS (23. 9-36.7) 08/14/21 08:35 Specimen Type Arterial 08/14/21 09:07 Sample Site Brachial, right 08/14/21 09:07 ABG pH 7.37 (7.35-7.45) 08/14/21 09:07 ABG pCO2 43.3 mmHg (35-45) 08/14/21 09:07 ABG pO2 93.5 mmHg (80.0-1 00.0) 08/14/21 09:07 ABG HCO3 25.2 mmol/L (22-2 6) 08/14/21 09:07 ABG Base Excess -0.3 mmol/L (-2.0 -2.0) 08/14/21 09:07 Antwan Test N/a 08/14/21 09:07 Hematocrit 45.4 % (37-47) 08/14/21 09:07 O2 Delivery Device Nc 08/14/21 09:07 O2 Liters/Min 3.0 % 08/14/21 09:07 FiO2 32.0 % 08/14/21 09:07 Improvement Specialist ID Ed 08/14/21 09:07 Sodium 142 mmol/L (136-1 45) 08/16/21 12:58 Potassium 3.3 mmol/L (3.5-5 .1) L 08/16/21 12:58 Chloride 101 mmol/L (98-10 7) 08/16/21 12:58 Carbon Dioxide 25 mmol/L (22-29) 08/16/21 12:58 Anion Gap 19.3 (5-19) H 08/16/21 12:58 BUN 22 mg/dL (8-23) 08/16/21 12:58 Creatinine 0.7 mg/dL (0.5-0. 9) 08/16/21 12:58 GFR Calculation Not Reportable 08/16/21 12:58 Glucose 96 mg/dL (65-115) 08/16/21 12:58 Estimat Average Gl ucose 97 08/15/21 05:06 Hemoglobin A1c 5.0 % (4.0-6.0) 08/15/21 05:06 Calculated Osmolal ity 297 mOsm/kg (285- 295) H 08/16/21 12:58 Calcium 9.1 mg/dL (8.5-10 .5) 08/16/21 12:58 Phosphorus 3.2 mg/dL (2.5-4. 5) 08/14/21 10:20 Magnesium 1.7 mg/dL (1.7-2. 3) 08/14/21 10:20 Iron 39 ug/dL (37-145) 08/14/21 10:20 TIBC 298 mcg/dl 08/14/21 10:20 % Saturation 13.0 % (20-50) L 08/14/21 10:20 Unsat Iron Binding 259 ug/dL (112-34 7) 08/14/21 10:20 Total Bilirubin 0.5 mg/dL (0.15-1 .2) 08/16/21 12:58 AST 37 U/L (0-32) H 08/16/21 12:58 ALT 19 U/L (0-33) 08/16/21 12:58 Alkaline Phosphata se 87 IU/L (35-105) 08/16/21 12:58 Troponin T Baselin e 56 ng/L (0-10) H 08/14/21 10:20 Troponin T 120 Min conner 53.95 ng/L (0-10) H 08/14/21 13:30 Delta Troponin T -2.05 ABS# (0-10) L 08/14/21 13:30 Total Protein 6.9 g/dL (6.6-8.7 ) 08/16/21 12:58 Albumin 4.0 g/dL (3.5-5.2 ) 08/16/21 12:58 Globulin 2.9 g/dL (1.3-4.6 ) 08/16/21 12:58 Triglycerides 83 mg/dL (0-150) 08/15/21 05:06 Cholesterol 180 mg/dL (0-200) 08/15/21 05:06 LDL Cholesterol, C alc 96 mg/dL (50-129) 08/15/21 05:06 Total VLDL Cholest farhat 17 mg/dL (0-30) 08/15/21 05:06 HDL Cholesterol 67 mg/dL (60-100) 08/15/21 05:06 Cholesterol/HDL Ra victor m 2.69 mg/dL (0.0-4 .40) 08/15/21 05:06 Procalcitonin 0.08 ng/mL (0-0.5 ) 08/14/21 10:20 TSH 0.36 uIU/mL (0.27 -4.20) 08/14/21 10:20 Urine Color Yellow (Yellow) 08/14/21 10:40 Urine Appearance Hazy (CLEAR) A 08/14/21 10:40 Urine pH 5 (5-7) 08/14/21 10:40 Ur Specific Gravit y 1.020 (1.005-1.0 30) 08/14/21 10:40 Urine Protein 1+ (Negative) H 08/14/21 10:40 Urine Glucose (UA) Norm (Normal) 08/14/21 10:40 Urine Ketones 1+ (Negative) H 08/14/21 10:40 Urine Blood 2+ (Negative) H 08/14/21 10:40 Urine Nitrate Positive (Negati ve) H 08/14/21 10:40 Urine Bilirubin Neg (Negative) 08/14/21 10:40 Urine Urobilinogen Norm mg/dL (Negat darryl) 08/14/21 10:40 Ur Leukocyte Sera ase Trace (Negative) H 08/14/21 10:40 Urine RBC 0-4 /hpf (0-2) H 08/14/21 10:40 Urine WBC 10-15 /hpf (0-5) H 08/14/21 10:40 Ur Squamous Epith Cells 5-10 /hpf (0-5) H 08/14/21 10:40 Amorphous Sediment Not Reportable 08/14/21 10:40 Urine Bacteria 3+ /hpf (NONE) H 08/14/21 10:40 Urine Mucus Trace /hpf 08/14/21 10:40 Urine Opiates Scre en Positive ng/mL (N egative) H 08/14/21 10:40 Ur Barbiturates Sc reen Negative ng/mL (N egative) 08/14/21 10:40 Ur Phencyclidine S crn Negative ng/mL (N egative) 08/14/21 10:40 Ur Amphetamines Sc reen Negative ng/mL (N egative) 08/14/21 10:40 U Benzodiazepines Scrn Negative ng/mL (N egative) 08/14/21 10:40 Urine Cocaine Scre en Negative ng/mL (N egative) 08/14/21 10:40 U Marijuana (THC) Screen Negative ng/mL (N egative) 08/14/21 10:40 Ethyl Alcohol < 10 mg/dL (0-10) 08/14/21 10:20 Nasal/Oral COVID-1 9 PCR Not detected 08/14/21 10:45 SARS-CoV-2 Ag (Rap id) Negative (Negati ve) 08/14/21 10:45 Impressions Chest X-Ray 08/14/21 08:48 Impression: Atherosclerosis and hyperinflation. Cervical Spine CT 08/14/21 20:08 IMPRESSION: Negative for fracture or dislocation. Radiation Dose CTDIVOL = (mGy): DLP = 500.73 (mGy-cm) Head CT 08/14/21 20:08 IMPRESSION: Negative for intracranial hemorrhage or mass effect. Radiation Dose CTDIVOL = (mGy): DLP = 829.4 (mGy-cm) Microbiology 08/14/21 10:40 Urine,Clean Catch Urine Culture - Final Escherichia coli 08/14/21 16:59 Blood Blood Culture - Preliminary NEGATIVE TO DATE 08/14/21 10:20 Blood Blood Culture - Preliminary NEGATIVE TO DATE 08/14/21 10:40 Unknown Source Legionella Urinary Antigen - Final 08/14/21 10:40 Urine Random Chlamydia trachomatis (JAX) - Final 08/14/21 10:40 Urine Random Neisseria gonorrhoeae (JAX) - Final 08/14/21 10:40 Urine Kidney Bacterial Antigens - Final Vitals: Last Vital Signs Temp 97.7 F 08/17/21 12:22 Pulse 63 08/17/21 12:22 Resp 14 08/17/21 12:22 BP 112/62 08/17/21 12:22 Pulse Ox 89 L 08/17/21 12:22 Discharge Plan Discharge Patient Disposition: Home Condition: Stable Prescriptions: New amlodipine 10 mg Tablet 10 mg PO DAILY 30 Days Qty: 30 RF: 0 cefdinir 300 mg capsule 300 mg PO Q12H 2 Days Qty: 4 RF: 0 Continued Movantik 25 mg tablet 25 mg PO QAM RF: 0 tramadol 50 mg tablet 50 mg PO DAILY PRN (Reason: pain) 30 Days Qty: 30 RF: 1 Lyrica 25 mg capsule 25 mg PO BID 30 Days Qty: 60 RF: 1 diclofenac sodium 1 % gel 2 g TOPICAL Q6H 30 Days Qty: 300 RF: 1 aspirin 81 mg tablet,chewable 81 mg PO DAILY RF: 0 furosemide 20 mg tablet 20 mg PO DAILY PRN (Reason: edema) Qty: 90 RF: 1 alfuzosin 10 mg tablet extended release 24 hr 10 mg PO DAILY Qty: 30 RF: 12 atorvastatin 40 mg tablet 40 mg PO DAILY Qty: 90 RF: 1 guaifenesin [Mucinex] 600 mg tablet extended release 12hr 600 mg PO Q12H PRN (Reason: congestion) Qty: 60 RF: 2 Nephro-Will Rx 1-60-300 mg-mg-mcg tablet 1 tab PO DAILY Qty: 90 RF: 2 Mikhail Mag Plus 1 tab PO BID RF: 0 cholecalciferol (vitamin D3) 25 mcg (1,000 unit) Capsule 25 mcg PO DAILY RF: 0 polyethylene glycol 3350 [Miralax] 17 gram Powder In Packet 17 g PO DAILY PRN (Reason: Constipation) RF: 0 alendronate 70 mg tablet 70 mg PO Q7D RF: 0 Nasonex 50 mcg/actuation [place],Non-Aerosol 2 spray INTRANASAL DAILY PRN (Reason: Allergy Symptoms) RF: 0 mupirocin 2 % Ointment 1 applic TOPICAL TID PRN (Reason: skin breakdown) RF: 0 Virt-Caps 1 mg capsule 1 cap PO DAILY RF: 0 Colace 100 mg capsule 100 mg PO DAILY PRN (Reason: constipation) RF: 0 Changed metoprolol tartrate 25 mg tablet 50 mg PO BID Qty: 0 RF: 0 Discontinued hydromorphone 2 mg tablet 1 mg PO Q12H PRN (Reason: pain) 30 Days Qty: 30 RF: 0 Discharge Orders: Discharge Order (Routine); Ordered 08/17/21 Ordered By: Doc Lindsey Referrals: Herlinda Angulo DO [Primary Care Provider] - 4-7 days Discharge Diet: Soft Mechanical Discharge Activity: Resume usual activity Patient Instructions: Opioid Safety Activity Restrictions/Additional Instructions: Mechanical soft diet due to concerns for aspiration. Please take cefdinir to the antibiotic for next 2 days. Antihypertensives/blood pressure medications have been adjusted. Take metoprolol 50 mg 2 times a day, amlodipine 10 mg daily. Please try to avoid hydromorphone as much as possible as it seems to be contributing to decline in mentation as well. Discharge Attestations Time Spent in Discharge Care*: greater than 30 min Specific Discharge Activities: educating and/or supporting family/caregiver, discussing with case sealer/social workers/dc planners, documenting/other paperwork and evaluating patient/reviewing data Status at Discharge: Cognitive status at discharge: mildly impaired cognition , Behavioral status at discharge: cooperative and dependent in ADL's , Functional status at discharge: other assisted ambulation Overall status at discharge: patient is back to baseline Quality Metrics Clinical Quality Measures During this hospital stay, did patient experience: None Coding Level of Care Code Acute [facility] DC note Diagnoses Altered mental status R41.82 Encounter for long-term opiate analgesic use Z79.891 UTI (urinary tract infection) N39.0 COPD (chronic obstructive pulmonary disease) J44.9 COPD type: unspecified COPD Hypertension I10 Hypertension type: unspecified Protein-energy malnutrition E46
== END 2021-08-17 15:45 | disposition home or self-care (01) | DRG 690 ==
LOC: ER 15:25 → MEDSURG 15:36
PROVIDERS: Admitting Provider Student in an Organized Health Care Education/Training Program; Emergency Provider Emergency Medicine; PCP Family Medicine; Visit Provider Student in an Organized Health Care Education/Training Program
DX: N39.0 Urinary tract infection, site not specified (principal); N17.9 Acute kidney failure, unspecified; E46 Unspecified protein-calorie malnutrition; Z68.1 Body mass index [BMI] 19.9 or less, adult; E86.0 Dehydration; R41.82 Altered mental status, unspecified; T40.2X5A Adverse effect of other opioids, initial encounter; F03.90 Unspecified dementia, unspecified severity, without behavioral disturbance, psychotic disturbance, mood disturbance, and anxiety; B96.20 Unspecified Escherichia coli [E. coli] as the cause of diseases classified elsewhere; M51.36 Other intervertebral disc degeneration, lumbar region; M81.0 Age-related osteoporosis without current pathological fracture; J44.9 Chronic obstructive pulmonary disease, unspecified; I10 Essential (primary) hypertension; F17.200 Nicotine dependence, unspecified, uncomplicated; I71.4 Abdominal aortic aneurysm, without rupture; E78.5 Hyperlipidemia, unspecified; Z79.891 Long term (current) use of opiate analgesic; Z79.82 Long term (current) use of aspirin; Z86.79 Personal history of other diseases of the circulatory system; Z66 Do not resuscitate; Z87.440 Personal history of urinary (tract) infections
CPT/HCPCS: 36415; 36600; 51702; 70450; 71045; 72125; 80053; 80061; 80306; 80307; 81001; 82803; 83036; 83540; 83550; 83735; 84100; 84145; 84443; 84484; 85025; 85610; 85730; 86403; 87040; 87077; 87086; 87186; 87426; 87449; 87491; 87591; 87635; 92523; 92610; 93005; 94664; 96365; 96372; 99285; J0696; J1644; J3490; J7030; Q0144

== ENCOUNTER 2021-11-03 08:13 | Inpatient (IN) | payer MEDICARE, MEDICAID, SELFPAY ==
[2021-11-03] VITALS (12 sets, daily range): BP systolic 96–215; BP diastolic 49–98; PULSE 53–81; RESP 16–20; TEMP 36.4–36.8; O2SAT 90–98; BMI 13.1
--- NOTE | 2021-11-03 08:16 | W.ED.GENADLT ---
HPI - General Adult General: Chief complaint: General Medical Stated complaint: GENERALIZED WEAKNESS, ALOC Time Seen by Provider: 11/03/21 08:15 History of Present Illness: 86-year-old female brought in by EMS with complaints of generalized weakness and altered level of consciousness. Patient reportedly brought in from home which she endorses. Overall doing well failure to thrive. She has a history of dementia. When I talked to her she states she was having a lot of pain the only thing she allude to specifically that she has some does area. She denies any chest pain or abdominal pain. She states most of her symptoms have resolved. She is not sure why they brought her here. She does recall that she lives at home alone. There is no family members at the bedside initially to assist with history. Onset (ago): unknown Severity: mild Pain Consistency: intermittent Relieving factors: none Exacerbating factors: none Associated symptoms: Reports confusion, malaise and weakness; Deny chest pain, cough, diaphoresis, decreased appetite, dyspnea, fevers/chills, headache(s), nausea, rash, palpitations, seizures, short of breath, syncope or vomiting Treatments prior to arrival: none Review of Systems Const: Reports: malaise; Denies: diaphoresis ENMT: Denies: throat pain, ear or mastoid pain, nasal discharge or nasal congestion Card: Denies: chest pain, palpitations or syncope Resp: Denies: dyspnea GI: Denies: nausea or vomiting : Denies: difficulty voiding, dysuria, urinary frequency or urinary urgency Skin/Breast: Denies: rash Neuro: Reports: confusion; Denies: headache(s) PFS ED PFSH: Medical History AAA (abdominal aortic aneurysm) Abdominal aortic aneurysm -surveillance with serial imaging per PCP and cardiology Dr. Morejon -has been monitoring BP at home closely Allergic rhinitis due to allergen Altered mental status Carotid stenosis Constipation by delayed colonic transit COPD (chronic obstructive pulmonary disease) -Previously oxygen dependent but was recently weaned off -stable respiratory status, supplemental oxygen as needed -No evidence of acute exacerbation currently DDD (degenerative disc disease), lumbar Dementia associated with other underlying disease with behavioral disturbance Hyperlipidemia -continue statin Hypertension Nicotine dependence, cigarettes, with unspecified nicotine-induced disorders Osteoporosis Protein-energy malnutrition Skin lesion of left ear Spondylosis without myelopathy or radiculopathy, lumbosacral region Thoracic aortic aneurysm -as noted above Urinary retention Surgical History History of endarterectomy bilateral History of tonsillectomy and adenoidectomy Hx of cholecystectomy Hx of hysterectomy, total Hx of kyphoplasty Family History Mother , at age 75 No problems noted. Father , in his 50's Heart attack Other CAD (coronary artery disease) Social History Smoking and tobacco status: current every day smoker cigarettes Packs smoked per day: 0.5 Alcohol intake: never Household members: other Details: lives with son in law Marital status: / Current occupational status: retired History of recent travel: No Physical Exam Const: GENERAL APPEARANCE: cooperative, comfortable and ill appearing NUTRITIONAL APPEARANCE: cachectic HENMT: COMMON NORMALS: normocephalic, atraumatic and hearing grossly normal bilaterally HEAD & SCALP: normocephalic and atraumatic Neck/C-Spine: COMMON NORMALS: no JVD Resp: COMMON NORMALS: normal respiratory effort, No retractions, No use of accessory muscles and clear to auscultation bilaterally AUSCULTATION: clear to auscultation bilaterally Cardio: COMMON NORMALS: no JVD, regular rate, regular rhythm and No murmurs present (Cardio) RATE: regular rate RHYTHM: regular rhythm GI: COMMON NORMALS: Soft to palpation and No hepatosplenomegaly present AUSCULTATION: Yes normoactive bowel sounds PALPATION: Yes Soft to palpation, No Tenderness to palpation present (GI), No Guarding due to palpation present (GI) and Yes No hepatosplenomegaly present Extremity: COMMON NORMALS: normal to inspection, capillary refill normal, no clubbing, cyanosis or edema, no calf tenderness and no pedal edema Skin: COMMON NORMALS: no rashes or lesions noted GENERAL SKIN EXAM: no rashes or lesions noted Course Vital Signs: Vital signs: Vital Signs Temperature 98.1 F 11/03/21 10:25 Pulse Rate 66 11/03/21 11:59 Respiratory Rate 18 11/03/21 12:30 Blood Pressure 164/71 11/03/21 12:30 Pulse Oximetry 95 11/03/21 12:30 MDM - General Adult Medical Decision Making Patient is cachectic and seems poorly able to care for self. She has a heart score of 5 and a mildly elevated troponin little over +5 on the 2-hour delta. She had an initial sinus arrhythmia and the second EKG showed junctional rhythm. She did have some chest pain earlier today we will admit her for the elevated troponin for further evaluation will likely need care home placement at the time of discharge pending results of further work-up discussed Dr. Salmon orders written. Lab Data : 11/03/21 08:40 11/03/21 09:47 Radiology Impressions Chest X-Ray 11/03/21 08:17 IMPRESSION: 1. Cardiomegaly with tortuous thoracic aorta unchanged. 2. Hyperinflation with chronic emphysematous changes. 3. No acute pulmonary infiltrates. Head CT 11/03/21 13:13 IMPRESSION: 1. No acute intracranial hemorrhage or edema. 2. Mild atrophy with moderate chronic microvascular ischemic disease which is stable. 3. Mild ventriculomegaly based on atrophy. Laboratory Results WBC 10.5 10^3/uL (4.0-10.0) H 11/03/21 08:40 RBC 4.31 10^6/uL (4.1-5.3) 11/03/21 08:40 Hgb 13.8 g/dL (11.5-15.3) 11/03/21 08:40 Hct 42.4 % (37.0-47.0) 11/03/21 08:40 MCV 98.4 fl (81-99) 11/03/21 08:40 MCH 32.0 pg (28.0-34.0) 11/03/21 08:40 MCHC 32.5 g/dL (30.0-36.0) 11/03/21 08:40 RDW 14.7 % (12.1-15.1) 11/03/21 08:40 Plt Count 166 10^3/cmm (130-400) 11/03/21 08:40 MPV 10.7 fL (7.4-10.4) H 11/03/21 08:40 Neut % (Auto) 72.8 % 11/03/21 08:40 Lymph % (Auto) 19.2 % 11/03/21 08:40 [place] % (Auto) 6.2 % 11/03/21 08:40 Eos % (Auto) 0.6 % 11/03/21 08:40 Baso % (Auto) 0.8 % 11/03/21 08:40 Neut # (Auto) 7.66 10^3/uL (1.8-7.7) 11/03/21 08:40 Lymph # (Auto) 2.0 10^3/uL (0.8-4.8) 11/03/21 08:40 [place] # (Auto) 0.7 10^3/uL (0.2-0.9) 11/03/21 08:40 Eos # (Auto) 0.1 10^3/uL (0.0-0.8) 11/03/21 08:40 Baso # (Auto) 0.1 10^3/uL (0.0-0.1) 11/03/21 08:40 Nucleated RBC % (auto) 0 % 11/03/21 08:40 Nucleated RBCs # 0.0 /100WBC 11/03/21 08:40 Sodium 137 mmol/L (136-145) 11/03/21 09:47 Potassium 3.8 mmol/L (3.5-5.1) 11/03/21 09:47 Chloride 101 mmol/L (98-107) 11/03/21 09:47 Carbon Dioxide 25 mmol/L (22-29) 11/03/21 09:47 Anion Gap 14.8 (5-19) 11/03/21 09:47 BUN 29 mg/dL (8-23) H 11/03/21 09:47 Creatinine 1.3 mg/dL (0.5-0.9) H 11/03/21 09:47 GFR Calculation Not Reportable 11/03/21 09:47 Glucose 104 mg/dL (65-115) 11/03/21 09:47 Calculated Osmolality 290 mOsm/kg (285-295) 11/03/21 09:47 Calcium 10.5 mg/dL (8.5-10.5) 11/03/21 09:47 Total Bilirubin 0.6 mg/dL (0.15-1.2) 11/03/21 09:47 AST 28 U/L (0-32) 11/03/21 09:47 ALT 15 U/L (0-33) 11/03/21 09:47 Alkaline Phosphatase 90 IU/L (35-105) 11/03/21 09:47 Troponin T Baseline 41 ng/L (0-10) H 11/03/21 09:47 Troponin T 120 Minute 46.43 ng/L (0-10) H 11/03/21 11:48 Delta Troponin T 5.43 ABS# (0-10) 11/03/21 11:48 Total Protein 7.6 g/dL (6.6-8.7) 11/03/21 09:47 Albumin 3.9 g/dL (3.5-5.2) 11/03/21 09:47 Globulin 3.7 g/dL (1.3-4.6) 11/03/21 09:47 Urine Color Yellow (Yellow) 11/03/21 10:20 Urine Appearance Clear (CLEAR) 11/03/21 10:20 Urine pH 6 (5-7) 11/03/21 10:20 Ur Specific [place] 1.015 (1.005-1.030) 11/03/21 10:20 Urine Protein 3+ (Negative) H 11/03/21 10:20 Urine Glucose (UA) Norm (Normal) 11/03/21 10:20 Urine Ketones Negative (Negative) 11/03/21 10:20 Urine Blood 2+ (Negative) H 11/03/21 10:20 Urine Nitrate Negative (Negative) 11/03/21 10:20 Urine Bilirubin Neg (Negative) 11/03/21 10:20 Urine Urobilinogen Norm mg/dL (Negative) 11/03/21 10:20 Ur Leukocyte Esterase Negative (Negative) 11/03/21 10:20 Urine RBC 0-4 /hpf (0-2) H 11/03/21 10:20 Urine WBC 0-4 /hpf (0-5) H 11/03/21 10:20 Ur Squamous Epith Cells None /hpf (0-5) 11/03/21 10:20 Amorphous Sediment Not Reportable 11/03/21 10:20 Urine Bacteria Trace /hpf (NONE) 11/03/21 10:20 Discharge Plan Discharge Patient Disposition: Placed in Observation Clinical Impression: Elevated troponin, Dementia associated with other underlying disease with behavioral disturbance, Acute encephalopathy, Cachexia, Atypical chest pain Condition: Stable Prescriptions: No Action magnesium hydroxide [Milk Of Magnesia Concentrated] 2,400 mg/10 mL suspension 10 ml PO .q3 PRN (Reason: constipation) Qty: 200 0RF Rx Instructions: 20 ml every 3 hr until she has a bowel movement. hydroxyzine HCl 10 mg tablet 10 mg PO Q6H PRN (Reason: Runny nose or allergies) Qty: 60 3RF aspirin 81 mg tablet,chewable 81 mg PO DAILY 0RF furosemide 20 mg tablet 20 mg PO DAILY PRN (Reason: edema) Qty: 90 1RF alfuzosin 10 mg tablet extended release 24 hr 10 mg PO DAILY Qty: 30 12RF Rx Instructions: administer after the same meal each day tramadol 50 mg tablet 25 mg PO Q8H PRN (Reason: pain, moderate) 30 Days Qty: 30 1RF atorvastatin 40 mg tablet 40 mg PO DAILY Qty: 90 1RF diclofenac sodium 1 % gel 2 g TOPICAL Q6H 30 Days Qty: 300 1RF pregabalin 25 mg capsule 25 mg PO BID 30 Days Qty: 60 3RF alendronate 70 mg tablet 70 mg PO Q7D Qty: 4 1RF Rx Instructions: TAKE 1 TABLET EVERY 7 DAYS. Mikhail Mag Plus 1 tab PO BID 0RF cholecalciferol (vitamin D3) 25 mcg (1,000 unit) Capsule 25 mcg PO DAILY 0RF polyethylene glycol 3350 [Miralax] 17 gram Powder In Packet 17 g PO DAILY PRN (Reason: Constipation) 0RF Virt-Caps 1 mg capsule 1 cap PO DAILY 0RF docusate sodium [Colace] 100 mg capsule 100 mg PO DAILY PRN (Reason: constipation) 0RF metoprolol tartrate 25 mg tablet 50 mg PO BID Qty: 0 0RF Referrals: David Degroot MD [Primary Care Provider] - Coding Level of Care Code ED Director Safety for Chg Fwd Exam Comprehensive
--- NOTE | 2021-11-03 08:17 | ECG_ITS ---
[facility] Test Date: 2021-11-03 Pat Name: Flor Mishra Department: Room: Gender: Female Hose Tender: : 1935 Requested By: Ramiro Ye Order Number: [id number] Margarita MD: Vicente Beltran M.D. Measurements Intervals [place] Rate: 82 P: 77 NM: 142 QRS: -49 QRSD: 94 T: 40 QT: 356 QTc: 418 Interpretive Statements SINUS RHYTHM WITH OCCASIONAL SUPRAVENTRICULAR PREMATURE COMPLEXES POSSIBLE LEFT ATRIAL ENLARGEMENT [-0.1mV P-WAVE IN V1/V2] LEFT ANTERIOR FASCICULAR BLOCK [QRS AXIS <= -45, QR IN I, RS IN II] SEPTAL MYOCARDIAL INFARCTION , OF INDETERMINATE AGE [40+ ms Q WAVE IN V1/V2] Compared to ECG 08/14/2021 10:12:23 Left anterior fascicular block now present Left-axis deviation no longer present T-wave abnormality no longer present Possible ischemia no longer present Myocardial infarct finding still present Electronically Signed On 11-03-2021 12:12:39 WATCH ASSEMBLY INSPECTOR by Vicente Beltran M.D. [id number]
--- NOTE | 2021-11-03 08:17 | XR_ITS ---
WS: [id number] CHEST XRAY TECHNIQUE: Portable chest. CLINICAL INFORMATION: dyspnea/cough COMPARISON: 08/14/21 FINDINGS: Heart: Cardiomegaly. Aortic calcification. Tortuous thoracic aorta. Lungs: Hyperinflation. Moderate chronic emphysematous changes. No acute pulmonary infiltrates. Calcif ied granulomas. Bones: Osteopenia. Prior vertebroplasty changes at the thoracolumbar junction. XR/XR chest 1V portable 21975 IMPRESSION: 1. Cardiomegaly with tortuous thoracic aorta unchanged. 2. Hyperinflation with chronic emphysematous changes. 3. No acute pulmonary infiltrates.
[2021-11-03 08:50] LABS: Basophils # 0.1 10^3/uL (0.0-0.1); Basophils % 0.8 %; Eosinophils # 0.1 10^3/uL (0.0-0.8); Eosinophils % 0.6 %; Hematocrit 42.4 % (37.0-47.0); Hemoglobin 13.8 g/dL (11.5-15.3); Lymphocytes % 19.2 %; Mean Corpuscular HGB Conc 32.5 g/dL (30.0-36.0); Mean Corpuscular Volume 98.4 fl (81-99); Mean Platelet Volume 10.7 fL (7.4-10.4); Monocytes # 0.7 10^3/uL (0.2-0.9); Monocytes % 6.2 %; Neutrophils # 7.66 10^3/uL (1.8-7.7); Neutrophils % 72.8 %; Nucleated Red Blood Cells % 0 %; Platelet Count 166 10^3/cmm (130-400); Red Blood Count 4.31 10^6/uL (4.1-5.3); Red Cell Distribution Width 14.7 % (12.1-15.1); White Blood Count 10.5 10^3/uL (4.0-10.0)
[2021-11-03] MEDS: amlodipine 10 mg Tablet PO (09:54)
[2021-11-03] MEDS: metoprolol tartrate 50 mg Tablet PO (09:54)
[2021-11-03] MEDS: enalaprilat 1.25 mg/mL Inj IVP (09:55)
[2021-11-03] MEDS: labetalol 5 mg/mL SDV 20mL 10 MG IVP (10:01)
[2021-11-03 10:16] LABS: Alanine Aminotransferase 15 U/L (0-33); Albumin Level 3.9 g/dL (3.5-5.2); Alkaline Phosphatase 90 IU/L (35-105); Anion Gap 14.8 (5-19); Aspartate Amino Transferase 28 U/L (0-32); Blood Urea Nitrogen 29 mg/dL (8-23); Calcium 10.5 mg/dL (8.5-10.5); Carbon Dioxide 25 mmol/L (22-29); Chloride 101 mmol/L (98-107); Globulin 3.7 g/dL (1.3-4.6); Glucose 104 mg/dL (65-115); Osmolality Calculated 290 mOsm/kg (285-295); Potassium 3.8 mmol/L (3.5-5.1); Sodium 137 mmol/L (136-145); Total Bilirubin 0.6 mg/dL (0.15-1.2); Total Protein 7.6 g/dL (6.6-8.7)
--- NOTE | 2021-11-03 10:17 | ECG_ITS ---
[facility] Test Date: 2021-11-03 Pat Name: Flor Mishra Department: Room: Gender: Female Wind Energy Technician: : 1935 Requested By: Ramiro Ye Order Number: [id number] Margarita MD: Vicente Beltran M.D. Measurements Intervals [place] Rate: 80 P: -88 [place]: 106 QRS: -52 QRSD: 100 T: -21 QT: 388 QTc: 449 Interpretive Statements ECTOPIC ATRIAL RHYHTM LEFT ANTERIOR FASCICULAR BLOCK [QRS AXIS <= -45, QR IN I, RS IN II] SEPTAL MYOCARDIAL INFARCTION , PROBABLY OLD [40+ ms Q WAVE IN V1/V2] Compared to ECG 11/03/2021 08:27:19 Sinus rhythm no longer present Myocardial infarct finding still present Electronically Signed On 11-03-2021 12:16:57 PREVOCATIONAL/REHABILITATION COUNSELOR by Vicente Beltran M.D. [id number]
[2021-11-03 10:19] LABS: Troponin(5th) Baseline 41 ng/L (0-10)
[2021-11-03 10:49] LABS: Urine Appearance Clear (CLEAR); Urine Color Yellow (Yellow); pH Urine 6 (5-7)
[2021-11-03 10:50] LABS: Add Urine Microscopic? YES; Bilirubin Urine Neg (Negative); Blood Urine 2+ (Negative); Glucose Urine UA Norm (Normal); Ketones Urine Negative (Negative); Leukocyte Esterase Urine Negative (Negative); Nitrate Urine Negative (Negative); Protein Urine 3+ (Negative); Specific Gravity, Urine 1.015 (1.005-1.030); Urobilinogen Urine Norm (Negative)
[2021-11-03 11:20] LABS: Add Urine Culture? No; Bacteria Urine TRACE /hpf; RBC Urine 0-4 /hpf (0-2); WBC Urine 0-4 /hpf (0-5)
[2021-11-03] MEDS: lactated ringers 1,000 ML 999 ML IV (11:54)
--- NOTE | 2021-11-03 11:55 | PC.NURSE ---
LR bolus infusing.
[2021-11-03 12:13] LABS: Troponin 5 2HR 46.43 ng/L (0-10); Troponin 5 2HR Delta 5.43 ABS# (0-10)
--- NOTE | 2021-11-03 13:13 | CT_ITS ---
WS: [id number] CT HEAD NONCONTRAST HISTORY: ams TECHNIQUE: Contiguous axial imaging performed through the brain in 2.5 mm imaging. Bone and soft tiss ue windows. Sagittal and coronal reformats reviewed. All CT scans at [facility] use at least one of these dose optimization techniques: automated exposure control; mA and/or kV adjustment per pa tient size (includes targeted exams where dose is matched to clinical indication); or iterative recon struction. DLP: 1391.35 mGy.cm COMPARISON: 08/14/2021 No acute intracranial hemorrhage, midline shift or mass effect. Mild atrophy and moderate chronic microvascular ischemic disease. No prior infarct. Ventricles: Ventricles and extra-axial spaces are prominent on the basis of central and peripheral a trophy. No intraventricular blood. No inferior displacement of cerebellar tonsils. Paranasal sinuses: As visualized are clear. Mastoid air cells: Well pneumatized. Calvarium and scalp: Skull is intact with no soft tissue edema or swelling. CT/CT head wo con* [id number] IMPRESSION: 1. No acute intracranial hemorrhage or edema. 2. Mild atrophy with moderate chronic microvascular ischemic disease which is stable. 3. Mild ventriculomegaly based on atrophy.
--- NOTE | 2021-11-03 13:26 | PC.NURSE ---
Loreta @BS for carotid US
--- NOTE | 2021-11-03 13:27 | PM.HP ---
Providers/Chief Complaint Primary Care Provider: David Degroot MD Chief Complaint: GENERALIZED WEAKNESS, ALOC History of Present Illness Flor Mishra is a 86 year old female history of smoking, dementia, COPD, carotid artery stenosis status post bilateral carotid endarterectomy, protein calorie malnutrition, underweight, hyperlipidemia hypertension, opiate dependent, who presents [facility] due to decreased feeding, increased fatigue, alteration in her mentation. Currently patient is alert to person, not to place, not to time, she doesn't give me straightforward answers, she keeps repeating my questioning. When asked her why she is here in the hospital, she tells me that's a good question, there is many reasons, but she never elaborates. I asked her if she had any chest pain she denied I asked her if she had any abdominal complaint she denied. Denied any shortness of breath. Denied any falls. He denied any pain. She gets very aggravated with me when I try to examine her lesion on her left ear she tells me to leave it alone. I was unable to get any history from her. I spoke to patient's caregiver Rich Silva. Rich is patient's son-in-law. He was to Flor's daughter. He tells me that Flor's daughter used to take care of Flor, and he used to help. However when Flor's daughter got sick and he promised to take care of Flor when she passed. He tells me that she does not ambulate, she has dementia, as she has slowly been declining over the last few years and last few months. Her appetite has decreased, she becomes more forgetful, she is less mobile. She hasn't had any particular complaints. But she has been losing weight, it is harder for her to get her to take her medications, get her to eat. He tells me that over the weekend she acutely became more confused than her normal, as she wasn't taking her blood pressure medications which had a very concerned. Due to increased confusion, inability to take her oral medications, and her increased weakness he brought her to the emergency room for further evaluation. Here in the emergency room, she has no significant evidence of UTI. No evidence of pneumonia. No significant electrolyte abnormalities. Her troponin is 41, she has no chest pain complaints, no significant ST-T wave changes. Review of Systems General: Reports: ROS unobtainable due to mental status Medications/Allergies Home Medications Medication Instructions Recorded Confirmed Last Taken Type aspirin 81 mg chewable tablet 81 mg PO DAILY 10/25/19 11/03/21 Unknown History cholecalciferol (vitamin D3) 25 25 mcg PO DAILY 12/30/19 11/03/21 Unknown History mcg (1,000 unit) capsule polyethylene glycol 3350 17 gram 17 g PO DAILY PRN 12/30/19 11/03/21 Unknown History oral powder packet (Miralax) Mikhail Mag Plus 1 tab PO BID 03/09/20 11/03/21 Unknown History furosemide 20 mg tablet 20 mg PO DAILY PRN #90 tab 05/15/20 11/03/21 Unknown Rx alfuzosin 10 mg tablet,extended 10 mg PO DAILY #30 tab 03/11/21 11/03/21 Unknown Rx release 24 hr atorvastatin 40 mg tablet 40 mg PO DAILY #90 tab 05/06/21 11/03/21 Unknown Rx docusate sodium 100 mg capsule 100 mg PO DAILY PRN 08/14/21 11/03/21 Unknown History (Colace) vitamin B complex and vitamin C 1 cap PO DAILY 08/14/21 11/03/21 Unknown History no.20-folic acid 1 mg capsule (Virt-Caps) metoprolol tartrate 25 mg tablet 50 mg PO BID #0 tab 08/17/21 11/03/21 Unknown Rx magnesium hydroxide 2,400 mg/10 mL 10 ml PO .q3 PRN #200 ml 08/25/21 11/03/21 Unknown Rx oral suspension (Milk Of Magnesia Concentrated) tramadol 50 mg tablet 25 mg PO Q8H PRN 30 Days #30 tab 09/04/21 11/03/21 Unknown Rx diclofenac sodium 1 % topical gel 2 g TOPICAL Q6H 30 Days #300 g 09/30/21 11/03/21 Unknown Rx pregabalin 25 mg capsule 25 mg PO BID 30 Days #60 cap 10/08/21 11/03/21 Unknown Rx hydroxyzine HCl 10 mg tablet 10 mg PO Q6H PRN #60 tab 10/23/21 11/03/21 Unknown Rx alendronate 70 mg tablet 70 mg PO Q7D #4 tab 10/28/21 11/03/21 Unknown Rx Allergies Allergy/AdvReac Type Severity Reaction Status Date / Time levofloxacin Allergy Severe ADR-Halluci Verified 11/03/21 11:48 nating carbidopa [From Sinemet] Allergy Unknown Verified 11/03/21 11:48 hydrocodone Allergy ALGY-Swell Verified 11/03/21 11:48 Lip/Tongue/Throat latex Allergy ALGY-Anaphy Verified 11/03/21 11:48 laxis levodopa [From Sinemet] Allergy Unknown Verified 11/03/21 11:48 Penicillins Allergy ALGY-Bliste Verified 11/03/21 11:48 r Sulfa (Sulfonamide Allergy ALGY-Hives Verified 11/03/21 11:48 Antibiotics) tetracycline Allergy ALGY-Swell Verified 11/03/21 11:48 Lip/Tongue/Throat PFSH Acute PFSH: Medical History AAA (abdominal aortic aneurysm) Abdominal aortic aneurysm -surveillance with serial imaging per PCP and cardiology Dr. Morejon -has been monitoring BP at home closely Allergic rhinitis due to allergen Altered mental status Carotid stenosis Constipation by delayed colonic transit COPD (chronic obstructive pulmonary disease) -Previously oxygen dependent but was recently weaned off -stable respiratory status, supplemental oxygen as needed -No evidence of acute exacerbation currently DDD (degenerative disc disease), lumbar Dementia associated with other underlying disease with behavioral disturbance Hyperlipidemia -continue statin Hypertension Nicotine dependence, cigarettes, with unspecified nicotine-induced disorders Osteoporosis Protein-energy malnutrition Skin lesion of left ear Spondylosis without myelopathy or radiculopathy, lumbosacral region Thoracic aortic aneurysm -as noted above Urinary retention Surgical History History of endarterectomy bilateral History of tonsillectomy and adenoidectomy Hx of cholecystectomy Hx of hysterectomy, total Hx of kyphoplasty Family History Mother , at age 75 No problems noted. Father , in his 50's Heart attack Other CAD (coronary artery disease) Social History Smoking and tobacco status: current every day smoker cigarettes Packs smoked per day: 0.5 Alcohol intake: never Household members: other Details: lives with son in law Marital status: / Current occupational status: retired History of recent travel: No Vitals/I&O/Wt Last Vital Signs Temp 98.1 F 11/03/21 10:25 Pulse 66 11/03/21 11:59 Resp 18 11/03/21 11:59 BP 117/49 11/03/21 11:59 Pulse Ox 94 11/03/21 11:59 Weight last 48 hrs Weight 29.484 kg Physical Exam Narrative: Alert to person, not to place, not to time, Const: COMMON NORMALS: no acute distress EXAM LIMITATIONS: altered mental status GENERAL APPEARANCE: frail appearing NUTRITIONAL APPEARANCE: cachectic ORIENTATION/CONSCIOUSNESS: Yes awake and Yes oriented to person HENMT: COMMON NORMALS: normocephalic HEAD & SCALP: normocephalic Eye: COMMON NORMALS: Equal, round and reactive pupils present Resp: COMMON NORMALS: normal respiratory effort, No retractions, No use of accessory muscles and clear to auscultation bilaterally AUSCULTATION: clear to auscultation bilaterally Cardio: COMMON NORMALS: regular rate, regular rhythm, S1 normal heart sound present and S2 normal heart sound present RATE: regular rate RHYTHM: regular rhythm HEART SOUNDS: S1 normal heart sound present and S2 normal heart sound present GI: COMMON NORMALS: Normal to inspection, nondistended, normoactive bowel sounds present, Soft to palpation and non-tender PALPATION: Yes Soft to palpation Extremity: COMMON NORMALS: no pedal edema Data : 11/03/21 08:40 11/03/21 09:47 A&P Assessment and plan (1) Dementia associated with other underlying disease with behavioral disturbance: Status: Acute (2) Acute encephalopathy: Status: Acute (3) Protein calorie malnutrition: Status: Acute (4) Cachexia: Status: Acute (5) NSTEMI (non-ST elevated myocardial infarction): Status: Acute Plan Acute encephalopathy -Baseline alert to person, to place, not to time, can carry out conversations -According to family more confused than normal -Currently alert to person, not to place, not to time, keeps repeating my questions, cannot get a straightforward answer from her -No evidence of UTI -No evidence of pneumonia -Was initially hypotensive, blood pressures have improved -We'll do CT of the head, tsh -Carotid artery ultrasounds -Neurochecks -Aspiration precautions -Dysphagia diet -Consult speech therapy -Consult nutrition -PT OT -Full code -Lovenox for DVT prophylaxis Hypertension, continue home medications, labetalol as needed Poor appetite, as above, TSH Protein calorie malnutrition, as above Cachexia as above NSTEMI, baseline troponin 41, no chest pain complaints, no acute ST-T wave changes, continue to monitor, telemetry monitoring Attestations Medical Necessity Statement*: Patient requires hospitalization for acute encephalopathy, OFE, deconditioning, cachexia, protein calorie malnutrition Coding Level of Care Code Acute Swedish Masseuse for [facility] Fwd Diagnoses Dementia associated with other underlying disease with behavioral disturbance F02.81 Acute encephalopathy G93.40 Protein calorie malnutrition E46 Cachexia R64 NSTEMI (non-ST elevated myocardial infarction) I21.4
--- NOTE | 2021-11-03 13:35 | PC.NURSE ---
Updated pt's son-in-law per pt's request that she will be placed in observation overnight.
--- NOTE | 2021-11-03 14:17 | ECG_ITS ---
[facility] Test Date: 2021-11-03 Pat Name: Flor Mishra Department: Room: Gender: Female Communication Center Coordinator: : 1935 Requested By: Ramiro Ye Order Number: [id number] Margarita MD: Vicente Beltran M.D. Measurements Intervals [place] Rate: 59 P: 61 RI: 131 QRS: -31 QRSD: 92 T: 40 QT: 425 QTc: 424 Interpretive Statements SINUS BRADYCARDIA WITH OCCASIONAL SUPRAVENTRICULAR PREMATURE COMPLEXES LEFT AXIS DEVIATION [QRS AXIS < -30] NONSPECIFIC T-WAVE ABNORMALITY Compared to ECG 11/03/2021 10:02:02 Left-axis deviation now present T-wave abnormality now present Left anterior fascicular block no longer present Myocardial infarct finding no longer present Electronically Signed On 11-03-2021 22:21:23 MASTER CHEF by Vicente Beltran M.D. [id number]
--- NOTE | 2021-11-03 16:14 | PC.NURSE ---
Report called to Viktoria.
[2021-11-03 16:32] LABS: Troponin 5 6HR 37.27 ng/L (0-10)
[2021-11-03 16:36] LABS: Troponin 5 6HR Delta -3.73 ng/L (0-12)
[2021-11-03] MEDS: dextrose 5%-sod chloride 0.9% 1,000 ML 75 ML IV (17:59)
[2021-11-03] MEDS: enoxaparin 40 mg/0.4 mL Syringe SUBCUT (18:00)
[2021-11-03] MEDS: pantoprazole 40 mg SDV IVP (18:01)
[2021-11-03] MEDS: docusate sodium 100 mg Capsule PO (18:01)
[2021-11-03] MEDS: hyDRALAzine 10 mg Tablet PO (18:02)
[2021-11-03] MEDS: metoprolol tartrate 25 mg Tablet 50 MG PO (18:02)
[2021-11-03 19:52] LABS: Thyroid Stimulating Hormone 1.98 uIU/mL (0.27-4.20)
[2021-11-04] VITALS (8 sets, daily range): BP systolic 129–171; BP diastolic 67–102; PULSE 51–78; RESP 16–18; TEMP 36.4–36.6; O2SAT 90–97
--- NOTE | 2021-11-04 | USCV_ITS ---
Carotid Duplex Flor Mishra Age: 86 Gender: F : 1935 Exam Date: 11/04/2021 04:00 Ordering Phys: Jamie Salmon MD Technologist: [email or web address] [place] [facility] [place]: AMS Risk Factors: Previous Vascular Surgery: Right Brachial BP: / Left Brachial BP: / Right Left Velocity (cm/s) Spectral Plaque Velocity (cm/s) Spectral Plaque Syst/Diast Broadening Syst/Diast Broadening 41.90/ 3.90 Prox CCA 53.60 / 7.80 35.70/ 5.40 Mid CCA 60.60 / 12.40 37.30/ 4.70 Distal CCA 40.40 / 4.70 40.20/ 7.70 Prox ICA / 22.70/ 5.20 Mid ICA / 30.30/ 4.50 Distal ICA / 30.50 ECA 41.20 0.96 ICA/CCA Antegrade Vertebral 41.10/ 5.90 cm/s / cm/s Tri Subclavian 82.30 FINDINGS Comparison:. 12/03/20 Study terminated early as patient was unable to cooperate. Complete evaluation of the left carotid not performed. Diffuse bilateral scattered calcified plaque and intimal thickening throughout the common carotid arteries and extending through the bifurcation. Arteries are ectatic and with mild diffuse atherosclerosis. Antegrade right vertebral artery. CONCLUSIONS Right ICA stenosis < 50%. Study of the left carotid not completed due to patient inability to cooperate. Dr. Eden Chester DO (Electronically Signed) Final Date: 04 November 2021 08:41 S
[2021-11-04 05:38] LABS: Basophils # 0.1 10^3/uL (0.0-0.1); Basophils % 0.5 %; Eosinophils # 0.1 10^3/uL (0.0-0.8); Eosinophils % 0.8 %; Hematocrit 40.7 % (37.0-47.0); Hemoglobin 13.3 g/dL (11.5-15.3); Lymphocytes # 1.6 10^3/uL (0.8-4.8); Lymphocytes % 17.2 %; Mean Corpuscular HGB Conc 32.7 g/dL (30.0-36.0); Mean Corpuscular Hemoglobin 31.6 pg (28.0-34.0); Mean Corpuscular Volume 96.7 fl (81-99); Mean Platelet Volume 10.6 fL (7.4-10.4); Monocytes # 0.5 10^3/uL (0.2-0.9); Monocytes % 5.7 %; Neutrophils # 7.17 10^3/uL (1.8-7.7); Neutrophils % 75.5 %; Nucleated Red Blood Cells % 0 %; Platelet Count 183 10^3/cmm (130-400); Red Blood Count 4.21 10^6/uL (4.1-5.3); Red Cell Distribution Width 14.8 % (12.1-15.1); White Blood Count 9.5 10^3/uL (4.0-10.0)
[2021-11-04 05:55] LABS: Alanine Aminotransferase 14 U/L (0-33); Alkaline Phosphatase 88 IU/L (35-105); Aspartate Amino Transferase 29 U/L (0-32); Blood Urea Nitrogen 25 mg/dL (8-23); Calcium 9.5 mg/dL (8.5-10.5); Carbon Dioxide 28 mmol/L (22-29); Chloride 103 mmol/L (98-107); Globulin 2.9 g/dL (1.3-4.6); Glucose 99 mg/dL (65-115); Magnesium 1.9 mg/dL (1.7-2.3); Osmolality Calculated 296 mOsm/kg (285-295); Phosphorus 2.3 mg/dL (2.5-4.5); Sodium 141 mmol/L (136-145); Total Bilirubin 0.5 mg/dL (0.15-1.2); Total Protein 6.9 g/dL (6.6-8.7)
[2021-11-04] MEDS: dextrose 5%-sod chloride 0.9% 1,000 ML 75 ML IV (05:56)
[2021-11-04 05:59] LABS: Anion Gap 13.4 (5-19); Potassium 3.4 mmol/L (3.5-5.1)
--- NOTE | 2021-11-04 09:20 | PC.CHAP ---
Pastoral Care Encounter/Spiritual Assessment Type of Contact [] Declined sap basis consultant visit [] Patient/Family/Request visit [] Outpatient visit [] Follow-up visit [] Physician referral [] Code/Alert [x] Routine visit [] Staff referral [] Actively dying [] Patient sleeping [] Family support [] [] Out of room [] Palliative care [] [] Receiving care in room [] Pre-surgical visit [] Trauma [] Long length of stay [] ICU visit [] Other: Relational/Emotional Strength [] Patient feels connected with others/family/visitors/staff [] Distress [] Loneliness/isolation [] Abandonment Spirituality of Patient [x] Person of Leslee [] Attends Advent of their Leslee [x] Believes in Prayer [] Reads Bible or Rastafari materials [] There are Spiritual issues to be addressed Assistant Sales Director Interventions [x] Prayer [x] Active listening [x] Non-anxious presence [x] Spiritual/emotional support [] Crisis/trauma care [] Spiritual counseling [] Bereavement support [] Provided bereavement packet [] Provided Bible/devotional materials [] Provided toy/stuffed animal, coloring book to patient or family member [] Provided Communion [] Anointing/[place] [] Salvation [x] Completed spiritual assessment [] Other: Impact on Illness or Injury [] Angry [] Fearful [] Anxious [] Often cries [] Exhaustion [] Unable to work [] Unable to attend sikh [] Unable to walk/stand [] Unable to read [] Unable to drive [] Unable to eat/drink [] Unable to sleep [] Unable to be with family [] Patient intubated [] Other: Summary Pt spoke very softly and was rambling in her communication. Assistant Sales Director uncertain how much she seemed to understand as to what was going on around her. She did indicate she is a person of leslee and agreed for Assistant Sales Director to pray for her. Time spent with patient 10m
--- NOTE | 2021-11-04 09:25 | CT_ITS ---
WS: [id number] CT ABDOMEN AND PELVIS WITH CONTRAST HISTORY: RUQ pain, epigastric pain TECHNIQUE: Imaging performed of the abdomen and pelvis with IV contrast. Single phase imaging of the abdomen. Coronal and sagittal reformats are submitted. All CT scans at [facility] use at [facility] one of these dose optimization techniques: automated exposure control; mA and/or kV adjustment per patient size (includes targeted exams where dose is matched to clinical indication); or iterative re construction. IV CONTRAST: Visipaque 320; 75 mL IV. Oral contrast: No DLP: 1883.04 mGy.cm COMPARISON: 12/29/2019 and 10/30/2019 Lower thorax: Small amount of edema and interstitial thickening at the LEFT lung base. Moderate enlar gement of the heart. No hiatal hernia. Liver/biliary system: Heterogeneous enhancement throughout the liver. There is mild central bile duct dilatation which may be related to the aging process and cholecystectomy. Gallbladder: Status post cholecystectomy. Pancreas: Marked atrophy. Common bile duct at the pancreatic head is 7 mm. Spleen: Normal size spleen. No mass or infarct. Adrenal glands: Poorly visualized. Right kidney: Severe cortical thinning and atrophy with multiple cysts. The largest cyst extends ante rior measuring 6.9 x 7.3 cm. No obstruction. Left kidney: Marked atrophy of the LEFT kidney with multiple cysts. Aorta: Severe atherosclerotic disease throughout the aorta. Mild ectasia and mild diffuse aneurysmal dilatation with the lumen measuring up to 3.8 cm. Circumferential plaque with narrowing of the centra l lumen. Heavy calcification continues into the iliac arteries. There is heavy calcified plaque exten ding into the celiac axis and SMA with various degrees of stenosis. Lymphadenopathy: Adenopathy is not identified but would easily be obscured without contrast and lack of fat. Free fluid: Very small amount of fluid in the pelvis. There are several small foci of free air scattered throughout the peritoneal cavity. There are only a few foci of air. GI tract: Study was performed without oral contrast. There is air distention greatest of the RIGHT co amberly. Air appears to be within the wall of the colon. Suspect ischemic changes and pneumatosis. No GI tract obstruction. Fecal retention at the rectum. Abdominal wall: Unremarkable abdominal wall. No hernia. Pelvis: Small amount of free fluid. Well-distended urinary bladder. Bones: Numerous vertebroplasties from compression fractures including T12, L1, L2, L4 and L5.. CT/CT abdomen pelvis w con* [id number] IMPRESSION: 1. There are several small foci of free air in the peritoneal cavity. Suspicio us for pneumatosis in the RIGHT colon. Quality of this examination is limited w ithout mesenteric fat and lack of oral contrast. 2. Severe atherosclerosis throughout the abdominal aorta and the mesenteric ar teries. Advanced atherosclerotic disease within the celiac axis and SMA be may be contributing to the ischemic changes in the GI tract. 3. Mild diffuse dilatation of the aorta measuring up to 3.8 cm. 4. Small amount of free fluid. 5. Prior cholecystectomy. 6. Severe LEFT renal atrophy with bilateral renal cysts. Notified Jamie Salmon MD at 11/04/2021 11:45 AM.
[2021-11-04] MEDS: potassium chloride ER 20 mEq Tablet 40 MEQ PO (09:49)
[2021-11-04] MEDS: docusate sodium 100 mg Capsule PO ×2 (09:50→16:30)
[2021-11-04] MEDS: atorvastatin 40 mg Tablet PO (09:50)
[2021-11-04] MEDS: cholecalciferol (vitamin D3) 1,000 unit Tablet 1000 UNIT PO (09:50)
[2021-11-04] MEDS: hyDRALAzine 10 mg Tablet PO ×3 (09:50→20:27)
[2021-11-04] MEDS: aspirin 81 mg Chew Tablet PO (09:50)
[2021-11-04] MEDS: metoprolol tartrate 25 mg Tablet 50 MG PO ×2 (09:51→16:31)
--- NOTE | 2021-11-04 10:55 | P.PN_ITS ---
Subjective Subjective: This morning patient was examined, she is alert to person, not to place, not to time, she does follow commands at times, but becomes confused, she keeps repeating my questioning, her only complaint is abdominal pain, when I palpate her epigastrium in the right upper quadrant she complains of pain, either than that no significant events overnight I had the following discussion with patient's healthcare power of insurance defense attorney Marilee fleming, and her grandaughter, according to Marilee, patient has had a slow decline, over the last few weeks, it has been a bit more rapid which was concerning. I discussed with her family her worsening likely underlying dementia, her deconditioning, protein calorie malnutrition, or anorexia, currently I have not found a reversible reason for her decline in her functio fatoumata, her poor appetite, her weight loss. A carotid artery ultrasound and CT of the abdomen is still pending. But currently I recommend for long term placement for nutrition, physical therapy, and nursing care. Patient's family voiced understanding, all questions answered, they feel that patient's ocular care technologist Rich has done the best he can, however patient is gradually declining, and that long term with the best place for her. She has been at [facility] in the past, they would like her to be at [facility]. I also discussed the possibility of PEG tube placement, for optimal feeding, however they feel that this is not in line with her wishes, they do not want her to undergo aggressive interventions, they want her to be comfortable above all. In addition I discussed her CODE STATUS, they want her to be a DNR/DNI. Discussed the risks and benefits, they voiced understanding, all questions answered, agreed to proceed. Vitals/I&O/Wt Last Vital Signs Temp 97.7 F 11/04/21 07:20 Pulse 63 11/04/21 07:20 Resp 18 11/04/21 07:20 BP 164/67 11/04/21 07:20 Pulse Ox 94 11/04/21 07:20 11/03/21 11/04/21 11/04/21 22:59 06:59 14:59 Intake Total 1240 / 1240 896.25 / 2136.25 Balance 1240 / 1240 896.25 / 2136.25 Weight last 48 hrs Weight 29.484 kg Physical Exam Const: COMMON NORMALS: no acute distress and patient oriented x3 Resp: COMMON NORMALS: normal respiratory effort, No retractions, No use of accessory muscles and clear to auscultation bilaterally AUSCULTATION: clear to auscultation bilaterally Cardio: COMMON NORMALS: regular rate, regular rhythm, S1 normal heart sound present and S2 normal heart sound present RATE: regular rate RHYTHM: regular rhythm HEART SOUNDS: S1 normal heart sound present and S2 normal heart sound present GI: COMMON NORMALS: Normal to inspection, nondistended, normoactive bowel sounds present AUSCULTATION: Yes normoactive bowel sounds PALPATION: Yes Tenderness to palpation present (GI) (Tender in the epigastrium, right upper quadrant) Extremity: COMMON NORMALS: no pedal edema Neuro: COMMON NORMALS: patient oriented x3 Psych: COMMON NORMALS: mental status grossly normal Data : 11/04/21 05:26 11/04/21 05:26 A&P Assessment and plan (1) Dementia associated with other underlying disease with behavioral disturbance: Status: Acute (2) Acute encephalopathy: Status: Acute (3) Protein calorie malnutrition: Status: Acute (4) Cachexia: Status: Acute (5) NSTEMI (non-ST elevated myocardial infarction): Status: Acute Plan Acute encephalopathy -Baseline alert to person, to place, not to time, can carry out conversations -According to family more confused than normal -Seems more like a gradual decline in her cognitive function -Currently alert to person, not to place, not to time, keeps repeating my questions, cannot get a straightforward answer from her -No evidence of UTI -No evidence of pneumonia -Was initially hypotensive, blood pressures have improved -CT of the head no acute findings, TSH within normal limits -Carotid artery ultrasounds pending -Neurochecks -Aspiration precautions -Dysphagia diet -Consult speech therapy -Consult nutrition -PT OT -Full code -Lovenox for DVT prophylaxis -We will work on long term placement Hypertension, continue home medications, labetalol as needed Poor appetite, as above, within normal limits Protein calorie malnutrition, as above Cachexia as above NSTEMI, baseline troponin 41, no chest pain complaints, no acute ST-T wave changes, continue to monitor, telemetry monitoring Attestations Medical Necessity Statement*: Patient requires hospitalization for acute encephalopathy Coding Level of Care Code Acute Global Clinical Leader for [facility] Fwd Diagnoses Dementia associated with other underlying disease with behavioral disturbance F02.81 Acute encephalopathy G93.40 Protein calorie malnutrition E46 Cachexia R64 NSTEMI (non-ST elevated myocardial infarction) I21.4
[2021-11-04] MEDS: iodixanol 320 mg/mL 100mL Btl IV (11:08)
[2021-11-04 14:16] LABS: Lactate (Lactic Acid level) 1.4 mmol/L (0.5-2.2)
[2021-11-04] MEDS: metroNIDAZOLE IV 500 MG/100 ML PREMIX 100 MG IV ×2 (14:42→20:27)
[2021-11-04] MEDS: enoxaparin 30 mg/0.3 mL Syringe SUBCUT (16:29)
[2021-11-04] MEDS: pantoprazole 40 mg SDV IVP (16:30)
[2021-11-05 04:00] VITALS: BP 140/96; PULSE 60; RESP 16; TEMP 36.5; O2SAT 93
[2021-11-05] MEDS: metroNIDAZOLE IV 500 MG/100 ML PREMIX 100 MG IV ×2 (04:20→17:01)
[2021-11-05] MEDS: dextrose 5%-sod chloride 0.9% 1,000 ML 75 ML IV ×2 (04:21→21:17)
[2021-11-05 07:24] VITALS: BP 188/86; PULSE 72; RESP 13; TEMP 36.4; O2SAT 95
[2021-11-05] MEDS: metoprolol tartrate 25 mg Tablet 50 MG PO ×2 (08:23→17:02)
[2021-11-05] MEDS: hyDRALAzine 10 mg Tablet PO ×3 (08:23→21:13)
[2021-11-05] MEDS: cholecalciferol (vitamin D3) 1,000 unit Tablet 1000 UNIT PO (08:23)
[2021-11-05] MEDS: aspirin 81 mg Chew Tablet PO (08:23)
[2021-11-05] MEDS: docusate sodium 100 mg Capsule PO ×2 (08:23→17:01)
[2021-11-05] MEDS: atorvastatin 40 mg Tablet PO (08:23)
[2021-11-05 08:24] LABS: Basophils # 0.1 10^3/uL (0.0-0.1); Basophils % 0.4 %; Eosinophils # 0.1 10^3/uL (0.0-0.8); Eosinophils % 0.4 %; Hematocrit 45.8 % (37.0-47.0); Hemoglobin 15.1 g/dL (11.5-15.3); Lymphocytes # 1.9 10^3/uL (0.8-4.8); Lymphocytes % 16.3 %; Mean Corpuscular Hemoglobin 31.5 pg (28.0-34.0); Mean Corpuscular Volume 95.6 fl (81-99); Mean Platelet Volume 10.4 fL (7.4-10.4); Monocytes # 0.8 10^3/uL (0.2-0.9); Monocytes % 6.5 %; Neutrophils # 8.75 10^3/uL (1.8-7.7); Neutrophils % 76.1 %; Nucleated Red Blood Cells % 0 %; Platelet Count 216 10^3/cmm (130-400); Red Blood Count 4.79 10^6/uL (4.1-5.3); Red Cell Distribution Width 14.6 % (12.1-15.1); White Blood Count 11.5 10^3/uL (4.0-10.0)
[2021-11-05 08:46] LABS: Alanine Aminotransferase 17 U/L (0-33); Albumin Level 4.4 g/dL (3.5-5.2); Alkaline Phosphatase 99 IU/L (35-105); Anion Gap 13.5 (5-19); Aspartate Amino Transferase 32 U/L (0-32); Blood Urea Nitrogen 15 mg/dL (8-23); Calcium 10.2 mg/dL (8.5-10.5); Carbon Dioxide 30 mmol/L (22-29); Chloride 101 mmol/L (98-107); Creatinine Clr Calc Pharmacy 18.7961; Globulin 3.7 g/dL (1.3-4.6); Glucose 117 mg/dL (65-115); Magnesium 1.7 mg/dL (1.7-2.3); Osmolality Calculated 294 mOsm/kg (285-295); Phosphorus 1.9 mg/dL (2.5-4.5); Potassium 3.5 mmol/L (3.5-5.1); Sodium 141 mmol/L (136-145); Total Bilirubin 0.7 mg/dL (0.15-1.2); Total Protein 8.1 g/dL (6.6-8.7)
[2021-11-05 12:00] VITALS: BP 171/98; PULSE 68; RESP 18; TEMP 36.5; O2SAT 95
[2021-11-05 15:36] VITALS: BP 185/66; PULSE 61; RESP 18; TEMP 36.4; O2SAT 96
--- NOTE | 2021-11-05 15:52 | PM.PN ---
Subjective Subjective: Patient was seen this morning, alert to person, not to place, not to time, does follow commands, has no abdominal pain complaints, but when I palpate her abdomen she does complain of diffuse pain Vitals/I&O/Wt Last Vital Signs Temp 97.6 F 11/05/21 15:36 Pulse 61 11/05/21 15:36 Resp 18 11/05/21 15:36 BP 185/66 11/05/21 15:36 Pulse Ox 96 11/05/21 15:36 11/05/21 11/05/21 11/05/21 06:59 14:59 22:59 Intake Total 340 / 340 Balance 340 / 340 Physical Exam Const: COMMON NORMALS: no acute distress and patient oriented x3 Resp: COMMON NORMALS: normal respiratory effort, No retractions, No use of accessory muscles and clear to auscultation bilaterally AUSCULTATION: clear to auscultation bilaterally Cardio: COMMON NORMALS: regular rate, regular rhythm, S1 normal heart sound present and S2 normal heart sound present RATE: regular rate RHYTHM: regular rhythm HEART SOUNDS: S1 normal heart sound present and S2 normal heart sound present GI: COMMON NORMALS: Normal to inspection, nondistended, normoactive bowel sounds present and Soft to palpation AUSCULTATION: Yes normoactive bowel sounds PALPATION: Yes Soft to palpation and Yes Tenderness to palpation present (GI) (Diffuse tenderness) Extremity: COMMON NORMALS: no pedal edema Neuro: COMMON NORMALS: patient oriented x3 Psych: COMMON NORMALS: mental status grossly normal Data : 11/05/21 08:20 11/05/21 08:20 A&P Assessment and plan (1) Dementia associated with other underlying disease with behavioral disturbance: Status: Acute (2) Acute encephalopathy: Status: Acute (3) Protein calorie malnutrition: Status: Acute (4) Cachexia: Status: Acute (5) NSTEMI (non-ST elevated myocardial infarction): Status: Acute (6) Pneumatosis coli: Status: Acute (7) Mesenteric ischemia: Status: Acute Plan Pneumatosis Coli 1.? There are several small foci of free air in the peritoneal cavity. Suspicious for pneumatosis in the RIGHT colon. Quality of this examination is limited without mesenteric fat and lack of oral contrast. 2.? Severe atherosclerosis throughout the abdominal aorta and the mesenteric arteries. Advanced atherosclerotic disease within the celiac axis and SMA be may be contributing to the ischemic changes in the GI tract. -Family declined surgical intervention -If she starts to clinically deteriorate, agreeable to proceed with comfort care, do not want aggressive interventions, for now they want her to remain comfortable -Serial abdominal exams -Flagyl for antibiotic coverage -Clear liquid diet, advance as tolerated Acute on chronic mesenteric ischemia -Likely patient source of pain when consuming food products -Continue aspirin, Plavix -Patient family declined surgical intervention -Continue medical interventions, conservative interventions Acute encephalopathy -Likely at baseline, second underlying dementia -Baseline alert to person, to place, not to time, can carry out conversations -According to family more confused than normal -Seems more like a gradual decline in her cognitive function -Currently alert to person, not to place, not to time, keeps repeating my questions, cannot get a straightforward answer from her -No evidence of UTI -No evidence of pneumonia -Was initially hypotensive, blood pressures have improved -CT of the head no acute findings, TSH within normal limits -Carotid artery ultrasounds within normal limits -Neurochecks -Aspiration precautions -Dysphagia diet -Consult speech therapy -Consult nutrition -PT OT -DNR/DNI -Lovenox for DVT prophylaxis -We will work on halfway placement Hypertension, continue home medications, labetalol as needed Poor appetite, as above, within normal limits Protein calorie malnutrition, as above Cachexia as above NSTEMI, baseline troponin 41, no chest pain complaints, no acute ST-T wave changes, continue to monitor, telemetry monitoring Attestations Medical Necessity Statement*: Patient requires hospitalization for pneumatosis Coli Coding Level of Care Code Acute Power Press Supervisor for [facility] Fwd Diagnoses Dementia associated with other underlying disease with behavioral disturbance F02.81 Acute encephalopathy G93.40 Protein calorie malnutrition E46 Cachexia R64 NSTEMI (non-ST elevated myocardial infarction) I21.4 Pneumatosis coli K63.89 Mesenteric ischemia K55.9
[2021-11-05] MEDS: enoxaparin 30 mg/0.3 mL Syringe SUBCUT (17:00)
[2021-11-05] MEDS: pantoprazole 40 mg SDV IVP (17:02)
[2021-11-05 20:00] VITALS: BP 160/74; PULSE 60; RESP 16; RESP 23; TEMP 36.5; O2SAT 93
[2021-11-05 22:00] VITALS: RESP 14
[2021-11-06] VITALS (10 sets, daily range): BP systolic 151–190; BP diastolic 71–88; PULSE 56–82; RESP 14–20; TEMP 36.5–36.7; O2SAT 91–97
[2021-11-06] MEDS: metroNIDAZOLE IV 500 MG/100 ML PREMIX 100 MG IV ×3 (01:24→21:30)
[2021-11-06 02:57] LABS: Basophils # 0.1 10^3/uL (0.0-0.1); Basophils % 0.4 %; Eosinophils % 0.3 %; Hematocrit 42.4 % (37.0-47.0); Hemoglobin 14.3 g/dL (11.5-15.3); Lymphocytes # 1.8 10^3/uL (0.8-4.8); Lymphocytes % 12.6 %; Mean Corpuscular HGB Conc 33.7 g/dL (30.0-36.0); Mean Corpuscular Hemoglobin 31.5 pg (28.0-34.0); Mean Corpuscular Volume 93.4 fl (81-99); Mean Platelet Volume 11.2 fL (7.4-10.4); Monocytes # 1.1 10^3/uL (0.2-0.9); Monocytes % 7.5 %; Neutrophils # 11.17 10^3/uL (1.8-7.7); Neutrophils % 78.7 %; Nucleated Red Blood Cells % 0 %; Platelet Count 229 10^3/cmm (130-400); Red Blood Count 4.54 10^6/uL (4.1-5.3); Red Cell Distribution Width 14.4 % (12.1-15.1); White Blood Count 14.2 10^3/uL (4.0-10.0)
[2021-11-06 03:18] LABS: Alanine Aminotransferase 15 U/L (0-33); Albumin Level 4.1 g/dL (3.5-5.2); Alkaline Phosphatase 92 IU/L (35-105); Anion Gap 15.6 (5-19); Aspartate Amino Transferase 30 U/L (0-32); Blood Urea Nitrogen 12 mg/dL (8-23); Calcium 9.4 mg/dL (8.5-10.5); Carbon Dioxide 26 mmol/L (22-29); Chloride 102 mmol/L (98-107); Globulin 2.7 g/dL (1.3-4.6); Glucose 98 mg/dL (65-115); Magnesium 1.6 mg/dL (1.7-2.3); Osmolality Calculated 292 mOsm/kg (285-295); Phosphorus 1.8 mg/dL (2.5-4.5); Sodium 141 mmol/L (136-145); Total Bilirubin 0.6 mg/dL (0.15-1.2); Total Protein 6.8 g/dL (6.6-8.7)
[2021-11-06 03:41] LABS: Potassium 2.6 mmol/L (3.5-5.1)
[2021-11-06] MEDS: potassium chloride premix 100 ML 25 MEQ IV ×2 (04:57→10:49)
[2021-11-06] MEDS: docusate sodium 100 mg Capsule PO ×2 (07:57→17:01)
[2021-11-06] MEDS: hyDRALAzine 10 mg Tablet PO ×3 (07:58→20:02)
[2021-11-06] MEDS: atorvastatin 40 mg Tablet PO (07:58)
[2021-11-06] MEDS: cholecalciferol (vitamin D3) 1,000 unit Tablet 1000 UNIT PO (07:58)
[2021-11-06] MEDS: metoprolol tartrate 25 mg Tablet 50 MG PO ×2 (07:58→17:01)
[2021-11-06] MEDS: aspirin 81 mg Chew Tablet PO (07:58)
--- NOTE | 2021-11-06 08:21 | XR_ITS ---
WS: [id number] Exam: XR KUB portable [id number] Date/Time of Exam: 11/06/2021 8:23 AM Reason For Exam: pneumtosis coli No acute bowel obstruction. 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 No sign of organ enlargement. Signs of prior cholecystectomy. 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 Lumbar levoscoliosis. No obvious pneumoperitoneum. Marked osteopenia of the bony structures of the spine and pelvis. XR/XR KUB portable [id number] IMPRESSION: 1. No acute bowel obstruction. No obvious pneumoperitoneum. 2. 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 Status pos t cholecystectomy. Vertebral plasty involving several of the lower thoracic and lumbar vertebra.
[2021-11-06] MEDS: phosphorus 250 mg Tablet PO ×2 (09:30→17:01)
[2021-11-06] MEDS: magnesium sulfate premix 2 GM/50 ML PIGGYBACK IV (09:30)
--- NOTE | 2021-11-06 09:58 | CT_ITS ---
WS: [id number] CT ABDOMEN AND PELVIS WITH CONTRAST HISTORY: pneumatosis coli TECHNIQUE: Imaging performed of the abdomen and pelvis with IV contrast. Single phase imaging of the abdomen. Coronal and sagittal reformats are submitted. All CT scans at [facility] use at [facility] one of these dose optimization techniques: automated exposure control; mA and/or kV adjustment per patient size (includes targeted exams where dose is matched to clinical indication); or iterative re construction. IV CONTRAST: Visipaque 320; 65 mL IV. Oral contrast: Yes. DLP: 587.28 mGy.cm COMPARISON: 11/04/2021 Lower thorax: Mild dependent changes at the LEFT lung base. Mild pneumonitis not excluded. Intra-atri al lipoma. Moderately enlarged heart similar to the prior study. Small hiatal hernia. Liver/biliary system: Normal size liver. Mild central bile duct dilatation similar to the prior studi es. No hepatic mass. Gallbladder: Status post cholecystectomy. Pancreas: Atrophied pancreas. Very slight pancreatic duct and common bile duct dilatation similar to the prior study. Spleen: Normal size spleen. No mass or infarct. Adrenal glands: Mildly thickened adrenal glands. Right kidney: Numerous cysts throughout the RIGHT kidney. The largest cyst along the anterior inferio r kidney has slightly decompressed since the prior examination. Largest component of the cyst now dhaval sures 5.7 x 3.4 cm. Left kidney: Severe atrophy with multiple cysts. Aorta: Heavy calcification throughout the aorta and extending into the mesenteric arteries with compo nents of stenosis. Severe atherosclerotic plaque with areas of stenosis in the celiac axis and SMA. M aximum transverse diameter of the aorta is 3.9 cm. Severe atherosclerosis and calcified plaque contin ues into the iliac arteries bilaterally. Lymphadenopathy: None identified. Free fluid: None. GI tract: Moderate diffuse fecal retention and constipation. Increased fecal retention and impaction at the rectum. Improved aeration involving the colon. Also the small foci of free air identified on t he prior study are not definitely identified. Abdominal wall: Unremarkable abdominal wall. No hernia. Pelvis: No free fluid. Bones: Multiple osteoporotic compression fractures with multiple prior vertebroplasties. CT/CT abdomen pelvis w con* [id number] IMPRESSION: 1. No free air identified on today's examination. 2. No definite pneumatosis identified today. There is extensive fecal retentio n throughout the colon with no high-grade obstruction. Marked fecal retention a t the rectum. 3. Moderate decompression of the very large RIGHT renal cyst described on 11/04. 4. Severe atherosclerosis aorta and the mesenteric arteries. Significant steno ses are expected. 5. Prior cholecystectomy. 6. Mild bile duct dilatation probably on the basis of aging and cholecystectom y.
[2021-11-06] MEDS: iohexol 300 mg/mL 50 mL Btl PO (10:15)
--- NOTE | 2021-11-06 10:49 | PM.PN ---
Subjective Subjective: Patient was seen this morning, has intermittent complaints of abdominal pain, according to nursing staff yesterday, had intermittent complaints of abdominal pain yesterday, no nausea, no vomiting, no bowel movement reported, this morning she remains sleepy and groggy alert to person, not to place, not to time, however continues to have complaints of abdominal pain Vitals/I&O/Wt Last Vital Signs Temp 97.7 F 11/06/21 08:00 Pulse 82 11/06/21 08:00 Resp 18 11/06/21 08:00 BP 156/85 11/06/21 08:00 Pulse Ox 94 11/06/21 08:00 11/05/21 11/06/21 11/06/21 22:59 06:59 14:59 Intake Total 1520 / 1860 300 / 2160 100 / 100 Balance 1520 / 1860 300 / 2160 100 / 100 Physical Exam Const: COMMON NORMALS: no acute distress ORIENTATION/CONSCIOUSNESS: Yes awake and Yes oriented to person; not oriented to place and not oriented to time Resp: COMMON NORMALS: normal respiratory effort, No retractions, No use of accessory muscles and clear to auscultation bilaterally AUSCULTATION: clear to auscultation bilaterally Cardio: COMMON NORMALS: regular rate, regular rhythm, S1 normal heart sound present and S2 normal heart sound present RATE: regular rate RHYTHM: regular rhythm HEART SOUNDS: S1 normal heart sound present and S2 normal heart sound present GI: INSPECTION: Yes normal to inspection AUSCULTATION: Yes normoactive bowel sounds PALPATION: Yes Tenderness to palpation present (GI) (Diffuse) Extremity: COMMON NORMALS: no pedal edema Neuro: SENSORIUM/ORIENTATION: Yes oriented to person, No oriented to place and No oriented to time Psych: COMMON NORMALS: mental status grossly normal Data : 11/06/21 01:57 11/06/21 01:57 A&P Assessment and plan (1) Dementia associated with other underlying disease with behavioral disturbance: Status: Acute (2) Acute encephalopathy: Status: Acute (3) Protein calorie malnutrition: Status: Acute (4) Cachexia: Status: Acute (5) NSTEMI (non-ST elevated myocardial infarction): Status: Acute (6) Pneumatosis coli: Status: Acute (7) Mesenteric ischemia: Status: Acute Plan Pneumatosis Coli 1.? There are several small foci of free air in the peritoneal cavity. Suspicious for pneumatosis in the RIGHT colon. Quality of this examination is limited without mesenteric fat and lack of oral contrast. 2.? Severe atherosclerosis throughout the abdominal aorta and the mesenteric arteries. Advanced atherosclerotic disease within the celiac axis and SMA be may be contributing to the ischemic changes in the GI tract. -Family declined surgical intervention -If she starts to clinically deteriorate, agreeable to proceed with comfort care, do not want aggressive interventions, for now they want her to remain comfortable -Serial abdominal exams -Flagyl for antibiotic coverage -Continues to have abdominal pain complaints, will do repeat CT scan of the abdomen pelvis -Clear liquid diet, advance as tolerated -Hypokalemia, replaced, hypomagnesemia replacing hypophosphatemia will replace Acute on chronic mesenteric ischemia -Likely patient source of pain when consuming food products -Continue aspirin, Plavix -Patient family declined surgical intervention -Continue medical interventions, conservative interventions Acute encephalopathy -Likely at baseline, second underlying dementia -Baseline alert to person, to place, not to time, can carry out conversations -According to family more confused than normal -Seems more like a gradual decline in her cognitive function -Currently alert to person, not to place, not to time, keeps repeating my questions, cannot get a straightforward answer from her -No evidence of UTI -No evidence of pneumonia -Was initially hypotensive, blood pressures have improved -CT of the head no acute findings, TSH within normal limits -Carotid artery ultrasounds within normal limits -Neurochecks -Aspiration precautions -Dysphagia diet -Consult speech therapy -Consult nutrition -PT OT -DNR/DNI -Lovenox for DVT prophylaxis -We will work on longterm placement Hypertension, continue home medications, labetalol as needed Poor appetite, as above, within normal limits Protein calorie malnutrition, as above Cachexia as above NSTEMI, baseline troponin 41, no chest pain complaints, no acute ST-T wave changes, continue to monitor, telemetry monitoring Attestations Medical Necessity Statement*: Patient requires hospitalization for pneumatosis Coli Coding Level of Care Code Acute General Education Professor for [facility] Fwd Diagnoses Dementia associated with other underlying disease with behavioral disturbance F02.81 Acute encephalopathy G93.40 Protein calorie malnutrition E46 Cachexia R64 NSTEMI (non-ST elevated myocardial infarction) I21.4 Pneumatosis coli K63.89 Mesenteric ischemia K55.9
[2021-11-06] MEDS: iodixanol 320 mg/mL 100mL Btl IV (11:46)
--- NOTE | 2021-11-06 12:33 | PC.SOCIAL ---
Pg 2 IMM Explained to pt Pg 2 IMM. No questions voiced. Provided pt a copy. Initialed, dated, & timed a copy & placed in chart.
[2021-11-06] MEDS: pantoprazole DR 40 mg Tablet PO (17:01)
[2021-11-06] MEDS: enoxaparin 30 mg/0.3 mL Syringe SUBCUT (17:01)
[2021-11-06] MEDS: dextrose 5%-sod chloride 0.9% 1,000 ML 75 ML IV (21:29)
[2021-11-07] VITALS (7 sets, daily range): BP systolic 106–174; BP diastolic 56–81; PULSE 61–67; RESP 14–19; TEMP 36.7–37.2; O2SAT 93–99
[2021-11-07] MEDS: metroNIDAZOLE IV 500 MG/100 ML PREMIX 100 MG IV (05:35)
[2021-11-07 06:22] LABS: Basophils % 0.4 %; Eosinophils # 0.1 10^3/uL (0.0-0.8); Eosinophils % 0.8 %; Hemoglobin 13.5 g/dL (11.5-15.3); Lymphocytes % 20.2 %; Mean Corpuscular HGB Conc 32.9 g/dL (30.0-36.0); Mean Corpuscular Hemoglobin 31.5 pg (28.0-34.0); Mean Corpuscular Volume 95.6 fl (81-99); Mean Platelet Volume 10.5 fL (7.4-10.4); Monocytes # 0.6 10^3/uL (0.2-0.9); Monocytes % 5.9 %; Neutrophils # 7.22 10^3/uL (1.8-7.7); Neutrophils % 72.4 %; Nucleated Red Blood Cells % 0 %; Platelet Count 218 10^3/cmm (130-400); Red Blood Count 4.29 10^6/uL (4.1-5.3)
[2021-11-07 06:36] LABS: Alanine Aminotransferase 13 U/L (0-33); Albumin Level 3.7 g/dL (3.5-5.2); Alkaline Phosphatase 81 IU/L (35-105); Aspartate Amino Transferase 23 U/L (0-32); Blood Urea Nitrogen 9 mg/dL (8-23); Calcium 8.3 mg/dL (8.5-10.5); Carbon Dioxide 24 mmol/L (22-29); Chloride 109 mmol/L (98-107); Creatinine Clr Calc Pharmacy 18.7961; Globulin 2.5 g/dL (1.3-4.6); Glucose 101 mg/dL (65-115); Magnesium 1.9 mg/dL (1.7-2.3); Osmolality Calculated 297 mOsm/kg (285-295); Phosphorus 2.3 mg/dL (2.5-4.5); Sodium 144 mmol/L (136-145); Total Bilirubin 0.4 mg/dL (0.15-1.2); Total Protein 6.2 g/dL (6.6-8.7)
[2021-11-07] MEDS: hyDRALAzine 10 mg Tablet PO (08:50)
[2021-11-07] MEDS: phosphorus 250 mg Tablet PO (08:50)
[2021-11-07] MEDS: aspirin 81 mg Chew Tablet PO (08:50)
[2021-11-07] MEDS: metoprolol tartrate 25 mg Tablet 50 MG PO (08:50)
[2021-11-07] MEDS: cholecalciferol (vitamin D3) 1,000 unit Tablet 1000 UNIT PO (08:50)
[2021-11-07] MEDS: docusate sodium 100 mg Capsule PO (08:50)
[2021-11-07] MEDS: atorvastatin 40 mg Tablet PO (08:50)
[2021-11-07] MEDS: magnesium hydroxide 30 mL UDC PO (09:30)
[2021-11-07] MEDS: polyethylene glycol 3350 Pkt 17 gm PO (09:30)
[2021-11-07] MEDS: potassium chloride premix 100 ML 25 MEQ IV (09:31)
[2021-11-07] MEDS: cloNIDine 0.1 mg Tablet PO (12:13)
[2021-11-07 12:21] LABS: SARS Covid-2 Antigen Negative (Negative)
--- NOTE | 2021-11-07 12:31 | P.PN_ITS ---
Subjective Subjective: Patient was seen this morning, according to nursing staff she had a large bowel movement yesterday evening, currently she is alert to person, not to place, not to time, she does follow commands, she has no complaints, no abdominal pain complaints, no nausea, no vomiting, denies any pain Vitals/I&O/Wt Last Vital Signs Temp 98.7 F 11/07/21 08:00 Pulse 65 11/07/21 08:00 Resp 16 11/07/21 08:00 BP 174/68 11/07/21 08:00 Pulse Ox 99 11/07/21 08:00 11/06/21 11/07/21 11/07/21 22:59 06:59 14:59 Intake Total 420 / 1570 160 / 1730 240 / 240 Balance 420 / 1570 160 / 1730 240 / 240 Physical Exam Const: COMMON NORMALS: no acute distress NUTRITIONAL APPEARANCE: cachectic ORIENTATION/CONSCIOUSNESS: Yes awake and Yes oriented to person Resp: COMMON NORMALS: normal respiratory effort, No retractions, No use of accessory muscles and clear to auscultation bilaterally AUSCULTATION: clear to auscultation bilaterally Cardio: COMMON NORMALS: regular rate, regular rhythm, S1 normal heart sound present and S2 normal heart sound present RATE: regular rate RHYTHM: regular rhythm HEART SOUNDS: S1 normal heart sound present and S2 normal heart sound present GI: COMMON NORMALS: Normal to inspection, nondistended, normoactive bowel kenisha nds present, Soft to palpation and non-tender PALPATION: Yes Soft to palp ation Extremity: COMMON NORMALS: no pedal edema Neuro: SENSORIUM/ORIENTATION: Yes oriented to person Data : 11/07/21 05:57 11/07/21 05:57 A&P Assessment and plan (1) Dementia associated with other underlying disease with behavioral dist urbance: Status: Acute (2) Acute encephalopathy: Status: Acute (3) Protein calorie malnutrition: Status: Acute (4) Cachexia: Status: Acute (5) NSTEMI (non-ST elevated myocardial infarction): Status: Acute (6) Pneumatosis coli: Status: Acute (7) Mesenteric ischemia: Status: Acute (8) Refeeding syndrome: Status: Acute Plan Pneumatosis Coli 1.? There are several small foci of free air in the peritoneal cavity. Suspicious for pneumatosis in the RIGHT colon. Quality of this examination is limited without mesenteric fat and lack of oral contrast. 2.? Severe atherosclerosis throughout the abdominal aorta and the mesenteric arteries. Advanced atherosclerotic disease within the celiac axis and SMA be may be contributing to the ischemic changes in the GI tract. Repeat CT scan shows 1.? No free air identified on today's examination. 2.? No definite pneumatosis identified today. There is extensive fecal retention throughout the colon with no high-grade obstruction. Marked fecal retention at the rectum. 3.? Moderate decompression of the very large RIGHT renal cyst described on 11/04/2020. 4.? Severe atherosclerosis aorta and the mesenteric arteries. Significant stenoses are expected. 5.? Prior cholecystectomy. 6.? Mild bile duct dilatation probably on the basis of aging and cholecystectomy. -Had a large bowel movement yesterday, no nausea, vomiting, abdominal pain has improved -Family declined surgical intervention -If she starts to clinically deteriorate, agreeable to proceed with comfort care, do not want aggressive interventions, for now they want her to remain comfortable -Serial abdominal exams -Flagyl for antibiotic coverage -We will advance diet to dysphagia diet, Ensure drinks twice a day -Family declines PEG tube -Hypokalemia, replaced, hypomagnesemia replacing hypophosphatemia will replace Refeeding syndrome -Patient is developing hypokalemia, hypomagnesemia, hypophosphatemia -Component possibly related to refeeding syndrome -Due to poor appetite -Will replace electrolytes -Diet as above Acute on chronic mesenteric ischemia -Likely patient source of pain when consuming food products -Continue aspirin, Plavix -Patient family declined surgical intervention -Continue medical interventions, conservative interventions Acute encephalopathy -Likely at baseline, second underlying dementia -Baseline alert to person, to place, not to time, can carry out conversations -According to family more confused than normal -Seems more like a gradual decline in her cognitive function -Currently alert to person, not to place, not to time, keeps repeating my questions, cannot get a straightforward answer from her -No evidence of UTI -No evidence of pneumonia -Was initially hypotensive, blood pressures have improved -CT of the head no acute findings, TSH within normal limits -Carotid artery ultrasounds within normal limits -Neurochecks -Aspiration precautions -Dysphagia diet -Consult speech therapy -Consult nutrition -PT OT -DNR/DNI -Lovenox for DVT prophylaxis -We will work on long term placement Hypertension, continue home medications, labetalol as needed Poor appetite, as above, within normal limits Protein calorie malnutrition, as above Cachexia as above NSTEMI, baseline troponin 41, no chest pain complaints, no acute ST-T wave changes, continue to monitor, telemetry monitoring Continue PT OT, patient would clinically benefit from PT OT Attestations Medical Necessity Statement*: Patient requires hospitalization for altered mental status, underweight, cachexia, poor appetite, pneumatosis Madalyn Coding Level of Care Code Acute Sea Shell Gatherer for [facility] Fwd Diagnoses Dementia associated with other underlying disease with behavioral disturbance F02.81 Acute encephalopathy G93.40 Protein calorie malnutrition E46 Cachexia R64 NSTEMI (non-ST elevated myocardial infarction) I21.4 Pneumatosis coli K63.89 Mesenteric ischemia K55.9 Refeeding syndrome E87.8
--- NOTE | 2021-11-07 13:49 | PC.NURSE ---
Report called to DARRION Francois, at [facility].
--- NOTE | 2021-11-09 07:42 | P.DS_ITS ---
Discharge Providers Date of Admission: 11/03/21 13:26 Date of Discharge: November 09, 2021 Attending Provider at Admission: Jamie Salmon MD Attending Provider at Discharge: Jamie Salmon MD Primary Care Provider: David Degroot MD Diagnoses at Discharge Discharge Diagnosis (1) Dementia associated with other underlying disease with behavioral disturbance: Status: Acute (2) Acute encephalopathy: Status: Acute (3) Protein calorie malnutrition: Status: Acute (4) Cachexia: Status: Acute (5) NSTEMI (non-ST elevated myocardial infarction): Status: Acute (6) Pneumatosis coli: Status: Acute (7) Mesenteric ischemia: Status: Acute (8) Refeeding syndrome: Status: Acute Reason for Visit Reason for Visit: GENERALIZED WEAKNESS, ALOC Hospital Course Hospital Course Flor Mishra is a 86 year old female history of smoking, dementia, COPD, carotid artery stenosis status post bilateral carotid endarterectomy, protein calorie malnutrition, underweight, hyperlipidemia hypertension, opiate dependent, who presents [facility] due to decreased feeding, increased fatigue, alteration in her mentation. Patient was admitted to [facility] due to acute encephalopathy, likely secondary to underlying dementia, discharged to [facility] custodial Did have dehydration on admission, improved with IV fluids forprotien calorie malnutrition, discharged on instructions to slowly advance diet, protein shakes, electrolyte replacement For patient's refeeding syndrome, discharged on potassium replacement, phosphorus replacement, magnesium replacement, slowly advance diet, Ensure drinks patient was also found to have pneumatosis Coli, this was medically managed as per family's request, family did not want to undergo aggressive interventions, declined surgery, patient was DNR/DNI, repeat CT scan showed improvement, she was having bowel movements, abdominal pain minimal on discharge, discharged with above diet instructions For cachexia and protein calorie malnutrition, patient's family declined PEG tube placement, slowly advance diet as above Physical Exam Const: COMMON NORMALS: no acute distress ORIENTATION/CONSCIOUSNESS: Yes awake and Yes oriented to person; not oriented to place and not oriented to time Resp: COMMON NORMALS: normal respiratory effort, No retractions, No use of accessory muscles and clear to auscultation bilaterally AUSCULTATION: clear to auscultation bilaterally Cardio: COMMON NORMALS: regular rate, regular rhythm, S1 normal heart sound present and S2 normal heart sound present RATE: regular rate RHYTHM: regular rhythm HEART SOUNDS: S1 normal heart sound present and S2 normal heart sound present GI: COMMON NORMALS: Normal to inspection, nondistended, normoactive bowel sounds present, Soft to palpation and non-tender PALPATION: Yes Soft to palpation Extremity: COMMON NORMALS: no pedal edema Neuro: SENSORIUM/ORIENTATION: Yes oriented to person, No oriented to place and No oriented to time Discharge Data Studies Completed and Pending Completed Studies During Hospitalization Category Date Time Status CT abdomen pelvis w con* [id number] Routine Cat Scan 11/04/21 09:[address] abdomen pelvis w con* [id number] Stat Cat Scan 11/06/21 09:[address] head wo con* [id number] Routine Cat Scan 11/03/21 13:13 Completed XR KUB portable [id number] Routine Exams 11/06/21 08:21 Completed XR chest 1V portable [id number] Stat Exams 11/03/21 08:17 Completed CV carotid duplex BI* [id number] Routine Ultrasound 11/04/21 Completed Radiology Impressions Chest X-Ray 11/03/21 08:17 IMPRESSION: 1. Cardiomegaly with tortuous thoracic aorta unchanged. 2. Hyperinflation with chronic emphysematous changes. 3. No acute pulmonary infiltrates. Head CT 11/03/21 13:13 IMPRESSION: 1. No acute intracranial hemorrhage or edema. 2. Mild atrophy with moderate chronic microvascular ischemic disease which is stable. 3. Mild ventriculomegaly based on atrophy. KUB X-Ray 11/06/21 08:21 IMPRESSION: 1. No acute bowel obstruction. No obvious pneumoperitoneum. 2. 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 Status post cholecystectomy. Vertebral plasty involving several of the lower thoracic and lumbar vertebra. Abdomen/Pelvis CT 11/06/21 09:58 IMPRESSION: 1. No free air identified on today's examination. 2. No definite pneumatosis identified today. There is extensive fecal retention throughout the colon with no high-grade obstruction. Marked fecal retention at the rectum. 3. Moderate decompression of the very large RIGHT renal cyst described on 11/04/2020. 4. Severe atherosclerosis aorta and the mesenteric arteries. Significant stenoses are expected. 5. Prior cholecystectomy. 6. Mild bile duct dilatation probably on the basis of aging and cholecystectomy. Laboratory Results WBC 10.0 10^3/uL (4.0-10.0) 11/07/21 05:57 RBC 4.29 10^6/uL (4.1-5.3) 11/07/21 05:57 Hgb 13.5 g/dL (11.5-15.3) 11/07/21 05:57 Hct 41.0 % (37.0-47.0) 11/07/21 05:57 MCV 95.6 fl (81-99) 11/07/21 05:57 MCH 31.5 pg (28.0-34.0) 11/07/21 05:57 MCHC 32.9 g/dL (30.0-36.0) 11/07/21 05:57 RDW 15.0 % (12.1-15.1) 11/07/21 05:57 Plt Count 218 10^3/cmm (130-400) 11/07/21 05:57 MPV 10.5 fL (7.4-10.4) H 11/07/21 05:57 Neut % (Auto) 72.4 % 11/07/21 05:57 Lymph % (Auto) 20.2 % 11/07/21 05:57 [place] % (Auto) 5.9 % 11/07/21 05:57 Eos % (Auto) 0.8 % 11/07/21 05:57 Baso % (Auto) 0.4 % 11/07/21 05:57 Neut # (Auto) 7.22 10^3/uL (1.8-7.7) 11/07/21 05:57 Lymph # (Auto) 2.0 10^3/uL (0.8-4.8) 11/07/21 05:57 [place] # (Auto) 0.6 10^3/uL (0.2-0.9) 11/07/21 05:57 Eos # (Auto) 0.1 10^3/uL (0.0-0.8) 11/07/21 05:57 Baso # (Auto) 0.0 10^3/uL (0.0-0.1) 11/07/21 05:57 Nucleated RBC % (auto) 0 % 11/07/21 05:57 Nucleated RBCs # 0.0 /100WBC 11/07/21 05:57 Sodium 144 mmol/L (136-145) 11/07/21 05:57 Potassium 3.0 mmol/L (3.5-5.1) L 11/07/21 05:57 Chloride 109 mmol/L (98-107) H 11/07/21 05:57 Carbon Dioxide 24 mmol/L (22-29) 11/07/21 05:57 Anion Gap 14.0 (5-19) 11/07/21 05:57 BUN 9 mg/dL (8-23) 11/07/21 05:57 Creatinine 1.0 mg/dL (0.5-0.9) H 11/07/21 05:57 GFR Calculation Not Reportable 11/07/21 05:57 Glucose 101 mg/dL (65-115) 11/07/21 05:57 Calculated Osmolality 297 mOsm/kg (285-295) H 11/07/21 05:57 Lactate 1.4 mmol/L (0.5-2.2) 11/04/21 13:35 Calcium 8.3 mg/dL (8.5-10.5) L 11/07/21 05:57 Phosphorus 2.3 mg/dL (2.5-4.5) L 11/07/21 05:57 Magnesium 1.9 mg/dL (1.7-2.3) 11/07/21 05:57 Total Bilirubin 0.4 mg/dL (0.15-1.2) 11/07/21 05:57 AST 23 U/L (0-32) 11/07/21 05:57 ALT 13 U/L (0-33) 11/07/21 05:57 Alkaline Phosphatase 81 IU/L (35-105) 11/07/21 05:57 Troponin T Baseline 41 ng/L (0-10) H 11/03/21 09:47 Troponin T 120 Minute 46.43 ng/L (0-10) H 11/03/21 11:48 Delta Troponin T 5.43 ABS# (0-10) 11/03/21 11:48 Troponin T Hi Sens 6Hr 37.27 ng/L (0-10) H 11/03/21 15:49 Troponin T Hi Sens 6Hr Delta -3.73 ng/L (0-12) L 11/03/21 15:49 Total Protein 6.2 g/dL (6.6-8.7) L 11/07/21 05:57 Albumin 3.7 g/dL (3.5-5.2) 11/07/21 05:57 Globulin 2.5 g/dL (1.3-4.6) 11/07/21 05:57 TSH 1.98 uIU/mL (0.27-4.20) 11/03/21 09:47 Urine Color Yellow (Yellow) 11/03/21 10:20 Urine Appearance Clear (CLEAR) 11/03/21 10:20 Urine pH 6 (5-7) 11/03/21 10:20 Ur Specific [place] 1.015 (1.005-1.030) 11/03/21 10:20 Urine Protein 3+ (Negative) H 11/03/21 10:20 Urine Glucose (UA) Norm (Normal) 11/03/21 10:20 Urine Ketones Negative (Negative) 11/03/21 10:20 Urine Blood 2+ (Negative) H 11/03/21 10:20 Urine Nitrate Negative (Negative) 11/03/21 10:20 Urine Bilirubin Neg (Negative) 11/03/21 10:20 Urine Urobilinogen Norm mg/dL (Negative) 11/03/21 10:20 Ur Leukocyte Esterase Negative (Negative) 11/03/21 10:20 Urine RBC 0-4 /hpf (0-2) H 11/03/21 10:20 Urine WBC 0-4 /hpf (0-5) H 11/03/21 10:20 Ur Squamous Epith Cells None /hpf (0-5) 11/03/21 10:20 Amorphous Sediment Not Reportable 11/03/21 10:20 Urine Bacteria Trace /hpf (NONE) 11/03/21 10:20 SARS-CoV-2 Ag (Rapid) Negative (Negative) 11/06/21 11:40 Vitals Last Vital Signs Temp 99.0 F 11/07/21 12:00 Pulse 62 11/07/21 12:00 Resp 16 11/07/21 12:00 BP 106/56 11/07/21 12:00 Pulse Ox 96 11/07/21 12:00 Discharge Plan Discharge Patient Disposition: Xfer SNF Condition: Stable Prescriptions: New docusate sodium 100 mg Capsule 100 mg PO BID 30 Days Qty: 60 0RF pantoprazole 40 mg Tablet,Delayed Release (Dr/Ec) 40 mg PO Q24H 30 Days Qty: 30 0RF Phospha 250 Neutral 250 mg Tablet 250 mg PO BID 30 Days Qty: 14 0RF polyethylene glycol 3350 17 gram Powder In Packet 17 g PO DAILY PRN (Reason: constipation) 30 Days Qty: 30 0RF Klor-Con M20 20 mEq tablet,ER particles/crystals 20 meq PO DAILY 30 Days Qty: 30 0RF Continued hydroxyzine HCl 10 mg tablet 10 mg PO Q6H PRN (Reason: Runny nose or allergies) Qty: 60 3RF aspirin 81 mg tablet,chewable 81 mg PO DAILY 0RF furosemide 20 mg tablet 20 mg PO DAILY PRN (Reason: edema) Qty: 90 1RF alfuzosin 10 mg tablet extended release 24 hr 10 mg PO DAILY Qty: 30 12RF Rx Instructions: administer after the same meal each day atorvastatin 40 mg tablet 40 mg PO DAILY Qty: 90 1RF diclofenac sodium 1 % gel 2 g TOPICAL Q6H 30 Days Qty: 300 1RF pregabalin 25 mg capsule 25 mg PO BID 30 Days Qty: 60 3RF alendronate 70 mg tablet 70 mg PO Q7D Qty: 4 1RF Rx Instructions: TAKE 1 TABLET EVERY 7 DAYS. Mikhail Mag Plus 1 tab PO BID 0RF cholecalciferol (vitamin D3) 25 mcg (1,000 unit) Capsule 25 mcg PO DAILY 0RF polyethylene glycol 3350 [Miralax] 17 gram Powder In Packet 17 g PO DAILY PRN (Reason: Constipation) 0RF Virt-Caps 1 mg capsule 1 cap PO DAILY 0RF metoprolol tartrate 25 mg tablet 50 mg PO BID Qty: 0 0RF Discontinued magnesium hydroxide [Milk Of Magnesia Concentrated] 2,400 mg/10 mL suspension 10 ml PO .q3 PRN (Reason: constipation) Qty: 200 0RF Rx Instructions: 20 ml every 3 hr until she has a bowel movement. tramadol 50 mg tablet 25 mg PO Q8H PRN (Reason: pain, moderate) 30 Days Qty: 30 1RF docusate sodium [Colace] 100 mg capsule 100 mg PO DAILY PRN (Reason: constipation) 0RF Discharge Orders: Discharge Order (Routine); Ordered 11/07/21 Ordered By: Jamie Salmon Referrals: [facility] [Outside] David Degroot MD [Primary Care Provider] - 1 week Discharge Diet: Advance as tolerated Discharge Activity: Resume usual activity Patient Instructions: Opioid Safety Activity Restrictions/Additional Instructions: -Start dysphagia diet, pur?ed, advanced as tolerated, -Ensure drinks twice a day Discharge Attestations Time Spent in Discharge Care*: less than 30 min Status at Discharge: Cognitive status at discharge: mildly impaired cognition , Behavioral status at discharge: cooperative and dependent in ADL's , Quality Metrics Clinical Quality Measures [ No reported AMI, CVA or VTE this stay] Coding Level of Care Code Acute Chg FW DC note Exam Detailed Diagnoses Dementia associated with other underlying disease with behavioral disturbance F02.81 Acute encephalopathy G93.40 Protein calorie malnutrition E46 Cachexia R64 NSTEMI (non-ST elevated myocardial infarction) I21.4 Pneumatosis coli K63.89 Mesenteric ischemia K55.9 Refeeding syndrome E87.8
== END 2021-11-07 16:01 | disposition skilled nursing facility (03) | DRG 393 ==
LOC: ER 14:52 → MEDSURG 15:43
PROVIDERS: Admitting Provider Family Medicine; Emergency Provider Family Medicine; PCP Family Medicine Adult Medicine; Visit Provider Family Medicine
DX: K63.89 Other specified diseases of intestine (principal); K55.031 Focal (segmental) acute (reversible) ischemia of large intestine; I21.4 Non-ST elevation (NSTEMI) myocardial infarction; F03.91 Unspecified dementia, unspecified severity, with behavioral disturbance; E46 Unspecified protein-calorie malnutrition; Z68.1 Body mass index [BMI] 19.9 or less, adult; I71.6 Thoracoabdominal aortic aneurysm, without rupture; K59.01 Slow transit constipation; J44.9 Chronic obstructive pulmonary disease, unspecified; M51.36 Other intervertebral disc degeneration, lumbar region; E78.5 Hyperlipidemia, unspecified; I10 Essential (primary) hypertension; F17.210 Nicotine dependence, cigarettes, uncomplicated; M81.0 Age-related osteoporosis without current pathological fracture; M47.817 Spondylosis without myelopathy or radiculopathy, lumbosacral region; H93.92 Unspecified disorder of left ear; Z79.82 Long term (current) use of aspirin; Z66 Do not resuscitate
CPT/HCPCS: 36415; 70450; 71045; 74018; 74177; 80053; 81001; 83605; 83735; 84100; 84443; 84484; 85025; 87426; 92523; 92526; 92610; 93005; 93880; 94664; 96361; 96372; 96374; 96375; 97162; 97167; 97530; 97535; 99285; C9113; J1650; J3475; J3480; J3490; Q9967; S0030

== ENCOUNTER 2021-11-23 12:42 | Observation (INO) | payer MEDICARE, MEDICAID, SELFPAY ==
[2021-11-23] VITALS (8 sets, daily range): BP systolic 92–102; BP diastolic 51–72; PULSE 70–98; RESP 14–21; O2SAT 69–100; BMI 14.1
--- NOTE | 2021-11-23 12:44 | ED_ITS ---
HPI - Altered Mental Status General: Chief Complaint: Cardiac Arrest/CPR Stated Complaint: unresponsive Time Seen by Provider: 11/23/21 12:44 Limitations: altered mental status and other History of Present Illness: Ms Mihsra is an 86-year-old lady who presents from a [facility] with altered mental status. History is somewhat contradictory in telephone report to nursing versus EMS report. Patient apparently was normal this morning however while sitting at lunch had sudden onset slumped over and low oxygen saturation. Per EMS the patient was put back in bed and sometime later EMS was activated. They found patient essentially unresponsive with oxygen saturations in the 50s. History is otherwise limited by acuity of condition and patient's intubated state/altered mental status. Review of Systems General: Reports: ROS unobtainable due to endotracheal tube and ROS unobtainable due to mental status PFSH ED PFSH: Medical History AAA (abdominal aortic aneurysm) Abdominal aortic aneurysm -surveillance with serial imaging per PCP and cardiology Dr. Morejon -has been monitoring BP at home closely Allergic rhinitis due to allergen Altered mental status Carotid stenosis Constipation by delayed colonic transit COPD (chronic obstructive pulmonary disease) -Previously oxygen dependent but was recently weaned off -stable respiratory status, supplemental oxygen as needed -No evidence of acute exacerbation currently DDD (degenerative disc disease), lumbar Dementia associated with other underlying disease with behavioral disturbance Hyperlipidemia -continue statin Hypertension Nicotine dependence, cigarettes, with unspecified nicotine-induced disorders Osteoporosis Protein-energy malnutrition Skin lesion of left ear Spondylosis without myelopathy or radiculopathy, lumbosacral region Thoracic aortic aneurysm -as noted above Urinary retention Surgical History History of endarterectomy bilateral History of tonsillectomy and adenoidectomy Hx of cholecystectomy Hx of hysterectomy, total Hx of kyphoplasty Family History Mother , at age 75 No problems noted. Father , in his 50's Heart attack Other CAD (coronary artery disease) Social History Smoking and tobacco status: current every day smoker cigarettes Packs smoked per day: 0.5 Alcohol intake: never Household members: other Details: lives with son in law Marital status: / Current occupational status: retired History of recent travel: No Physical Exam Const: COMMON NORMALS: negative for alert EXAM LIMITATIONS: altered mental status and other limitations GENERAL APPEARANCE: ill appearing and frail appearing NUTRITIONAL APPEARANCE: cachectic ORIENTATION/CONSCIOUSNESS: Yes patient obtunded HENMT: COMMON NORMALS: normocephalic and atraumatic HEAD & SCALP: normocephalic and atraumatic OTHER: Endotracheal tube present Eye: COMMON NORMALS: conjunctivae normal CONJUNCTIVA: Yes conjunctivae normal SCLERA: sclerae normal Neck/C-Spine: COMMON NORMALS: supple GENERAL: Yes trachea midline Resp: AUSCULTATION: rhonchi OTHER: Patient not overbreathing ventilator Cardio: COMMON NORMALS: regular rate and regular rhythm RATE: regular rate RHYTHM: regular rhythm GI: COMMON NORMALS: Soft to palpation PALPATION: Yes Soft to palpation and No Tenderness to palpation present (GI) PERCUSSION: normal to percussion Extremity: GENERAL: Yes normal exam except as noted and No edema Neuro: SENSORIUM/ORIENTATION: No alert and Yes obtunded OTHER: No purposeful peripheral movements Course ED course: - Patient was seen and evaluated by me at bedside - Patient placed on cardiac monitors, IV access obtained - Initial evaluation notable for ill appearance, altered mental status. Patient intubated prehospital he with 6.5 ET tube, confirmation of tube placement with auscultation of bilateral lung sounds, absence of gastric sound, and chest x-ray reviewed personally and interpreted at bedside. - Hypotension noted and IV fluids ordered. - Labs notable for leukocytosis. Metabolic panel with evidence of dehydration with OFE. Delta troponin is negative. BNP elevated of unclear etiology. Urinalysis concerning for urinary tract infection though there is squamous epithelial contamination. - Antibiotics ordered. - Imaging notable for no evidence of acute intracranial hemorrhage. - I had extensive discussion via telephone with the patient's daughter who is GORDY Ivy regarding her current condition. Unfortunately the patient actually is a DNR and erroneously the [facility] reported that she was full code. The patient has expressed to her daughter that she would not want heroic measures or life prolonging measures. She has had fairly marked decline over the past number of weeks after illnesses. - Based on reported previous patient wishes as well as discussion with her daughter we will proceed with palliative extubation and comfort measures only. I believe that this is reasonable given current clinical status as well as recent medical history. - Sedation was stopped and patient palliatively extubated. She has been hypoxemic even with supplemental oxygen via nasal cannula. Given wishes this will be discontinued. - Case was discussed with hospitalist service. Patient to be admitted for comfort measures Note: Click bubbles or prepopulated estrada in note writing are used for assistance with data collection and billing and are inherently more limited than narrative and other text portions of this note. Please use narrative for additional clinical history and defer to narrative/free test for any case of contradictory information. If information appears in only free text or click bubble it should be considered present or absent as reported. Please contact note greeting card writer for clarifications of clinical information or contradictory information. MDM is a brief summary, contradictory or erroneous seeming information should be clarified and full note should be reviewed. Vital Signs: Vital signs: Vital Signs Pulse Rate 94 11/23/21 20:15 Respiratory Rate 19 H 11/23/21 20:10 Blood Pressure 100/53 11/23/21 18:02 Pulse Oximetry 88 L 11/23/21 20:10 MDM - Altered Mental Status Medical Decision Making 86-year-old lady presenting with possible acute alteration in mental status though history is somewhat unclear. Patient intubated by EMS in the field. [facility] erroneously identified patient has full code despite her apparently having DNR. Case was discussed extensively with the patient's daughter who is DPOA, paperwork verified, patient palliatively extubated and switched to comfort measures only. Patient admitted for comfort measures and depending on duration of life remaining possible transfer back to [facility]. Medical Records I reviewed the patient's medical records. Lab Data I reviewed the patient's lab results. : 11/23/21 12:50 11/23/21 12:[address] 11/23/21 12:45 IMPRESSION: 1. No acute intracranial abnormality. 2. Chronic atrophy with chronic white matter ischemic changes. Chest X-Ray 11/23/21 14:43 IMPRESSION: There is an endotracheal tube whose tip is 7 cm above the harper. Laboratory Results WBC 15.8 10^3/uL (4.0-10.0) H 11/23/21 12:50 RBC 4.21 10^6/uL (4.1-5.3) 11/23/21 12:50 Hgb 13.3 g/dL (11.5-15.3) 11/23/21 12:50 Hct 42.4 % (37.0-47.0) 11/23/21 12:50 MCV 100.7 fl (81-99) H 11/23/21 12:50 MCH 31.6 pg (28.0-34.0) 11/23/21 12:50 MCHC 31.4 g/dL (30.0-36.0) 11/23/21 12:50 RDW 16.5 % (12.1-15.1) H 11/23/21 12:50 Plt Count 250 10^3/cmm (130-400) 11/23/21 12:50 MPV 10.9 fL (7.4-10.4) H 11/23/21 12:50 Neut % (Auto) 86.2 % 11/23/21 12:50 Lymph % (Auto) 6.2 % 11/23/21 12:50 [place] % (Auto) 5.4 % 11/23/21 12:50 Eos % (Auto) 0.0 % 11/23/21 12:50 Baso % (Auto) 0.3 % 11/23/21 12:50 Neut # (Auto) 13.64 10^3/uL (1.8-7.7) H 11/23/21 12:50 Lymph # (Auto) 1.0 10^3/uL (0.8-4.8) 11/23/21 12:50 [place] # (Auto) 0.9 10^3/uL (0.2-0.9) 11/23/21 12:50 Eos # (Auto) 0.0 10^3/uL (0.0-0.8) 11/23/21 12:50 Baso # (Auto) 0.0 10^3/uL (0.0-0.1) 11/23/21 12:50 Nucleated RBC % (auto) 0 % 11/23/21 12:50 Nucleated RBCs # 0.0 /100WBC 11/23/21 12:50 Specimen Type Arterial 11/23/21 15:29 Sample Site Brachial, right 11/23/21 15:29 ABG pH 7.31 (7.35-7.45) L 11/23/21 15:29 ABG pCO2 39.9 mmHg (35-45) 11/23/21 15: ABG pO2 82.7 mmHg (80.0-100.0) 11/23/21 15: ABG HCO3 20.0 mmol/L (22-26) L 11/23/21 15: ABG Base Excess -5.9 mmol/L (-2.0-2.0) L 11/23/21 15: [place] Test N/a 11/23/21 15: Hematocrit 33.8 % (37-47) L 11/23/21 15: O2 Delivery Device Vent 11/23/21 15: FiO2 100.0 % 11/23/21 15: Tidal Volume 0.35 11/23/21 15: PEEP 8.0 cmH20 11/23/21 15: Rock Singer ID Amh 11/23/21 15: Sodium 153 mmol/L (136-145) H 11/23/21 12:50 Potassium 4.6 mmol/L (3.5-5.1) 11/23/21 12:50 Chloride 111 mmol/L (98-107) H 11/23/21 12:50 Carbon Dioxide 23 mmol/L (22-29) 11/23/21 12:50 Anion Gap 23.6 (5-19) H 11/23/21 12:50 BUN 66 mg/dL (8-23) H 11/23/21 12:50 Creatinine 2.0 mg/dL (0.5-0.9) H 11/23/21 12:50 GFR Calculation Not Reportable 11/23/21 12:50 Glucose 127 mg/dL (65-115) H 11/23/21 12:50 POC Glucose 125 mg/dL (70-110) H 11/23/21 13:13 Calculated Osmolality 337 mOsm/kg (285-295) H 11/23/21 12:50 Calcium 10.4 mg/dL (8.5-10.5) 11/23/21 12:50 Phosphorus 6.1 mg/dL (2.5-4.5) H 11/23/21 12:50 Magnesium 2.2 mg/dL (1.7-2.3) 11/23/21 12:50 Total Bilirubin 0.2 mg/dL (0.15-1.2) 11/23/21 12:50 AST 42 U/L (0-32) H 11/23/21 12:50 ALT 27 U/L (0-33) 11/23/21 12:50 Alkaline Phosphatase 113 IU/L (35-105) H 11/23/21 12:50 Troponin T Baseline 79 ng/L (0-10) H 11/23/21 12:50 Troponin T 120 Minute 61.48 ng/L (0-10) H 11/23/21 14:34 Delta Troponin T -17.52 ABS# (0-10) L 11/23/21 14:34 C-Reactive Protein < 3.0 mg/L (0.0-4.9) 11/23/21 12:50 NT-Pro-B Natriuret Pep 4530 pg/mL (0-450) H 11/23/21 12:50 Total Protein 7.7 g/dL (6.6-8.7) 11/23/21 12:50 Albumin 4.1 g/dL (3.5-5.2) 11/23/21 12:50 Globulin 3.6 g/dL (1.3-4.6) 11/23/21 12:50 Procalcitonin 0.22 ng/mL (0-0.5) 11/23/21 12:50 TSH 8.29 uIU/mL (0.27-4.20) H 11/23/21 12:50 Free T4 1.36 ng/dL (0.82-1.77) 11/23/21 12:50 Urine Color Yellow (Yellow) 11/23/21 13:10 Urine Appearance Hazy (CLEAR) A 11/23/21 13:10 Urine pH 5 (5-7) 11/23/21 13:10 Ur Specific [place] 1.020 (1.005-1.030) 11/23/21 13:10 Urine Protein 2+ (Negative) H 11/23/21 13:10 Urine Glucose (UA) Norm (Normal) 11/23/21 13:10 Urine Ketones Negative (Negative) 11/23/21 13:10 Urine Blood 3+ (Negative) H 11/23/21 13:10 Urine Nitrate Negative (Negative) 11/23/21 13:10 Urine Bilirubin Neg (Negative) 11/23/21 13:10 Urine Urobilinogen Norm mg/dL (Negative) 11/23/21 13:10 Ur Leukocyte Esterase 2+ (Negative) H 11/23/21 13:10 Urine RBC 15-25 /hpf (0-2) H 11/23/21 13:10 Urine WBC Too numerous to cnt /hpf (0-5) H 11/23/21 13:10 Ur Squamous Epith Cells 5-10 /hpf (0-5) H 11/23/21 13:10 Amorphous Sediment Not Reportable 11/23/21 13:10 Urine Bacteria 2+ /hpf (NONE) H 11/23/21 13:10 Coronavirus 229E (PCR) Not detected (NOT DETECT) 11/23/21 15:19 SARS-CoV-2 (PCR) Not detected (NOT DETECT) 11/23/21 15:19 SARS-CoV-2 Ag (Rapid) Cancelled 11/23/21 15:19 EKG Data EKG 1: I personally reviewed and interpreted this EKG as follows: EKG interpretation date: 11/23/21 EKG interpretation time: 14:55 Interpretation: Twelve-lead EKG shows a regular rhythm at a rate of 72. RI interval 127, QRS duration 87, QTc 455. Normal axis. Interpretation: Sinus rhythm. Nonspecific ST segment abnormalities. EKG 2: I personally reviewed and interpreted this EKG as follows: EKG interpretation date: 11/23/21 EKG interpretation time: 12:09 Interpretation: Twelve-lead EKG shows a regular rhythm at a rate of 76. RI interval 123, QRS duration 88, QTc 455. Normal axis. Interpretation: Sinus rhythm. Nonspecific ST segment abnormalities. I believe that electronic interpretation is erroneous given baseline abnormality and likely movement artifact that is reflected additionally in the rhythm strip of lead to in V1 through V3. Critical Care Time Critical Care Time: Critical Care Time: Yes Total Critical Care Time: 90 Attestation: Due to a high probability of clinically significant, possibly life threatening d eterioration, the patient required my highest level of attention and preparedness to intervene emergently and I personally spent this critical care time directly and personally managing the patient. This critical care time included obtaining a history; examining the patient; pulse oximetry; ordering and review of laboratory and imaging studies; arranging urgent treatment with development of a management plan; evaluation of patient's response to treatment; frequent reassessment; and, discussions with other providers as applicable. It was exclusive of separately billable procedures. Primary systems involved are respiratory, urinary, neuro Discharge Plan Discharge Patient Disposition: Placed in Observation Admit Provider: Cy Morris Clinical Impression: Acute respiratory failure, Acute alteration in mental status, Acute dehydration, OFE (acute kidney injury), Acute UTI Coding Level of Care Code ED [employer] Supervisor for Chg Fwd Exam Comprehensive
--- NOTE | 2021-11-23 12:45 | XRR_ITS ---
PROCEDURE INFORMATION: Exam: XR Chest Exam date and time: 11/23/2021 12:45 PM Age: 86 years old Clinical indication: Device placement; Ett placement (vent status); Additional info: Intubated TECHNIQUE: Imaging protocol: XR of the chest. Views: 1 view. COMPARISON: CR XR chest 1V portable [id number] 11/03/2021 8:32 AM FINDINGS: Tubes, catheters and devices: An endotracheal tube is present with the tip 5.3 cm above the harper. Lungs: There is overinflation of the lungs consistent with emphysema. There is interstitial fibrosis predominantly in the lung bases. Pleural spaces: Unremarkable. No pleural effusion. No pneumothorax. Heart/Mediastinum: The heart is not enlarged. The aorta is calcified. Bones/joints: Patient has undergone multiple thoracolumbar vertebroplasties. XR/XR chest 1V portable [id number] IMPRESSION: 1. Satisfactory endotracheal tube position. 2. Pulmonary emphysema and fibrosis.
--- NOTE | 2021-11-23 12:45 | CTR_ITS ---
PROCEDURE INFORMATION: Exam: CT Head Without Contrast Exam date and time: 11/23/2021 12:45 PM Age: 86 years old Clinical indication: Coma or unconsciousness; Patient HX: PT went unresponsive during lunch - now intubated; Additional info: AMS TECHNIQUE: Imaging protocol: Computed tomography of the head without contrast. Radiation optimization: All CT scans at this facility use at least one of these dose optimization techniques: automated exposure control; mA and/or kV adjustment per patient size (includes targeted exams where dose is matched to clinical indication); or iterative reconstruction. COMPARISON: CT head wo con* [id number] 11/03/2021 1:40 PM RADIATION DOSE METRICS: Total DLP (mGy-cm): 1461.7 FINDINGS: Brain: No intracranial hemorrhage, edema or other acute abnormalities are seen in the brain. There is generalized chronic atrophy with prominence of the ventricles and sulci. There is decreased white matter density which indicates chronic small vessel white matter ischemia. Is no mass effect or midline shift. Cerebral ventricles: See Brain finding. Paranasal sinuses: Visualized sinuses are unremarkable. No fluid levels. Mastoid air cells: Visualized mastoid air cells are well aerated. Bones/joints: Unremarkable. No acute fracture. Soft tissues: Unremarkable. CT/CT head wo con* [id number] IMPRESSION: 1. No acute intracranial abnormality. 2. Chronic atrophy with chronic white matter ischemic changes.
--- NOTE | 2021-11-23 12:45 | ECG_ITS ---
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 Measurements Intervals [place] Rate: 76 P: 78 WV: 123 QRS: 64 QRSD: 88 T: 62 QT: 404 QTc: 455 Interpretive Statements SINUS RHYTHM POSSIBLE LEFT ATRIAL ENLARGEMENT [-0.1mV P-WAVE IN V1/V2] SEPTAL MYOCARDIAL INFARCTION , PROBABLY RECENT [40+ ms Q WAVE IN V1/V2] ACUTE SD Compared to ECG 11/03/2021 14:07:13 Myocardial infarct finding now present Sinus bradycardia no longer present Left-axis deviation no longer present T-wave abnormality no longer present Electronically Signed On 11-23-2021 15:38:55 CDT by Vicente Beltran M.D. [id number]
[2021-11-23] MEDS: lactated ringers 1,000 ML 999 ML IV ×2 (13:00→14:50)
[2021-11-23] MEDS: lactated ringers 500 ML 999 ML IV (13:00)
[2021-11-23 13:07] LABS: Basophils % 0.3 %; Hematocrit 42.4 % (37.0-47.0); Hemoglobin 13.3 g/dL (11.5-15.3); Lymphocytes % 6.2 %; Mean Corpuscular HGB Conc 31.4 g/dL (30.0-36.0); Mean Corpuscular Hemoglobin 31.6 pg (28.0-34.0); Mean Corpuscular Volume 100.7 fl (81-99); Mean Platelet Volume 10.9 fL (7.4-10.4); Monocytes # 0.9 10^3/uL (0.2-0.9); Monocytes % 5.4 %; Neutrophils # 13.64 10^3/uL (1.8-7.7); Neutrophils % 86.2 %; Nucleated Red Blood Cells % 0 %; Platelet Count 250 10^3/cmm (130-400); Red Blood Count 4.21 10^6/uL (4.1-5.3); Red Cell Distribution Width 16.5 % (12.1-15.1); White Blood Count 15.8 10^3/uL (4.0-10.0)
[2021-11-23 13:17] LABS: Glucose Point of Care 125 mg/dL (70-110)
[2021-11-23 13:27] LABS: Add Urine Microscopic? YES; Bilirubin Urine Neg (Negative); Blood Urine 3+ (Negative); Glucose Urine UA Norm (Normal); Ketones Urine Negative (Negative); Leukocyte Esterase Urine 2+ (Negative); Nitrate Urine Negative (Negative); Protein Urine 2+ (Negative); Urine Appearance Hazy (CLEAR); Urine Color Yellow (Yellow); Urobilinogen Urine Norm (Negative); pH Urine 5 (5-7)
[2021-11-23 13:34] LABS: Add Urine Culture? Yes; Bacteria Urine 2+ /hpf; RBC Urine 15-25 /hpf (0-2); WBC Urine TOO NUMEROUS TO CNT /hpf (0-5)
[2021-11-23 13:41] LABS: ABG PCO2 42.7 mmHg (35-45); ABG PH Result 7.31 (7.35-7.45); Arterial Blood Gas Hematocrit 35.6 % (37-47); Base Excess ABG -4.5 mmol/L (-2.0-2.0); Blood Gas Operator Identificat AMH; Blood Gas Sample Site Brachial, left; Blood Gas Sample Type Arterial; HCO3 ABG 21.6 mmol/L (22-26); Oxygen Device VENT
[2021-11-23 13:52] LABS: Magnesium 2.2 mg/dL (1.7-2.3); Phosphorus 6.1 mg/dL (2.5-4.5)
[2021-11-23 13:54] LABS: Troponin(5th) Baseline 79 ng/L (0-10)
[2021-11-23 14:00] LABS: NT Pro B Type Natriuretic Pept 4530 pg/mL (0-450); Procalcitonin 0.22 ng/mL (0-0.5); Thyroid Stimulating Hormone 8.29 uIU/mL (0.27-4.20)
[2021-11-23] MEDS: propofol 1,000 MG/100 ML INJ 0.95 MG IV (14:00)
[2021-11-23] MEDS: cefepime 2,000 MG in sodium chloride 0.9% (plus) 50 ML 100 MG IV (14:00)
[2021-11-23] MEDS: vancomycin 1,000 MG in sodium chloride 0.9% 250 ML 250 MG IV (14:06)
[2021-11-23 14:11] LABS: Alanine Aminotransferase 27 U/L (0-33); Albumin Level 4.1 g/dL (3.5-5.2); Alkaline Phosphatase 113 IU/L (35-105); Blood Urea Nitrogen 66 mg/dL (8-23); Calcium 10.4 mg/dL (8.5-10.5); Carbon Dioxide 23 mmol/L (22-29); Chloride 111 mmol/L (98-107); Globulin 3.6 g/dL (1.3-4.6); Glucose 127 mg/dL (65-115); Osmolality Calculated 337 mOsm/kg (285-295); Sodium 153 mmol/L (136-145); Total Bilirubin 0.2 mg/dL (0.15-1.2); Total Protein 7.7 g/dL (6.6-8.7)
[2021-11-23 14:36] LABS: Anion Gap 23.6 (5-19); Potassium 4.6 mmol/L (3.5-5.1)
[2021-11-23 14:37] LABS: Aspartate Amino Transferase 42 U/L (0-32); C Reactive Protein < 3.0 mg/L (0.0-4.9)
--- NOTE | 2021-11-23 14:43 | XRR_ITS ---
PROCEDURE INFORMATION: Exam: XR Chest Exam date and time: 11/23/2021 2:43 PM Age: 86 years old Clinical indication: Device placement; Ett placement (vent status); Additional info: Change in clinical status, hypoxemia TECHNIQUE: Imaging protocol: XR of the chest. Views: 1 view. COMPARISON: CR XR chest 1V portable [id number] 11/23/2021 11:49 AM FINDINGS: Tubes, catheters and devices: There is an endotracheal tube whose tip is 7 cm above the harper. Lungs: There is lung emphysema. No significant lung consolidation. Pleural spaces: Unremarkable. No pleural effusion. No pneumothorax. Heart/Mediastinum: Unremarkable. No cardiomegaly. Bones/joints: Unremarkable. XR/XR chest 1V portable [id number] IMPRESSION: There is an endotracheal tube whose tip is 7 cm above the harper.
--- NOTE | 2021-11-23 14:45 | ECG_ITS ---
[facility] Test Date: 2021-11-23 Pat Name: Flor Mishra Department: Room: Gender: Female Histology Teacher: : 1935 Requested By: Mingo Brownlee Order Number: [id number] Margarita MD: Vicente Beltran M.D. Measurements Intervals [place] Rate: 72 P: 75 ND: 127 QRS: 69 QRSD: 87 T: 22 QT: 413 QTc: 455 Interpretive Statements SINUS RHYTHM NONSPECIFIC ST & T-WAVE ABNORMALITY Compared to ECG 11/23/2021 12:01:06 T-wave abnormality now present Myocardial infarct finding no longer present Electronically Signed On 11-23-2021 15:50:36 CDT by Vicente Beltran M.D. [id number]
[2021-11-23 14:59] LABS: Free T4 Free Thyroxine 1.36 ng/dL (0.82-1.77)
[2021-11-23 15:01] LABS: Troponin 5 2HR 61.48 ng/L (0-10)
[2021-11-23 15:40] LABS: ABG PCO2 39.9 mmHg (35-45); ABG PH Result 7.31 (7.35-7.45); Arterial Blood Gas Hematocrit 33.8 % (37-47); Base Excess ABG -5.9 mmol/L (-2.0-2.0); Blood Gas Operator Identificat AMH; Blood Gas Sample Site Brachial, right; Blood Gas Sample Type Arterial; Blood Gas Tidal Volume 0.35; Oxygen Device VENT; PO2 ABG 82.7 mmHg (80.0-100.0)
--- NOTE | 2021-11-23 16:45 | PC.NURSE ---
Pt extubated at 1640. pt placed on 2l NC. pt still unresponsive.
[2021-11-23 17:29] LABS: Adenovirus Not Detected (NOT DETECT); Chlamydia Pneumoniae Not Detected (NOT DETECT); Coronavirus 229E,HKU1,NL63,OC4 Not Detected (NOT DETECT); Human Metapneumovirus Not Detected (NOT DETECT); Human Rhinovirus/Enterovirus Not Detected (NOT DETECT); Influenza A Not Detected (NOT DETECT); Influenza A H1 Not Detected (NOT DETECT); Influenza A H1-2009 Not Detected (NOT DETECT); Influenza A H3 Not Detected (NOT DETECT); Influenza B Not Detected (NOT DETECT); Mycoplasma Pneumoniae Not Detected (NOT DETECT); Parainfluenza Virus Type 1 Not Detected (NOT DETECT); Parainfluenza Virus Type 2 Not Detected (NOT DETECT); Parainfluenza Virus Type 3 Not Detected (NOT DETECT); Parainfluenza Virus Type 4 Not Detected (NOT DETECT); Respiratory Syncytial Virus A Not Detected (NOT DETECT); Respiratory Syncytial Virus B Not Detected (NOT DETECT); SARS-COV-2 Not Detected (NOT DETECT)
[2021-11-23] MEDS: fentaNYL 50 mcg/mL INJ 2mL 25 MCG IVP (17:47)
--- NOTE | 2021-11-23 18:06 | PM.HP ---
Providers/Chief Complaint Admitting Physician: Cy Morris MD Primary Care Provider: David Degroot MD Chief Complaint: unresponsive History of Present Illness Flor Mishra is a 86 year old female who carries a history of Alzheimer's disease, at baseline needs assisted feeding, would stop eating for a few days, alf resident, presented to the hospital after the event of altered mental status. As per the report by son-in-law who is at the bedside, she was being fed today when all of a sudden she stooped over, lost consciousness. EMS was called, she was intubated by the EMS. On arrival to the ER she was intubated and sedated. After contacting the family ER physician terminally extubated her and family decided to pursue comfort measures. Hospital service has been requested to admit her overnight and arrange hospice care on Wednesday and discharge her back to the alf. At the time of my evaluation MAP 65, currently on 2 L nasal cannula Agonal breathing Extremely dehydrated malnourished cachectic elderly female Does not respond to painful stimuli Review of Systems General: Reports: ROS unobtainable due to medical condition Medications/Allergies Home Medications Medication Instructions Recorded Confirmed Last Taken Type aspirin 81 mg chewable tablet 81 mg PO DAILY 10/25/19 11/23/21 11/23/21 History polyethylene glycol 3350 17 gram 17 g PO DAILY PRN 12/30/19 11/23/21 Unknown History oral powder packet (Miralax) Mikhail Mag Plus 1 tab PO BID 03/09/20 11/23/21 11/23/21 History furosemide 20 mg tablet 20 mg PO DAILY PRN #90 tab 05/15/20 11/23/21 Unknown Rx alfuzosin 10 mg tablet,extended 10 mg PO DAILY #30 tab 03/11/21 11/23/21 11/22/21 Rx release 24 hr atorvastatin 40 mg tablet 40 mg PO DAILY #90 tab 05/06/21 11/23/21 11/22/21 Rx vitamin B complex and vitamin C 1 cap PO DAILY 08/14/21 11/23/21 11/23/21 History no.20-folic acid 1 mg capsule (Virt-Caps) pregabalin 25 mg capsule 25 mg PO BID 30 Days #60 cap 10/08/21 11/23/21 11/23/21 Rx hydroxyzine HCl 10 mg tablet 10 mg PO Q6H PRN #60 tab 10/23/21 11/23/21 Unknown Rx alendronate 70 mg tablet 70 mg PO Q7D #4 tab 10/28/21 11/23/21 11/17/21 Rx docusate sodium 100 mg capsule 100 mg PO BID 30 Days #60 cap 11/07/21 11/23/21 11/23/21 Rx pantoprazole 40 mg tablet,delayed 40 mg PO Q24H 30 Days #30 tab 11/07/21 11/23/21 11/23/21 Rx release potassium chloride 20 mEq 20 meq PO DAILY 30 Days #30 tab 11/07/21 11/23/21 11/23/21 Rx tablet,extended release(part/cryst) (Klor-Con M) sodium di- and 250 mg PO BID 30 Days #14 tab 11/07/21 11/23/21 11/23/21 Rx monophosphate-potassium phos monobasic 250 mg tablet (Phospha 250 Neutral) acetaminophen 325 mg tablet 650 mg PO Q6H PRN 11/23/21 11/23/21 Unknown History bisacodyl 10 mg rectal suppository 10 mg WA DAILY PRN 11/23/21 11/23/21 Unknown History bisacodyl 5 mg tablet 10 mg PO DAILY PRN 11/23/21 11/23/21 Unknown History clopidogrel 75 mg tablet (Plavix) 75 mg PO DAILY 11/23/21 11/23/21 11/23/21 History diclofenac sodium 1 % topical gel 2 g TOPICAL Q6H PRN 11/23/21 11/23/21 Unknown History levetiracetam 500 mg tablet 500 mg PO BID 11/23/21 11/23/21 11/23/21 History (Keppra) magnesium hydroxide 400 mg/5 mL 30 ml PO DAILY PRN 11/23/21 11/23/21 Unknown History oral suspension (Milk of Magnesia) metoprolol tartrate 25 mg tablet 50 mg PO BID 11/23/21 11/23/21 11/23/21 History sodium phosphates 19 gram-7 118 ml WA DAILY PRN 11/23/21 11/23/21 Unknown History gram/118 mL enema (Enema) Allergies Allergy/AdvReac Type Severity Reaction Status Date / Time levofloxacin Allergy Severe ADR-Halluci Verified 11/23/21 12:43 nating carbidopa [From Sinemet] Allergy Unknown Verified 11/23/21 12:43 hydrocodone Allergy ALGY-Swell Verified 11/23/21 12:43 Lip/Tongue/Throat latex Allergy ALGY-Anaphy Verified 11/23/21 12:43 laxis levodopa [From Sinemet] Allergy Unknown Verified 11/23/21 12:43 Penicillins Allergy ALGY-Bliste Verified 11/23/21 12:43 r Sulfa (Sulfonamide Allergy ALGY-Hives Verified 11/23/21 12:43 Antibiotics) tetracycline Allergy ALGY-Swell Verified 11/23/21 12:43 Lip/Tongue/Throat PFSH Acute PFSH: Medical History AAA (abdominal aortic aneurysm) Abdominal aortic aneurysm -surveillance with serial imaging per PCP and cardiology Dr. Morejon -has been monitoring BP at home closely Allergic rhinitis due to allergen Altered mental status Carotid stenosis Constipation by delayed colonic transit COPD (chronic obstructive pulmonary disease) -Previously oxygen dependent but was recently weaned off -stable respiratory status, supplemental oxygen as needed -No evidence of acute exacerbation currently DDD (degenerative disc disease), lumbar Dementia associated with other underlying disease with behavioral disturbance Hyperlipidemia -continue statin Hypertension Nicotine dependence, cigarettes, with unspecified nicotine-induced disorders Osteoporosis Protein-energy malnutrition Skin lesion of left ear Spondylosis without myelopathy or radiculopathy, lumbosacral region Thoracic aortic aneurysm -as noted above Urinary retention Surgical History History of endarterectomy bilateral History of tonsillectomy and adenoidectomy Hx of cholecystectomy Hx of hysterectomy, total Hx of kyphoplasty Family History Mother , at age 75 No problems noted. Father , in his 50's Heart attack Other CAD (coronary artery disease) Social History Smoking and tobacco status: current every day smoker cigarettes Packs smoked per day: 0.5 Alcohol intake: never Household members: other Details: lives with son in law Marital status: / Current occupational status: retired History of recent travel: No Vitals/I&O/Wt Last Vital Signs Pulse 87 11/23/21 18:02 Resp 14 11/23/21 18:02 BP 100/53 11/23/21 18:02 Pulse Ox 69 L 11/23/21 18:02 11/23/21 11/23/21 11/23/21 06:59 14:59 22:59 Intake Total 1550 / 1550 11.780 / 1561.780 Balance 1550 / 1550 11.780 / 1561.780 Weight last 48 hrs Weight 31.751 kg Physical Exam Narrative: female On 2 L cannula MAP 65 Active bleeding Malnourished cachectic unkept appearance No respond at all to painful stimuli Dai cath draining yellow urine Family at the bedside Neuro exam limited S1, S2 sinus rhythm Abdomen soft Shallow breaths, hypoventilation Urinary Catheter Management: Dai: Cath Placed During This Visit: yes Urinary Catheter Date of Insertion: 11/23/21 Urinary Catheter Time of Insertion: 13:00 Data : 11/23/21 12:50 11/23/21 12:50 Micro: Microbiology 11/23/21 13:15 Gram Stain - Final Sputum - Endotracheal Tube Aspirate 11/23/21 13:20 Blood Culture - Preliminary Blood SPECIMEN COLLECTED 11/23/21 13:29 Blood Culture - Preliminary Blood SPECIMEN COLLECTED A&P Assessment and plan (1) CVA (cerebral vascular accident): Status: Acute (2) Acute alteration in mental status: Status: Acute (3) Acute UTI: Status: Acute (4) OFE (acute kidney injury): Status: Acute (5) Acute dehydration: Status: Acute (6) Acute respiratory failure: Status: Acute (7) Need for comfort care: Status: Acute Plan Altered mental status Likely related to acute CVA Pinpoint pupils Patient not responding to painful stimuli GCS less than 8 Patient has been terminally extubated to 2 L nasal cannula Comfort measures Extremely dehydrated malnourished and cachectic Family does not want any aggressive intervention We will arrange hospice care and discharge back to alf Family does not want IV antibiotics, aggressive hydration, intubation chest compressions or defibrillation Son-in-law at the bedside Extremely poor prognosis Attestations Medical Necessity Statement*: Less than 2 midnights anticipated Time Spent in Patient Care: 35min Coding Level of Care Code Acute Parks Worker for [facility] Fwjulio c Diagnoses CVA (cerebral vascular accident) I63.9 Acute alteration in mental status R41.82 Acute UTI N39.0 OFE (acute kidney injury) N17.9 Acute dehydration E86.0 Acute respiratory failure J96.00 Need for comfort care
--- NOTE | 2021-11-23 18:59 | PC.NURSE ---
Waste 242ml of fentanyl from drip. Witnessed By Job ALEJANDRE and Suzanne ALEJANDRE.
--- NOTE | 2021-11-24 00:37 | PC.NURSE ---
Patient comfort care. No family available to answer admission questions.
--- NOTE | 2021-11-24 00:39 | PC.NURSE ---
Patient is on comfort care. Has been non verbal and has fink. Q2 repositioning.
--- NOTE | 2021-11-24 00:42 | PC.NURSE ---
Patient on comfort care
--- NOTE | 2021-11-24 00:43 | PC.NURSE ---
Patient not speaking. No family with her. Comfort care. Unable to answer questions.
--- NOTE | 2021-11-24 03:19 | PC.NURSE ---
received from CSU via bed to [id number]. belongings received along with pt. pt unresponsive to stimuli; no s/s pain at this time; resp even, unlabored.
--- NOTE | 2021-11-24 10:18 | PC.CHAP ---
Pastoral Care Encounter/Spiritual Assessment Type of Contact [] Declined biofuels production associate visit [] Patient/Family/Request visit [] Outpatient visit [] Follow-up visit [] Physician referral [] Code/Alert [x] Routine visit [] Staff referral [] Actively dying [x] Patient sleeping [] Family support [] [] Out of room [] Palliative care [] [] Receiving care in room [] Pre-surgical visit [] Trauma [] Long length of stay [] ICU visit [] Other: Relational/Emotional Strength [] Patient feels connected with others/family/visitors/staff [] Distress [] Loneliness/isolation [] Abandonment Spirituality of Patient [] Person of Leslee [] Attends Sikh of their Leslee [] Believes in Prayer [] Reads Bible or Oriental Orthodox materials [] There are Spiritual issues to be addressed External Relations Manager Interventions [] Prayer [] Active listening [] Non-anxious presence [] Spiritual/emotional support [] Crisis/trauma care [] Spiritual counseling [] Bereavement support [] Provided bereavement packet [] Provided Bible/devotional materials [] Provided toy/stuffed animal, coloring book to patient or family member [] Provided Communion [] Anointing/Scott [] Salvation [] Completed spiritual assessment [] Other: Impact on Illness or Injury [] Angry [] Fearful [] Anxious [] Often cries [] Exhaustion [] Unable to work [] Unable to attend judaism [] Unable to walk/stand [] Unable to read [] Unable to drive [] Unable to eat/drink [] Unable to sleep [] Unable to be with family [] Patient intubated [] Other: Summary Time spent with patient 5 min
--- NOTE | 2021-11-24 13:08 | P.PN_ITS ---
Subjective Subjective: Patient is obtunded nonverbal Vitals/I&O/Wt Last Vital Signs Pulse 94 11/23/21 20:15 Resp 19 H 11/23/21 20:10 BP 100/53 11/23/21 18:02 Pulse Ox 88 L 11/23/21 20:10 11/23/21 11/24/21 11/24/21 22:59 06:59 14:59 Intake Total 11.780 / 1561.780 0 / 1561.780 338.220 / 338.220 Balance 11.780 / 1561.780 0 / 1561.780 338.220 / 338.220 Weight last 48 hrs Weight 31.751 kg Weight 31.751 kg Physical Exam Narrative: Cachectic Malnourished Obtunded Nonverbal No meaningful movement On 5 L cannula Dehydrated Agonal breathing Urinary Catheter Management: Dai: Cath Placed During This Visit: yes Reason for Continuing Indwelling Catheter: Hospice/Comfort/Palliative Care Urinary Catheter Date of Insertion: 11/23/21 Urinary Catheter Time of Insertion: 13:00 Data : 11/23/21 12:50 11/23/21 12:50 Micro: Microbiology 11/23/21 13:15 Gram Stain - Final Sputum - Endotracheal Tube Aspirate Sputum Culture - Preliminary 11/23/21 13:10 Urine Culture - Preliminary Urine,Clean Catch Gram Negative Rods 11/23/21 13:20 Blood Culture - Preliminary Blood SPECIMEN COLLECTED 11/23/21 13:29 Blood Culture - Preliminary Blood SPECIMEN COLLECTED A&P Assessment and plan (1) Need for comfort care: Status: Acute Plan Possible pontine stroke _Underlying Alzheimer's dementia Comfort care Attestations Medical Necessity Statement*: Continue comfort care management Time Spent in Patient Care: 15min Coding Level of Care Code Acute Photonics Engineering Technician for [facility] Diagnoses Need for comfort care
--- NOTE | 2021-11-24 14:40 | PM.DCS ---
Discharge Providers Date of Admission: 11/23/21 17:16 Date of Discharge: November 24, 2021 Attending Provider at Admission: Cy Morris MD Attending Provider at Discharge: Cy Morris MD Primary Care Provider: David Degroot MD Diagnoses at Discharge Discharge Diagnosis (1) Need for comfort care: Status: Acute Reason for Visit Reason for Visit: unresponsive Hospital Course Hospital Course Patient was admitted for management & evaluation of altered mental status. She had pinpoint pupils, was nonverbal, without any significant meaningful recovery, she was intubated by the EMS when she was found obtunded at the skilled nursing however when family was approached the told ER physician that she is DNR/DNI, she was extubated in the ER, comfort measures were pursued, she is being discharged back to her skilled nursing with hospice care. 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 Physical Exam Narrative: Nonverbal Obtunded Cachectic Malnourished Agonal breathing Muscle mass loss Urinary Catheter Management: Dai: Cath Placed During This Visit: yes Reason for Continuing Indwelling Catheter: Hospice/Comfort/Palliative Care Urinary Catheter Date of Insertion: 11/23/21 Urinary Catheter Time of Insertion: 13:00 Discharge Data Studies Completed and Pending Completed Studies During Hospitalization Category Date Time Status CT head wo con* [id number] Urgent Cat Scan 11/23/21 12:45 Completed XR chest 1V portable [id number] Urgent Exams 11/23/21 12:45 Completed XR chest 1V portable [id number] Urgent Exams 11/23/21 14:43 Completed Pending at discharge Category Date Time Status Blood Culture Stat Lab 11/23/21 13:20 Results COVID [SARS Covid-2 Antigen] Routine Lab 11/24/21 14:30 Received Sputum Culture and Gram Stain Stat Lab 11/23/21 13:15 Results Urine Culture Stat Lab 11/23/21 13:10 Results Radiology Impressions Head CT 11/23/21 12:45 IMPRESSION: 1. No acute intracranial abnormality. 2. Chronic atrophy with chronic white matter ischemic changes. Chest X-Ray 11/23/21 14:43 IMPRESSION: There is an endotracheal tube whose tip is 7 cm above the harper. Laboratory Results WBC 15.8 10^3/uL (4.0-10.0) H 11/23/21 12:50 RBC 4.21 10^6/uL (4.1-5.3) 11/23/21 12:50 Hgb 13.3 g/dL (11.5-15.3) 11/23/21 12:50 Hct 42.4 % (37.0-47.0) 11/23/21 12:50 MCV 100.7 fl (81-99) H 11/23/21 12:50 MCH 31.6 pg (28.0-34.0) 11/23/21 12:50 MCHC 31.4 g/dL (30.0-36.0) 11/23/21 12:50 RDW 16.5 % (12.1-15.1) H 11/23/21 12:50 Plt Count 250 10^3/cmm (130-400) 11/23/21 12:50 MPV 10.9 fL (7.4-10.4) H 11/23/21 12:50 Neut % (Auto) 86.2 % 11/23/21 12:50 Lymph % (Auto) 6.2 % 11/23/21 12:50 [place] % (Auto) 5.4 % 11/23/21 12:50 Eos % (Auto) 0.0 % 11/23/21 12:50 Baso % (Auto) 0.3 % 11/23/21 12:50 Neut # (Auto) 13.64 10^3/uL (1.8-7.7) H 11/23/21 12:50 Lymph # (Auto) 1.0 10^3/uL (0.8-4.8) 11/23/21 12:50 [place] # (Auto) 0.9 10^3/uL (0.2-0.9) 11/23/21 12:50 Eos # (Auto) 0.0 10^3/uL (0.0-0.8) 11/23/21 12:50 Baso # (Auto) 0.0 10^3/uL (0.0-0.1) 11/23/21 12:50 Nucleated RBC % (auto) 0 % 11/23/21 12:50 Nucleated RBCs # 0.0 /100WBC 11/23/21 12:50 Specimen Type Arterial 11/23/21 15:29 Sample Site Brachial, right 11/23/21 15:29 ABG pH 7.31 (7.35-7.45) L 11/23/21 15:29 ABG pCO2 39.9 mmHg (35-45) 11/23/21 15:29 ABG pO2 82.7 mmHg (80.0-100.0) 11/23/21 15:29 ABG HCO3 20.0 mmol/L (22-26) L 11/23/21 15:29 ABG Base Excess -5.9 mmol/L (-2.0-2.0) L 11/23/21 15:29 [place] Test N/a 11/23/21 15: Hematocrit 33.8 % (37-47) L 11/23/21 15: O2 Delivery Device Vent 11/23/21 15: FiO2 100.0 % 11/23/21 15: Tidal Volume 0.35 11/23/21 15: PEEP 8.0 cmH20 11/23/21 15:29 Molding Technician ID Amh 11/23/21 15:29 Sodium 153 mmol/L (136-145) H 11/23/21 12:50 Potassium 4.6 mmol/L (3.5-5.1) 11/23/21 12:50 Chloride 111 mmol/L (98-107) H 11/23/21 12:50 Carbon Dioxide 23 mmol/L (22-29) 11/23/21 12:50 Anion Gap 23.6 (5-19) H 11/23/21 12:50 BUN 66 mg/dL (8-23) H 11/23/21 12:50 Creatinine 2.0 mg/dL (0.5-0.9) H 11/23/21 12:50 GFR Calculation Not Reportable 11/23/21 12:50 Glucose 127 mg/dL (65-115) H 11/23/21 12:50 POC Glucose 125 mg/dL (70-110) H 11/23/21 13:13 Calculated Osmolality 337 mOsm/kg (285-295) H 11/23/21 12:50 Calcium 10.4 mg/dL (8.5-10.5) 11/23/21 12:50 Phosphorus 6.1 mg/dL (2.5-4.5) H 11/23/21 12:50 Magnesium 2.2 mg/dL (1.7-2.3) 11/23/21 12:50 Total Bilirubin 0.2 mg/dL (0.15-1.2) 11/23/21 12:50 AST 42 U/L (0-32) H 11/23/21 12:50 ALT 27 U/L (0-33) 11/23/21 12:50 Alkaline Phosphatase 113 IU/L (35-105) H 11/23/21 12:50 Troponin T Baseline 79 ng/L (0-10) H 11/23/21 12:50 Troponin T 120 Minute 61.48 ng/L (0-10) H 11/23/21 14:34 Delta Troponin T -17.52 ABS# (0-10) L 11/23/21 14:34 C-Reactive Protein < 3.0 mg/L (0.0-4.9) 11/23/21 12:50 NT-Pro-B Natriuret Pep 4530 pg/mL (0-450) H 11/23/21 12:50 Total Protein 7.7 g/dL (6.6-8.7) 11/23/21 12:50 Albumin 4.1 g/dL (3.5-5.2) 11/23/21 12:50 Globulin 3.6 g/dL (1.3-4.6) 11/23/21 12:50 Procalcitonin 0.22 ng/mL (0-0.5) 11/23/21 12:50 TSH 8.29 uIU/mL (0.27-4.20) H 11/23/21 12:50 Free T4 1.36 ng/dL (0.82-1.77) 11/23/21 12:50 Urine Color Yellow (Yellow) 11/23/21 13:10 Urine Appearance Hazy (CLEAR) A 11/23/21 13:10 Urine pH 5 (5-7) 11/23/21 13:10 Ur Specific [place] 1.020 (1.005-1.030) 11/23/21 13:10 Urine Protein 2+ (Negative) H 11/23/21 13:10 Urine Glucose (UA) Norm (Normal) 11/23/21 13:10 Urine Ketones Negative (Negative) 11/23/21 13:10 Urine Blood 3+ (Negative) H 11/23/21 13:10 Urine Nitrate Negative (Negative) 11/23/21 13:10 Urine Bilirubin Neg (Negative) 11/23/21 13:10 Urine Urobilinogen Norm mg/dL (Negative) 11/23/21 13:10 Ur Leukocyte Esterase 2+ (Negative) H 11/23/21 13:10 Urine RBC 15-25 /hpf (0-2) H 11/23/21 13:10 Urine WBC Too numerous to cnt /hpf (0-5) H 11/23/21 13:10 Ur Squamous Epith Cells 5-10 /hpf (0-5) H 11/23/21 13:10 Amorphous Sediment Not Reportable 11/23/21 13:10 Urine Bacteria 2+ /hpf (NONE) H 11/23/21 13:10 Coronavirus 229E (PCR) Not detected (NOT DETECT) 11/23/21 15:19 SARS-CoV-2 (PCR) Not detected (NOT DETECT) 11/23/21 15:19 SARS-CoV-2 Ag (Rapid) Cancelled 11/23/21 15:19 Vitals Last Vital Signs Pulse 94 11/23/21 20:15 Resp 19 H 11/23/21 20:10 BP 100/53 11/23/21 18:02 Pulse Ox 88 L 11/23/21 20:10 Discharge Plan Discharge Patient Disposition: Xfer SNF Condition: Serious Prescriptions: Continued acetaminophen 325 mg Tablet 650 mg PO Q6H PRN (Reason: Pain) 0RF Discontinued hydroxyzine HCl 10 mg tablet 10 mg PO Q6H PRN (Reason: Runny nose or allergies) Qty: 60 3RF aspirin 81 mg tablet,chewable 81 mg PO DAILY 0RF furosemide 20 mg tablet 20 mg PO DAILY PRN (Reason: edema) Qty: 90 1RF alfuzosin 10 mg tablet extended release 24 hr 10 mg PO DAILY Qty: 30 12RF Rx Instructions: administer after the same meal each day atorvastatin 40 mg tablet 40 mg PO DAILY Qty: 90 1RF pregabalin 25 mg capsule 25 mg PO BID 30 Days Qty: 60 3RF alendronate 70 mg tablet 70 mg PO Q7D Qty: 4 1RF Rx Instructions: TAKE 1 TABLET EVERY 7 DAYS ON MONDAYS Mikhail Mag Plus 1 tab PO BID 0RF polyethylene glycol 3350 [Miralax] 17 gram Powder In Packet 17 g PO DAILY PRN (Reason: Constipation) 0RF Virt-Caps 1 mg capsule 1 cap PO DAILY 0RF docusate sodium 100 mg Capsule 100 mg PO BID 30 Days Qty: 60 0RF pantoprazole 40 mg Tablet,Delayed Release (Dr/Ec) 40 mg PO Q24H 30 Days Qty: 30 0RF Phospha 250 Neutral 250 mg Tablet 250 mg PO BID 30 Days Qty: 14 0RF potassium chloride [Klor-Con M20] 20 mEq tablet,ER particles/crystals 20 meq PO DAILY 30 Days Qty: 30 0RF levetiracetam [Keppra] 500 mg Tablet 500 mg PO BID 0RF clopidogrel [Plavix] 75 mg Tablet 75 mg PO DAILY 0RF magnesium hydroxide [Milk of Magnesia] 400 mg/5 mL Suspension 30 ml PO DAILY PRN (Reason: Constipation) 0RF bisacodyl 10 mg Suppository 10 mg NV DAILY PRN (Reason: Constipation) 0RF Enema 19-7 gram/118 mL Enema 118 ml NV DAILY PRN (Reason: Constipation) 0RF bisacodyl 5 mg Tablet 10 mg PO DAILY PRN (Reason: Constipation) 0RF metoprolol tartrate 25 mg tablet 50 mg PO BID 0RF diclofenac sodium 1 % gel 2 g TOPICAL Q6H PRN (Reason: Pain) 0RF Discharge Orders: Discharge Order (Routine); Ordered 11/24/21 Ordered By: Cy Morris Referrals: David Degroot MD [Primary Care Provider] - Patient Instructions: Comfort Measures (GEN) Discharge Attestations Time Spent in Discharge Care*: less than 30 min Status at Discharge: Cognitive status at discharge: mildly impaired cognition, Behavioral status at discharge: cooperative and dependent in ADL's, Quality Metrics Clinical Quality Measures [ No reported AMI, CVA or VTE this stay] Coding Level of Care Code Acute Chg FW DC note Diagnoses Need for comfort care
[2021-11-24 14:58] LABS: SARS Covid-2 Antigen Negative (Negative)
--- NOTE | 2021-11-24 19:24 | PC.NURSE ---
Patient is being transfered back to senior living by [facility]'s. Discharge paper work given to EMS. Gave report of patient being a DNR/comfort care. Patient still breathing very shallow and irregularly. No verbal response.
--- NOTE | 2021-11-24 19:55 | PC.NURSE ---
THIS NURSE ASKED DR. PRICE FOR AN OUT OF HOSPITAL DNR FOR [facility]. DR. PRICE STATED THAT IT WOULDN'T BE NEEDED. THIS NURSE NOTIFIED [facility] WHEN THEY ARRIVED TO TRANSFER PATIENT.
[2021-11-24 20:31] VITALS: BP 100/53; PULSE 94; RESP 19; O2SAT 88
== END 2021-11-24 19:30 | disposition skilled nursing facility (03) ==
LOC: ER 17:32 → CSU 17:38 → MEDSURG 11-24 00:55
PROVIDERS: Admitting Provider Internal Medicine; Emergency Provider Emergency Medicine; PCP Family Medicine Adult Medicine; Visit Provider Internal Medicine
DX: Z51.5 Encounter for palliative care (principal); I63.9 Cerebral infarction, unspecified; G30.9 Alzheimer's disease, unspecified; F02.80 Dementia in other diseases classified elsewhere, unspecified severity, without behavioral disturbance, psychotic disturbance, mood disturbance, and anxiety; J44.9 Chronic obstructive pulmonary disease, unspecified; E78.5 Hyperlipidemia, unspecified; I10 Essential (primary) hypertension; M81.0 Age-related osteoporosis without current pathological fracture; Z79.82 Long term (current) use of aspirin; F17.210 Nicotine dependence, cigarettes, uncomplicated; Z82.49 Family history of ischemic heart disease and other diseases of the circulatory system; R41.82 Altered mental status, unspecified; N39.0 Urinary tract infection, site not specified; N17.9 Acute kidney failure, unspecified; E86.0 Dehydration; J96.00 Acute respiratory failure, unspecified whether with hypoxia or hypercapnia
CPT/HCPCS: 36415; 36416; 36600; 51702; 70450; 71045; 80053; 81001; 82803; 82962; 83735; 83880; 84100; 84145; 84439; 84443; 84484; 85025; 86140; 87040; 87070; 87077; 87086; 87186; 87205; 87426; 87635; 93005; 94002; 94640; 94799; 96365; 96366; 96367; 96375; 99291; G0378; J0692; J2704; J3010; J3370; J7050; J7611